=== PATIENT | female | born 1945 | race Caucasian/White ===

== ENCOUNTER → 2017-09-17 15:57 | Outpatient (CLI) | payer MEDICARE, SELFPAY | PROVIDERS: Family Provider Internal Medicine; PCP Internal Medicine; Visit Provider Otolaryngology Otolaryngology/Facial Plastic Surgery | DX: J32.9 Chronic sinusitis, unspecified (principal) | CPT/HCPCS: 87070; 87077; 87186; 87205 ==

== ENCOUNTER → 2018-04-17 15:53 | Outpatient (CLI) | payer MEDICARE, OTHER, SELFPAY | PROVIDERS: Family Provider Internal Medicine; PCP Internal Medicine; Visit Provider Otolaryngology Otolaryngology/Facial Plastic Surgery | DX: J32.9 Chronic sinusitis, unspecified (principal) | CPT/HCPCS: 87070; 87077; 87186; 87205 ==

== ENCOUNTER → 2018-04-26 16:50 | Outpatient (CLI) | payer MEDICARE, OTHER, SELFPAY | PROVIDERS: Family Provider Internal Medicine; PCP Internal Medicine; Visit Provider Otolaryngology Otolaryngology/Facial Plastic Surgery | DX: J32.9 Chronic sinusitis, unspecified (principal) | CPT/HCPCS: 87070; 87205 ==

== ENCOUNTER → 2018-06-19 16:06 | Outpatient (CLI) | payer MEDICARE, OTHER, SELFPAY | PROVIDERS: Family Provider Internal Medicine; PCP Internal Medicine; Referring Provider Otolaryngology Otolaryngology/Facial Plastic Surgery; Visit Provider Otolaryngology Otolaryngology/Facial Plastic Surgery | DX: J32.9 Chronic sinusitis, unspecified (principal) | CPT/HCPCS: 87070; 87077; 87186; 87205 ==

== ENCOUNTER → 2018-07-23 14:11 | Outpatient (CLI) | payer MEDICARE, OTHER, SELFPAY ==
--- NOTE | 2018-07-23 14:17 | CT_ITS ---
STUDY: CT MAXILLOFACIAL SINUSES REASON FOR EXAM: Female, 72 years old. Sinus surgery x2. Sinus drainage bilaterally. RADIATION DOSAGE (If Supplied By Facility): CTDIvol = ( 33.45 ) mGy, DLP = ( 780.55 ) mGycm TECHNIQUE: The patient was scanned in a multi detector CT scanner. High resolution axial imaging was performed without the administration of intravenous contrast material. Sagittal and coronal images were reconstructed. Individualized dose optimization techniques were used for this CT. COMPARISON: None. FINDINGS: FRONTAL SINUSES: Mild mucosal thickening in the frontal sinuses. ETHMOIDAL SINUSES: Bilateral ethmoidectomy defects. Minimal mucosal thickening in the remaining right anterior ethmoid sinus. MAXILLARY SINUSES: Mild mucosal thickening with air-fluid levels in the maxillary sinuses. SPHENOIDAL SINUSES: Mild mucosal thickening with sclerotic wall thickening of the sphenoid sinuses from chronic sinusitis. Widely patent bilateral ethmoidectomy sites and uncinectomy sites. Postsurgical absence of the middle turbinates. Normal bilateral inferior turbinates. Normal midline nasal septum. There is patency of the bilateral nasal airways. The visualized osseous structures are normal. The visualized bilateral orbital contents are normal. CT/Sinus/Facial Bone IMPRESSION: 1. Mild mucosal thickening with air-fluid levels in the maxillary sinuses due to acute sinusitis superimposed on chronic sinusitis. 2. Mild mucosal thickening in the residual right anterior ethmoid sinus. 3. Mild mucosal thickening in the frontal sinuses and sphenoid sinuses with sclerotic wall thickening due to chronic sinusitis. 4. Widely patent bilateral ethmoidectomy sites and bilateral uncinectomy sites. 5. Midline nasal septum. 6. Postsurgical absence of the middle turbinates. Electronically Signed: Maurice Greco MD at 13:23 EST , Service support ,
== END ==
PROVIDERS: Family Provider Internal Medicine; PCP Internal Medicine; Referring Provider Otolaryngology; Visit Provider Otolaryngology
DX: J32.9 Chronic sinusitis, unspecified (principal)
CPT/HCPCS: 70486

== ENCOUNTER 2019-01-23 14:23 | Inpatient (IN) | payer MEDICARE, OTHER, SELFPAY ==
[2019-01-23] VITALS (9 sets, daily range): BP systolic 102–133; BP diastolic 57–78; PULSE 94–114; RESP 17–20; TEMP 37.2–38.2; O2SAT 89–98; BMI 21.7; BMI 21.4
--- NOTE | 2019-01-23 15:00 | RAD_ITS ---
STUDY: X-RAY CHEST REASON FOR EXAM: Female, 73 years old. Cough and wheezing TECHNIQUE: PA and lateral COMPARISON: None. FINDINGS: Lungs are mildly hyperinflated and there is multifocal linear calcifications seen bilaterally. There are poorly defined nodular opacity seen within the lower lobes bilaterally. There appears to be subsegmental atelectasis or infiltrate at the left lung base. There is blunting of the costophrenic sulci likely representing pleural thickening although tiny effusions are not excluded. Normal size heart. Normal mediastinum and kelly. Normal visualized pulmonary arteries. Normal visualized aortic arch and descending thoracic aorta. Dorsal spine demonstrates spondylosis. There are compression fractures status post kyphoplasty. Normal visualized ribs, clavicles, and shoulders. There is no demonstrated abnormality of the visualized soft tissue structures of the upper abdomen. RAD/Chest PA and Lateral IMPRESSION: COPD. Mild left lower lobe atelectasis or infiltrate. Bilateral poorly defined nodular opacities in the lower lobes. Would recommend CT for further evaluation Electronically Signed: Len Quiroz MD at 16:53 EDT , Service support ,
--- NOTE | 2019-01-23 15:00 | EKG12_ITS ---
Test Reason : Blood Pressure : / mmHG Vent. Rate : 105 BPM Atrial Rate : 105 BPM P-R Int : 134 ms QRS Dur : 098 ms QT Int : 320 ms P-R-T Axes : 066 -19 046 degrees QTc Int : 422 ms Sinus tachycardia Low voltage QRS Borderline ECG Confirmed by FLACO OCONNELL MD ([id number]), newspaper managing editor ELFEGO MAS ([id number]) on 01/28/2019 8:22:27 AM Referred By: [facility] Confirmed By:FLACO OCONNELL MD
--- NOTE | 2019-01-23 15:26 | ED.VISSUMM ---
- ER Visit Summary Date of Service: 01/23/19 Chief Complaint: Cough and fever History of Present Illness: The patient is a 73 F who presents with cough and fever that has been getting worse over the past 5 days. Patient states she has having some generalized weakness. Patient states she is coughing up some brown sputum. Patient states she has a fever of 101 at home. Patient states she is allergic to aspirin, ibuprofen, and and acetaminophen so she cannot take any antipyretics. Patient admits to some shortness of breath. Patient also admits to sore throat and rhinorrhea. Patient also admits to some mild dysuria. Patient also admits to a headache. States she has some sharp pain in the left temporal area. Physical Examination: Vital signs are stable. Patient is afebrile here. Patient is in no acute distress. Oral mucosa is pink and moist. Neck is supple. Trachea is midline. There is no JVD noted. Heart was regular and tachycardic. Lungs showed diffuse rhonchi. There is good respiratory effort noted. Abdomen is soft. Bowel sounds are normal. There is no tenderness. There is no rebound or guarding noted. Cranial nerves II to XII are intact. There are no focal motor or sensory deficits noted. Test Results: EKG shows a sinus tachycardia with a rate of 105. There are no acute ST or T wave changes. CBC shows a leukocytosis of 18.8. Basic metabolic profile was essentially within normal limits. Troponin was normal. PA and lateral chest x-ray shows mild left lower lobe atelectasis or infiltrate. Given her symptoms, this is more likely an infiltrate. Blood cultures were obtained. Emergency Department Course and Treatment: Patient has a history of multiple allergies to multiple antibiotics. Patient thinks she is allergic to Levaquin. Patient knows that she can take Augmentin and amoxicillin. Patient also thinks she is able to tolerate Zithromax. Patient was started on Unasyn and Zithromax here in the emergency department. Patient's pulse oximeter dropped to 88% on room air. Patient was started on oxygen. Case was discussed with the hospitalist, Dr. Frederick. He will admit the patient to his service. Disposition: Admit to hospital Impression: Community-acquired pneumonia This note was generated with [employer] dictation software. It may contain incorrect words, spelling, and punctuation that were not noted in review of the chart prior to signing , ED Disposition - Plan for ED Patient: Disposition: Acute Care Hospital [facility] Diagnosis: Community acquired pneumonia Referrals: Evelyne Pascal MD [Primary Care Provider] -
--- NOTE | 2019-01-23 15:30 | ED.DCSUM_ITS ---
- ER Visit Summary Date of Service: 01/23/19 Chief Complaint: Cough and fever History of Present Illness: The patient is a 73 F who presents with cough and fever that has been getting worse over the past 5 days. Patient states she has having some generalized weakness. Patient states she is coughing up some brown sputum. Patient states she has a fever of 101 at home. Patient states she is allergic to aspirin, ibuprofen, and and acetaminophen so she cannot take any antipyretics. Patient admits to some shortness of breath. Patient also admits to sore throat and rhinorrhea. Patient also admits to some mild dysuria. Patient also admits to a headache. States she has some sharp pain in the left temporal area. Physical Examination: Vital signs are stable. Patient is afebrile here. Patient is in no acute distress. Oral mucosa is pink and moist. Neck is supple. Trachea is midline. There is no JVD noted. Heart was regular and tachycardic. Lungs showed diffuse rhonchi. There is good respiratory effort noted. Abdomen is soft. Bowel sounds are normal. There is no tenderness. There is no rebound or guarding noted. Cranial nerves II to XII are intact. There are no focal motor or sensory deficits noted. Test Results: EKG shows a sinus tachycardia with a rate of 105. There are no acute ST or T wave changes. CBC shows a leukocytosis of 18.8. Basic metabolic profile was essentially within normal limits. Troponin was normal. PA and lateral chest x-ray shows mild left lower lobe atelectasis or infiltrate. Given her symptoms, this is more likely an infiltrate. Blood cultures were obtained. Emergency Department Course and Treatment: Patient has a history of multiple allergies to multiple antibiotics. Patient thinks she is allergic to Levaquin. Patient knows that she can take Augmentin and amoxicillin. Patient also thinks she is able to tolerate Zithromax. Patient was started on Unasyn and Zithromax here in the emergency department. Patient's pulse oximeter dropped to 88% on room air. Patient was started on oxygen. Case was discussed with the hospitalist, Dr. Frederick. He will admit the patient to his service. Disposition: Admit to hospital Impression: Community-acquired pneumonia This note was generated with [employer] dictation software. It may contain incorrect words, spelling, and punctuation that were not noted in review of the chart prior to signing , ED Disposition - Plan for ED Patient: Disposition: Acute Care Hospital [facility] Diagnosis: Community acquired pneumonia Referrals: Evelyne Pascal MD [Primary Care Provider] -
[2019-01-23 15:36] LABS: Absolute Lymphocyte Count 1.75 X10^3/ul (0.83-4.51); Absolute Neutrophil Count 15.8 X10^3/uL (2.0-7.7); Basophil# 0.01 X10^3/uL; Basophil% 0.1 % (0-1); Hematocrit 37.8 % (37-47); Hemoglobin 13.2 g/dl (12.0-15.0); Lymphocyte # 1.75 X10^3/ul (4.0); Lymphocyte % 9.3 % (19-41); Mean Corp Hgb Conc 34.9 g/gl (32-36); Mean Corpuscular Hgb 30.3 pg (27.0-32.0); Mean Corpuscular Volume 86.9 fL (81-99); Mean Platelet Vol. 9.5 fl (6.2-12.0); Monocyte# 1.03 X10^3/uL; Monocyte% 5.5 % (0-10); Neutrophil # 15.84 X10^3/uL (2.7-7.7); Neutrophil % 84.5 % (47-70); Platelet Count 186 K/mm3 (150-450); RBC Distribution Width CV 12.8 % (11.6-14.6); RBC Distribution Width SD 41.2 fl (35.1-43.9); Red Blood Count 4.35 M/mm3 (4.2-5.4); White Blood Count 18.8 K/mm3 (4.4-11.0)
[2019-01-23 15:37] LABS: Differential Indicated SCAN CRITERIA MET; POSITIVE COUNT NO; POSITIVE DIFFERENTIAL NO; POSITIVE MORPHOLOGY YES
[2019-01-23 16:03] LABS: Anion Gap 10 (5-15); BUN 10 mg/dL (7-18); BUN/Creat Ratio 11.8 RATIO (10-20); Calcium,Total 8.3 mg/dL (8.5-10.1); Chloride 97 mmol/L (98-107); Creatinine, Serum 0.85 mg/dL (0.55-1.02); EST Glomerular Filtration Rate 70 mL/min (>60); Est Glom Filt Rate - Afr Amer 85 mL/min (>60); Estimated Creatinine Clearance 48.01 ml/min; Glucose 138 mg/dL (74-106); Potassium 3.6 mmol/L (3.5-5.1); Sodium Level 134 mmol/L (136-145)
[2019-01-23 16:04] LABS: Platelet Estimate ADEQUATE (ADEQ); Red Cell Morphology NORM C+C NORMAL (NORM C&C)
--- NOTE | 2019-01-23 17:24 | PCM.HP.STD ---
Problem List (1) Sepsis Status: Acute (2) Community acquired pneumonia Status: Acute (3) COPD (chronic obstructive pulmonary disease) Status: Chronic (4) GERD (gastroesophageal reflux disease) Status: Acute (5) Chronic sinusitis Status: Chronic History of Present Illness Date of Admission: 01/23/19 Chief Complaint: Shortness of breath and fatigue The patient is a 73 year old F with PMH as below who presents with 5 days of not feeling well. She says initially she had upper respiratory infection-like symptoms and a sore throat and she went to an urgent care and was given steroid and symptomatic treatment. She has since progressed to having fevers at home as well as a productive cough and she presented to the ER with a left lower lobe consolidation on chest x-ray as well as a leukocytosis to 18. She has not been able to eat or drink anything over the last several days because she said that everything tasted like medicine so she is afraid she might be dehydrated. She was maintaining her saturations in the ER okay on room air though she did drop to 89% and was placed on 2 L nasal cannula. Past Medical History Past Medical History (Chronic Problems): Chronic Problems COPD (chronic obstructive pulmonary disease) (Chronic) Chronic sinusitis (Chronic) Allergies acetaminophen Allergy (Verified 01/23/19 14:29) Shortness of breath aspirin Allergy (Verified 01/23/19 14:29) Shortness of breath cefuroxime [From Ceftin] Allergy (Verified 01/23/19 14:29) Shortness of breath citric acid [From [place]] Allergy (Verified 01/23/19 14:29) Shortness of breath ibuprofen Allergy (Verified 01/23/19 14:29) Shortness of breath sodium bicarbonate [From [place]] Allergy (Verified 01/23/19 14:29) Shortness of breath diclofenac Adverse Reaction (Verified 01/23/19 14:29) Upset Stomach MANY OTHERS Allergy (Uncoded 01/23/19 14:29) Other Surgical History: hysterectomy, - - Foot, sinus, wrist surgeries Smoking Status: Never smoker Alcohol: None Drugs: None - *Family History Maternal History Items: Cancer, Heart Disease Paternal History Items: Cancer, Heart Disease Review of Systems Constitutional: Reports: Chills, Fever, Fatigue. Denies: Weight Change HEENT: Denies: Head Aches, Sinus Congestion, Sinus Drainage Cardiovascular: Denies: Chest Pain, Palpitations Respiratory: Reports: Cough, Shortness of Breath, Sputum production. Denies: Shortness of breath at rest Gastrointestinal: Denies: Abdominal Pain, Nausea, Vomiting Genitourinary: Denies: Dysuria Musculoskeletal: Denies: Joint Pain, Joint Tenderness Skin: Denies: Rash, Wounds Neurological: Denies: Numbness, Tingling, Focal weakness Psychiatric: Denies: Anxiety, Depression, Suicidal Ideations Hematologic/ Lymphatic: Denies: Easy Bruising, Easy Bleeding VTE Information - Inpt Only VTE Present on Admission: No Patient Problems: Active and Suspected Problems Community acquired pneumonia (Acute) Sepsis (Acute) GERD (gastroesophageal reflux disease) (Acute) - Physical Exam General: Alert, Oriented x3, Cooperative, No apparent distress HEENT: Atraumatic, PERRLA, EOMI, Normocephalic Oral: Dry Mucosa Neck: Supple, No JVD Lungs: Clear to auscultation, No rhonchi, No wheeze, No rales, Diminished, - - Poor air movement Cardiovascular: Regular rate, Regular Rhythm, Normal S1, Normal S2, No murmurs Abdomen: Soft, Non Tender, Non-Distended, No Hepato-splenomegaly Extremities: No edema, Capillary Refill Less than 3 Seconds Skin: No rashes, No breakdown Neurological: Neuro grossly intact, Sensory exam intact to light touch and pain Psych/Mental Status: Normal Affect, Appropriate Vital Signs Temp Pulse Resp BP Pulse Ox 99.0 F 101 H 19 H 105/61 96 01/23/19 17:10 01/23/19 17:10 01/23/19 17:10 01/23/19 17:10 01/23/19 17:10 Oxygen Flow Rate (L/min) 3 Oxygen Delivery Method Room Air Weight: 119 lb Body Mass Index (BMI) 21.7 Laboratory Tests Past 24 Hrs 01/23/19 01/23/19 15:23 15:23 WBC 18.8 H RBC 4.35 Hgb 13.2 Hct 37.8 MCV 86.9 MCH 30.3 MCHC 34.9 RDW 12.8 RDW Differential 41.2 Plt Count 186 MPV 9.5 Immature Gran % (Auto) 0.600 Neut % (Auto) 84.5 H Lymph % (Auto) 9.3 L [place] % (Auto) 5.5 Eos % (Auto) 0.0 Baso % (Auto) 0.1 Absolute Neuts (auto) 15.8 H Absolute Lymphs (auto) 1.75 Total Counted Not Reportable Platelet Estimate ADEQUATE RBC Morphology NORM C+C Sodium 134 L Potassium 3.6 Chloride 97 L Carbon Dioxide 27.0 Anion Gap 10 BUN 10 Creatinine 0.85 Estim Creat Clear Calc 48.01 Est GFR (MDRD) Af Amer 85 Est GFR (MDRD) Non-Af 70 BUN/Creatinine Ratio 11.8 Glucose 138 H Calcium 8.3 L Troponin I < 0.015 Assessment/Plan All Active Problems Community acquired pneumonia (Acute) Sepsis (Acute) GERD (gastroesophageal reflux disease) (Acute) 1. 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 Asthma versus COPD -In a possible exacerbation -Continue with DuoNeb and Solu-Medrol 40 IV 3 times daily -She is on Brio Ellipta and Symbicort as an outpatient -She is also on albuterol as needed 3. Depression/anxiety -Stable -Continue with Cymbalta 4. GERD -Stable -Continue with PPI 5. Chronic sinusitis -She has had multiple sinus surgeries and revisions. -Continue with her beclomethasone dipropionate and Astelin nasal sprays DVT: Lovenox
--- NOTE | 2019-01-23 17:36 | NURSING ---
114 MED SURG KOTSONIS PNEUMONIA
--- NOTE | 2019-01-23 17:45 | CASEMGMT ---
RN CM Assessment Introduced role of RN CM to patient.? Patient is alert, oriented and able?to participate in RN CM Assessment. ?Care providers, pharmacy, and demographics verified. Presentation: Fever, Cough, SOB, Generalized Weakness-worse over the past 5days. Admit Dx: PNA Re-Admit: No Barriers/Issues: Patient tearful/scared as she was told that she has nodules in her lungs, states all she can do is have ppl pray for her. CM offered Hospital Sample Taker Operator to visit her tomorrow if available and agrees. Denies ever being a smoker. States that her family did though, states strong family h/o cancer. PCP: Evelyne Pascal Specialists: ENT- Dr Rice, Neuro in [place] for Essential Tremors- Dr Alma Courtney, Pulm- Dr Ortiz Patel Pref[facility]acy: [facility] Insurance: [employer], [employer] [facility] Rx Benefit:?Yes LNOK: Stanley Elizabeth LW/HPOA: Yes both on file at [facility], HPOA- Stanley Elizabeth Living Arrangements:? Lives with her in a Ranch home, 3 steps to enter ADL?s: Independent with ambulation and ADL's Transportation: Patient drives, upon DC DME: Nebulizer, Preference of whomever took over for [facility] if DME needed or Company in network with [facility] secondary. HHC: None SNF: None Goal: Home, does not think will need anything. Denies questions or concerns at this time, aware CM remains available for an emerging needs. DC PLAN: Home with possible Home O2. RADHA Orantes
[2019-01-23] MEDS: 0.9% Normal Saline 1,000 ML 100 ML IV (18:47)
[2019-01-23] MEDS: Ipratropium/Albuterol Sulfate 3 ML AMPUL.NEB INHALATION ×2 (19:03→22:52)
--- NOTE | 2019-01-23 20:20 | NURSING ---
Patient called out d/t burning up L arm after started IV zithromax. Redness/warm noted to L arm, face, and back. Vitals unchanged. Denies feelings of swelling/itching anywhere else. Will contact doctor.
[2019-01-23] MEDS: LORazepam 0.5 MG Tablet 1 MG PO (21:34)
[2019-01-23] MEDS: levoFLOXacin IV 750 MG/150 ML BAG 100 MG IV (22:08)
[2019-01-24] VITALS (11 sets, daily range): BP systolic 117–133; BP diastolic 53–66; PULSE 89–120; RESP 15–18; TEMP 36.7–37.1; O2SAT 92–98
[2019-01-24 06:16] LABS: Absolute Lymphocyte Count 1.33 X10^3/ul (0.83-4.51); Basophil# 0.02 X10^3/uL; Basophil% 0.1 % (0-1); Hematocrit 35.5 % (37-47); Hemoglobin 12.1 g/dl (12.0-15.0); Lymphocyte # 1.33 X10^3/ul (4.0); Lymphocyte % 8.8 % (19-41); Mean Corp Hgb Conc 34.1 g/gl (32-36); Mean Corpuscular Volume 87.9 fL (81-99); Mean Platelet Vol. 9.7 fl (6.2-12.0); Monocyte# 1.71 X10^3/uL; Monocyte% 11.3 % (0-10); Neutrophil # 11.97 X10^3/uL (2.7-7.7); Neutrophil % 78.9 % (47-70); Platelet Count 203 K/mm3 (150-450); RBC Distribution Width CV 12.7 % (11.6-14.6); RBC Distribution Width SD 39.8 fl (35.1-43.9); Red Blood Count 4.04 M/mm3 (4.2-5.4); White Blood Count 15.2 K/mm3 (4.4-11.0)
[2019-01-24 06:19] LABS: Differential Indicated SCAN CRITERIA MET; POSITIVE COUNT NO; POSITIVE DIFFERENTIAL YES; POSITIVE MORPHOLOGY NO
[2019-01-24 06:33] LABS: Anion Gap 8 (5-15); BUN 7 mg/dL (7-18); BUN/Creat Ratio 9.8 RATIO (10-20); Calcium,Total 7.7 mg/dL (8.5-10.1); Chloride 104 mmol/L (98-107); Creatinine, Serum 0.71 mg/dL (0.55-1.02); EST Glomerular Filtration Rate 86 mL/min (>60); Est Glom Filt Rate - Afr Amer 104 mL/min (>60); Estimated Creatinine Clearance 40.81 ml/min; Glucose 132 mg/dL (74-106); Potassium 3.8 mmol/L (3.5-5.1); Sodium Level 137 mmol/L (136-145)
[2019-01-24] MEDS: Ipratropium/Albuterol Sulfate 3 ML AMPUL.NEB INHALATION ×4 (07:05→19:40)
[2019-01-24] MEDS: 0.9% Normal Saline 1,000 ML 100 ML IV ×2 (08:15→18:50)
[2019-01-24] MEDS: Estrogens,Conj. 0.625 MG Tablet PO (08:15)
--- NOTE | 2019-01-24 08:56 | CASEMGMT ---
LW/POAdriana in echart, SW printed and placed in chart. MORRIS Calderon
--- NOTE | 2019-01-24 09:19 | CASEMGMT ---
SW met w/pt in room, pt tearful. Pt was told has nodules on her lungs, is concerned about it. Pt explains has not been feeling well for a week, has been in bed. She is not used to being a patient in the hospital, and it is difficult. Pt is used to being very independent. Pt also has a history of depression. Pt explains that she did not used to be depressed, lost a son nine years ago and has been depressed since. Pt does see Dr. Leavitt at [facility] for counseling and states that this is helpful. Pt reports her family to be supportive, is , has another son and step son. She states her is very busy however, and told her step son to not come see her as he could get sick. Her son is in [place]. Pt has been texting w/her family. Pt is one of 12 children, lost a brother last year--which brought back a lot from when she lost her son. Pt does deny being suicidal at this time. SW offered support to pt in regard to her loss and her current health issues. SW let pt know that SW remains available for support should she want to see SW again. She also confirms would like to speak w/the technical sme, SW explained will call. SW called Pizza Delivery Driver and left a message to see pt. SW remains available otherwise no further needs are anticipated. MORRIS Calderon
[2019-01-24] MEDS: Montelukast 10 MG Tablet PO (10:56)
[2019-01-24] MEDS: DULoxetine Hcl 30 MG Capsule PO (10:56)
[2019-01-24] MEDS: Pantoprazole Sodium 40 MG Tablet PO (10:56)
[2019-01-24] MEDS: Enoxaparin 40 MG/0.4 ML Syringe SC (10:56)
[2019-01-24] MEDS: Azelastine HCl NASAL.SRY 2 SPRAY NASAL (10:56)
--- NOTE | 2019-01-24 12:25 | PCM.PROGNOTE ---
<Macarena Gong - Last Filed: 01/24/19 12:46> Patient Problems: Active and Suspected Problems Community acquired pneumonia (Acute) Sepsis (Acute) GERD (gastroesophageal reflux disease) (Acute) Subjective: Patient seen and examined. Reports she still feels generally unwell however breathing slightly improved. Fever improved. - Physical Exam General: Alert, Oriented x3, Cooperative HEENT: Atraumatic, PERRLA, EOMI, Normocephalic Oral: Dry Mucosa Neck: Supple, No JVD, Negative Carotid Bruits Lungs: Clear to auscultation, Diminished Cardiovascular: Regular rate, Regular Rhythm, Normal S1, Normal S2, No murmurs Abdomen: Bowel Sounds Present, Soft, Non Tender, Non-Distended Extremities: No clubbing, No cyanosis, No edema, Capillary Refill Less than 3 Seconds Skin: No rashes, No breakdown Musculoskeletal: No Tenderness to Palpation of Joints or Extremities Neurological: Cranial nerves II-XII grossly intact, Neuro grossly intact Psych/Mental Status: Normal Affect, Appropriate Vital Signs Temp Pulse Resp BP Pulse Ox 98.2 F 116 H 15 118/57 L 92 01/24/19 10:49 01/24/19 10:49 01/24/19 10:49 01/24/19 10:49 01/24/19 11:07 Oxygen Flow Rate (L/min) 1 Oxygen Delivery Method Room Air Weight: 119 lb 0.794 oz Body Mass Index (BMI) 21.4 Intake and Output for Last 24 Hours 01/22/19 01/23/19 01/24/19 23:59 23:59 23:59 Intake Total 994 / 994 1695 / 1695 Balance 994 / 994 1695 / 1695 Laboratory Tests Past 24 Hrs 01/23/19 01/23/19 01/24/19 15:23 15:23 05:40 WBC 18.8 H RBC 4.35 Hgb 13.2 Hct 37.8 MCV 86.9 MCH 30.3 MCHC 34.9 RDW 12.8 RDW Differential 41.2 Plt Count 186 MPV 9.5 Immature Gran % (Auto) 0.600 Neut % (Auto) 84.5 H Lymph % (Auto) 9.3 L [place] % (Auto) 5.5 Eos % (Auto) 0.0 Baso % (Auto) 0.1 Absolute Neuts (auto) 15.8 H Absolute Lymphs (auto) 1.75 Total Counted Not Reportable Diff Path Review Platelet Estimate ADEQUATE RBC Morphology NORM C+C Sodium 134 L 137 Potassium 3.6 3.8 Chloride 97 L 104 Carbon Dioxide 27.0 25.0 Anion Gap 10 8 BUN 10 7 Creatinine 0.85 0.71 Estim Creat Clear Calc 48.01 40.81 Est GFR (MDRD) Af Amer 85 104 Est GFR (MDRD) Non-Af 70 86 BUN/Creatinine Ratio 11.8 9.8 L Glucose 138 H 132 H Calcium 8.3 L 7.7 L Troponin I < 0.015 01/24/19 05:40 WBC 15.2 H RBC 4.04 L Hgb 12.1 Hct 35.5 L MCV 87.9 MCH 30.0 MCHC 34.1 RDW 12.7 RDW Differential 39.8 Plt Count 203 MPV 9.7 Immature Gran % (Auto) 0.900 Neut % (Auto) 78.9 H Lymph % (Auto) 8.8 L [place] % (Auto) 11.3 H Eos % (Auto) 0.0 Baso % (Auto) 0.1 Absolute Neuts (auto) 12.0 H Absolute Lymphs (auto) 1.33 Total Counted Not Reportable Diff Path Review May foll Platelet Estimate RBC Morphology Sodium Potassium Chloride Carbon Dioxide Anion Gap BUN Creatinine Estim Creat Clear Calc Est GFR (MDRD) Af Amer Est GFR (MDRD) Non-Af BUN/Creatinine Ratio Glucose Calcium Troponin I Medical Necessity - Tobacco Use Smoking Status: Never smoker Assessment/Plan All Active Problems Community acquired pneumonia (Acute) Sepsis (Acute) GERD (gastroesophageal reflux disease) (Acute) 1. Acute hypoxic respiratory insufficiency secondary to sepsis secondary to community acquired pneumonia presumed secondary to gram-positive organism-chest x-ray admission with COPD, left lower lobe atelectasis or infiltrate. Leukocytosis improving. Blood culture pending. Sputum culture ordered. Continue IV Levaquin. DuoNeb aerosol. Continue supplement oxygen to maintain O2 at or above 90%. Wean as tolerated. 2. Asthma versus COPD with possible exacerbation-patient on Brio Ellipta and Symbicort at baseline. Albuterol and DuoNeb aerosols. IV Solu-Medrol. Recommend outpatient follow-up for pulmonary function testing and CT of chest following discharge. 3. GERD-continue PPI. 4. Chronic sinusitis-history of multiple sinus surgeries. Continue home beclomethasone and Astelin regimen. 5. Depression/anxiety-continue home duloxetine, Ativan, trazodone regimen. DVT prophylaxis-Lovenox subcu This patient was seen by MARTY Ruano under the supervision of Dr. Smith. <SarahNoni - Last Filed: 01/24/19 14:21> - Physical Exam Vital Signs Temp Pulse Resp BP Pulse Ox 98.2 F 116 H 15 118/57 L 92 01/24/19 10:49 01/24/19 10:49 01/24/19 10:49 01/24/19 10:49 01/24/19 11:07 Oxygen Flow Rate (L/min) 1 Oxygen Delivery Method Room Air Weight: 119 lb 0.794 oz Body Mass Index (BMI) 21.4 Intake and Output for Last 24 Hours 01/22/19 01/23/19 01/24/19 23:59 23:59 23:59 Intake Total 994 / 994 1695 / 1695 Balance 994 / 994 1695 / 1695 Laboratory Tests Past 24 Hrs 01/23/19 01/23/19 01/24/19 15:23 15:23 05:40 WBC 18.8 H RBC 4.35 Hgb 13.2 Hct 37.8 MCV 86.9 MCH 30.3 MCHC 34.9 RDW 12.8 RDW Differential 41.2 Plt Count 186 MPV 9.5 Immature Gran % (Auto) 0.600 Neut % (Auto) 84.5 H Lymph % (Auto) 9.3 L [place] % (Auto) 5.5 Eos % (Auto) 0.0 Baso % (Auto) 0.1 Absolute Neuts (auto) 15.8 H Absolute Lymphs (auto) 1.75 Total Counted Not Reportable Diff Path Review Platelet Estimate ADEQUATE RBC Morphology NORM C+C Sodium 134 L 137 Potassium 3.6 3.8 Chloride 97 L 104 Carbon Dioxide 27.0 25.0 Anion Gap 10 8 BUN 10 7 Creatinine 0.85 0.71 Estim Creat Clear Calc 48.01 40.81 Est GFR (MDRD) Af Amer 85 104 Est GFR (MDRD) Non-Af 70 86 BUN/Creatinine Ratio 11.8 9.8 L Glucose 138 H 132 H Calcium 8.3 L 7.7 L Troponin I < 0.015 01/24/19 05:40 WBC 15.2 H RBC 4.04 L Hgb 12.1 Hct 35.5 L MCV 87.9 MCH 30.0 MCHC 34.1 RDW 12.7 RDW Differential 39.8 Plt Count 203 MPV 9.7 Immature Gran % (Auto) 0.900 Neut % (Auto) 78.9 H Lymph % (Auto) 8.8 L [place] % (Auto) 11.3 H Eos % (Auto) 0.0 Baso % (Auto) 0.1 Absolute Neuts (auto) 12.0 H Absolute Lymphs (auto) 1.33 Total Counted Not Reportable Diff Path Review May foll Platelet Estimate RBC Morphology Sodium Potassium Chloride Carbon Dioxide Anion Gap BUN Creatinine Estim Creat Clear Calc Est GFR (MDRD) Af Amer Est GFR (MDRD) Non-Af BUN/Creatinine Ratio Glucose Calcium Troponin I Assessment/Plan Patient seen by MARTY Ruano under my supervision Patient was admitted with complaint of general feeling of unwellness, shortness of breath and fatigue for 5 days. She had previously been seen at an urgent care center for upper respiratory tract infection and a sore throat and was told she had a viral respiratory infection was given steroids and breathing treatments. However subsequently did not feel better and continued to have fevers and chills as well as a productive cough and persistent anorexia. She therefore came into the ED where she was found to have a left lower lobe consolidation and leukocytosis of 18. She is being managed for acute hypoxic respiratory insufficiency due to community-acquired pneumonia. Of note, she was saturating at 89% on room air in the ED and required 2 L of oxygen. Patient seen and examined this morning. She was quite tearful because she said her son about 9 years ago when she was told morning him. Additionally she also missed her granddaughters graduation constitution party due to her not being well. She has been battling depression and is currently seeing a psychologist. States her breathing is a bit better and she still coughing productive of brownish sputum. She denies any chest pain or palpitations, dizziness, diarrhea vomiting. Review of systems otherwise negative. Labs and vitals reviewed. o/e: Vital Signs Height 5 ft 2.5 in Weight: 119 lb 0.794 oz Weight in Pounds 119.0 lbs Pulse Ox 92 Temperature 98.2 F Pulse Rate 116 Respiratory Rate 15 Blood Pressure 118/57 Blood Pressure Position Semi-Fowlers General: Alert, Oriented x3, Cooperative HEENT: Atraumatic, PERRLA, EOMI, Normocephalic Oral: Dry Mucosa Neck: Supple, No JVD, Negative Carotid Bruits Lungs: decreased breath sounds bibasally, no wheezes or crackles. on 1L of oxygen. Cardiovascular: Regular rate, Regular Rhythm, Normal S1, Normal S2, No murmurs Abdomen: Bowel Sounds Present, Soft, Non Tender, Non-Distended Extremities: No clubbing, No cyanosis, No edema, Capillary Refill Less than 3 Seconds Skin: No rashes, No breakdown Musculoskeletal: No Tenderness to Palpation of Joints or Extremities Neurological: Cranial nerves II-XII grossly intact, Neuro grossly intact Psych/Mental Status: Normal Affect, Appropriate Plan is continue IV Levaquin. Continue with breathing treatments. Leukocytosis is down from 18.8-15.2, though the steroids she was on is likely affecting this as well. Titrate oxygen to maintain saturation above 90%. Rest of management as per MARTY Ruano's notes which I have reviewed and endorsed. Code Visit Inpatient E&M: 83799 Subs Hosp L3
[2019-01-24 14:25] LABS: Pathologist Review Reviewed
[2019-01-24] MEDS: LORazepam 0.5 MG Tablet 1 MG PO (22:10)
[2019-01-24] MEDS: levoFLOXacin IV 750 MG/150 ML BAG 100 MG IV (22:11)
[2019-01-24] MEDS: Primidone 250 MG Tablet PO (22:11)
[2019-01-24] MEDS: Fluticasone 0.05% 1 SPRAY NASAL.SRY 2 SPRAY NASAL (22:26)
[2019-01-24] MEDS: traZODone 50 MG Tablet PO (23:14)
[2019-01-25] VITALS (12 sets, daily range): BP systolic 110–134; BP diastolic 58–80; PULSE 68–107; RESP 14–20; TEMP 36.5–36.9; O2SAT 95–98
[2019-01-25] MEDS: 0.9% Normal Saline 1,000 ML 100 ML IV (06:36)
[2019-01-25] MEDS: Ipratropium/Albuterol Sulfate 3 ML AMPUL.NEB INHALATION ×4 (06:45→19:18)
[2019-01-25 07:32] LABS: Hematocrit 34.9 % (37-47); Hemoglobin 11.7 g/dl (12.0-15.0); Mean Corp Hgb Conc 33.5 g/gl (32-36); Mean Corpuscular Hgb 29.7 pg (27.0-32.0); Mean Corpuscular Volume 88.6 fL (81-99); Mean Platelet Vol. 9.8 fl (6.2-12.0); Platelet Count 220 K/mm3 (150-450); RBC Distribution Width CV 13.2 % (11.6-14.6); RBC Distribution Width SD 42.8 fl (35.1-43.9); Red Blood Count 3.94 M/mm3 (4.2-5.4); White Blood Count 12.7 K/mm3 (4.4-11.0)
[2019-01-25 07:41] LABS: Scan Indicated on CBC? Y/N NO
[2019-01-25 07:54] LABS: Anion Gap 9 (5-15); BUN 6 mg/dL (7-18); BUN/Creat Ratio 8.4 RATIO (10-20); Calcium,Total 8.2 mg/dL (8.5-10.1); Chloride 112 mmol/L (98-107); Creatinine, Serum 0.71 mg/dL (0.55-1.02); EST Glomerular Filtration Rate 86 mL/min (>60); Est Glom Filt Rate - Afr Amer 104 mL/min (>60); Estimated Creatinine Clearance 40.81 ml/min; Glucose 141 mg/dL (74-106); Potassium 3.7 mmol/L (3.5-5.1); Sodium Level 144 mmol/L (136-145)
[2019-01-25] MEDS: Pantoprazole Sodium 40 MG Tablet PO (08:16)
[2019-01-25] MEDS: Montelukast 10 MG Tablet PO (08:16)
[2019-01-25] MEDS: Azelastine HCl NASAL.SRY 2 SPRAY NASAL (08:17)
[2019-01-25] MEDS: Enoxaparin 40 MG/0.4 ML Syringe SC (08:17)
[2019-01-25] MEDS: Estrogens,Conj. 0.625 MG Tablet PO (08:18)
[2019-01-25] MEDS: NYSTATIN 500,000 UNIT/5 ML UDC 500000 UNIT PO ×4 (10:21→22:10)
--- NOTE | 2019-01-25 11:37 | PCM.PROGNOTE ---
<Macarena Gong - Last Filed: 01/25/19 11:45> Patient Problems: Active and Suspected Problems Community acquired pneumonia (Acute) Sepsis (Acute) GERD (gastroesophageal reflux disease) (Acute) Subjective: Patient seen and examined. Complains of generalized weakness and malaise. Breathing improved. Flat affect, depressed. - Physical Exam General: Alert, Oriented x3, Cooperative HEENT: Atraumatic, PERRLA, EOMI, Normocephalic Neck: Supple, No JVD, Negative Carotid Bruits Lungs: Clear to auscultation, Diminished Cardiovascular: Regular rate, Regular Rhythm, Normal S1, Normal S2, No murmurs Abdomen: Bowel Sounds Present, Soft, Non Tender, Non-Distended Extremities: No clubbing, No cyanosis, No edema, Capillary Refill Less than 3 Seconds Skin: No rashes, No breakdown Musculoskeletal: No Tenderness to Palpation of Joints or Extremities Neurological: Cranial nerves II-XII grossly intact, Neuro grossly intact Psych/Mental Status: Flat Affect, Depressed Vital Signs Temp Pulse Resp BP Pulse Ox 98.0 F 99 17 115/58 L 97 01/25/19 08:22 01/25/19 08:22 01/25/19 10:00 01/25/19 08:22 01/25/19 10:00 Oxygen Flow Rate (L/min) 1 Oxygen Delivery Method Room Air Weight: 119 lb 0.794 oz Body Mass Index (BMI) 21.4 Intake and Output for Last 24 Hours 01/23/19 01/24/19 01/25/19 23:59 23:59 23:59 Intake Total 994 / 994 3477 / 3477 795 / 795 Output Total 800 / 800 Balance 994 / 994 2677 / 2677 795 / 795 Microbiology Past 72 Hours 01/24/19 16:44 Gram Stain - Preliminary Sputum, Expectorated/Coughed 01/24/19 16:40 Legionella Antigen - Final Urine, Clean Catch 01/24/19 16:40 Streptococcus pneumoniae Antigen (M - Final Urine, Clean Catch Laboratory Tests Past 24 Hrs 01/24/19 01/25/19 01/25/19 05:40 06:34 06:34 WBC 12.7 H RBC 3.94 L Hgb 11.7 L Hct 34.9 L MCV 88.6 MCH 29.7 MCHC 33.5 RDW 13.2 RDW Differential 42.8 Plt Count 220 MPV 9.8 Diff Path Review Reviewed Sodium 144 Potassium 3.7 Chloride 112 H Carbon Dioxide 23.0 Anion Gap 9 BUN 6 L Creatinine 0.71 Estim Creat Clear Calc 40.81 Est GFR (MDRD) Af Amer 104 Est GFR (MDRD) Non-Af 86 BUN/Creatinine Ratio 8.4 L Glucose 141 H Calcium 8.2 L Medical Necessity - Tobacco Use Smoking Status: Never smoker Assessment/Plan All Active Problems Community acquired pneumonia (Acute) Sepsis (Acute) GERD (gastroesophageal reflux disease) (Acute) 1. Acute hypoxic respiratory insufficiency secondary to sepsis secondary to community acquired pneumonia presumed secondary to gram-positive organism-chest x-ray admission with COPD, left lower lobe atelectasis or infiltrate. Leukocytosis improving. Blood culture pending. Sputum culture shows normal respiratory frankie. Continue IV Levaquin. Albuterol/DuoNeb aerosol. Oxygen now stable on room air. Walking pulse ox prior to discharge. 2. Asthma versus COPD with possible exacerbation-patient on Brio Ellipta and Symbicort at baseline. Albuterol and DuoNeb aerosols. DC IV Solu-Medrol, transition to prednisone taper. Recommend outpatient follow-up for pulmonary function testing and CT of chest following discharge. 3. GERD-continue PPI. 4. Chronic sinusitis-history of multiple sinus surgeries. Continue home beclomethasone and Astelin regimen. 5. Depression/anxiety-continue home duloxetine, Ativan, trazodone regimen. DVT prophylaxis-Lovenox subcu Discharge planning: Anticipate discharge home tomorrow if continued improvement. This patient was seen by MARTY Ruano under the supervision of Dr. Smith. <Noni Smith - Last Filed: 01/25/19 12:43> - Physical Exam Vital Signs Temp Pulse Resp BP Pulse Ox 98.0 F 105 H 18 115/58 L 97 01/25/19 08:22 01/25/19 11:02 01/25/19 11:02 01/25/19 08:22 01/25/19 10:00 Oxygen Flow Rate (L/min) 1 Oxygen Delivery Method Room Air Weight: 119 lb 0.794 oz Body Mass Index (BMI) 21.4 Intake and Output for Last 24 Hours 01/23/19 01/24/19 01/25/19 23:59 23:59 23:59 Intake Total 994 / 994 3477 / 3477 795 / 795 Output Total 800 / 800 Balance 994 / 994 2677 / 2677 795 / 795 Microbiology Past 72 Hours 01/24/19 16:44 Gram Stain - Preliminary Sputum, Expectorated/Coughed Respiratory Culture - Preliminary Appears to be normal respiratory frankie. Further studies to follow. 01/24/19 16:40 Legionella Antigen - Final Urine, Clean Catch 01/24/19 16:40 Streptococcus pneumoniae Antigen (M - Final Urine, Clean Catch Laboratory Tests Past 24 Hrs 01/24/19 01/25/19 01/25/19 05:40 06:34 06:34 WBC 12.7 H RBC 3.94 L Hgb 11.7 L Hct 34.9 L MCV 88.6 MCH 29.7 MCHC 33.5 RDW 13.2 RDW Differential 42.8 Plt Count 220 MPV 9.8 Diff Path Review Reviewed Sodium 144 Potassium 3.7 Chloride 112 H Carbon Dioxide 23.0 Anion Gap 9 BUN 6 L Creatinine 0.71 Estim Creat Clear Calc 40.81 Est GFR (MDRD) Af Amer 104 Est GFR (MDRD) Non-Af 86 BUN/Creatinine Ratio 8.4 L Glucose 141 H Calcium 8.2 L Assessment/Plan Patient seen by MARTY Ruano under my supervision Patient seen and examined this morning. Shortness of breath has improved and she does feel better today. Patient however still looks quite depressed but this is chronic. Review of systems otherwise negative. Labs and vitals reviewed. Vital Signs Height 5 ft 2.5 in Weight: 119 lb 0.794 oz Weight in Pounds 119.0 lbs Pulse Ox 97 Temperature 98.0 F Pulse Rate 105 Respiratory Rate 18 Blood Pressure 115/58 Blood Pressure Position Semi-Fowlers General: Alert, Oriented x3, Cooperative HEENT: Atraumatic, PERRLA, EOMI, Normocephalic Oral: Dry Mucosa Neck: Supple, No JVD, Negative Carotid Bruits Lungs: decreased breath sounds bibasally, no wheezes or crackles. on room air. Cardiovascular: Regular rate, Regular Rhythm, Normal S1, Normal S2, No murmurs Abdomen: Bowel Sounds Present, Soft, Non Tender, Non-Distended Extremities: No clubbing, No cyanosis, No edema, Capillary Refill Less than 3 Seconds Skin: No rashes, No breakdown Musculoskeletal: No Tenderness to Palpation of Joints or Extremities Neurological: Cranial nerves II-XII grossly intact, Neuro grossly intact Psych/Mental Status: Normal Affect, Appropriate Plan is continue IV Levaquin. Continue with breathing treatments. White cell count is down to 12 point today. Titrate oxygen to maintain saturation above 90%. For likely discharge tomorrow Rest of management as per MARTY Ruano's notes which I have reviewed and endorsed. Code Visit Inpatient E&M: 46747 Subs Hosp L2
[2019-01-25] MEDS: traZODone 50 MG Tablet PO (22:09)
[2019-01-25] MEDS: Primidone 250 MG Tablet PO (22:09)
[2019-01-25] MEDS: DULoxetine Hcl 30 MG Capsule PO (22:09)
[2019-01-25] MEDS: LORazepam 0.5 MG Tablet 1 MG PO (22:09)
[2019-01-25] MEDS: Fluticasone 0.05% 1 SPRAY NASAL.SRY 2 SPRAY NASAL (22:10)
[2019-01-25] MEDS: levoFLOXacin IV 750 MG/150 ML BAG 100 MG IV (22:10)
[2019-01-26 03:30] VITALS: BP 135/75; PULSE 101; RESP 16; TEMP 37.1; O2SAT 94
[2019-01-26 03:34] VITALS: O2SAT 94
[2019-01-26 06:46] VITALS: PULSE 113; RESP 20; O2SAT 96
[2019-01-26] MEDS: Ipratropium/Albuterol Sulfate 3 ML AMPUL.NEB INHALATION (06:46)
[2019-01-26 07:04] LABS: Hematocrit 34.3 % (37-47); Hemoglobin 11.6 g/dl (12.0-15.0); Mean Corp Hgb Conc 33.8 g/gl (32-36); Mean Corpuscular Hgb 29.9 pg (27.0-32.0); Mean Corpuscular Volume 88.4 fL (81-99); Mean Platelet Vol. 9.9 fl (6.2-12.0); Platelet Count 242 K/mm3 (150-450); RBC Distribution Width CV 13.5 % (11.6-14.6); RBC Distribution Width SD 43.7 fl (35.1-43.9); Red Blood Count 3.88 M/mm3 (4.2-5.4); White Blood Count 10.2 K/mm3 (4.4-11.0)
[2019-01-26 07:14] LABS: Scan Indicated on CBC? Y/N NO
[2019-01-26 07:25] LABS: Anion Gap 9 (5-15); BUN 7 mg/dL (7-18); BUN/Creat Ratio 9.7 RATIO (10-20); Calcium,Total 7.9 mg/dL (8.5-10.1); Chloride 106 mmol/L (98-107); Creatinine, Serum 0.72 mg/dL (0.55-1.02); EST Glomerular Filtration Rate 85 mL/min (>60); Est Glom Filt Rate - Afr Amer 103 mL/min (>60); Estimated Creatinine Clearance 40.81 ml/min; Glucose 93 mg/dL (74-106); Potassium 3.4 mmol/L (3.5-5.1); Sodium Level 142 mmol/L (136-145)
[2019-01-26 09:51] VITALS: O2SAT 96
--- NOTE | 2019-01-26 09:57 | PCM.DC ---
- Discharge Diagnoses Current Active Problems: Current Active and Chronic Problems Community acquired pneumonia (Acute) Sepsis (Acute) COPD (chronic obstructive pulmonary disease) (Chronic) GERD (gastroesophageal reflux disease) (Acute) Chronic sinusitis (Chronic) You will use the following diet at home:: No restrictions Discharge Activity: Return to Normal Activity Call your doctor if you observe: Shortness of breath, Dizziness, Fainting spells, Chest pain Allergies/Adverse Reactions: Allergies aspirin Allergy (Severe, Verified 01/23/19 18:09) throat swelling acetaminophen Allergy (Verified 01/23/19 18:09) throat swells cefuroxime [From Ceftin] Allergy (Verified 01/23/19 14:29) Shortness of breath citric acid [From [place]] Allergy (Verified 01/23/19 18:09) throat swells ibuprofen Allergy (Verified 01/23/19 18:09) throat swells sodium bicarbonate [From [place]] Allergy (Verified 01/23/19 18:09) throat swells diclofenac Adverse Reaction (Verified 01/23/19 14:29) Upset Stomach MANY OTHERS Allergy (Uncoded 01/23/19 14:29) Other Medications to take at Discharge Albuterol IH (ProAir) [Proair Hfa] 1 puff INHALATION TID PRN PRN 01/23/19 Azelastine HCl [Astelin] 2 sprays NASAL DAILY 01/23/19 Beclomethasone Dipropionate [Qnasl] 2 puff NASAL QHS 01/23/19 Benzonatate 100 mg PO Q4H PRN PRN 01/23/19 Budesonide/Formoterol 160/4.5 [Symbicort 160/4.5 Mcg Inhaler (SP)] 1 puff PO BID 01/23/19 Duloxetine HCl 30 mg PO DAILY 01/23/19 Estrogens, Conjugated [Premarin] 0.625 mg PO DAILY 01/23/19 Lansoprazole 30 mg PO DAILY 01/23/19 Lorazepam [Ativan] 1 mg PO QHS 01/23/19 Montelukast Sodium 10 mg PO DAILY 01/23/19 Primidone 250 mg PO DAILY 01/23/19 Trazodone HCl 50 mg PO DAILY 01/23/19 Levofloxacin [Levaquin] 750 mg PO DAILY #4 tablet 01/26/19 Nystatin 500,000 unit PO 4X/DAY #28 udc 01/26/19 Prednisone See Taper PO DAILY #30 tablet 01/26/19 The following prescriptions were given: Levofloxacin [Levaquin] 750 mg PO DAILY #4 tablet Prednisone See Taper PO DAILY #30 tablet Nystatin 500,000 unit PO 4X/DAY #28 udc Primary Care Physician: Evelyne Pascal MD [Primary Care Provider] - Please follow up with your Primary Care Physician in: 1 Week Test Results: Test results from this visit will be discussed in further detail at your follow-up appointment, if applicable. Please Follow Up With: Ortiz Patel MD When: 1-2 Weeks Proposed Discharge Date: 01/26/19
[2019-01-26 09:58] VITALS: BP 123/66; PULSE 104; RESP 20; TEMP 37; O2SAT 96
--- NOTE | 2019-01-26 10:00 | DCINST_ITS ---
- Discharge Diagnoses Current Active Problems: Current Active and Chronic Problems Community acquired pneumonia (Acute) Sepsis (Acute) COPD (chronic obstructive pulmonary disease) (Chronic) GERD (gastroesophageal reflux disease) (Acute) Chronic sinusitis (Chronic) You will use the following diet at home:: No restrictions Discharge Activity: Return to Normal Activity Call your doctor if you observe: Shortness of breath, Dizziness, Fainting spells, Chest pain Allergies/Adverse Reactions: Allergies aspirin Allergy (Severe, Verified 01/23/19 18:09) throat swelling acetaminophen Allergy (Verified 01/23/19 18:09) throat swells cefuroxime [From Ceftin] Allergy (Verified 01/23/19 14:29) Shortness of breath citric acid [From [place]] Allergy (Verified 01/23/19 18:09) throat swells ibuprofen Allergy (Verified 01/23/19 18:09) throat swells sodium bicarbonate [From [place]] Allergy (Verified 01/23/19 18:09) throat swells diclofenac Adverse Reaction (Verified 01/23/19 14:29) Upset Stomach MANY OTHERS Allergy (Uncoded 01/23/19 14:29) Other Medications to take at Discharge Albuterol IH (ProAir) [Proair Hfa] 1 puff INHALATION TID PRN PRN 01/23/19 Azelastine HCl [Astelin] 2 sprays NASAL DAILY 01/23/19 Beclomethasone Dipropionate [Qnasl] 2 puff NASAL QHS 01/23/19 Benzonatate 100 mg PO Q4H PRN PRN 01/23/19 Budesonide/Formoterol 160/4.5 [Symbicort 160/4.5 Mcg Inhaler (SP)] 1 puff PO BID 01/23/19 Duloxetine HCl 30 mg PO DAILY 01/23/19 Estrogens, Conjugated [Premarin] 0.625 mg PO DAILY 01/23/19 Lansoprazole 30 mg PO DAILY 01/23/19 Lorazepam [Ativan] 1 mg PO QHS 01/23/19 Montelukast Sodium 10 mg PO DAILY 01/23/19 Primidone 250 mg PO DAILY 01/23/19 Trazodone HCl 50 mg PO DAILY 01/23/19 Levofloxacin [Levaquin] 750 mg PO DAILY #4 tablet 01/26/19 Nystatin 500,000 unit PO 4X/DAY #28 udc 01/26/19 Prednisone See Taper PO DAILY #30 tablet 01/26/19 The following prescriptions were given: Levofloxacin [Levaquin] 750 mg PO DAILY #4 tablet Prednisone See Taper PO DAILY #30 tablet Nystatin 500,000 unit PO 4X/DAY #28 udc Primary Care Physician: Evelyne Pascal MD [Primary Care Provider] - Please follow up with your Primary Care Physician in: 1 Week Test Results: Test results from this visit will be discussed in further detail at your follow- up appointment, if applicable. Please Follow Up With: Ortiz Patel MD When: 1-2 Weeks Proposed Discharge Date: 01/26/19
--- NOTE | 2019-01-26 10:01 | PCM.DC.SUM ---
<Macarena Gong - Last Filed: 01/26/19 10:12> Discharge Date and Diagnosis Date of Admission: 01/23/19 Date of Discharge: 01/26/19 - Primary Discharge Diagnosis Active and Suspected Problems 1. Sepsis secondary to community acquired pneumonia secondary to gram-positive organism 2. Asthma/COPD with exacerbation 3. Acute hypoxic respiratory insufficiency secondary to #1/#2 4. GERD 5. Chronic sinusitis 6. Depression/anxiety - Secondary Discharge Diagnosis Chronic Problems COPD (chronic obstructive pulmonary disease) (Chronic) Chronic sinusitis (Chronic) Hospital Course and Treatment Imaging Results: Diagnostic Data Chest X-Ray 01/23/19 15:00 IMPRESSION: COPD. Mild left lower lobe atelectasis or infiltrate. Bilateral poorly defined nodular opacities in the lower lobes. Would recommend CT for further evaluation Electronically Signed: Len Quiroz MD at 16:53 EDT , Service support , Operations: None Procedures: None Summary of Care Provided: The patient is a 73 year old F admitted 01/23/2019 due to shortness of breath and fatigue. 1. Sepsis secondary to community acquired pneumonia secondary to gram-positive organism, staph aureus-chest x-ray admission with COPD, left lower lobe atelectasis or infiltrate. Leukocytosis resolved. Blood culture shows no growth. Sputum culture shows staph aureus. IV Levaquin during admission, discharged on oral Levaquin 750 mg daily to complete 7-day course. Follow-up with primary care provider in 1 week. 2. Asthma/COPD with exacerbation- follows with Dr. Patel, [facility] pulmonary medicine. Reports she was diagnosed with asthma as a child and later diagnosed with COPD. She has upcoming pulmonary function testing scheduled. IV Solu-Medrol during admission. Discharged on prednisone taper. Continue home inhaler regimen. Follow-up with pulmonary medicine in 1 to 2 weeks. Chest x-ray on admission showed poorly defined nodular opacities in lower lobes. Recommend CT evaluation by pulmonary medicine when pneumonia has resolved. 3. Acute hypoxic respiratory insufficiency secondary to #1/#2-weaned off of supplemental oxygen. Oxygen now stable on room air. Walking pulse ox completed prior to discharge and oxygen remained 96% with ambulation. 4. GERD-continue PPI. 5. Chronic sinusitis-history of multiple sinus surgeries. Continue home beclomethasone and Astelin regimen. 6. Depression/anxiety- continue home duloxetine, Ativan, trazodone regimen. General: Alert, Oriented x3, Cooperative HEENT: Atraumatic, PERRLA, EOMI, Normocephalic Neck: Supple, No JVD, Negative Carotid Bruits Lungs: Clear to auscultation, Diminished Cardiovascular: Regular rate, Regular Rhythm, Normal S1, Normal S2, No murmurs Abdomen: Bowel Sounds Present, Soft, Non Tender, Non-Distended Extremities: No clubbing, No cyanosis, No edema, Capillary Refill Less than 3 Seconds Skin: No rashes, No breakdown Musculoskeletal: No Tenderness to Palpation of Joints or Extremities Neurological: Cranial nerves II-XII grossly intact, Neuro grossly intact Psych/Mental Status: Flat Affect, Depressed Patient seen and examined prior to discharge. Physical assessment as noted above. Patient is stable for discharge with follow up recommendations as noted above. This patient was seen by MARTY Ruaon under the supervision of Dr. Smith. - Physical Exam Vital Signs Temp Pulse Resp BP Pulse Ox 98.6 F 104 H 20 H 123/66 H 96 01/26/19 09:58 01/26/19 09:58 01/26/19 09:58 01/26/19 09:58 01/26/19 09:58 Oxygen Flow Rate (L/min) 1 Oxygen Delivery Method Room Air Weight: 119 lb 0.794 oz Body Mass Index (BMI) 21.4 Intake and Output for Last 24 Hours 01/24/19 01/25/19 01/26/19 23:59 23:59 23:59 Intake Total 3477 / 3477 2885 / 2885 450 / 450 Output Total 800 / 800 900 / 900 Balance 2677 / 2677 2885 / 2885 -450 / -450 Microbiology Past 72 Hours 01/24/19 16:44 Gram Stain - Final Sputum, Expectorated/Coughed Respiratory Culture - Preliminary Staphylococcus aureus 01/23/19 15:23 Blood Culture - Preliminary Blood Culture (Wb) - Left Forearm No growth in 48 hours. 01/24/19 16:40 Legionella Antigen - Final Urine, Clean Catch 01/24/19 16:40 Streptococcus pneumoniae Antigen (M - Final Urine, Clean Catch Laboratory Tests Past 24 Hrs 01/26/19 01/26/19 05:54 05:54 WBC 10.2 RBC 3.88 L Hgb 11.6 L Hct 34.3 L MCV 88.4 MCH 29.9 MCHC 33.8 RDW 13.5 RDW Differential 43.7 Plt Count 242 MPV 9.9 Sodium 142 Potassium 3.4 L Chloride 106 Carbon Dioxide 27.0 Anion Gap 9 BUN 7 Creatinine 0.72 Estim Creat Clear Calc 40.81 Est GFR (MDRD) Af Amer 103 Est GFR (MDRD) Non-Af 85 BUN/Creatinine Ratio 9.7 L Glucose 93 Calcium 7.9 L Discharge Diet: No Restrictions Discharge Activity: Return to Normal Activity Call your doctor if you observe: Shortness of breath, Dizziness, Fainting spells, Chest pain Home Medications: Medications to take at Discharge Albuterol IH (ProAir) [Proair Hfa] 1 puff INHALATION TID PRN PRN 01/23/19 Azelastine HCl [Astelin] 2 sprays NASAL DAILY 01/23/19 Beclomethasone Dipropionate [Qnasl] 2 puff NASAL QHS 01/23/19 Benzonatate 100 mg PO Q4H PRN PRN 01/23/19 Budesonide/Formoterol 160/4.5 [Symbicort 160/4.5 Mcg Inhaler (SP)] 1 puff PO BID 01/23/19 Duloxetine HCl 30 mg PO DAILY 01/23/19 Estrogens, Conjugated [Premarin] 0.625 mg PO DAILY 01/23/19 Lansoprazole 30 mg PO DAILY 01/23/19 Lorazepam [Ativan] 1 mg PO QHS 01/23/19 Montelukast Sodium 10 mg PO DAILY 01/23/19 Primidone 250 mg PO DAILY 01/23/19 Trazodone HCl 50 mg PO DAILY 01/23/19 Levofloxacin [Levaquin] 750 mg PO DAILY #4 tablet 01/26/19 Nystatin 500,000 unit PO 4X/DAY [place]28 [facility] [place] Prednisone See Taper PO DAILY #30 tablet 01/26/19 Following Prescrptions Were Given to Patient: Levofloxacin [Levaquin] 750 mg PO DAILY #4 tablet Prednisone See Taper PO DAILY #30 tablet Nystatin 500,000 unit PO 4X/DAY #28 [facility] [place] Care Physician: Evelyne Pascal MD [Primary Care Provider] - Please follow up with your Primary Care Physician in: 1 Week Please Follow Up With: Ortiz Patel MD When: 1-2 Weeks Disposition: Home Minutes spent on discharge:: 35 Patient Condition:: Stable Medical Necessity - Tobacco Use Smoking Status: Never smoker Meaningful Use Info Meaningful Use Diagnoses (Choose all that apply): None applicable <Noni Smith - Last Filed: 01/26/19 12:18> Discharge Date and Diagnosis - Secondary Discharge Diagnosis Chronic Problems COPD (chronic obstructive pulmonary disease) (Chronic) Chronic sinusitis (Chronic) Hospital Course and Treatment Summary of Care Provided: Patient seen by MARTY Ruano under my supervision Patient was admitted with complaint of general feeling of unwellness, shortness of breath and fatigue for 5 days. She had previously been seen at an urgent care center for upper respiratory tract infection and a sore throat and was told she had a viral respiratory infection was given steroids and breathing treatments. However subsequently did not feel better and continued to have fevers and chills as well as a productive cough and persistent anorexia. She therefore came into the ED where she was found to have a left lower lobe consolidation and leukocytosis of 18. She was managed for acute hypoxic respiratory insufficiency and sepsis due to community-acquired pneumonia. Of note, she was saturating at 89% on room air in the ED and required 2 L of oxygen. Patient was started on IV Levaquin for pneumonia. Blood culture showed no growth and sputum cultures staph aureus. Oxygen was titrated until she was on room air. Patient gradually improved and stabilized. She was discharged home on 01/26/2019 with a prescription for p.o. Levaquin to complete a 7-day course. She is to follow-up with her primary care doctor within 1 week. Patient seen and examined prior to discharge. She felt much better shortness of breath and cough had improved significantly. She was on room air. Review of systems otherwise negative. Labs and vitals reviewed. Home medications reviewed and reconciled. o/e: Vital Signs Height 5 ft 2.5 in Weight: 119 lb 0.794 oz Weight in Pounds 119.0 lbs Pulse Ox 96 Temperature 98.6 F Pulse Rate 104 Respiratory Rate 20 Blood Pressure 123/66 Blood Pressure Position Sitting General: Alert, Oriented x3, Cooperative HEENT: Atraumatic, PERRLA, EOMI, Normocephalic Oral: Dry Mucosa Neck: Supple, No JVD, Negative Carotid Bruits Lungs: decreased breath sounds bibasally, no wheezes or crackles.on room air. Cardiovascular: Regular rate, Regular Rhythm, Normal S1, Normal S2, No murmurs Abdomen: Bowel Sounds Present, Soft, Non Tender, Non-Distended Extremities: No clubbing, No cyanosis, No edema, Capillary Refill Less than 3 Seconds Skin: No rashes, No breakdown Musculoskeletal: No Tenderness to Palpation of Joints or Extremities Neurological: Cranial nerves II-XII grossly intact, Neuro grossly intact Psych/Mental Status: Normal Affect, Appropriate Plan as above. Of note, patient chest x-ray showed some poorly defined nodular opacities in the lower lobes. Patient states she had a follow-up with her mortgage servicing specialist soon. She is to follow-up with him and her primary care doctor to have CT chest on outpatient basis to evaluate these nodular opacities. Rest of management as per MARTY Ruano's note which I reviewed and endorsed. \ - Physical Exam Vital Signs Temp Pulse Resp BP Pulse Ox 98.6 F 104 H 20 H 123/66 H 96 01/26/19 09:58 01/26/19 09:58 01/26/19 09:58 01/26/19 09:58 01/26/19 09:58 Oxygen Flow Rate (L/min) 1 Oxygen Delivery Method Room Air Weight: 119 lb 0.794 oz Body Mass Index (BMI) 21.4 Intake and Output for Last 24 Hours 01/24/19 01/25/19 01/26/19 23:59 23:59 23:59 Intake Total 3477 / 3477 2885 / 2885 450 / 450 Output Total 800 / 800 900 / 900 Balance 2677 / 2677 2885 / 2885 -450 / -450 Microbiology Past 72 Hours 01/23/19 16:18 Blood Culture - Preliminary Blood Culture (Wb) #2 - Anticubital Right No growth in 48 hours. 01/24/19 16:44 Gram Stain - Final Sputum, Expectorated/Coughed Respiratory Culture - Preliminary Staphylococcus aureus 01/23/19 15:23 Blood Culture - Preliminary Blood Culture (Wb) - Left Forearm No growth in 48 hours. 01/24/19 16:40 Legionella Antigen - Final Urine, Clean Catch 01/24/19 16:40 Streptococcus pneumoniae Antigen (M - Final Urine, Clean Catch Laboratory Tests Past 24 Hrs 01/26/19 01/26/19 05:54 05:54 WBC 10.2 RBC 3.88 L Hgb 11.6 L Hct 34.3 L MCV 88.4 MCH 29.9 MCHC 33.8 RDW 13.5 RDW Differential 43.7 Plt Count 242 MPV 9.9 Sodium 142 Potassium 3.4 L Chloride 106 Carbon Dioxide 27.0 Anion Gap 9 BUN 7 Creatinine 0.72 Estim Creat Clear Calc 40.81 Est GFR (MDRD) Af Amer 103 Est GFR (MDRD) Non-Af 85 BUN/Creatinine Ratio 9.7 L Glucose 93 Calcium 7.9 L Code Visit Inpatient E&M: 23721 Disch Hosp
[2019-01-26] MEDS: Pantoprazole Sodium 40 MG Tablet PO (10:03)
[2019-01-26] MEDS: Estrogens,Conj. 0.625 MG Tablet PO (10:03)
[2019-01-26] MEDS: predniSONE 20 MG Tablet 40 MG PO (10:03)
[2019-01-26] MEDS: Enoxaparin 40 MG/0.4 ML Syringe SC (10:04)
[2019-01-26] MEDS: Azelastine HCl NASAL.SRY 2 SPRAY NASAL (10:04)
[2019-01-26] MEDS: NYSTATIN 500,000 UNIT/5 ML UDC 500000 UNIT PO (10:05)
--- NOTE | 2019-01-26 10:11 | DS.PCM_ITS ---
<Macarena Gong - Last Filed: 01/26/19 10:12> Discharge Date and Diagnosis Date of Admission: 01/23/19 Date of Discharge: 01/26/19 - Primary Discharge Diagnosis Active and Suspected Problems 1. Sepsis secondary to community acquired pneumonia secondary to gram-positive organism 2. Asthma/COPD with exacerbation 3. Acute hypoxic respiratory insufficiency secondary to #1/#2 4. GERD 5. Chronic sinusitis 6. Depression/anxiety - Secondary Discharge Diagnosis Chronic Problems COPD (chronic obstructive pulmonary disease) (Chronic) Chronic sinusitis (Chronic) Hospital Course and Treatment Imaging Results: Diagnostic Data Chest X-Ray 01/23/19 15:00 IMPRESSION: COPD. Mild left lower lobe atelectasis or infiltrate. Bilateral poorly defined nodular opacities in the lower lobes. Would recommend CT for further evaluation Electronically Signed: Len Quiroz MD at 16:53 EDT , Service support , Operations: None Procedures: None Summary of Care Provided: The patient is a 73 year old F admitted 01/23/2019 due to shortness of breath and fatigue. 1. Sepsis secondary to community acquired pneumonia secondary to gram-positive organism, staph aureus-chest x-ray admission with COPD, left lower lobe atelectasis or infiltrate. Leukocytosis resolved. Blood culture shows no growth. Sputum culture shows staph aureus. IV Levaquin during admission, discharged on oral Levaquin 750 mg daily to complete 7-day course. Follow-up with primary care provider in 1 week. 2. Asthma/COPD with exacerbation- follows with Dr. Patel, [facility] pulmonary medicine. Reports she was diagnosed with asthma as a child and later diagnosed with COPD. She has upcoming pulmonary function testing scheduled. IV Solu- Medrol during admission. Discharged on prednisone taper. Continue home inhaler regimen. Follow-up with pulmonary medicine in 1 to 2 weeks. Chest x-ray on admission showed poorly defined nodular opacities in lower lobes. Recommend CT evaluation by pulmonary medicine when pneumonia has resolved. 3. Acute hypoxic respiratory insufficiency secondary to #1/#2-weaned off of supplemental oxygen. Oxygen now stable on room air. Walking pulse ox completed prior to discharge and oxygen remained 96% with ambulation. 4. GERD-continue PPI. 5. Chronic sinusitis-history of multiple sinus surgeries. Continue home beclomethasone and Astelin regimen. 6. Depression/anxiety- continue home duloxetine, Ativan, trazodone regimen. General: Alert, Oriented x3, Cooperative HEENT: Atraumatic, PERRLA, EOMI, Normocephalic Neck: Supple, No JVD, Negative Carotid Bruits Lungs: Clear to auscultation, Diminished Cardiovascular: Regular rate, Regular Rhythm, Normal S1, Normal S2, No murmurs Abdomen: Bowel Sounds Present, Soft, Non Tender, Non-Distended Extremities: No clubbing, No cyanosis, No edema, Capillary Refill Less than 3 Seconds Skin: No rashes, No breakdown Musculoskeletal: No Tenderness to Palpation of Joints or Extremities Neurological: Cranial nerves II-XII grossly intact, Neuro grossly intact Psych/Mental Status: Flat Affect, Depressed Patient seen and examined prior to discharge. Physical assessment as noted above. Patient is stable for discharge with follow up recommendations as noted above. This patient was seen by MARTY Ruano under the supervision of Dr. Smith. - Physical Exam Vital Signs Temp Pulse Resp BP Pulse Ox 98.6 F 104 H 20 H 123/66 H 96 01/26/19 09:58 01/26/19 09:58 01/26/19 09:58 01/26/19 09:58 01/26/19 09:58 Oxygen Flow Rate (L/min) 1 Oxygen Delivery Method Room Air Weight: 119 lb 0.794 oz Body Mass Index (BMI) 21.4 Intake and Output for Last 24 Hours 01/24/19 01/25/19 01/26/19 23:59 23:59 23:59 Intake Total 3477 / 3477 2885 / 2885 450 / 450 Output Total 800 / 800 900 / 900 Balance 2677 / 2677 2885 / 2885 -450 / -450 Microbiology Past 72 Hours 01/24/19 16:44 Gram Stain - Final Sputum, Expectorated/Coughed Respiratory Culture - Preliminary Staphylococcus aureus 01/23/19 15:23 Blood Culture - Preliminary Blood Culture (Wb) - Left Forearm No growth in 48 hours. 01/24/19 16:40 Legionella Antigen - Final Urine, Clean Catch 01/24/19 16:40 Streptococcus pneumoniae Antigen (M - Final Urine, Clean Catch Laboratory Tests Past 24 Hrs 01/26/19 01/26/19 05:54 05:54 WBC 10.2 RBC 3.88 L Hgb 11.6 L Hct 34.3 L MCV 88.4 MCH 29.9 MCHC 33.8 RDW 13.5 RDW Differential 43.7 Plt Count 242 MPV 9.9 Sodium 142 Potassium 3.4 L Chloride 106 Carbon Dioxide 27.0 Anion Gap 9 BUN 7 Creatinine 0.72 Estim Creat Clear Calc 40.81 Est GFR (MDRD) Af Amer 103 Est GFR (MDRD) Non-Af 85 BUN/Creatinine Ratio 9.7 L Glucose 93 Calcium 7.9 L Discharge Diet: No Restrictions Discharge Activity: Return to Normal Activity Call your doctor if you observe: Shortness of breath, Dizziness, Fainting spells, Chest pain Home Medications: Medications to take at Discharge Albuterol IH (ProAir) [Proair Hfa] 1 puff INHALATION TID PRN PRN 01/23/19 Azelastine HCl [Astelin] 2 sprays NASAL DAILY 01/23/19 Beclomethasone Dipropionate [Qnasl] 2 puff NASAL QHS 01/23/19 Benzonatate 100 mg PO Q4H PRN PRN 01/23/19 Budesonide/Formoterol 160/4.5 [Symbicort 160/4.5 Mcg Inhaler (SP)] 1 puff PO BID 01/23/19 Duloxetine HCl 30 mg PO DAILY 01/23/19 Estrogens, Conjugated [Premarin] 0.625 mg PO DAILY 01/23/19 Lansoprazole 30 mg PO DAILY 01/23/19 Lorazepam [Ativan] 1 mg PO QHS 01/23/19 Montelukast Sodium 10 mg PO DAILY 01/23/19 Primidone 250 mg PO DAILY 01/23/19 Trazodone HCl 50 mg PO DAILY 01/23/19 Levofloxacin [Levaquin] 750 mg PO DAILY #4 tablet 01/26/19 Nystatin 500,000 unit PO 4X/DAY #28 [facility] [place]19 Prednisone See Taper PO DAILY #30 tablet 01/26/19 Following Prescrptions Were Given to Patient: Levofloxacin [Levaquin] 750 mg PO DAILY #4 tablet Prednisone See Taper PO DAILY #30 tablet Nystatin 500,000 unit PO 4X/DAY #28 [facility] [place] Primary Care Physician: Evelyne Pascal MD [Primary Care Provider] - Please follow up with your Primary Care Physician in: 1 Week Please Follow Up With: Ortiz Patel MD When: 1-2 Weeks Disposition: Home Minutes spent on discharge:: 35 Patient Condition:: Stable Medical Necessity - Tobacco Use Smoking Status: Never smoker Meaningful Use Info Meaningful Use Diagnoses (Choose all that apply): None applicable <Noni Smith - Last Filed: 01/26/19 12:18> Discharge Date and Diagnosis - Secondary Discharge Diagnosis Chronic Problems COPD (chronic obstructive pulmonary disease) (Chronic) Chronic sinusitis (Chronic) Hospital Course and Treatment Summary of Care Provided: Patient seen by MARTY Ruano under my supervision Patient was admitted with complaint of general feeling of unwellness, shortness of breath and fatigue for 5 days. She had previously been seen at an urgent care center for upper respiratory tract infection and a sore throat and was told she had a viral respiratory infection was given steroids and breathing treatments. However subsequently did not feel better and continued to have fevers and chills as well as a productive cough and persistent anorexia. She therefore came into the ED where she was found to have a left lower lobe consolidation and leukocytosis of 18. She was managed for acute hypoxic respiratory insufficiency and sepsis due to community-acquired pneumonia. Of note, she was saturating at 89% on room air in the ED and required 2 L of oxygen. Patient was started on IV Levaquin for pneumonia. Blood culture showed no growth and sputum cultures staph aureus. Oxygen was titrated until she was on room air. Patient gradually improved and stabilized. She was discharged home on 01/26/2019 with a prescription for p.o. Levaquin to complete a 7-day course. She is to follow-up with her primary care doctor within 1 week. Patient seen and examined prior to discharge. She felt much better shortness of breath and cough had improved significantly. She was on room air. Review of systems otherwise negative. Labs and vitals reviewed. Home medications reviewed and reconciled. o/e: Vital Signs Height 5 ft 2.5 in Weight: 119 lb 0.794 oz Weight in Pounds 119.0 lbs Pulse Ox 96 Temperature 98.6 F Pulse Rate 104 Respiratory Rate 20 Blood Pressure 123/66 Blood Pressure Position Sitting General: Alert, Oriented x3, Cooperative HEENT: Atraumatic, PERRLA, EOMI, Normocephalic Oral: Dry Mucosa Neck: Supple, No JVD, Negative Carotid Bruits Lungs: decreased breath sounds bibasally, no wheezes or crackles.on room air. Cardiovascular: Regular rate, Regular Rhythm, Normal S1, Normal S2, No murmurs Abdomen: Bowel Sounds Present, Soft, Non Tender, Non-Distended Extremities: No clubbing, No cyanosis, No edema, Capillary Refill Less than 3 Seconds Skin: No rashes, No breakdown Musculoskeletal: No Tenderness to Palpation of Joints or Extremities Neurological: Cranial nerves II-XII grossly intact, Neuro grossly intact Psych/Mental Status: Normal Affect, Appropriate Plan as above. Of note, patient chest x-ray showed some poorly defined nodular opacities in the lower lobes. Patient states she had a follow-up with her gynaecological oncologist soon. She is to follow-up with him and her primary care doctor to have CT chest on outpatient basis to evaluate these nodular opacities. Rest of management as per MARTY Ruano's note which I reviewed and endorsed. \ - Physical Exam Vital Signs Temp Pulse Resp BP Pulse Ox 98.6 F 104 H 20 H 123/66 H 96 01/26/19 09:58 01/26/19 09:58 01/26/19 09:58 01/26/19 09:58 01/26/19 09:58 Oxygen Flow Rate (L/min) 1 Oxygen Delivery Method Room Air Weight: 119 lb 0.794 oz Body Mass Index (BMI) 21.4 Intake and Output for Last 24 Hours 01/24/19 01/25/19 01/26/19 23:59 23:59 23:59 Intake Total 3477 / 3477 2885 / 2885 450 / 450 Output Total 800 / 800 900 / 900 Balance 2677 / 2677 2885 / 2885 -450 / -450 Microbiology Past 72 Hours 01/23/19 16:18 Blood Culture - Preliminary Blood Culture (Wb) #2 - Anticubital Right No growth in 48 hours. 01/24/19 16:44 Gram Stain - Final Sputum, Expectorated/Coughed Respiratory Culture - Preliminary Staphylococcus aureus 01/23/19 15:23 Blood Culture - Preliminary Blood Culture (Wb) - Left Forearm No growth in 48 hours. 01/24/19 16:40 Legionella Antigen - Final Urine, Clean Catch 01/24/19 16:40 Streptococcus pneumoniae Antigen (M - Final Urine, Clean Catch Laboratory Tests Past 24 Hrs 01/26/19 01/26/19 05:54 05:54 WBC 10.2 RBC 3.88 L Hgb 11.6 L Hct 34.3 L MCV 88.4 MCH 29.9 MCHC 33.8 RDW 13.5 RDW Differential 43.7 Plt Count 242 MPV 9.9 Sodium 142 Potassium 3.4 L Chloride 106 Carbon Dioxide 27.0 Anion Gap 9 BUN 7 Creatinine 0.72 Estim Creat Clear Calc 40.81 Est GFR (MDRD) Af Amer 103 Est GFR (MDRD) Non-Af 85 BUN/Creatinine Ratio 9.7 L Glucose 93 Calcium 7.9 L Code Visit Inpatient E&M: 59892 Disch Hosp
[2019-01-26] MEDS: Montelukast 10 MG Tablet PO (10:15)
== END 2019-01-26 11:40 | disposition home or self-care (01) | DRG 871 ==
LOC: ED 16:55 → PCU 17:28
PROVIDERS: Nurse Practitioner Family; Admitting Provider Family Medicine; Emergency Provider Emergency Medicine; Family Provider Internal Medicine; PCP Internal Medicine; Visit Provider Student in an Organized Health Care Education/Training Program
DX: A41.9 Sepsis, unspecified organism (principal); J15.9 Unspecified bacterial pneumonia; J44.1 Chronic obstructive pulmonary disease with (acute) exacerbation; J44.0 Chronic obstructive pulmonary disease with (acute) lower respiratory infection; J32.9 Chronic sinusitis, unspecified; R06.89 Other abnormalities of breathing; R09.02 Hypoxemia; K21.9 Gastro-esophageal reflux disease without esophagitis; F32.9 Major depressive disorder, single episode, unspecified; F41.9 Anxiety disorder, unspecified
CPT/HCPCS: 36415; 71046; 80048; 84484; 85025; 85027; 87040; 87070; 87077; 87186; 87205; 87449; 93005; 94640; 99283; J7030; A4216; J0295

== ENCOUNTER 2020-02-16 13:00 | Outpatient (RCR) | payer MEDICARE, OTHER, SELFPAY ==
[2019-10-22 11:45] VITALS: BMI 21.7
--- NOTE | 2020-01-23 12:53 | HP.PTEVAL ---
Patient's Visit Information ELLIOTT ANGELES is a 74 year old F referred to Physical Therapy by Dr. Amauri Burleson MD with a diagnosis of Chronic pain. Date of Evaluation: 01/23/20 Physical Therapist: Rashawn Sharma, DPT, OCS, CSCS - Visit Plan Frequency: 3x /Week Duration: 4-6 Weeks Plan: 3x/week for 3-6 weeks for. thoracc ROM, core strength, general strength and movement adn posture correction in pool. - Subjective Dr. Pascal sent to Dr. burleson for pain. 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 Waiting to get 60 day stimulator in back but denied. Pain doesn't keep her from living but needs to take break from dishes adn cooking to sit on with heating pad. Had that for 28 years but worsening. More intense lately, not sure why. Dr. burleson could not help her as she has to live with it. Then gave her aquatic therapy script. In the past has had injections in back, dry needling, acupunture, PT land, and cannot take pain meds as she is allergic to everything. Has home TENS unit which does not help. Has had massage and chiropractic without results. Does some walking and little dumbbell exercises but they don't help or hurt. 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 Lidocaine has not helped. Sleeps pretty good with lorazepam and trazadone. Retired [employer] . Worked at [employer] also. Stays busy cleaning adn walkign during day but has to limit activity to 15-20 minutes. Walks a mile and half for about 30 minutes but worse. Basic ADLs are I. no numbness tingling or weakness in UE or LE. Seeing pain management in [place] now. - Pain thoracic pain Pain Intensity (Out of 10): 5 Pain Intensity Range: 5, 10 - Objective Waks normal with excellent balance. Trasnfer easily adn painfree. C/S AROM WNL and no increased pain from 3/10 baseline. Thoracic spine is stuck in some flexion structurally and posturally and hurts to L rotate to end range. scapular mobility is good. LB AROM WFL and without increased pain. Tender to palpation L of center at distal scap on L. oderately in soft tissue and tight. Holds scap elevated and protracted. reflexes bi and tri and patella and achilles 2/3. Sensation UE and LE WNL to gross light touch. Strength 4-/5 LE adn UE without myotoaml problems. Core strength 3+. - Goals Goal 1:: Thoracic ROM without pain. 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 Rehabilitation Potential: Questionable - Anticipated Interventions Patient/Client Instruction: Educate patient on: Condition, Plan of Care For the Purpose of:: To decrease pain, To increase tolerance to activity/condition/position Therapeutic Exercise to Include: Strength training, Flexibilty training, Neuromotor development, In an aquatic setting, Passive ROM, Active ROM For the Purpose of:: To decrease pain, To improve muscle performance and motor function, To increase tolerance to activity/condition/position, To improve ability of physical actions for home/community/work/leisure Thank you for the opportunity to evaluate your patient. For Medicare and Medicare HMO plans, please review the plan of care and approve it. It will need to be FAXED BACK to us at [phone] for Medicare purposes. For Medicare only, by signing this I certify the plan of care. Please let me know if there are questions or concerns regarding this plan of care. Physician Signature: Date:
--- NOTE | 2020-02-16 13:17 | HP.PTDCSUM_ITS ---
It has been my pleasure to treat ELLIOTT ANGELES referred by Dr. Amauri Burleson MD, with the diagnosis of Chronic pain for a total of 11 visit(s). Discharge Date: 02/16/20 Please see the following information for a summary of their discharge status. Subjective: 6/10 L scapular pain regularly. No different than when starting therapy. To doctor when sprint ES unit approved for impoant in LB. Overall posture and [id number] better but no help to pain. Pt ready to be done with PT as it is not helping. No further PT desired by patient. Has had other land t herapy without it helping. thoracic pain Pain Intensity (Out of 10): 6 % Improvement: 25 Objective/Function: Posture is fien without excessive kyphosis today. Strength UE 4/5 withotu increased pain. Tenderness L rhomboids apparent with slight knots palpable. AROM scap and c/s WFL adn without increasing wany pain today. Pain seems stagnant and not acute, no movements make her wince. No verbal improvement today from patient Goal 1:: Thoracic ROM without pain. 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 Water therapy has not helped. Wishes to await next treatment from doctor. If there are questions or concerns regarding this patient's physical therapy, please feel free to call me at [phone]. Thank you for the referral of this patient. Sincerely, Rashawn Sharma, DPT, OCS, CSCS
== END 2020-02-16 19:00 | disposition home or self-care (01) ==
LOC: PT 13:00
PROVIDERS: PCP Internal Medicine; Referring Provider Anesthesiology Pain Medicine; Visit Provider Anesthesiology Pain Medicine
DX: M54.9 Dorsalgia, unspecified (principal); G89.4 Chronic pain syndrome; M79.18 Myalgia, other site
CPT/HCPCS: 97113; 97162; 97164

== ENCOUNTER → 2020-11-05 | Outpatient (CLI) | payer MEDICARE, OTHER, SELFPAY ==
[2019-10-22 11:45] VITALS: BMI 21.7
== END | disposition home or self-care (01) ==
LOC: LABSPEC 15:20
PROVIDERS: PCP Internal Medicine; Referring Provider Otolaryngology; Visit Provider Otolaryngology
DX: J32.9 Chronic sinusitis, unspecified (principal)
CPT/HCPCS: 87070; 87077; 87186; 87205

== ENCOUNTER → 2020-12-13 | Outpatient (CLI) | payer MEDICARE, OTHER, SELFPAY ==
[2019-10-22 11:45] VITALS: BMI 21.7
== END | disposition home or self-care (01) ==
LOC: LABSPEC 15:21
PROVIDERS: PCP Internal Medicine; Referring Provider Otolaryngology; Visit Provider Otolaryngology
DX: J32.9 Chronic sinusitis, unspecified (principal)
CPT/HCPCS: 87070; 87077; 87186; 87205

== ENCOUNTER 2021-06-06 11:04 | Emergency (ER) | payer MEDICARE, OTHER, SELFPAY ==
[2021-06-06 11:05] VITALS: BP 128/68; PULSE 88; RESP 16; TEMP 36.9; O2SAT 97; BMI 20.1
--- NOTE | 2021-06-06 11:34 | EX.ED.UPPERE ---
HPI History of Present Illness Chief Complaint: Upper Extremity Injury Detail of Chief Complaint: Pain and vein swelling post IV Informant: patient Occured/Mechanism Mechanism/Context: No injury Onset/Context/Timing Onset: Weeks Context: Gradual Onset Timing: Continuous Current Severity: Mild Maximum Severity: Mild Associated Symptoms Associated Symptoms: Negative for Parasthesia, Weakness and Loss of Funtion Narrative Narrative: Very healthy 75-year-old female with a past medical history of asthma. States she had dental procedure done in April 20 they placed an IV in her left hand since that time she had mild swelling in the veins of her left hand and forearm. No prior history of DVT or PE. No significant swelling. No other complaints. Prior similar symptoms: No Recent Illness/Hospitalization: No PFSH PFSH Home Medications Premarin 0.625 mg PO DAILY 01/23/19 [History Last Taken 01/22/19] QNASL 2 puff NASAL QHS 01/23/19 [History Last Taken 01/22/19] albuterol sulfate [ProAir HFA] 1 puff INHALATION TID PRN PRN 01/23/19 [History Last Taken 01/22/19] azelastine 2 sprays NASAL DAILY 01/23/19 [History Last Taken 01/23/19] benzonatate 100 mg PO Q4H PRN PRN 01/23/19 [History Last Taken 01/22/19] budesonide-formoterol [Symbicort] 1 puff PO BID 01/23/19 [History Last Taken Unknown] duloxetine 30 mg PO DAILY 01/23/19 [History Last Taken 01/22/19] lansoprazole 30 mg PO DAILY 01/23/19 [History Last Taken 01/22/19] lorazepam 1 mg PO QHS 01/23/19 [History Last Taken 01/22/19] montelukast 10 mg PO DAILY 01/23/19 [History Last Taken 01/22/19] primidone 250 mg PO DAILY 01/23/19 [History Last Taken 01/22/19] trazodone 50 mg PO DAILY 01/23/19 [History Last Taken 01/22/19] levofloxacin [Levaquin] 750 mg PO DAILY #4 tab 01/26/19 [Rx Last Taken Unknown] nystatin 500,000 unit PO 4X/DAY #28 udc 06/09/19 [Rx Last Taken Unknown] prednisone See Taper PO DAILY #30 tab 01/26/19 [Rx Last Taken Unknown] Allergy/AdvReac Type Severity Reaction Status Date / Time aspirin Allergy Severe throat Verified 06/06/21 11:05 swelling acetaminophen Allergy throat Verified 06/06/21 11:05 swells cefuroxime [From [facility]] Allergy Shortness Verified 06/06/21 11:05 of breath citric acid Allergy throat Verified 06/06/21 11:05 [From [facility]] swells ibuprofen Allergy throat Verified 06/06/21 11:05 swells sodium bicarbonate Allergy throat Verified 06/06/21 11:05 [From [facility]] swells diclofenac AdvReac Upset Verified 06/06/21 11:05 Stomach MANY OTHERS Allergy Other Uncoded 06/06/21 11:05 Social History Smoking Status: Never smoker ROS ROS ED ROS Narrative Denies. Review of Systems ROS Unobtainable: Denies due to encephalopathy Constitutional Constitutional ED: Denies chills or fever(s) Eyes Eyes: Denies change in vision ENT ENT ED: Denies ear pain or sore throat Cardiovascular Cardiovascular: Denies chest pain Respiratory/Chest Respiratory/Chest: Denies cough or dyspnea Gastrointestinal Gastrointestinal: Denies abdominal pain Genitourinary Genitourinary ED: Denies dysuria Musculoskeletal Musculoskeletal: Denies myalgias Integumentary Denies rash Neurologic Neurologic: Denies headache(s) Psychiatric Psychiatric: Denies depression Endocrine Endocrinology: Denies polyuria Hematologic/Lymphatic Hematologic/Lymphatic: Denies easy bruising Allergic/Immunologic Allergic/Immunologic ED: Denies urticaria EXAM Physical Exam Narrative Exam Narrative: Healthy-appearing 75-year-old female. Exam benign except the veins on her left hand the dorsum are prominent. Same thing on her forearm. This could be secondary to superficial thrombophlebitis. There is no edema. There is no axillary lymphadenopathy. Otherwise she has full use of the left arm is neurovascular intact. Heart lung abdominal exam are benign. Const Vital Signs: 06/06/21 11:05 Temperature 98.5 F Temperature Source Temporal Pulse Rate 88 Respiratory Rate 16 Blood Pressure 128/68 H Blood Pressure Mean 88 Pulse Ox 97 Oxygen Delivery Method Room Air Positive well nourished and well developed; Negative for obese, cachectic, contractures or unkempt General Appearance ED: well developed and NAD; Negative for unkempt, cachectic, contractures, cyanotic or diaphoretic Nutritional Appearance: Negative for cachectic or obese HEENT Reports moist mucous membranes normocephalic and atraumatic Eyes PERRL and EOMs intact bilaterally Neck full ROM and supple Chest Wall inspection of chest normal and palpation of chest normal Resp normal respiratory effort and clear to auscultation bilaterally Auscultation: Negative for rales or rhonchi Cardio regular rate, regular rhythm, S1 normal heart sound, S2 normal heart sound and no murmurs GI non-tender, non-distended and no masses Auscultation: normoactive bowel sounds Palpation: soft; Negative for tender or guarding Back/Spine no CVA tenderness Extremity normal to inspection and full ROM Neuro oriented x3 and moves all extremities Sensorium / Orientation: alert, oriented to person, oriented to place and oriented to time; Negative for orientation impaired, lethargic or stuporous Motor Exam: strength 5/5 throughout Psych mental status grossly normal Appearance: Negative for unkempt Skin Lesions: no lesions Rashes: no rashes MDM MDM MDM Narrative Medical decision making narrative: 75-year-old with swollen veins in the dorsum of her left hand and forearm after an IV. Consider superficial thrombophlebitis rule out DVT. Venous ultrasound of the left upper extremity was been ordered. Repeat exam at 1:07 PM unchanged. Discussed test results with patient. Should be discharged home. Lab Data Lab results narrative: Noninvasive study of the left upper extremity extremity was read as negative. No DVT. No superficial thrombophlebitis. Discharge Plan Triage Chief Complaint: Upper Extremity Injury ED Provider: Dave Vilchis Dx/Rx/DC Orders Clinical Impression: Phlebitis Prescriptions: No Action trazodone 50 MG tablet 50 mg PO DAILY RF: 0 primidone 250 MG tablet 250 mg PO DAILY RF: 0 lorazepam 0.5 MG tablet 1 mg PO QHS RF: 0 benzonatate 100 MG capsule 100 mg PO Q4H PRN PRN (Reason: Cough) RF: 0 lansoprazole 30 MG capsule,delayed release(DR/EC) 30 mg PO DAILY RF: 0 Premarin 0.625 MG tablet 0.625 mg PO DAILY RF: 0 montelukast 10 MG tablet 10 mg PO DAILY RF: 0 azelastine 1 SPRAY aerosol,spray 2 sprays NASAL DAILY RF: 0 albuterol sulfate [ProAir HFA] 1 PUFF inhaler 1 puff inhalation TID PRN PRN (Reason: Sob &/Or Wheezing) RF: 0 duloxetine 30 MG capsule,delayed release(DR/EC) 30 mg PO DAILY RF: 0 budesonide-formoterol [Symbicort] 1 INHALER inhaler 1 puff PO BID RF: 0 QNASL 80 mcg/actuation HFA aerosol inhaler 2 puff NASAL QHS RF: 0 nystatin 500,000 UNIT/5 ML suspension 500,000 unit PO 4X/DAY Qty: 28 RF: 0 prednisone 10 MG tablet See Taper mg PO DAILY Qty: 30 RF: 0 levofloxacin [Levaquin] 750 MG tablet 750 mg PO DAILY Qty: 4 RF: 0 Primary Care Provider: Evelyne Pascal Referrals: Evelyne Pascal MD [Primary Care Provider] - 1 Week if not improving Activity Restrictions/Additional Instructions: Elevate your left upper extremity. Ice to decrease inflammation. Warm compresses help with discomfort. No signs of any blood clots today or superficial thrombophlebitis. Disposition Disposition: Home, Self Care
--- NOTE | 2021-06-06 11:38 | VDUE_ITS ---
Reason For Study: LUE SWELLING/PAIN Left Proximal Left jugular vein is spontaneous, widely patent, phasic, with no intraluminal echogenicity noted. Left subclavian vein is spontaneous, widely patent, phasic, with no intraluminal echogenicity noted. Left Arm Left axillary vein is spontaneous, patent, phasic, competent, compressible and demonstrates augmentation. Left brachial vein is compressible. Left cephalic vein is compressible. Left basilic vein is compressible. Left Lower Arm Left radial vein is compressible. Left ulnar vein is compressible. Patient Safety Prelim sent to ED @ 12:15 pm. VL/Venous Duplex US, Unilateral Interpretation Summary No evidence for acute deep venous thrombosis[left] upper extremity with patent and compressible cephalic and basilic veins. Ordering Physician: Dave Vilchis Referring Physician: Evelyne Pascal Performed By: Beverley Mahajan, MEERA, RVT ?
== END 2021-06-06 13:16 | disposition home or self-care (01) ==
PROVIDERS: Emergency Provider Emergency Medicine; PCP Internal Medicine
DX: T80.1XXA Vascular complications following infusion, transfusion and therapeutic injection, initial encounter (principal); I80.8 Phlebitis and thrombophlebitis of other sites; J45.909 Unspecified asthma, uncomplicated; Z79.52 Long term (current) use of systemic steroids; Z79.51 Long term (current) use of inhaled steroids; Z79.899 Other long term (current) drug therapy
CPT/HCPCS: 93971; 99282

== ENCOUNTER → 2021-07-28 | Outpatient (CLI) | payer MEDICARE, OTHER, SELFPAY | END | disposition home or self-care (01) | LOC: LABSPEC 15:34 | PROVIDERS: PCP Internal Medicine; Visit Provider Otolaryngology | DX: J32.9 Chronic sinusitis, unspecified (principal) | CPT/HCPCS: 87070; 87205 ==

== ENCOUNTER → 2022-12-14 | Outpatient (CLI) | payer MEDICARE, OTHER, SELFPAY | END | disposition home or self-care (01) | PROVIDERS: PCP Internal Medicine; Visit Provider Otolaryngology | DX: J32.9 Chronic sinusitis, unspecified (principal) | CPT/HCPCS: 87070; 87077; 87186; 87205 ==

== ENCOUNTER → 2023-04-27 | Outpatient (CLI) | payer MEDICARE, OTHER, SELFPAY | END | disposition home or self-care (01) | PROVIDERS: PCP Internal Medicine; Referring Provider Otolaryngology; Visit Provider Otolaryngology | DX: J32.9 Chronic sinusitis, unspecified (principal) | CPT/HCPCS: 87070; 87205 ==

== ENCOUNTER 2023-09-13 15:23 | Emergency (ER) | payer MEDICARE, OTHER, SELFPAY ==
[2023-09-13] VITALS (8 sets, daily range): BP systolic 133–162; BP diastolic 61–66; PULSE 74–101; RESP 16–22; TEMP 36.4–37.2; O2SAT 99–100; BMI 22.0
--- NOTE | 2023-09-13 15:53 | EX.ED.DYSGE1 ---
HPI History of Present Illness Chief Complaint: Shortness of Breath Informant: patient Onset/Context/Timing Onset: Days (11 days) Narrative Narrative: Patient presents with shortness of breath for the past 11 days. She states she feels like she cannot get a deep breath. She has a history of asthma and states this feels similar. She does not feel she is wheezing. She is using her inhalers at home without improvement. She is currently on prednisone. She told triage nurse that it hurts to breathe but denies chest pain to me. She has not had fever. [facility] Medical History (Updated 09/13/23 @ 17:[address] Jennifer Valdez MD) Abnormal mammogram of left breast Asthma Back pain Chronic sinusitis Community acquired pneumonia COPD (chronic obstructive pulmonary disease) Depression GERD (gastroesophageal reflux disease) Hiatal hernia Incompetence of rectovaginal tissue Sepsis Home Medications albuterol sulfate 90 mcg/actuation aerosol inhaler (ProAir HFA) 1 puff inhalation TID PRN PRN Sob &/Or Wheezing 01/23/19 [History Last Taken 01/22/19] azelastine 137 mcg (0.1 %) nasal spray aerosol 2 sprays DAILY allergies 01/23/19 [History Last Taken 01/23/19] beclomethasone dipropionate 80 mcg/actuation nasal HFA inhaler (QNASL) 2 puff QHS ALLERGIES 01/23/19 [History Last Taken 01/22/19] benzonatate 100 mg capsule 100 mg PO Q4H PRN PRN Cough 01/23/19 [History Last Taken 01/22/19] budesonide-formoterol HFA 160 mcg-4.5 mcg/actuation aerosol inhaler (Symbicort) 1 puff PO BID SOB 01/23/19 [History Last Taken Unknown] conjugated estrogens 0.625 mg tablet (Premarin) 0.625 mg PO DAILY HORMONE 01/23/19 [History Last Taken 01/22/19] duloxetine 30 mg capsule,delayed release 30 mg PO DAILY DEPRESSION 01/23/19 [History Last Taken 01/22/19] lansoprazole 30 mg capsule,delayed release 30 mg PO DAILY HERNIA 01/23/19 [History Last Taken 01/22/19] lorazepam 0.5 mg tablet 1 mg PO QHS ANXIETY 01/23/19 [History Last Taken 01/22/19] montelukast 10 mg tablet 10 mg PO DAILY ALLERGIES 01/23/19 [History Last Taken 01/22/19] primidone 250 mg tablet 250 mg PO DAILY TREMORS 01/23/19 [History Last Taken 01/22/19] trazodone 50 mg tablet 50 mg PO DAILY SLEEP 01/23/19 [History Last Taken 01/22/19] calcium carbonate 500 mg-vitamin D3 3.125 mcg (125 unit) tablet 1 tab PO DAILY 09/12/23 [History Last Taken Unknown] cholecalciferol (vitamin D3) 25 mcg (1,000 unit) capsule 25 mcg PO DAILY 09/12/23 [History Last Taken Unknown] omega 3-dha 250 mg-epa 350 mg-fish oil 1,000 mg capsule cap PO 09/12/23 [History Last Taken Unknown] pyridoxine (vitamin B6) 100 mg tablet 100 mg PO DAILY 09/12/23 [History Last Taken Unknown] vitamin E (dl, acetate) 180 mg (400 unit) capsule 180 mg PO DAILY 09/12/23 [History Last Taken Unknown] Allergy/AdvReac Type Severity Reaction Status Date / Time aspirin Allergy Severe throat Verified 09/13/23 15:24 swelling acetaminophen Allergy throat Verified 09/13/23 15:24 swells cefuroxime [From [place]] Allergy Shortness Verified 09/13/23 15:24 of breath citric acid Allergy throat Verified 09/13/23 15:24 [From [place]] swells ibuprofen Allergy throat Verified 09/13/23 15:24 swells sodium bicarbonate Allergy throat Verified 09/13/23 15:24 [From [place]] swells diclofenac AdvReac Upset Verified 09/13/23 15:24 Stomach Family History Mother Breast cancer Asthma Sister Cancer uterine Thyroid disorder cancer Asthma Brother CAD (coronary artery disease) Father Asthma Surgical History H/O oral surgery S/P bunionectomy S/P excision of ganglion cyst S/P hysterectomy S/P left breast biopsy Social History Smoking Status: Never smoker alcohol intake: never ROS ROS ED Constitutional Constitutional ED: Denies chills or fever(s) Eyes Eyes: Denies discharge from eye(s) ENT ENT ED: Denies discharge from eye(s), rhinorrhea or sore throat Cardiovascular Cardiovascular: Denies chest pain Respiratory/Chest Respiratory/Chest: Reports dyspnea; Denies cough Gastrointestinal Gastrointestinal: Denies abdominal pain, nausea or vomiting Genitourinary Genitourinary ED: Denies dysuria Musculoskeletal Musculoskeletal: Denies back pain or extremity pain Integumentary Denies Abrasions or rash Neurologic Neurologic: Denies headache(s) or weakness Psychiatric Psychiatric: Reports anxiety; Denies depression Allergic/Immunologic Allergic/Immunologic ED: Denies lip swelling or urticaria EXAM Physical Exam Const Vital Signs: 09/13/23 15:25 09/13/23 16:07 09/13/23 16:15 Temperature 99 F Temperature Source Temporal Pulse Rate 101 H 80 74 Respiratory Rate 22 H 22 H 22 H Respiratory Effort Respiratory Depth Respiratory Pattern Tachypnea Blood Pressure 162/66 H 133/61 H Blood Pressure Mean 98 85 Pulse Ox 99 100 Oxygen Delivery Method Room Air Room Air 09/13/23 16:49 09/13/23 16:50 09/13/23 17:00 Temperature 97.8 F 97.6 F L Temperature Source Oral Oral Pulse Rate 78 Respiratory Rate 18 Respiratory Effort Short of Breath Respiratory Depth Normal Respiratory Pattern Tachypnea Blood Pressure 138/64 H Blood Pressure Mean 88 Pulse Ox 100 Oxygen Delivery Method Room Air Room Air 09/13/23 17:00 Temperature Temperature Source Pulse Rate 78 Respiratory Rate 18 Respiratory Effort Respiratory Depth Respiratory Pattern Blood Pressure 138/64 H Blood Pressure Mean 88 Pulse Ox 100 Oxygen Delivery Method Room Air Positive well nourished and well developed General Appearance ED: well developed HEENT Reports moist mucous membranes Eyes EOMs intact bilaterally Chest Wall inspection of chest normal and palpation of chest normal Resp Resp Narrative: Patient tachypneic. Lung sounds grossly clear with slight end expiratory wheeze at the right base. Good air movement bilaterally. Cardio regular rate and regular rhythm GI non-tender Palpation: soft Extremity normal to inspection Extremity Narrative: No significant peripheral edema. Neuro oriented x3 and no sensory deficits noted Psych Mood & Affect: anxious and tearful Skin no rashes or lesions noted MDM MDM MDM Narrative Medical decision making narrative: Patient placed on senior adults director. EKG obtained to evaluate for cardiac arrhythmia/ischemia. DuoNeb ordered. Swab for COVID, influenza, and RSV. IV line established. Labwork obtained to evaluate for leukocytosis, anemia, and electrolyte derangement. Chest x-ray obtained to evaluate for acute lung pathology, cardiac size, or mediastinal abnormality. History & Record Review Discussion w/independent historian: Patient and Family Lab Data Attestation: I reviewed the patient's lab results. Labs: Laboratory Results - last 24 hr 09/13/23 16:05 WBC 9.5 RBC 4.71 Hgb 14.2 Hct 40.9 MCV 86.8 MCH 30.1 MCHC 34.7 RDW Std Deviation 39.8 RDW Coeff of Gregoria 12.6 Plt Count 238 MPV 8.7 Immature Gran % (Auto) 0.400 Neut % (Auto) 43.0 L Lymph % (Auto) 44.7 H [place] % (Auto) 10.2 H Eos % (Auto) 0.9 Baso % (Auto) 0.8 Absolute Neuts (auto) 4.1 Absolute Lymphs (auto) 4.24 Nucleated RBC % 0 D-Dimer Quant (PE/DVT) 0.31 Sodium 132 L Potassium 3.4 L Chloride 101 Carbon Dioxide 24.0 Anion Gap 7 BUN 7 Creatinine 0.89 Estim Creat Clear Calc 43.20 Est GFR (MDRD) Af Amer 80 Est GFR (MDRD) Non-Af 66 BUN/Creatinine Ratio 7.9 L Glucose 95 Calcium 9.0 Troponin I High Sens 5 Radiography Chest X-Ray - ED: 1 View, Read by ED Physician, Chronic Changes and No Infiltrates Diagnostic Testing: Clinical Impression(s) from Imaging Studies Chest X-Ray 09/13/23 15:54 IMPRESSION: There are findings consistent with COPD. There is no evidence of acute chest disease. Electronically Signed: Karlo Espinoza MD at 16:29 EST , EKG Initial EKG: Attestation: I personally reviewed and interpreted this EKG as follows: Interpretation: Sinus Rhythm (Sinus at 75 with no acute ischemia.) Treatment and Re-Evaluation :: CBC was normal white count 9.5 with a hemoglobin of 14.2. 44% lymphocytes noted and 43% neutrophils. Chemistry studies significant for a sodium of 132 and a potassium of 3.4. Renal function is normal. Glucose is 95. Troponin is normal at 5 and D-dimer is normal at 0.31. Portable chest x-ray per my interpretation was chronic changes with hyperinflation. No evidence of infiltrate. Radiology interpretation reviewed and agrees. On repeat evaluation patient reports some improvement. I did ask her about anxiety as she was quite tachypneic on arrival and did tell me that she has some upcoming medical testing coming up. She states she does not feel like she is anxious and has had this testing done previously and it did not bother her. Her oxygen saturations remain 100% on room air. We will try 1 more DuoNeb treatment and then patient wishes to be discharged home. She tells me she does not have COPD but has asthma. She does not have fever or infiltrate. I do not think she needs an antibiotic at this time. Discharge Plan Triage Chief Complaint: Shortness of Breath ED Provider: Jennifer Valdez Dx/Rx/DC Orders Clinical Impression: Asthma exacerbation, Dyspnea Instructions: ED Asthma, Acute (Adult), ED Dyspnea Prescriptions: No Action calcium carbonate-vitamin D3 500 mg-3.125 mcg (125 unit) tablet 1 tab PO DAILY cholecalciferol (vitamin D3) 25 mcg (1,000 unit) capsule 25 mcg PO DAILY omega [id number]-fish oil 250-350-1,000 mg capsule PO pyridoxine (vitamin B6) 100 mg tablet 100 mg PO DAILY vitamin E (dl, acetate) 180 mg (400 unit) capsule 180 mg PO DAILY trazodone 50 MG tablet 50 mg PO DAILY primidone 250 MG tablet 250 mg PO DAILY lorazepam 0.5 MG tablet 1 mg PO QHS Patient Comments: TAKE 1 TABLET BY MOUTH AT BEDTIME NEEDED FOR ANXIETY benzonatate 100 MG capsule 100 mg PO Q4H PRN PRN (Reason: Cough) Patient Comments: take 2 capsules by mouth three times a day if needed lansoprazole 30 MG capsule,delayed release(DR/EC) 30 mg PO DAILY Premarin 0.625 MG tablet 0.625 mg PO DAILY montelukast 10 MG tablet 10 mg PO DAILY azelastine 1 SPRAY aerosol,spray 2 sprays NASAL DAILY albuterol sulfate [ProAir HFA] 1 PUFF inhaler 1 puff inhalation TID PRN PRN (Reason: Sob &/Or Wheezing) Patient Comments: Inhale 2 Puffs as instructed every 4 hours as needed for Wheezing/Shortness of Breath. duloxetine 30 MG capsule,delayed release(DR/EC) 30 mg PO DAILY budesonide-formoterol [Symbicort] 1 INHALER inhaler 1 puff PO BID QNASL 80 mcg/actuation HFA aerosol inhaler 2 puff NASAL QHS Patient Comments: Inhale 2 puff into both nostrils once a day Primary Care Provider: Evelyne Pascal Referrals: Evelyne Pascal MD [Primary Care Provider] - 3-5 Days if not improving Disposition Disposition: Home, Self Care
--- NOTE | 2023-09-13 15:54 | RAD_ITS ---
STUDY: X-RAY CHEST REASON FOR EXAM: Female, 77 years old. sob TECHNIQUE: Single AP portable view of the chest. COMPARISON: 01/23/2019. FINDINGS: There is hyperinflation of the lungs consistent with chronic obstructive lung disease (COPD). No infiltrates. No effusions. There is no demonstrated pleural abnormality. Normal size heart. Normal mediastinum and kelly. Normal visualized pulmonary arteries. Normal visualized aortic arch and descending thoracic aorta. There are diffuse degenerative changes of the visualized thoracic spine. Previous kyphoplasties of thoracic spine vertebrae noted. Normal visualized ribs, clavicles, and shoulders. There is no demonstrated abnormality of the visualized soft tissue structures of the upper abdomen. RAD/Chest 1 View (Portable) IMPRESSION: There are findings consistent with COPD. There is no evidence of acute chest disease. Electronically Signed: Karlo Espinoza MD at 16:29 EST ,
[2023-09-13] MEDS: Ipratropium/Albuterol Sulfate 3 ML AMPUL.NEB INHALATION ×2 (16:06→18:04)
[2023-09-13] MEDS: MethylPREDNISolone 125 MG/2 ML Vial 80 MG IV (16:12)
[2023-09-13 16:17] LABS: Absolute Lymphocyte Count 4.24 X10^3/uL (0.83-4.51); Absolute Neutrophil Count 4.1 X10^3/uL (2.0-7.7); Basophil# 0.08 X10^3/uL; Basophil% 0.8 % (0-1); Eosinophil# 0.09 X10^3/uL; Eosinophils% 0.9 % (0-5); Hematocrit 40.9 % (37-47); Hemoglobin 14.2 g/dL (12.0-15.0); Lymphocyte # 4.24 X10^3/ul (0.83-4.51); Lymphocyte % 44.7 % (19-41); Mean Corp Hgb Conc 34.7 g/dL (32-36); Mean Corpuscular Hgb 30.1 pg (27.0-32.0); Mean Corpuscular Volume 86.8 fL (81-99); Mean Platelet Vol. 8.7 fl (6.2-12.0); Monocyte# 0.97 X10^3/uL; Monocyte% 10.2 % (0-10); NRBC Flagged by Analyzer 0 % (0-5); Neutrophil # 4.07 X10^3/uL (2.7-7.7); Platelet Count 238 K/mm3 (150-450); RBC Distribution Width CV 12.6 % (11.6-14.6); RBC Distribution Width SD 39.8 fl (35.1-43.9); Red Blood Count 4.71 M/mm3 (4.2-5.4); White Blood Count 9.5 K/mm3 (4.4-11.0)
--- OUTSIDE RECORDS SUMMARY | 2023-09-13 16:26 | XMS RPT_ITS | CCD ---
Author Name Unknown Address [address] [place] [address] Organization [facility] Care Team Providers Care Intermediate Manager Name Role Phone Nelly Bee MD Primary Care Provider TALAMPKOREY, NELLY D Primary Care Unavailable TIARRA SINGH Referring Unavailable GILLIAN ZHONG Attending Nelly Samuel MD Primary Care Provider INES RUIZ Referring Unavail able TALAMPAS, NELLY D Primary Care Unavailable ENDY ARIZA Referring Unavailable TALAMPAS, NELLY D Primary Care Unavailable ENDY ARIZA Attending Unavailable TALAMPAS, NELLY D Primary Care Unavailable TALAMPAS, NELLY D Primary Care Unavailable JENNIFER LEAL Referring Unavailable TALAMPAS, NELLY D Primary Care Unavailable TOENDY Referring Unavailable TALAMPAS, NELLY D Primary Care Unavailable TO ENDY Referring Unavailable SAMANTHA, TIARRA Attending Unavailable TALAMPAS, NELLY D Primary Care Unavailable TALAMPAS, NELLY D Primary Care Unavailable TALAMPAS, NELLY D Referring Unavailable TALAMPAS, NELLY D Attending Unavailable SAMANTHA, TIARRA Attending Unavailable TALAMPAS, NELLY D Primary Care Unavailable TO ENDY Referring Unavailable TALAMPAS, NELLY D Primary Care Unavailable CARMITA BOX Attending Unavailable TALAMPAS, NELLY D Primary Care Unavailable SHANTANU MCPHERSON Referring Unavailable SHANTANU MCPHERSON Attending Unavailable TALAMPAS, NELLY D Primary Care Unavailable TO ENDY Attending Unavailable TALAMPAS, NELLY D Primary Care Unavailable TO ENDY Referring Unavailable TALAMPAS, NELLY D Primary Care Unavailable REBECCA GONZALEZ Attending Unavailable TALAMPAS, NELLY D Primary Care Unavailable TALAMPAS, NELLY D Primary Care Unavailable TALAMPAS, NELLY D Referring Unavailable TALAMPAS, NELLY D Attending Unavailable SHANTANU MCPHERSON Referring Unavailable VIDASHANTANU Attending Unavailable TALAMPAS, NELLY D Primary Care Unavailable ENDY ARIZA Referring Unavailable TALAMPAS, NELLY D Primary Care Unavailable TALAMPAS, NELLY D Primary Care Unavailable TALAMPAS, NELLY D Attending Unavailable ENDY ARIZA Attending Unavailable TALAMPAS, NELLY D Primary Care Unavailable REBECCA GONZALEZ Attending Unavailable TALAMPAS, NELLY D Primary Care Unavailable JENNIFER LEAL Referring Unavailable TALAMPAS, NELLY D Primary Care Unavailable INES RUIZ Attending Unavail able TALAMPAS, NELLY D Primary Care Unavailable Allergies Allergy Classification Reported Allergen(s) Allergy Type Date of Onset Reaction(s) Facility (20 sources) Acetaminophen; Translations: [ACETAMINOPHEN] Drug Allergy 01-19-20 06 Swelling [facility] (20 sources) Cefuroxime; Translations: [CEFUROXIME] Drug Allergy 05-01-20 08 [facility] Work Phone: (20 sources) Doxycycline; Translations: [DOXYCYCLINE] Drug Allergy 05-16-20 18 GI Upset, Other: See Comments [facility] Work Phone: (20 sources) Ibuprofen; Translations: [IBUPROFEN] Drug Allergy 02-02-20 07 Swelling [facility] Work Phone: (20 sources) Lanolin; Translations: [LANOLIN] Drug Allergy 04-14-20 13 Other: See Comments [facility] (20 sources) linaclotide; Translations: [LINACLOTIDE] Drug Allergy 09-06-19 17 [facility] Work Phone: (20 sources) moxifloxacin; Translations: [MOXIFLOXACIN HCL] Drug Allergy 06-24-20 08 Intolerance [facility] (20 sources) Nitrofurantoin; Translations: [NITROFURANTOIN] Drug Allergy 03-02-20 12 Rash [facility] Work Phone: (20 sources) NITROFURANTOIN, MACROCRYSTALS / Nitrofurantoin, Monohydrate; Translations: [NITROFURANTOIN MONOHYD/M-CRYST] Drug Allergy 01-29-20 14 GI Upset [facility] (20 sources) Colombian balsam; Translations: [BALSAM JENNIFER] Drug Allergy 04-14-20 13 Hives [facility] (20 sources) raNITIdine; Translations: [RANITIDINE HCL] Drug Allergy 05-07-20 13 Itching [facility] Work Phone: (6 sources) Salicylic Acid; Translations: [SALICYLATES] Drug Allergy 07-17-20 05 Anaphylaxis [facility] Work Phone: (20 sources) Sulfamethoxazole / Trimethoprim; Translations: [SULFAMETHOXAZOLE-TR IMETHOPRIM] Drug Allergy 09-26-19 06 Hives [facility] Work Phone: (20 sources) Salicylate product Propensity to adverse reactions 07-17-20 05 Anaphylaxis [facility] Work Phone: (10 sources) Codeine; Translations: [CODEINE] Drug Allergy 03-01-20 23 Vomiting [facility] Medications Current Medications Medication Drug Class(es) Dates Sig (Normalized) Sig (Original) DULoxetine 30 mg delayed release oral capsule (20 sources) Serotonin and Norepinephrine Reuptake Inhibitor Start: 05-15-2022 End: 07-08-2024 take 1 capsule by mouth once daily DULoxetine (CYMBALTA) 30 mg capsule Take 1 capsule by mouth once daily. 90 capsule 3 07/09/2023 07/08/2024 Active Completed/Discontinued Medications Medication Drug Class(es) Dates Sig (Normalized) Sig (Original) [id number] 200 actuat albuterol 0.09 mg/actuat metered dose inhaler (20 sources) beta2-Adrenergic Agonist Start: 07-04-2021 End: 08-15-2022 albuterol HFA (PROVENTIL HFA, VENTOLIN HFA) 90 mcg/actuation inhaler INHALE 2 INHALATIONS BY MOUTH INSTRUCTED EVERY 4 HOURS NEEDED FOR WHEEZING / SHORTNESS OF BREATH 51 g 3 08/15/2022 Active Problems Active Problems Problem Classification Problem Date Documented Da te Episodic/Chronic Adjustment disorders (20 sources) Complicated grieving; 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] Onset: 5 08-21-2014 Chronic Anxiety disorders (20 sources) Anxiety neurosis ; Translations: [Generalized anxiety disorder] Onset: 6 04-11-2016 Chronic Asthma (20 sources) Uncomplicated moderate persistent asthma; Translations: [Moderate persistent asthma, uncomplicated] Onset: 6 Chronic Cardiac dysrhythmias (20 sources) Supraventricular tachycardia; Translations: [Supraventricular tachycardia] Onset: 1 11-22-2020 Chronic Chronic obstructive pulmonary disease and bronchiectasis (19 sources) Chronic obstructive lung disease; Translations: [Chronic obstructive pulmonary disease, unspecified] Onset: 3 Chronic Conditions associated with dizziness or vertigo (1 source) Lightheadedness; Translations: [Dizziness and giddiness] Episodic Disorders usually diagnosed in infancy, childhood, or adolescence (20 sources) Attention deficit hyperactivity disorder, predominantly inattentive type; Translations: [Other specified behavioral and emotional disorders with onset usually occurring in childhood and adolescence] Onset: 5 08-21-2014 Chronic Esophageal disorders (20 sources) Gastroesophageal reflux disease; Translations: [Gastro-esophageal reflux disease without esophagitis] Onset: 6 12-07-2005 Chronic Heart valve disorders (2 sources) Mitral valve regurgitation; Translations: [Nonrheumatic mitral (valve) insufficiency] Chronic Hemorrhoids (20 sources) Internal hemorrhoids; Translations: [Other hemorrhoids] 06-30-2006 Episodic Immunizations and screening for infectious disease (5 sources) Patient encounter status; Translations: [Encounter for immunization] Episodic Miscellaneous mental health disorders (11 sources) Primary insomnia; Translations: [Primary insomnia] Chronic Mood disorders (20 sources) Major depression in full remission; Translations: [Major depressive disorder, single episode, in full remission] Onset: 6 06-25-2017 Chronic Nutritional deficiencies (3 sources) Vitamin D deficiency; Translations: [Vitamin D deficiency, unspecified] Onset: 3 04-27-2023 Chronic Osteoarthritis (20 sources) Degenerative joint disease involving multiple joints; Translations: [Polyosteoarthritis, unspecified] Onset: 9 03-10-2009 Chronic Osteoporosis (20 sources) Osteoporosis; Translations: [Age-related osteoporosis without current pathological fracture] Onset: 3 09-28-2010 Chronic Other aftercare (1 source) Encounter for therapeutic drug level monitoring; Translations: [Encounter for therapeutic drug monitoring] Onset: 3 Episodic Other and ill-defined heart disease (1 source) Diastolic dysfunction; Translations: [Other ill-defined heart diseases] Chronic Other disorders of stomach and duodenum (2 sources) Upset stomach; Translations: [Functional dyspepsia] Episodic Other eye disorders (1 source) Esotropia; Translations: [Unspecified esotropia] Episodic Other gastrointestinal disorders (20 sources) Constipation; Translations: [Constipation, unspecified] Onset: 7 06-30-2006 Episodic Other gastrointestinal disorders (1 source) Heartburn; Translations: [Heartburn] Onset: 3 Episodic Other gastrointestinal disorders (1 source) Personal history of other diseases of the digestive system; Translations: [History of gastritis] Onset: 3 Episodic Other hereditary and degenerative nervous system conditions (20 sources) Essential tremor; Translations: [Essential tremor] Onset: 3 12-13-2012 Chronic Other hereditary and degenerative nervous system conditions (1 source) Essential tremor; Translations: [Essential tremor] Onset: 3 Chronic Other inflammatory condition of skin (1 source) Psoriasis; Translations: [Psoriasis, unspecified] Chronic Other screening for suspected conditions (not mental disorders or infectious disease) (20 sources) Mammography abnormal; Translations: [Other abnormal and inconclusive findings on diagnostic imaging of breast] Onset: 8 08-31-2008 Episodic Other upper respiratory disease (20 sources) Allergic rhinitis; Translations: [Allergic rhinitis, unspecified] 06-25-2017 Chronic Other upper respiratory disease (1 source) Hoarse; Translations: [Dysphonia] 05-21-2023 Episodic Other upper respiratory infections (20 sources) Chronic sinusitis; Translations: [Chronic sinusitis, unspecified] Onset: 9 08-31-2008 Chronic Other upper respiratory infections (2 sources) Acute pansinusitis; Translations: [Acute pansinusitis, unspecified] Episodic Residual codes; unclassified (1 source) Postmenopausal state; Translations: [Asymptomatic menopausal state] 04-27-2023 Episodic Residual codes; unclassified (1 source) Asymptomatic menopausal state; Translations: [Asymptomatic postmenopausal status] Onset: 3 Episodic Spondylosis; intervertebral disc disorders; other back problems (20 sources) Degeneration of lumbar intervertebral disc; Translations: [Other intervertebral disc degeneration, lumbar region] Onset: 5 11-23-2014 Chronic Past or Other Problems Problem Classification Problem Date Documented Da te Episodic/Chronic Abdominal hernia (18 sources) Gastroesophageal reflux disease with hiatal hernia; Translations: [Diaphragmatic hernia without obstruction or gangrene] Onset: 3 Episodic Abdominal pain (10 sources) Epigastric pain; Translations: [Epigastric pain] Onset: 3 03-01-2023 Episodic Allergic reactions (20 sources) Urticaria; Translations: [Other urticaria] Onset: 9 08-31-2008 Episodic Cardiac dysrhythmias (20 sources) Palpitations; Translations: [Palpitations] Onset: 1 10-25-2020 Episodic Fluid and electrolyte disorders (2 sources) Hyponatremia; Translations: [Hypo-osmolality and hyponatremia] Onset: 3 Episodic Gastritis and duodenitis (20 sources) Gastritis; Translations: [Unspecified gastritis and gastroduodenitis] Onset: 6 12-07-2005 Episodic Other connective tissue disease (20 sources) Spasm; Translations: [Other muscle spasm] Onset: 8 08-31-2008 Episodic Other connective tissue disease (20 sources) Myofascial pain; Translations: [Myalgia, other site] Onset: 5 11-23-2014 Episodic Other connective tissue disease (20 sources) Myofascial pain syndrome; Translations: [Myalgia, other site] Onset: 8 09-21-2017 Episodic Other eye disorders (1 source) Unspecified esotropia; Translations: [Esotropia] Onset: 3 Episodic Other gastrointestinal disorders (9 sources) Heartburn; Translations: [Heartburn] Onset: 3 03-01-2023 Episodic Other gastrointestinal disorders (9 sources) History of gastritis; Translations: [Personal history of other diseases of the digestive system] Onset: 3 03-01-2023 Episodic Other lower respiratory disease (20 sources) Multiple nodules of lung; Translations: [Other nonspecific abnormal finding of lung field] Onset: 9 02-03-2019 Episodic Other lower respiratory disease (20 sources) Dyspnea; Translations: [Shortness of breath] Onset: 1 10-25-2020 Episodic Other nutritional; endocrine; and metabolic disorders (20 sources) Unexplained weight loss ; Translations: [Abnormal weight loss] Onset: 0 07-26-2020 Episodic Other skin disorders (20 sources) Primary focal hyperhidrosis; Translations: [Primary focal hyperhidrosis, unspecified] Onset: 2 02-13-2012 Episodic Other upper respiratory disease (20 sources) Voice tremor; Translations: [Other voice and resonance disorders] Onset: 2 03-13-2012 Episodic Pneumonia (except that caused by tuberculosis or sexually transmitted disease) (20 sources) Infective pneumonia; Translations: [Pneumonia, unspecified organism] Onset: 9 02-03-2019 Episodic Spondylosis; intervertebral disc disorders; other back problems (20 sources) Neck pain; Translations: [Cervicalgia] Onset: 0 08-08-2010 Episodic Sprains and strains (20 sources) Strain of muscle at thorax level; Translations: [Strain of muscle and tendon of unspecified wall of thorax, initial encounter] Onset: 5 01-04-2015 Episodic Results Test Name Value Interpretation Reference Range Facil ity Vital Signs Date Time Vital Sign Value Performing Clinician Nan chapman 07-27-2023 10:56-0500 Body temperature 98.29 [degF] Nelly Bee MD Work Phone: [facility] 07-27-2023 10:56-0500 Body weight 53.07 kg Nelly Bee MD Work Phone: [facility] 07-27-2023 10:56-0500 Diastolic blood pressure 64 mm[Hg] Nelly Bee MD Work Phone: [facility] 07-27-2023 10:56-0500 Heart rate 79 /min Nelly Bee MD Work Phone: [facility] 07-27-2023 10:56-0500 Respiratory rate 18 /min Nelly Bee MD Work Phone: [facility] 07-27-2023 10:56-0500 SaO2% (BldA) [Mass fraction] 100 % Nelly Bee MD Work Phone: [facility] 07-27-2023 10:56-0500 Systolic blood pressure 102 mm[Hg] Nelly Bee MD Work Phone: [facility] 05-21-2023 10:24-0400 Body weight 52.62 kg Rebecca Gonzalez MD Work Phone: [facility] 05-21-2023 10:24-0400 Diastolic blood pressure 72 mm[Hg] Rebecca Gonzalez MD Work Phone: [facility] 05-21-2023 10:24-0400 Heart rate 81 /min Rebecca Gonzalez MD Work Phone: [facility] 05-21-2023 10:24-0400 Respiratory rate 15 /min Rebecca Gonzalez MD Work Phone: [facility] 05-21-2023 10:24-0400 SaO2% (BldA) [Mass fraction] 97 % Rebecca Gonzalez MD Work Phone: [facility] 05-21-2023 10:24-0400 Systolic blood pressure 124 mm[Hg] Rebecca Gonzalez MD Work Phone: [facility] 04-27-2023 09:34-0400 Body weight 52.16 kg Endy To GENERAL INSPECTOR.CROS[employer]AR SWITCH ADJUSTER Work Phone: [facility] 04-27-2023 09:34-0400 Diastolic blood pressure 60 mm[Hg] Endy To GENERAL INSPECTOR.CROSSBAR SWITCH ADJUSTER Work Phone: [facility] 04-27-2023 09:34-0400 Heart rate 86 /min Endy To GENERAL INSPECTOR.CROSSBAR SWITCH ADJUSTER Work Phone: [facility] 04-27-2023 09:34-0400 SaO2% (BldA) [Mass fraction] 97 % Endy To GENERAL INSPECTOR.CROSSBAR SWITCH ADJUSTER Work Phone: [facility] 04-27-2023 09:34-0400 Systolic blood pressure 100 mm[Hg] Endy To GENERAL INSPECTOR.CROSSBAR SWITCH ADJUSTER Work Phone: [facility] 03-01-2023 13:00-0400 Heart rate 81 /min Cristina Barone MD Work Phone: [facility] 03-01-2023 13:00-0400 Respiratory rate 14 /min Cristina Barone MD Work Phone: [facility] 03-01-2023 13:00-0400 SaO2% (BldA) [Mass fraction] 100 % Cristina Barone MD Work Phone: [facility] 03-01-2023 12:55-0400 Diastolic blood pressure 69 mm[Hg] Cristina Barone MD Work Phone: [facility] 03-01-2023 12:55-0400 Systolic blood pressure 131 mm[Hg] Cristina Barone MD Work Phone: [facility] 03-01-2023 11:24-0400 Body temperature 97.3 [degF] Cristina Barone MD Work Phone: [facility] 03-01-2023 10:28-0400 Body height 157.5 cm Cristina Barone MD Work Phone: [facility] 03-01-2023 10:28-0400 Body weight 52.16 kg Cristina Barone MD Work Phone: [facility] 02-05-2023 11:18-0400 Body weight 52.16 kg Nelly Bee MD Work Phone: [facility] 02-05-2023 11:18-0400 Diastolic blood pressure 58 mm[Hg] Nelly Bee MD Work Phone: [facility] 02-05-2023 11:18-0400 Heart rate 75 /min Nelly Bee MD Work Phone: [facility] 02-05-2023 11:18-0400 Respiratory rate 18 /min Nelly Bee MD Work Phone: [facility] 02-05-2023 11:18-0400 SaO2% (BldA) [Mass fraction] 99 % Nelly Bee MD Work Phone: [facility] 02-05-2023 11:18-0400 Systolic blood pressure 122 mm[Hg] Nelly Bee MD Work Phone: [facility] 01-17-2023 10:48-0400 Body weight 52.62 kg Endy To GENERAL INSPECTOR.CROSSBAR SWITCH ADJUSTER Work Phone: [facility] 01-17-2023 10:48-0400 Diastolic blood pressure 58 mm[Hg] Endy To GENERAL INSPECTOR.CROSSBAR SWITCH ADJUSTER Work Phone: [facility] 01-17-2023 10:48-0400 Heart rate 79 /min Endy To GENERAL INSPECTOR.CROSSBAR SWITCH ADJUSTER Work Phone: [facility] 01-17-2023 10:48-0400 SaO2% (BldA) [Mass fraction] 97 % Endy To GENERAL INSPECTOR.CROSSBAR SWITCH ADJUSTER Work Phone: [facility] 01-17-2023 10:48-0400 Systolic blood pressure 110 mm[Hg] Endy To GENERAL INSPECTOR.CROSSBAR SWITCH ADJUSTER Work Phone: [facility] 12-21-2022 16:40-0400 Body temperature 97.5 [degF] Chandan Chapo GENERAL INSPECTOR.CROSSBAR SWITCH ADJUSTER Work Phone: [facility] 12-21-2022 16:40-0400 Diastolic blood pressure 62 mm[Hg] Chandan Chapo GENERAL INSPECTOR.CROSSBAR SWITCH ADJUSTER Work Phone: [facility] 12-21-2022 16:40-0400 Heart rate 87 /min Chandan Chapo GENERAL INSPECTOR.CROSSBAR SWITCH ADJUSTER Work Phone: [facility] 12-21-2022 16:40-0400 Respiratory rate 16 /min Chandan Chapo GENERAL INSPECTOR.CROSSBAR SWITCH ADJUSTER Work Phone: [facility] 12-21-2022 16:40-0400 SaO2% (BldA) [Mass fraction] 99 % Chandan Chapo GENERAL INSPECTOR.CROSSBAR SWITCH ADJUSTER Work Phone: [facility] 12-21-2022 16:40-0400 Systolic blood pressure 138 mm[Hg] Chandan Chapo GENERAL INSPECTOR.CROSSBAR SWITCH ADJUSTER Work Phone: [facility] 12-19-2022 10:26-0400 Body height 156.8 cm Endy To GENERAL INSPECTOR.CROSSBAR SWITCH ADJUSTER Work Phone: [facility] 12-19-2022 10:26-0400 Body weight 52.16 kg Endy To GENERAL INSPECTOR.CROSSBAR SWITCH ADJUSTER Work Phone: [facility] 12-19-2022 10:26-0400 Diastolic blood pressure 60 mm[Hg] Endy To GENERAL INSPECTOR.CROSSBAR SWITCH ADJUSTER Work Phone: [facility] 12-19-2022 10:26-0400 Heart rate 84 /min Endy To GENERAL INSPECTOR.CROSSBAR SWITCH ADJUSTER Work Phone: [facility] 12-19-2022 10:26-0400 SaO2% (BldA) [Mass fraction] 96 % Endy To GENERAL INSPECTOR.CROSSBAR SWITCH ADJUSTER Work Phone: [facility] 12-19-2022 10:26-0400 Systolic blood pressure 106 mm[Hg] Endy To GENERAL INSPECTOR.CROSSBAR SWITCH ADJUSTER Work Phone: [facility] 11-16-2022 11:28-0400 Body weight 51.71 kg Rebecca Gonzalez MD Work Phone: [facility] 11-16-2022 11:28-0400 Diastolic blood pressure 63 mm[Hg] Rebecca Gonzalez MD Work Phone: [facility] 11-16-2022 11:28-0400 Heart rate 89 /min Rebecca Gonzalez MD Work Phone: [facility] 11-16-2022 11:28-0400 Respiratory rate 12 /min Rebecca Gonzalez MD Work Phone: [facility] 11-16-2022 11:28-0400 SaO2% (BldA) [Mass fraction] 99 % Rebecca Gonzalez MD Work Phone: [facility] 11-16-2022 11:28-0400 Systolic blood pressure 131 mm[Hg] Rebecca Gonzalez MD Work Phone: [facility] 11-16-2022 11:13-0400 Body height 157.5 cm Pulm Wstr Work Phone: [facility] 11-16-2022 11:130400 Body weight 51.71 kg Pulm Wstr Work Phone: [facility] 11-16-2022 11:13-0400 Heart rate 89 /min Pulm Wstr Work Phone: [facility] 11-16-2022 11:13-0400 Respiratory rate 12 /min Pulm Wstr Work Phone: [facility] 11-16-2022 11:13-0400 SaO2% (BldA) [Mass fraction] 99 % Pulm Wstr Work Phone: [facility] 11-07-2022 08:12-0400 Body height 158.8 cm Nelly Bee MD Work Phone: [facility] 11-07-2022 08:12-0400 Body weight 52.3 kg Nelly Bee MD Work Phone: [facility] 11-07-2022 08:12-0400 Diastolic blood pressure 62 mm[Hg] Nelly Bee MD Work Phone: [facility] 11-07-2022 08:12-0400 Heart rate 98 /min Nelly Bee MD Work Phone: [facility] 11-07-2022 08:12-0400 Respiratory rate 16 /min Nelly Bee MD Work Phone: [facility] 11-07-2022 08:12-0400 Systolic blood pressure 100 mm[Hg] Nelly Bee MD Work Phone: [facility] 08-29-2022 11:16-0500 Body temperature 99.5 [degF] Nelly Bee MD Work Phone: [facility] 08-29-2022 11:16-0500 Body weight 51.8 kg Nelly Bee MD Work Phone: [facility] 08-29-2022 11:16-0500 Diastolic blood pressure 64 mm[Hg] Nelly Bee MD Work Phone: [facility] 08-29-2022 11:16-0500 Heart rate 89 /min Nelly Bee MD Work Phone: [facility] 08-29-2022 11:16-0500 Respiratory rate 18 /min Nelly Bee MD Work Phone: [facility] 08-29-2022 11:16-0500 SaO2% (BldA) [Mass fraction] 98 % Nelly Bee MD Work Phone: [facility] 08-29-2022 11:16-0500 Systolic blood pressure 122 mm[Hg] Nelly Bee MD Work Phone: [facility] 07-25-2022 11:26-0500 Body weight 51.26 kg Nlely Bee MD Work Phone: [facility] 07-25-2022 11:26-0500 Diastolic blood pressure 64 mm[Hg] Nelly Bee MD Work Phone: [facility] 07-25-2022 11:26-0500 Heart rate 82 /min Nelly Bee MD Work Phone: [facility] 07-25-2022 11:26-0500 SaO2% (BldA) [Mass fraction] 98 % Nelly Bee MD Work Phone: [facility] 07-25-2022 11:26-0500 Systolic blood pressure 114 mm[Hg] Nelly Bee MD Work Phone: [facility] 07-03-2022 09:46-0500 Body weight 51.44 kg Macarena Randle GENERAL INSPECTOR.CROSSBAR SWITCH ADJUSTER Work Phone: [facility] 07-03-2022 09:46-0500 Diastolic blood pressure 60 mm[Hg] Macarena Randle GENERAL INSPECTOR.CROSSBAR SWITCH ADJUSTER Work Phone: [facility] 07-03-2022 09:46-0500 Heart rate 90 /min Macarena Randle GENERAL INSPECTOR.CROSSBAR SWITCH ADJUSTER Work Phone: [facility] 07-03-2022 09:46-0500 Systolic blood pressure 118 mm[Hg] Macarena Randle IRINEO.CROSSBAR SWITCH ADJUSTER Work Phone: [facility] 05-15-2022 08:58-0400 Body height 157.5 cm Shantanu Mcpherson MD Work Phone: [facility] 05-15-2022 08:58-0400 Body weight 52.53 kg Shantanu Mcpherson MD Work Phone: [facility] 05-15-2022 08:58-0400 Diastolic blood pressure 67 mm[Hg] Shantanu Mcpherson MD Work Phone: [facility] 05-15-2022 08:58-0400 Heart rate 82 /min Shantanu Mcpherson MD Work Phone: [facility] 05-15-2022 08:58-0400 SaO2% (BldA) [Mass fraction] 97 % Shantanu Mcpherson MD Work Phone: [facility] 05-15-2022 08:58-0400 Systolic blood pressure 107 mm[Hg] Shantanu Mcpherson MD Work Phone: [facility] 05-02-2022 09:54-0400 Body weight 51.26 kg Nelly Bee MD Work Phone: [facility] 05-02-2022 09:54-0400 Diastolic blood pressure 62 mm[Hg] Nelly Bee MD Work Phone: [facility] 05-02-2022 09:54-0400 Heart rate 78 /min Nelly Bee MD Work Phone: [facility] 05-02-2022 09:54-0400 SaO2% (BldA) [Mass fraction] 98 % Nelly Bee MD Work Phone: [facility] 05-02-2022 09:54-0400 Systolic blood pressure 122 mm[Hg] Nelly Bee MD Work Phone: [facility] 01-18-2022 10:12-0400 Body weight 50.8 kg Nelly Bee MD Work Phone: [facility] 01-18-2022 10:12-0400 Diastolic blood pressure 62 mm[Hg] Nelly Bee MD Work Phone: [facility] 01-18-2022 10:12-0400 Heart rate 80 /min Nelly Bee MD Work Phone: [facility] 01-18-2022 10:12-0400 SaO2% (BldA) [Mass fraction] 100 % Nelly Bee MD Work Phone: [facility] 01-18-2022 10:120400 Systolic blood pressure 122 mm[Hg] Nelly Bee MD Work Phone: [facility] 11-14-2021 13:08-0400 Body height 157.5 cm Respiratory Wstr Work Phone: [facility] 11-14-2021 13:08-0400 Body weight 52.62 kg Respiratory Wstr Work Phone: [facility] 11-14-2021 13:08-0400 Heart rate 84 /min Respiratory Wstr Work Phone: [facility] 11-14-2021 13:08-0400 Respiratory rate 14 /min Respiratory Wstr Work Phone: [facility] 11-14-2021 13:08-0400 SaO2% (BldA) [Mass fraction] 98 % Respiratory Wstr Work Phone: [facility] Encounters Encounter Date Encounter Type Care Provider Facility Start: 08-31-2023 End: 09-01-2023 ambulatory CARMITA BOX Facility:[facility] Start: 08-29-2023 End: 08-29-2023 ambulatory INES REILLY Facility:[facility] Start: 08-15-2023 End: 08-15-2023 ambulatory INES REILLY Facility:[facility] Start: 08-14-2023 End: 08-14-2023 ambulatory ENDY ARIZA Facility:[facility] Start: 07-27-2023 End: 07-27-2023 ambulatory NELLY BEE Facility:[facility] Start: 07-27-2023 End: 07-27-2023 Office outpatient visit 25 minutes Nelly Bee MD Work Phone: [facility] Procedures Date Procedure Procedure Detail Performing Clinician Start: 07-24-2023 Lipid 1995 panel - S jennifer or Plasma Nelly Bee MD Work Phone: Start: 05-21-2023 INFLUENZA VACCINE, P RSV FREE, AGE 65+ YR, HIGH DOSE, QUADRIVALENT (FLUZONE HIGH-DOSE) Rebecca Gonzalez MD Work Phone: Start: 11-16-2022 Nitric oxide gas determination Jennifer Leal PA-C Work Phone: Start: 11-16-2022 Spmtry w/vc expirato ry quynh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 Elliott Elizabeth 77 year old female non-smoker with PMH significant for allergies, asthma, nasal polyposis, ASA sensitivity, esophagitis/GERD/hiatal hernia, psoriasis presenting for routine follow-up. Current therapy with Symbicort 80/4.5 with as needed albuterol and immunotherapy for cats as she has a cat at home. She has had persistent problems with hoarseness and cough. No thrush and she uses a spacer. Recent sinus surgery not helpful and EGD without significant esophagitis. She has felt more SOB, like she cannot take a deep breath. No wheezing, chest tightness and no sputum production. ENT gave her a Medrol dose pack which initially helped her SOB but as the dose tapered off, her SOB returned. No nocturnal symptoms. ASTHMA CONTROL TEST Date: 05/21/2023 In the last 4 weeks, how much of the time did your asthma keep you from getting as much done at work or home that you wanted to do? Some of the time (3) In the last 4 weeks, how often have you had shortness of breath? Once a day (2) In the last 4 weeks, how often did your asthma symptoms (wheezing, coughing, shortness of breath, chest tightness or pain) wake you up at night or earlier than usual? Not at all (5) In the last 4 weeks, how often have you used your rescue inhaler or nebulizer medication (such as Albuterol, Proventil, Ventolin, Maxair, Xoponex, or Primatene Mist)? A few times per week (3) In the last 4 weeks, how would you rate your asthma control? Somewhat controlled (3) Total: 16-19 DATA: SERVICE DATE: 11/16/2022 SERVICE TIME: 11:24 AM Oral Exhaled Nitric Oxide measurement: 29.0 (ppb) PAST MEDICAL HISTORY Diagnosis Date Allergic rhinitis Anxiety Aspirin-sensitive asthma with nasal polyps Asthma Back pain Depression Esophagitis, unspecified Heart valve disorder Osteopenia Unspecified constipation ALLERGIES Allergen Reactions Tylenol [Acetaminop* Swelling throat swelled shut Bactrim [Sulfametho* Hives Ceftin [Cefuroxime] Hives Does well with augmentin Doxycycline GI Upset, Other: See Comments Nauseam dizzy, I was sick and tired. Advil [Ibuprofen] Swelling Asa [Salicylates] Anaphylaxis Avelox [Moxifloxaci* Intolerance joint pain Balsum Of [place] [Bal* Hives Lanolin Other: See Comments congestion Linzess [Linaclotid* Hives Hives developed after a few doses Macrobid [Nitrofura* GI Upset Chills, headache, vomiting, diarrhea Nitrofurantoin Rash Severe GI upset and rash. Zantac [Ranitidine * Itching Itching and rash Codeine Vomiting budesonide-formoterol (SYMBICORT) 80-4.5 mcg/actuation inhaler^Inhale 2 Puffs as instructed twice daily.^Disp: 3 Each^Rfl: 3 budesonide-formoterol (SYMBICORT) 160-4.5 mcg/actuation inhaler^Inhale 2 Puffs as instructed two times a day.^Disp: 3 Each^Rfl: 3 predniSONE (DELTASONE) 20 mg tablet^Take two daily for 5 days.^Disp: 10 tablet^Rfl: 0 traZODone (DESYREL) 50 mg tablet^Take 1 tablet by mouth daily at bedtime. Give Namebrand^Disp: 90 tablet^Rfl: 3 LORazepam (ATIVAN) 1 mg tablet^Take 1 tablet by mouth at bedtime as needed (for anxiety and insomnia) for up to 90 days.^Disp: 30 tablet^Rfl: 2 aluminum-magnesium hydroxide-simethicone 200-200-20 mg/5 mL suspension^Take 10 mL by mouth every 6 hours as needed.^Disp: 769 mL^Rfl: 1 aluminum-magnesium glcmlvbhv-cidzkbevvbb-wuiqbxtao viscous^Take 5 mL by mouth every 4 hours as needed.^Disp: 240 mL^Rfl: 0 lansoprazole (PREVACID) 30 mg capsule^Take 1 capsule by mouth twice daily.^Disp: 180 capsule^Rfl: 1 sucralfate (CARAFATE) 1 gram tablet^Take 1 tablet by mouth four times daily.^Disp: 120 tablet^Rfl: 3 aluminum chloride (DRYSOL) 20 % external solution^Apply to affected area daily at bedtime. Uses in the summer^Disp: 60 mL^Rfl: 1 primidone (MYSOLINE) 250 mg tablet^Take 1 tablet by mouth daily at bedtime.^Disp: 90 tablet^Rfl: 3 Clobetasol Propionate (TEMOVATE) 0.05 % external solution^Apply 1 application to affected area. On scalp once daily as needed^Disp: 150 mL^Rfl: 3 albuterol HFA (PROVENTIL HFA, VENTOLIN HFA) 90 mcg/actuation inhaler^INHALE 2 INHALATIONS BY MOUTH INSTRUCTED EVERY 4 HOURS NEEDED FOR WHEEZING / SHORTNESS OF BREATH^Disp: 51 g^Rfl: 3 montelukast (SINGULAIR) 10 mg tablet^Take 1 tablet by mouth daily at bedtime.^Disp: 90 tablet^Rfl: 3 diclofenac (VOLTAREN) 1 % topical gel^Apply to affected upper extremity joint up to 2 grams 4 times daily prn as directed. Max 32 grams per day if treating more than one joint.^Disp: 100 g^Rfl: 3 DULoxetine (CYMBALTA) 30 mg capsule^Take 1 capsule by mouth once daily.^Disp: 90 capsule^Rfl: 3 estrogens conjugated (PREMARIN) 0.625 mg tablet^Take 1 tablet by mouth once daily.^Disp: 90 tablet^Rfl: 3 beclomethasone dipropionate 80 mcg/actuation^Use 2 Puffs in each nostril once daily.^Disp: 3 Each^Rfl: 3 (Patient not taking: Reported on 05/21/2023) ipratropium-albuterol (DUONEB) 0.5 mg-3 mg(2.5 mg base)/3 mL nebu^Inhale 3 mL as instructed every 6 hours as needed for wheezing/shortness of breath.^Disp: 120 mL^Rfl: 5 COMPOUNDED PRESCRIPTION^Nebulizer for home use. Diagnosis: Asthma exacerbation^Disp: 1 Each^Rfl: 0 (Patient taking differently: Nebulizer for home use. Diagnosis: Asthma exacerbation/ as needed) Cholecalciferol, Vitamin D3, 2,000 unit ORAL Cap^Take 0.5 tablets by mouth once daily.^Disp: ^Rfl: 0 magnesium 100 mg ORAL Cap^Take one(1) tablet daily.^Disp: ^Rfl: 0 calcium carbonate/vitamin d3(CALCIUM 600 + D(3) 600 MG-125 UNIT TAB)^Take one(1) tablet two(2) times daily.^Disp: ^Rfl: 0 omega-3 fatty acids(FISH OIL 500 MG CAP)^Take one(1) capsule daily.^Disp: ^Rfl: 0 VITAMIN B-6 100 MG TAB^Take one(1) tablet daily.^Disp: ^Rfl: 0 VITAMIN E 400 UNIT TAB^Take one(1) tablet daily.^Disp: ^Rfl: 0 Social History Tobacco Use Smoking status: Never Smokeless tobacco: Never Tobacco comments: Parents smoked in childhood home. Spouse non-smoker. Vaping Use Vaping Use: Never used Substance Use Topics Alcohol use: No Drug use: No PMH, Social history, family history and surgical history reviewed and updated in EMR REVIEW OF SYSTEMS: CONSTITUTIONAL: No fevers, chills, nightsweats, unintended weight loss HEENT: Denies nasal congestion/sinus symptoms, problematic problems. Throat clearing and irritation. No thrush CARDIOVASCULAR: No chest pain, palpitations, orthopnea, PND, edema. PULM: See HPI GI: No dysphagia/odynophagia. Positive GERD PSY: Depressed and intermittently tearful INTEGUMENTARY: No new skin changes or rashes PHYSICAL EXAMINATION: BP 124/72 Pulse 81 Resp 15 Wt 116 lb (52.6kg) SpO2 97% General Appearance: Thin female, NAD. Skin: Skin color, texture, turgor normal, no suspicious rashes or lesions. Head: Normocephalic, no masses, lesions, tenderness or abnormalities. Eyes: Sclera, conjunctiva normal. Oropharynx: no oral lesions, thrush or posterior pharyngeal drainage. Neck: No JVD, no masses, no adenopathy. Chest Wall: Mild kyphosis and mild increased AP diameter Lungs: Not labored, normal to percussion, no wheezes. Heart: RRR, no murmur. Extremities: No edema, no clubbing. Assessment/Plan: Mild persistent asthma, uncomplicated -Asthma is not controlled -Increased Symbicort to 160/4.5 -Exhaled nitric oxide and spirometry at next visit PND -Continue nasal lavage and nasal steroid Hoarseness -Multifactorial: GERD, UACS and inhaler use -Continue spacer and good oral hygiene GERD -Continue sucralfate and anitreflux measures Rebecca Gonzalez MD Respiratory Ong documented in this encounter [facility] 04-27-2023 Note HNO ID: [id number] Author: Endy Ariza APRN.[facility] Service: ? Author Type: Nurse Practitioner Type: Progress Notes Filed: 04/27/2023 4:42 PM Note Text: SUBJECTIVE Elliott Elizabeth is a 77 year old female here today for a check up on her medical problems. Chief Complaint Patient presents with: F/U 3 Month HPI Elliott Elizabeth is a 77 year old female. Here today for follow up. Since last visit she had her eye surgery. Saw Dr. Barone, had EGD done. Continue PPI and Carafate. No trouble with heartburn currently. Getting balloon sinoplasty. Nees to go back to dermatology. Mood doing okay, sleep is okay. Off and on issues. Last bone density was 07/2021. Providers are: Dr. Reilly human factors specialist, Dr. Gonzalez for pulmonology, Cardiology Dr. Galvez, neurology, general surgery Her medications were reviewed today and her list is now up to date. Medications Current Outpatient Medications Medication Sig aluminum-magnesium hydroxide-simethicone 200-200-20 mg/5 mL suspension Take 10 mL by mouth every 6 hours as needed. aluminum-magnesium vaimsjkvi-bnfrddltvof-lxcotdusk viscous Take 5 mL by mouth every 4 hours as needed. lansoprazole (PREVACID) 30 mg capsule Take 1 capsule by mouth twice daily. sucralfate (CARAFATE) 1 gram tablet Take 1 tablet by mouth four times daily. aluminum chloride (DRYSOL) 20 % external solution Apply to affected area daily at bedtime. Uses in the summer primidone (MYSOLINE) 250 mg tablet Take 1 tablet by mouth daily at bedtime. Clobetasol Propionate (TEMOVATE) 0.05 % external solution Apply 1 application to affected area. On scalp once daily as needed albuterol HFA (PROVENTIL HFA, VENTOLIN HFA) 90 mcg/actuation inhaler INHALE 2 INHALATIONS BY MOUTH INSTRUCTED EVERY 4 HOURS NEEDED FOR WHEEZING / SHORTNESS OF BREATH montelukast (SINGULAIR) 10 mg tablet Take 1 tablet by mouth daily at bedtime. diclofenac (VOLTAREN) 1 % topical gel Apply to affected upper extremity joint up to 2 grams 4 times daily prn as directed. Max 32 grams per day if treating more than one joint. budesonide-formoterol (SYMBICORT) 80-4.5 mcg/actuation inhaler Inhale 2 Puffs as instructed twice daily. DULoxetine (CYMBALTA) 30 mg capsule Take 1 capsule by mouth once daily. estrogens conjugated (PREMARIN) 0.625 mg tablet Take 1 tablet by mouth once daily. beclomethasone dipropionate 80 mcg/actuation Use 2 Puffs in each nostril once daily. traZODone (DESYREL) 50 mg tablet Take 1 tablet by mouth daily at bedtime. ipratropium-albuterol (DUONEB) 0.5 mg-3 mg(2.5 mg base)/3 mL nebu Inhale 3 mL as instructed every 6 hours as needed for wheezing/shortness of breath. Cholecalciferol, Vitamin D3, 2,000 unit ORAL Cap Take 0.5 tablets by mouth once daily. magnesium 100 mg ORAL Cap Take one(1) tablet daily. calcium carbonate/vitamin d3(CALCIUM 600 + D(3) 600 MG-125 UNIT TAB) Take one(1) tablet two(2) times daily. omega-3 fatty acids(FISH OIL 500 MG CAP) Take one(1) capsule daily. VITAMIN B-6 100 MG TAB Take one(1) tablet daily. VITAMIN E 400 UNIT TAB Take one(1) tablet daily. LORazepam (ATIVAN) 1 mg tablet Take 1 tablet by mouth at bedtime as needed (for anxiety and insomnia) for up to 90 days. COMPOUNDED PRESCRIPTION Nebulizer for home use. Diagnosis: Asthma exacerbation (Patient taking differently: Nebulizer for home use. Diagnosis: Asthma exacerbation/ as needed) Current Facility-Administered Medications Medication Dose Route Frequency perflutren lipid microspheres 1.3 mL in NaCl (PF) 0.9% 10 mL injection (DEFINITY) INTRAVENOUS DIRECTED PRN sodium chloride 0.9 % (flush) 10 mL (BD POSIFLUSH) 10 mL INTRAVENOUS DIRECTED PRN ALLERGIES Allergen Reactions Tylenol [Acetaminop* Swelling throat swelled shut Bactrim [Sulfametho* Hives Ceftin [Cefuroxime] Hives Does well with augmentin Doxycycline GI Upset, Other: See Comments Nauseam dizzy, I was sick and tired. Advil [Ibuprofen] Swelling Asa [Salicylates] Anaphylaxis Avelox [Moxifloxaci* Intolerance joint pain Balsum Of [place] [Bal* Hives Lanolin Other: See Comments congestion Linzess [Linaclotid* Hives Hives developed after a few doses Macrobid [Nitrofura* GI Upset Chills, headache, vomiting, diarrhea Nitrofurantoin Rash Severe GI upset and rash. Zantac [Ranitidine * Itching Itching and rash Codeine Vomiting ACTIVE PROBLEM LIST Epigastric Pain - 03/01/2023 Heartburn - 03/01/2023 History of Gastritis - 03/01/2023 Hiatal Hernia With Gerd - 01/17/2023 Chronic Obstructive Pulmonary Disease (Hcc) - 12/19/2022 Svt (Supraventricular Tachycardia) ([facility]) - 11/22/2020 Palpitations - 10/25/2020 Screening for Cardiovascular Condition - 10/25/2020 Unexplained Weight Loss - 07/26/2020 Lung Nodules - 02/03/2019 Myofascial Pain Syndrome - 09/21/2017 Comment: noted pain in areas that saw on computer Constipation - 09/21/2016 Thoracic Myofascial Strain - 01/04/2015 Chronic Back Pain - (more content not included)... [facility] 04-27-2023 Instructions Endy Ariza APRN.[facility] - 04/27/2023 9:56 AM EDT BONE MINERAL DENSITY PATIENT INSTRUCTIONS ====== Bone mineral density testing measures the amount of calcium in certain parts of your bones. This information determines how strong your bones are. The test is used to detect osteoporosis, a disease in which the bone's mineral content and density are low, increasing a person's risk of fractures. The lumbar spine (lower back) and the hip are the skeletal sites usually examined. For the test, remember that: 1. You cannot take this test if you are . 2. Eat a normal diet on the day of the test. 3. Take your medications as you normally would. 4. DO NOT take calcium supplements (such as Tums) for 24 hours before the test. 5. On the day of the test, leave valuables (jewelry or credit cards) at home. 6. The test should be performed prior to oral, rectal or IV contrast studies, or at least 7 days after any of these studies. For the test, you may be asked to wear a hospital gown. You will lie on your back, on a padded table, in a comfortable position. Generally, you can resume your usual activities immediately. documented in this encounter [facility] 04-27-2023 History of Present illness Narrative SUBJECTIVE Elliott Elizabeth is a 77 year old female here today for a check up on her medical problems. Chief Complaint Patient presents with: F/U 3 Month HPI Elliott Elizabeth is a 77 year old female. Here today for follow up. Since last visit she had her eye surgery. Saw Dr. Barone, had EGD done. Continue PPI and Carafate. No trouble with heartburn currently. Getting balloon sinoplasty. Nees to go back to dermatology. Mood doing okay, sleep is okay. Off and on issues. Last bone density was 07/2021. Providers are: Dr. Reilly human factors specialist, Dr. Gonzalez for pulmonology, Cardiology Dr. Galvez, neurology, general surgery Her medications were reviewed today and her list is now up to date. Medications Current Outpatient Medications Medication Sig aluminum-magnesium hydroxide-simethicone 200-200-20 mg/5 mL suspension Take 10 mL by mouth every 6 hours as needed. aluminum-magnesium bvqigbuqm-ospyhndwnph-ebpbilrfl viscous Take 5 mL by mouth every 4 hours as needed. lansoprazole (PREVACID) 30 mg capsule Take 1 capsule by mouth twice daily. sucralfate (CARAFATE) 1 gram tablet Take 1 tablet by mouth four times daily. aluminum chloride (DRYSOL) 20 % external solution Apply to affected area daily at bedtime. Uses in the summer primidone (MYSOLINE) 250 mg tablet Take 1 tablet by mouth daily at bedtime. Clobetasol Propionate (TEMOVATE) 0.05 % external solution Apply 1 application to affected area. On scalp once daily as needed albuterol HFA (PROVENTIL HFA, VENTOLIN HFA) 90 mcg/actuation inhaler INHALE 2 INHALATIONS BY MOUTH INSTRUCTED EVERY 4 HOURS NEEDED FOR WHEEZING / SHORTNESS OF BREATH montelukast (SINGULAIR) 10 mg tablet Take 1 tablet by mouth daily at bedtime. diclofenac (VOLTAREN) 1 % topical gel Apply to affected upper extremity joint up to 2 grams 4 times daily prn as directed. Max 32 grams per day if treating more than one joint. budesonide-formoterol (SYMBICORT) 80-4.5 mcg/actuation inhaler Inhale 2 Puffs as instructed twice daily. DULoxetine (CYMBALTA) 30 mg capsule Take 1 capsule by mouth once daily. estrogens conjugated (PREMARIN) 0.625 mg tablet Take 1 tablet by mouth once daily. beclomethasone dipropionate 80 mcg/actuation Use 2 Puffs in each nostril once daily. traZODone (DESYREL) 50 mg tablet Take 1 tablet by mouth daily at bedtime. ipratropium-albuterol (DUONEB) 0.5 mg-3 mg(2.5 mg base)/3 mL nebu Inhale 3 mL as instructed every 6 hours as needed for wheezing/shortness of breath. Cholecalciferol, Vitamin D3, 2,000 unit ORAL Cap Take 0.5 tablets by mouth once daily. magnesium 100 mg ORAL Cap Take one(1) tablet daily. calcium carbonate/vitamin d3(CALCIUM 600 + D(3) 600 MG-125 UNIT TAB) Take one(1) tablet two(2) times daily. omega-3 fatty acids(FISH OIL 500 MG CAP) Take one(1) capsule daily. VITAMIN B-6 100 MG TAB Take one(1) tablet daily. VITAMIN E 400 UNIT TAB Take one(1) tablet daily. LORazepam (ATIVAN) 1 mg tablet Take 1 tablet by mouth at bedtime as needed (for anxiety and insomnia) for up to 90 days. COMPOUNDED PRESCRIPTION Nebulizer for home use. Diagnosis: Asthma exacerbation (Patient taking differently: Nebulizer for home use. Diagnosis: Asthma exacerbation/ as needed) Current Facility-Administered Medications Medication Dose Route Frequency perflutren lipid microspheres 1.3 mL in NaCl (PF) 0.9% 10 mL injection (DEFINITY) INTRAVENOUS DIRECTED PRN sodium chloride 0.9 % (flush) 10 mL (BD POSIFLUSH) 10 mL INTRAVENOUS DIRECTED PRN ALLERGIES Allergen Reactions Tylenol [Acetaminop* Swelling throat swelled shut Bactrim [Sulfametho* Hives Ceftin [Cefuroxime] Hives Does well with augmentin Doxycycline GI Upset, Other: See Comments Nauseam dizzy, I was sick and tired. Advil [Ibuprofen] Swelling Asa [Salicylates] Anaphylaxis Avelox [Moxifloxaci* Intolerance joint pain Balsum Of [place] [Bal* Hives Lanolin Other: See Comments congestion Linzess [Linaclotid* Hives Hives developed after a few doses Macrobid [Nitrofura* GI Upset Chills, headache, vomiting, diarrhea Nitrofurantoin Rash Severe GI upset and rash. Zantac [Ranitidine * Itching Itching and rash Codeine Vomiting ACTIVE PROBLEM LIST Epigastric Pain - 03/01/2023 Heartburn - 03/01/2023 History of Gastritis - 03/01/2023 Hiatal Hernia With Gerd - 01/17/2023 Chronic Obstructive Pulmonary Disease (Hcc) - 12/19/2022 Svt (Supraventricular Tachycardia) ([facility]) - 11/22/2020 Palpitations - 10/25/2020 Screening for Cardiovascular Condition - 10/25/2020 Unexplained Weight Loss - 07/26/2020 Lung Nodules - 02/03/2019 Myofascial Pain Syndrome - 09/21/2017 Comment: noted pain in areas that saw on computer Constipation - 09/21/2016 Thoracic Myofascial Strain - 01/04/2015 Chronic Back Pain - 11/23/2014 Ddd (Degenerative Disc Disease), Lumbar - 11/23/2014 Ddd (Degenerative Disc Disease), Thoracic - 11/23/2014 Myofascial Pain - 11/23/2014 Cervical Spondylosis - 11/23/2014 Complicated Bereavement - 08/21/2014 Add (Attention Deficit Disorder) Without Hyperactivity - 08/21/2014 Essential Tremor - 12/13/2012 Vocal Tremor - 03/13/2012 Primary Focal Hyperhidrosis - 02/13/2012 Osteopenia Cervicalgia - 08/08/2010 Generalized Osteoarthrosis, Unspecified Site - 03/10/2009 Other Specified Urticaria - 08/31/2008 Unspecified Sinusitis (Chronic) - 08/31/2008 Abnormal Mammogram, Unspecified - 07/07/2008 Spasm of Muscle - 01/08/2008 Major Depressive Disorder in Full Remission (Hcc) - 06/30/2006 Anxiety 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 Spouse non-smoker. Vaping Use Vaping Use: Never used Substance Use Topics Alcohol use: No Drug use: No Review of Systems Respiratory: Negative. Cardiovascular: Negative. OBJECTIVE BP 100/60 Pulse 86 Wt 115 lb (52.2kg) SpO2 97% Physical Exam Vitals and nursing note reviewed. Constitutional: General: She is awake. She is not in acute distress. Appearance: Normal appearance. She is well-developed and well-groomed. She is not ill-appearing, toxic-appearing or diaphoretic. HENT: Head: Normocephalic. Right Ear: External ear normal. Left Ear: External ear normal. Nose: Nose normal. Eyes: General: Vision grossly intact. Conjunctiva/sclera: Conjunctivae normal. Pupils: Pupils are equal, round, and reactive to light. Neck: Vascular: No JVD. Trachea: Trachea normal. Cardiovascular: Rate and Rhythm: Normal rate and regular rhythm. Pulses: Normal pulses. Heart sounds: Normal heart sounds. No murmur heard. Pulmonary: Effort: Pulmonary effort is normal. No accessory muscle usage, prolonged expiration or respiratory distress. Breath sounds: Normal breath sounds. Musculoskeletal: Cervical back: Neck supple. Skin: General: Skin is warm and dry. Capillary Refill: Capillary refill takes less than 2 seconds. Neurological: General: No focal deficit present. Mental Status: She is alert and oriented to person, place, and time. Mental status is at baseline. Psychiatric: Attention and Perception: Attention and perception normal. Mood and Affect: Mood and affect normal. Speech: Speech normal. Behavior: Behavior normal. Behavior is cooperative. Thought Content: Thought content normal. Cognition and Memory: Cognition and memory normal. Judgment: Judgment normal. ASSESSMENT/PLAN: 1. Hiatal hernia with GERD - ICD9: 553.3, 530.81, ICD10: K44.9, K21.9 (primary diagnosis) Doing well, no GERD currently, follow up with GI if issues. 2. Anxiety state - ICD9: 300.00, ICD10: F41.1 - LORAZEPAM 1 MG TABLET 3. Primary insomnia - ICD9: 307.42, ICD10: F51.01 - LORAZEPAM 1 MG TABLET 4. Chronic obstructive pulmonary disease, unspecified COPD type (HCC) - ICD9: 496, ICD10: J44.9 Stable, follows with pulmonary. 5. Unspecified sinusitis (chronic) - ICD9: 473.9, ICD10: J32.9 Sinoplasty with ENT today. 6. Asymptomatic postmenopausal status - ICD9: V49.81, ICD10: Z78.0 - DXA-AXIAL SKELETON 7. Osteoporosis without current pathological fracture, unspecified osteoporosis type - ICD9: 733.00, ICD10: M81.0 - VITAMIN D 25 HYDROXY - DXA-AXIAL SKELETON 8. Encounter for screening mammogram for malignant neoplasm of breast - ICD9: V76.12, ICD10: Z12.31 - NICKIE SCREENING W MATT 9. Encounter for therapeutic drug monitoring - ICD9: V58.83, ICD10: Z51.81 - CBC + DIFF - COMP METABOLIC PANEL - MAGNESIUM BLD 10. Lipid screening - ICD9: V77.91, ICD10: Z13.220 - LIPID PANEL BASIC 11. Vitamin D deficiency - ICD9: 268.9, ICD10: E55.9 - VITAMIN D 25 HYDROXY Portions of this note have been entered by ancillary staff. I have reviewed and when necessary edited, so that they are an adequate record of my encounter with this patient Please note that parts of this document were created using voice recognition software and therefore may contain grammatical errors. Patient verbalizes understanding of instructions from today's visit and in agreement with treatment plan. Questions answered. Agrees to call the office if questions, concerns of issues with acute symptoms not improving or if they worsen. See diagnoses and orders for additional plan(s). Allergies and medications were reviewed, list was updated, and refills given if needed. Past medical, surgical, social, and family history reviewed and updated as appropriate. Encouraged proper diet & exercise as well as compliance with taking medications. Age-appropriate health preventative measures were discussed. Return if symptoms worsen or fail to improve, for Keep next scheduled appointment.. Endy Ariza APRN-JAYLENE documented in this encounter [facility] 04-05-2023 Miscellaneous Notes ok Medication was not prescribed by me. Please forward to prescribing provider, thank you Physician: Tiarra Singh Call from patient requesting refill. Please E-Scribe Last OV: 03/14/23 Future OV: not scheduled Requested Prescriptions Pending Prescriptions Disp Refills aluminum-magnesium hydroxide-simethicone 200-200-20 mg/5 mL suspension 769 mL 1 Sig: Take 10 mL by mouth every 6 hours as needed. [facility] Name: [facility] documented in this encounter [facility] 03-14-2023 Note HNO ID: [id number] Author: Tiarra Singh PA-C Service: ? Author Type: Physician [employer] Type: Progress Notes Filed: 03/26/2023 11:11 PM Note Text: FOLLOW UP VISIT - ENDOSCOPY NAME: Elliott Yeboah [facility] NO.: [id number] DATE OF SERVICE: 03/14/2023 : 1945 REFERRING PHYSICIAN: Nelly Bee MD Elliott is a patient I am following for epigastric pain and heartburn. Per my note from 01/30/23: The patient is a 77 year old female referred for endoscopy. Elliott notes progressive epigastric pain and heartburn. Aggravating factors include eating-regardless of food type. States occasionally will also get hives when abdominal symptoms occur. Onset of symptoms typically within 1 hour of eating. Points to mid-upper abdomen as primary pain location without radiation of pain. Denies nausea or vomiting. Some improvement with maalox. Notes previously being diagnosed with hiatal hernia. Patient denies any change in bowel habits, weight changes, blood in stools, black tarry stools or abdominal pain. She is up to date on screening colonoscopy-due 04/2024. Patient denies chest pain, shortness of breath or recent hospitalizations. Denies problems with sedation in the past. Dr. Barone performed upper endoscopy on 03/01/23 at [facility]. The patient was found to have a small to medium sized hiatal hernia, and erythematous streaking in the antrum of stomach. Mildly irregular GE junction. Pathology demonstrated: FINAL DIAGNOSIS A. Gastric antrum, biopsy: - Mild chronic and active gastritis. An H. pylori immunostain is negative. B. Esophagogastric junction, biopsies: - Mild acute and chronic esophagitis. Gastric-type glandular mucosa with mild chronic and active inflammation. Negative for intestinal metaplasia. The patient notes no new complaints since the procedure, but continues to note same symptoms without change since last visit. VITALS: Blood pressure 118/60, pulse 90, temperature 36.6 ?C (97.9 ?F), weight 51.6 kg (113 lb 12.8 oz), SpO2 97 %. General: patient is alert, cooperative, pleasant and in no acute distress On examination, the abdomen is benign. Assessment IMPRESSION: GERD, esophagitis, gastritis, hiatal hernia PLAN: The operative findings and pathology report were reviewed with the patient, and the patient has had the opportunity to ask questions and have questions answered. -Continue PPI and carafate, in addition to dietary and lifestyle modifications as discussed -Food diary -Recommend referral to Gastro/heartburn specialty clinic for further workup if symptoms persist despite these measures Patient verbalized understanding of all above and agreed with the plan Diagnoses: (K21.00) Gastroesophageal reflux disease with esophagitis without hemorrhage (primary encounter diagnosis) (K29.30) Chronic superficial gastritis without bleeding (K44.9) Hiatal hernia I spent a total of 24 minutes on the date of the service which included preparing to see the patient, [id number] patient care, completing clinical documentation, obtaining and/or reviewing separately obtained history, counseling and educating the patient/family/caregiver, independently interpreting results (not separately reported), and communicating results to the patient/family/caregiver. Tiarra Singh PA-C [facility] 03-01-2023 History and physical note UPDATED HISTORY AND PHYSICAL EXAMINATION SERVICE DATE: 03/01/2023 SERVICE TIME: 11:41 PHYSICAL EXAM MUST BE COMPLETED ON ADMISSION The History and Physical (completed in the past 30 days) has been reviewed and the patient has been examined. The contents accurately reflect the patient's condition with the following additions or revisions since the H&P was completed. Examination indicates no changes. This H&P can be found in the Electronic Medical Record. SIGNATURE: Cristina Barone MD PATIENT NAME: Elliott Elizabeth DATE: March 01, 2023 TIME: 11:41 AM Source Note - Cristina Barone MD - 03/01/2023 11:30 AM EDT Images from the original note were not included. HISTORY AND PHYSICAL Elliott Elizabeth 1945 REFERRING PHYSICIAN: Endy Ariza APRN.CROS[employer]AR SWITCH ADJUSTER CHIEF COMPLAINT: Consult (GERD, EGD) HPI: The patient is a 77 year old female referred for endoscopy. Elliott notes progressive epigastric pain and heartburn. Aggravating factors include eating-regardless of food type. States occasionally will also get hives when abdominal symptoms occur. Onset of symptoms typically within 1 hour of eating. Points to mid-upper abdomen as primary pain location without radiation of pain. Denies nausea or vomiting. Some improvement with maalox. Notes previously being diagnosed with hiatal hernia. Patient denies any change in bowel habits, weight changes, blood in stools, black tarry stools or abdominal pain. She is up to date on screening colonoscopy-due 04/2024. Patient denies chest pain, shortness of breath or recent hospitalizations. Denies problems with sedation in the past. PAST MEDICAL HISTORY PAST MEDICAL HISTORY Diagnosis Date Allergic rhinitis Anxiety Aspirin-sensitive asthma with nasal polyps Asthma Back pain Depression Esophagitis, unspecified Heart valve disorder Osteopenia Unspecified constipation PAST SURGICAL HISTORY PAST SURGICAL HISTORY Procedure Laterality Date ANTER COLPORRHAPHY,BLAD/VAGINA rectocele repair /vaginal prolapse. BIOPSY BREAST OPEN INCISIONAL Bx of breast, incisional, left BX BREAST PERC VACUUM/ROTN 07/23/08 LEFT COLONOSCOPY FLX DX W/COLLJ SPEC WHEN PFRMD 02/08/06 COLONOSCOPY FLX DX W/COLLJ SPEC WHEN PFRMD 04/26/16 Colonoscopy (MAC) COLONOSCOPY FLX DX W/COLLJ SPEC WHEN PFRMD 05/19/2019 Colonoscopy EGD TRANSORAL BIOPSY SINGLE/MULTIPLE 02/08/06 EGD TRANSORAL BIOPSY SINGLE/MULTIPLE 11/30/11 ESOPHAGOGASTRODUODENOSCOPY TRANSORAL DIAGNOSTIC 04/26/16 EGD (MAC) ESOPHAGOGASTRODUODENOSCOPY TRANSORAL DIAGNOSTIC 10/14/2018 EGD PAST SURGICAL HISTORY OF Bunions removed from both feet PAST SURGICAL HISTORY OF Two sinus surgery (ployps) PERINEOPLASTY REP PERIN NON OB 03/19/2007 [facility] LOCALZ[facility] CLIP,PERC,DURING BREAST BX 07/23/08 LEFT SALPINGO-OOPHORECTOMY COMPL/PRTL UNI/BI SPX 07/24/2002 Salpingo-oophorectomy b/L TOTAL ABDOMINAL HYSTERECT W/WO RMVL TUBE OVARY 07/24/2002 Hysterectomy, AMAIRANI CURRENT MEDICATIONS Current Outpatient Medications Medication Sig LORazepam (ATIVAN) 1 mg tablet Take 1 tablet by mouth at bedtime as needed (for anxiety and insomnia) for up to 90 days. lansoprazole (PREVACID) 30 mg capsule Take 1 capsule by mouth twice daily. sucralfate (CARAFATE) 1 gram tablet Take 1 tablet by mouth four times daily. aluminum chloride (DRYSOL) 20 % external solution Apply to affected area daily at bedtime. Uses in the summer aluminum-magnesium hydroxide-simethicone 200-200-20 mg/5 mL suspension Take 10 mL by mouth every 6 hours as needed. primidone (MYSOLINE) 250 mg tablet Take 1 tablet by mouth daily at bedtime. Clobetasol Propionate (TEMOVATE) 0.05 % external solution Apply 1 application to affected area. On scalp once daily as needed albuterol HFA (PROVENTIL HFA, VENTOLIN HFA) 90 mcg/actuation inhaler INHALE 2 INHALATIONS BY MOUTH INSTRUCTED EVERY 4 HOURS NEEDED FOR WHEEZING / SHORTNESS OF BREATH montelukast (SINGULAIR) 10 mg tablet Take 1 tablet by mouth daily at bedtime. diclofenac (VOLTAREN) 1 % topical gel Apply to affected upper extremity joint up to 2 grams 4 times daily prn as directed. Max 32 grams per day if treating more than one joint. budesonide-formoterol (SYMBICORT) 80-4.5 mcg/actuation inhaler Inhale 2 Puffs as instructed twice daily. DULoxetine (CYMBALTA) 30 mg capsule Take 1 capsule by mouth once daily. estrogens conjugated (PREMARIN) 0.625 mg tablet Take 1 tablet by mouth once daily. beclomethasone dipropionate 80 mcg/actuation Use 2 Puffs in each nostril once daily. traZODone (DESYREL) 50 mg tablet Take 1 tablet by mouth daily at bedtime. Ibandronate 150 mg tablet Take 1 tablet by mouth once every month. In AM with cup of water on empty stomach. Nothing else by mouth and stay upright for 60 min. ipratropium-albuterol (DUONEB) 0.5 mg-3 mg(2.5 mg base)/3 mL nebu Inhale 3 mL as instructed every 6 hours as needed for wheezing/shortness of breath. COMPOUNDED PRESCRIPTION Nebulizer for home use. Diagnosis: Asthma exacerbation (Patient taking differently: Nebulizer for home use. Diagnosis: Asthma exacerbation/ as needed) Cholecalciferol, Vitamin D3, 2,000 unit ORAL Cap Take 0.5 tablets by mouth once daily. magnesium 100 mg ORAL Cap Take one(1) tablet daily. calcium carbonate/vitamin d3(CALCIUM 600 + D(3) 600 MG-125 UNIT TAB) Take one(1) tablet two(2) times daily. omega-3 fatty acids(FISH OIL 500 MG CAP) Take one(1) capsule daily. VITAMIN B-6 100 MG TAB Take one(1) tablet daily. VITAMIN E 400 UNIT TAB Take one(1) tablet daily. Current Facility-Administered Medications Medication Dose Route Frequency perflutren lipid microspheres 1.3 mL in NaCl (PF) 0.9% 10 mL injection (DEFINITY) INTRAVENOUS DIRECTED PRN sodium chloride 0.9 % (flush) 10 mL (BD POSIFLUSH) 10 mL INTRAVENOUS DIRECTED PRN ALLERGIES: Tylenol [Acetaminophen], Bactrim [Sulfamethoxazole-Trimethoprim], Ceftin [Cefuroxime], Doxycycline, Advil [Ibuprofen], Asa [Salicylates], Avelox [Moxifloxacin Hcl], Balsum [place] [Balsam [place]], Lanolin, Linzess [Linaclotide], Macrobid [Nitrofurantoin Monohyd/M-Cryst], Nitrofurantoin, and Zantac [Ranitidine Hcl] PERSONAL HISTORY: SOCIAL HISTORY Social History Tobacco Use Smoking status: Never Smokeless tobacco: Never Tobacco comments: Parents smoked in childhood home. Spouse non-smoker. Vaping Use Vaping Use: Never used Substance Use Topics Alcohol use: No Drug use: No FAMILY HISTORY: FAMILY HISTORY FAMILY HISTORY Problem Relation Age of Onset Breast Cancer Mother breast Asthma Mother Cancer Father mouth Alcohol/Drug Father Asthma Father Arthritis Sister Psoriatic Cancer Sister uterine Thyroid Sister Cancer Arthritis Sister Psoriatic other (Vocal Cord Disfunction) Sister Asthma Sister Tremor Sister Alcohol abuse Sister dementia Coronary Artery Disease Brother Had [place] Cancer Brother stomach; also colon cancer (2017)--at 41, at age 47 Cancer Brother mouth and throat (smoker; etoh) Cancer Maternal Grandmother Cancer Maternal Grandfather Cancer Paternal Grandmother Cancer Paternal Grandfather Tremor Maternal Uncle Asthma Other Brothers and sisters. other (MVA) Grandson REVIEW OF SYMPTOMS: The review of systems data was entered by the nurse and reviewed by me Nursing Notes: Essie VillaMANUEL basilio 01/30/2023 1:08 PM Signed REVIEW OF SYSTEMS: General: The patient notes fatigue, denies weight loss, denies weight gain, denies feeling hot, and notes feelings of cold. Eyes: The patient denies glaucoma, notes eye injury/surgery, does not wear glasses or contacts. Ear/Nose/Throat: The patient notes allergies, denies hayfever, denies ear infections, and denies bloody noses. Cardiovascular: The patient denies chest pain, denies heart disease, denies high blood pressure,denies cardiac stent, denies prior heart attack, denies irregular heart beat, denies high cholesterol, denies poor circulation, notes heart failure, other cardiac issues, denies claudication, denies cold feet, denies peripheral arterial stent. Respiratory: The patient denies tuberculosis, notes pneumonia, denies frequent cough, denies pulmonary embolism, denies shortness of breath, and denies coughing up blood, notes asthma. Gastrointestinal: The patient denies difficulty swallowing, notes acid reflux, denies ulcers, denies vomiting, denies jaundice/hepatitis, denies gallbladder problems, denies black or tarry stools, notes hemorrhoids, denies bleeding from rectum, denies diverticulitis, notes constipation, denies diarrhea, denies loss of stool control, and denies hernias. Kidney/Bladder: The patient denies kidney stones, denies urine infections, and denies bloody urine. Skin: The patient denies a history of skin cancer, denies bleeding/changing moles, and denies a history of skin rash. Neurologic: The patient denies a history of epilepsy/convulsions, denies headaches, denies head/spinal injuries, and denies stroke/TIA. Psychiatric: The patient denies psychiatric medications, notes depression, and denies voices, denies substance abuse. Endocrine: The patient denies thyroid disorders, denies diabetes, and denies hormonal problems. Hematologic: The patient denies a history of bruising, denies bleeding, and denies anemia, denies blood clots. Infections: The patient notes a history of measles and mumps, denies rheumatic fever, and denies sexually transmitted diseases. Musculoskeletal: The patient notes back pain/injury, notes back problems, notes sciatica, notes knee/foot trouble, notes arthritis, or denies gout. When was patient's last Mammogram screening? 2021 Last Colonoscopy: 2018 Essie Driver LPN I have confirmed and edited as necessary, the PFSH and ROS obtained by others. Tiarra Singh PA-C PHYSICAL EXAMINATION: General: The patient is 77 year old female, well nourished, well hydrated in no acute distress. The patient is oriented to time, place, and person. VITALS: Blood pressure 132/70, pulse 101, temperature 36.7 C (98.1 F), height 157.5 cm (5' 2 ), weight 53.1 kg (117 lb), SpO2 98 %. Body mass index is 21.4 kg/m . HEENT: Normal cephalic, ataumatic, pupils are equally round, sclera are anicteric, mucous membranes are moist, oropharynx is clear. Neck has no masses, asymmetry or lymphadenopathy. Respiratory: Clear to auscultation and percussion. Normal respiratory excursion and pattern. Cardiac: Examination is regular rate and rhythm. Normal S1/S2 Abdominal exam: Soft, nontender, with no palpable masses. No hepatosplenomegaly. No palpable hernias. Extremities: no clubbing, cyanosis or edema. No adenopathy. LABORATORY VALUES: As Noted RADIOLOGIC STUDIES: As Noted Assessment IMPRESSION: epigastric pain, GERD, hiatal hernia PLAN: I have reviewed my findings with the surgeon. Will plan for upper endoscopy. We discussed the risks and benefits of the planned endoscopy. I have informed the patient that complications can occur including failure to complete the endoscopy and perforation. The patient had the opportunity to ask questions concerning the planned endoscopy. My staff has also explained the procedure to the patient in understandable terms and has given the patient printed material concerning the procedure. The patient freely consents to surgery. If endoscopy negative, consider RUQ ultrasound Diagnoses: (K21.9) Gastroesophageal reflux disease, unspecified whether esophagitis present (K44.9, K21.9) Hiatal hernia with GERD Consultation requested by Endy Ariza CNP for an opinion regarding epigastric pain and heartburn. My final recommendations will be communicated back to the requesting physician by way of shared Medical record or letter to requesting physician via US mail. Tiarra Singh PA-C Images from the original note were not included. HISTORY AND PHYSICAL Elliott Elizabeth 1945 REFERRING PHYSICIAN: Endy Ariza APRN.CNP CHIEF COMPLAINT: Consult (GERD, EGD) HPI: The patient is a 77 year old female referred for endoscopy. Elliott notes progressive epigastric pain and heartburn. Aggravating factors include eating-regardless of food type. States occasionally will also get hives when abdominal symptoms occur. Onset of symptoms typically within 1 hour of eating. Points to mid-upper abdomen as primary pain location without radiation of pain. Denies nausea or vomiting. Some improvement with maalox. Notes previously being diagnosed with hiatal hernia. Patient denies any change in bowel habits, weight changes, blood in stools, black tarry stools or abdominal pain. She is up to date on screening colonoscopy-due 04/2024. Patient denies chest pain, shortness of breath or recent hospitalizations. Denies problems with sedation in the past. PAST MEDICAL HISTORY PAST MEDICAL HISTORY Diagnosis Date Allergic rhinitis Anxiety Aspirin-sensitive asthma with nasal polyps Asthma Back pain Depression Esophagitis, unspecified Heart valve disorder Osteopenia Unspecified constipation PAST SURGICAL HISTORY PAST SURGICAL HISTORY Procedure Laterality Date ANTER COLPORRHAPHY,BLAD/VAGINA rectocele repair /vaginal prolapse. BIOPSY BREAST OPEN INCISIONAL Bx of breast, incisional, left BX BREAST PERC VACUUM/ROTN 07/23/08 LEFT COLONOSCOPY FLX DX W/COLLJ SPEC WHEN PFRMD 02/08/06 COLONOSCOPY FLX DX W/COLLJ SPEC WHEN PFRMD 04/26/16 Colonoscopy (MAC) COLONOSCOPY FLX DX W/COLLJ SPEC WHEN PFRMD 05/19/2019 Colonoscopy EGD TRANSORAL BIOPSY SINGLE/MULTIPLE 02/08/06 EGD TRANSORAL BIOPSY SINGLE/MULTIPLE 11/30/11 ESOPHAGOGASTRODUODENOSCOPY TRANSORAL DIAGNOSTIC 04/26/16 EGD (MAC) ESOPHAGOGASTRODUODENOSCOPY TRANSORAL DIAGNOSTIC 10/14/2018 EGD PAST SURGICAL HISTORY OF Bunions removed from both feet PAST SURGICAL HISTORY OF Two sinus surgery (ployps) PERINEOPLASTY REP PERIN NON OB 03/19/2007 [facility] LOCALZTN CLIP,PERC,DURING BREAST BX 07/23/08 LEFT SALPINGO-OOPHORECTOMY COMPL/PRTL UNI/BI SPX 07/24/2002 Salpingo-oophorectomy b/L TOTAL ABDOMINAL HYSTERECT W/WO RMVL TUBE OVARY 07/24/2002 Hysterectomy, AMAIRANI CURRENT MEDICATIONS Current Outpatient Medications Medication Sig LORazepam (ATIVAN) 1 mg tablet Take 1 tablet by mouth at bedtime as needed (for anxiety and insomnia) for up to 90 days. lansoprazole (PREVACID) 30 mg capsule Take 1 capsule by mouth twice daily. sucralfate (CARAFATE) 1 gram tablet Take 1 tablet by mouth four times daily. aluminum chloride (DRYSOL) 20 % external solution Apply to affected area daily at bedtime. Uses in the summer aluminum-magnesium hydroxide-simethicone 200-200-20 mg/5 mL suspension Take 10 mL by mouth every 6 hours as needed. primidone (MYSOLINE) 250 mg tablet Take 1 tablet by mouth daily at bedtime. Clobetasol Propionate (TEMOVATE) 0.05 % external solution Apply 1 application to affected area. On scalp once daily as needed albuterol HFA (PROVENTIL HFA, VENTOLIN HFA) 90 mcg/actuation inhaler INHALE 2 INHALATIONS BY MOUTH INSTRUCTED EVERY 4 HOURS NEEDED FOR WHEEZING / SHORTNESS OF BREATH montelukast (SINGULAIR) 10 mg tablet Take 1 tablet by mouth daily at bedtime. diclofenac (VOLTAREN) 1 % topical gel Apply to affected upper extremity joint up to 2 grams 4 times daily prn as directed. Max 32 grams per day if treating more than one joint. budesonide-formoterol (SYMBICORT) 80-4.5 mcg/actuation inhaler Inhale 2 Puffs as instructed twice daily. DULoxetine (CYMBALTA) 30 mg capsule Take 1 capsule by mouth once daily. estrogens conjugated (PREMARIN) 0.625 mg tablet Take 1 tablet by mouth once daily. beclomethasone dipropionate 80 mcg/actuation Use 2 Puffs in each nostril once daily. traZODone (DESYREL) 50 mg tablet Take 1 tablet by mouth daily at bedtime. Ibandronate 150 mg tablet Take 1 tablet by mouth once every month. In AM with cup of water on empty stomach. Nothing else by mouth and stay upright for 60 min. ipratropium-albuterol (DUONEB) 0.5 mg-3 mg(2.5 mg base)/3 mL nebu Inhale 3 mL as instructed every 6 hours as needed for wheezing/shortness of breath. COMPOUNDED PRESCRIPTION Nebulizer for home use. Diagnosis: Asthma exacerbation (Patient taking differently: Nebulizer for home use. Diagnosis: Asthma exacerbation/ as needed) Cholecalciferol, Vitamin D3, 2,000 unit ORAL Cap Take 0.5 tablets by mouth once daily. magnesium 100 mg ORAL Cap Take one(1) tablet daily. calcium carbonate/vitamin d3(CALCIUM 600 + D(3) 600 MG-125 UNIT TAB) Take one(1) tablet two(2) times daily. omega-3 fatty acids(FISH OIL 500 MG CAP) Take one(1) capsule daily. VITAMIN B-6 100 MG TAB Take one(1) tablet daily. VITAMIN E 400 UNIT TAB Take one(1) tablet daily. Current Facility-Administered Medications Medication Dose Route Frequency perflutren lipid microspheres 1.3 mL in NaCl (PF) 0.9% 10 mL injection (DEFINITY) INTRAVENOUS DIRECTED PRN sodium chloride 0.9 % (flush) 10 mL (BD POSIFLUSH) 10 mL INTRAVENOUS DIRECTED PRN ALLERGIES: Tylenol [Acetaminophen], Bactrim [Sulfamethoxazole-Trimethoprim], Ceftin [Cefuroxime], Doxycycline, Advil [Ibuprofen], Asa [Salicylates], Avelox [Moxifloxacin Hcl], Balsum Of [place] [Balsam [place]], Lanolin, Linzess [Linaclotide], Macrobid [Nitrofurantoin Monohyd/M-Cryst], Nitrofurantoin, and Zantac [Ranitidine Hcl] PERSONAL HISTORY: SOCIAL HISTORY Social History Tobacco Use Smoking status: Never Smokeless tobacco: Never Tobacco comments: Parents smoked in childhood home. Spouse non-smoker. Vaping Use Vaping Use: Never used Substance Use Topics Alcohol use: No Drug use: No FAMILY HISTORY: FAMILY HISTORY FAMILY HISTORY Problem Relation Age of Onset Breast Cancer Mother breast Asthma Mother Cancer Father mouth Alcohol/Drug Father Asthma Father Arthritis Sister Psoriatic Cancer Sister uterine Thyroid Sister Cancer Arthritis Sister Psoriatic other (Vocal Cord Disfunction) Sister Asthma Sister Tremor Sister Alcohol abuse Sister dementia Coronary Artery Disease Brother Had [place] Cancer Brother stomach; also colon cancer (2017)--at 41, at age 47 Cancer Brother mouth and throat (smoker; etoh) Cancer Maternal Grandmother Cancer Maternal Grandfather Cancer Paternal Grandmother Cancer Paternal Grandfather Tremor Maternal Uncle Asthma Other Brothers and sisters. other (MVA) Grandson REVIEW OF SYMPTOMS: The review of systems data was entered by the nurse and reviewed by dc Nursing Notes: Essie VillaMANUEL basilio 01/30/2023 1:08 PM Signed REVIEW OF SYSTEMS: General: The patient notes fatigue, denies weight loss, denies weight gain, denies feeling hot, and notes feelings of cold. Eyes: The patient denies glaucoma, notes eye injury/surgery, does not wear glasses or contacts. Ear/Nose/Throat: The patient notes allergies, denies hayfever, denies ear infections, and denies bloody noses. Cardiovascular: The patient denies chest pain, denies heart disease, denies high blood pressure,denies cardiac stent, denies prior heart attack, denies irregular heart beat, denies high cholesterol, denies poor circulation, notes heart failure, other cardiac issues, denies claudication, denies cold feet, denies peripheral arterial stent. Respiratory: The patient denies tuberculosis, notes pneumonia, denies frequent cough, denies pulmonary embolism, denies shortness of breath, and denies coughing up blood, notes asthma. Gastrointestinal: The patient denies difficulty swallowing, notes acid reflux, denies ulcers, denies vomiting, denies jaundice/hepatitis, denies gallbladder problems, denies black or tarry stools, notes hemorrhoids, denies bleeding from rectum, denies diverticulitis, notes constipation, denies diarrhea, denies loss of stool control, and denies hernias. Kidney/Bladder: The patient denies kidney stones, denies urine infections, and denies bloody urine. Skin: The patient denies a history of skin cancer, denies bleeding/changing moles, and denies a history of skin rash. Neurologic: The patient denies a history of epilepsy/convulsions, denies headaches, denies head/spinal injuries, and denies stroke/TIA. Psychiatric: The patient denies psychiatric medications, notes depression, and denies voices, denies substance abuse. Endocrine: The patient denies thyroid disorders, denies diabetes, and denies hormonal problems. Hematologic: The patient denies a history of bruising, denies bleeding, and denies anemia, denies blood clots. Infections: The patient notes a history of measles and mumps, denies rheumatic fever, and denies sexually transmitted diseases. Musculoskeletal: The patient notes back pain/injury, notes back problems, notes sciatica, notes knee/foot trouble, notes arthritis, or denies gout. When was patient's last Mammogram screening? 2021 Last Colonoscopy: 2018 Essie Driver LPN I have confirmed and edited as necessary, the PFSH and ROS obtained by others. Tiarra Singh PA-C PHYSICAL EXAMINATION: General: The patient is 77 year old female, well nourished, well hydrated in no acute distress. The patient is oriented to time, place, and person. VITALS: Blood pressure 132/70, pulse 101, temperature 36.7 C (98.1 F), height 157.5 cm (5' 2 ), weight 53.1 kg (117 lb), SpO2 98 %. Body mass index is 21.4 kg/m . HEENT: Normal cephalic, ataumatic, pupils are equally round, sclera are anicteric, mucous membranes are moist, oropharynx is clear. Neck has no masses, asymmetry or lymphadenopathy. Respiratory: Clear to auscultation and percussion. Normal respiratory excursion and pattern. Cardiac: Examination is regular rate and rhythm. Normal S1/S2 Abdominal exam: Soft, nontender, with no palpable masses. No hepatosplenomegaly. No palpable hernias. Extremities: no clubbing, cyanosis or edema. No adenopathy. LABORATORY VALUES: As Noted RADIOLOGIC STUDIES: As Noted Assessment IMPRESSION: epigastric pain, GERD, hiatal hernia PLAN: I have reviewed my findings with the surgeon. Will plan for upper endoscopy. We discussed the risks and benefits of the planned endoscopy. I have informed the patient that complications can occur including failure to complete the endoscopy and perforation. The patient had the opportunity to ask questions concerning the planned endoscopy. My staff has also explained the procedure to the patient in understandable terms and has given the patient printed material concerning the procedure. The patient freely consents to surgery. If endoscopy negative, consider RUQ ultrasound Diagnoses: (K21.9) Gastroesophageal reflux disease, unspecified whether esophagitis present (K44.9, K21.9) Hiatal hernia with GERD Consultation requested by Endy Ariza CNP for an opinion regarding epigastric pain and heartburn. My final recommendations will be communicated back to the requesting physician by way of shared Medical record or letter to requesting physician via US mail. Tiarra Singh PA-C documented in this encounter [facility] 03-01-2023 Surgical operation note BRIEF OPERATIVE NOTE SURGERY DATE: 03/01/2023 Incision/Procedure Start Time: 12:06 Incision Close/Procedure End Time: 12:15 Surgeon(s)/Proceduralist(s) and [employer](s): [place] Procedures: Esophagogastroduodenoscopy with biopsies Anesthesia: MAC Findings: small to medium sized hiatal hernia, mildly irregular GE junction, minimal erythema of antrum of stomach Estimated Blood Loss: minimal Specimens: mucosal biopsies of antrum of stomach and GE junction Complications: None Closure Technique: Non-primary Preop Diagnosis: GERD Postop Diagnosis: small hiatal hernia SIGNATURE: Cristina Barone MD PATIENT NAME: Elliott Elizabeth DATE: March 01, 2023 TIME: 12:17 PM Acct: [id number] documented in this encounter [facility] 02-19-2023 Nurse Note Images from the original note were not included. Pre-Procedure Checklist Elliott Elizabeth [phone] (home) 1945 77 year old BMI 21.03 Allergies: Tylenol [Acetaminop* Swelling Comment:throat swelled shut Bactrim [Sulfametho* Hives Ceftin [Cefuroxime] Hives Comment:Does well with augmentin Doxycycline GI Upset, Other: See Comments Comment:Nauseam dizzy, I was sick and tired. Advil [Ibuprofen] Swelling Asa [Salicylates] Anaphylaxis Avelox [Moxifloxaci* Intolerance Comment:joint pain Balsum Of [place] [Bal* Hives Lanolin Other: See Comments Comment:congestion Linzess [Linaclotid* Hives Comment:Hives developed after a few doses Macrobid [Nitrofura* GI Upset Comment:Chills, headache, vomiting, diarrhea Nitrofurantoin Rash Comment:Severe GI upset and rash. Zantac [Ranitidine * Itching Comment:Itching and rash Procedure: EGD Date of Procedure: 03/01/23 Smoke: No Alcohol: No Street Drugs: No Diabetic: No Insulin: No Problems with Anesthesia (Self or Family?) No Director Dental Services: Dr. 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 No Recent EKG/Cardiac Testing: No Chest pain in the last 6 months (<6 months cardiac clearance needed): No History of: Heart Attack/Stroke/Blood Clot?: No Shortness of Breath: No Asthma: Yes Inhalers: Yes Any Outstanding Consults?: No If yes, list: Additional Notes: Will use inhalers day of procedure. documented in this encounter [facility] 02-08-2023 Miscellaneous Notes Pt called and is notified of providers instructions. Pt voices understanding. Tiarra Chin RN Recommend try dissolving the carafate before taking if she can. I know sometimes patient s do not like drinking the suspension, but it might help. Patient notified of provider's message and questions below. Pt's response is as follows: -Patient is not noting any benefit from using carafate. -She does not dissolve it in water before taking it. -She is taking it 4 times a day as ordered Pt states she will be having her endoscopy on 02/22. Please advise. Tarah Cadet RN Noted Patient was aware of same issue last month. Will have to see if lidocaine becomes available sometime soon. Is patient noting any benefit from using carafate? Does she dissolve it in water before taking it? How many times a day does she take it? Zayra with [facility] calls to report they do not have tqjtshlm-fuewciltj-jossabwj-simethi cone- lidocaine 5 ml q 4 hrs at [facility]. Zayra reports lidocaine has been recalled. Zayra is not sure if any other pharmacies have it or not. Luciana Dye LPN documented in this encounter [facility] 02-05-2023 Note HNO ID: [id number] Author: Nelly Bee MD Service: ? Author Type: Physician Type: Progress Notes Filed: 03/11/2023 2:07 AM Note Text: This note was created using SageCloudriter. Subjective Elliott Elizabeth is a 77 year old female. Patient presents with: Follow up oV SUBJECTIVE: Elliott Elizabeth is a 77 year old year old lady here today for follow up appointment for review of medical conditions. Wondering about EGD if can do in [place] instead of [place]. Having BM in middle of the night then today before appointment. Usually just constipation Noted issues with lidocaine shortage in december when tried to get refill for GI Cocktail. Helps with GI issues. Note sister has frontal lobe dementia; in [place] now ([place]) Stopped taking ibandronate a while ago. Will consider Reclast. PAST MEDICAL HISTORY Diagnosis Date Allergic rhinitis Anxiety Aspirin-sensitive asthma with nasal polyps Asthma Back pain Depression Esophagitis, unspecified Heart valve disorder Osteopenia Unspecified constipation Current Outpatient Medications Medication Sig LORazepam (ATIVAN) 1 mg tablet Take 1 tablet by mouth at bedtime as needed (for anxiety and insomnia) for up to 90 days. lansoprazole (PREVACID) 30 mg capsule Take 1 capsule by mouth twice daily. sucralfate (CARAFATE) 1 gram tablet Take 1 tablet by mouth four times daily. aluminum chloride (DRYSOL) 20 % external solution Apply to affected area daily at bedtime. Uses in the summer aluminum-magnesium hydroxide-simethicone 200-200-20 mg/5 mL suspension Take 10 mL by mouth every 6 hours as needed. primidone (MYSOLINE) 250 mg tablet Take 1 tablet by mouth daily at bedtime. Clobetasol Propionate (TEMOVATE) 0.05 % external solution Apply 1 application to affected area. On scalp once daily as needed albuterol HFA (PROVENTIL HFA, VENTOLIN HFA) 90 mcg/actuation inhaler INHALE 2 INHALATIONS BY MOUTH INSTRUCTED EVERY 4 HOURS NEEDED FOR WHEEZING / SHORTNESS OF BREATH montelukast (SINGULAIR) 10 mg tablet Take 1 tablet by mouth daily at bedtime. diclofenac (VOLTAREN) 1 % topical gel Apply to affected upper extremity joint up to 2 grams 4 times daily prn as directed. Max 32 grams per day if treating more than one joint. budesonide-formoterol (SYMBICORT) 80-4.5 mcg/actuation inhaler Inhale 2 Puffs as instructed twice daily. DULoxetine (CYMBALTA) 30 mg capsule Take 1 capsule by mouth once daily. estrogens conjugated (PREMARIN) 0.625 mg tablet Take 1 tablet by mouth once daily. beclomethasone dipropionate 80 mcg/actuation Use 2 Puffs in each nostril once daily. traZODone (DESYREL) 50 mg tablet Take 1 tablet by mouth daily at bedtime. Ibandronate 150 mg tablet Take 1 tablet by mouth once every month. In AM with cup of water on empty stomach. Nothing else by mouth and stay upright for 60 min. ipratropium-albuterol (DUONEB) 0.5 mg-3 mg(2.5 mg base)/3 mL nebu Inhale 3 mL as instructed every 6 hours as needed for wheezing/shortness of breath. COMPOUNDED PRESCRIPTION Nebulizer for home use. Diagnosis: Asthma exacerbation (Patient taking differently: Nebulizer for home use. Diagnosis: Asthma exacerbation/ as needed) Cholecalciferol, Vitamin D3, 2,000 unit ORAL Cap Take 0.5 tablets by mouth once daily. magnesium 100 mg ORAL Cap Take one(1) tablet daily. calcium carbonate/vitamin d3(CALCIUM 600 + D(3) 600 MG-125 UNIT TAB) Take one(1) tablet two(2) times daily. omega-3 fatty acids(FISH OIL 500 MG CAP) Take one(1) capsule daily. VITAMIN B-6 100 MG TAB Take one(1) tablet daily. VITAMIN E 400 UNIT TAB Take one(1) tablet daily. Current Facility-Administered Medications Medication Dose Route Frequency perflutren lipid microspheres 1.3 mL in NaCl (PF) 0.9% 10 mL injection (DEFINITY) INTRAVENOUS DIRECTED PRN sodium chloride 0.9 % (flush) 10 mL (BD POSIFLUSH) 10 mL INTRAVENOUS DIRECTED PRN Review of Systems Objective BP 122/58 Pulse 75 Resp 18 Wt 52.2 kg (115 lb) SpO2 99% BMI 21.03 kg/m? Physical Exam Constitutional: Appearance: Normal appearance. HENT: Head: Normocephalic. Eyes: Conjunctiva/sclera: Conjunctivae normal. Cardiovascular: Rate and Rhythm: Normal rate and regular rhythm. Heart sounds: Normal heart sounds. Pulmonary: Effort: Pulmonary effort is normal. Breath sounds: Normal breath sounds. Skin: General: Skin is warm and dry. Neurological: General: No focal deficit present. Mental Status: She is alert and oriented to person, place, and time. Psychiatric: Mood and Affect: Mood normal. Behavior: Behavior normal. Thought Content: Thought content normal. Judgment: Judgment normal. Assessment and Plan Encounter Diagnosis ICD-10-CM 1. Hiatal hernia with GERD K44.9 K21.9 2. Age-related osteoporosis without current pathological fracture M81.0 3. Upset stomach K30 aluminum-magnesium eodsfrixr-ueglkprovfa-ycwpnsqbe viscous 4. Recurrent major depressive (more content not included)... [facility] 02-05-2023 History of Present illness Narrative This note was created using SageCloudriter. Subjective Elliott Elizabeth is a 77 year old female. Patient presents with: Follow up oV SUBJECTIVE: Elliott Elizabeth is a 77 year old year old lady here today for follow up appointment for review of medical conditions. Wondering about EGD if can do in [place] instead of [place]. Having BM in middle of the night then today before appointment. Usually just constipation Noted issues with lidocaine shortage in december when tried to get refill for GI Cocktail. Helps with GI issues. Note sister has frontal lobe dementia; in [place] now ([place]) Stopped taking ibandronate a while ago. Will consider Reclast. PAST MEDICAL HISTORY Diagnosis Date Allergic rhinitis Anxiety Aspirin-sensitive asthma with nasal polyps Asthma Back pain Depression Esophagitis, unspecified Heart valve disorder Osteopenia Unspecified constipation Current Outpatient Medications Medication Sig LORazepam (ATIVAN) 1 mg tablet Take 1 tablet by mouth at bedtime as needed (for anxiety and insomnia) for up to 90 days. lansoprazole (PREVACID) 30 mg capsule Take 1 capsule by mouth twice daily. sucralfate (CARAFATE) 1 gram tablet Take 1 tablet by mouth four times daily. aluminum chloride (DRYSOL) 20 % external solution Apply to affected area daily at bedtime. Uses in the summer aluminum-magnesium hydroxide-simethicone 200-200-20 mg/5 mL suspension Take 10 mL by mouth every 6 hours as needed. primidone (MYSOLINE) 250 mg tablet Take 1 tablet by mouth daily at bedtime. Clobetasol Propionate (TEMOVATE) 0.05 % external solution Apply 1 application to affected area. On scalp once daily as needed albuterol HFA (PROVENTIL HFA, VENTOLIN HFA) 90 mcg/actuation inhaler INHALE 2 INHALATIONS BY MOUTH INSTRUCTED EVERY 4 HOURS NEEDED FOR WHEEZING / SHORTNESS OF BREATH montelukast (SINGULAIR) 10 mg tablet Take 1 tablet by mouth daily at bedtime. diclofenac (VOLTAREN) 1 % topical gel Apply to affected upper extremity joint up to 2 grams 4 times daily prn as directed. Max 32 grams per day if treating more than one joint. budesonide-formoterol (SYMBICORT) 80-4.5 mcg/actuation inhaler Inhale 2 Puffs as instructed twice daily. DULoxetine (CYMBALTA) 30 mg capsule Take 1 capsule by mouth once daily. estrogens conjugated (PREMARIN) 0.625 mg tablet Take 1 tablet by mouth once daily. beclomethasone dipropionate 80 mcg/actuation Use 2 Puffs in each nostril once daily. traZODone (DESYREL) 50 mg tablet Take 1 tablet by mouth daily at bedtime. Ibandronate 150 mg tablet Take 1 tablet by mouth once every month. In AM with cup of water on empty stomach. Nothing else by mouth and stay upright for 60 min. ipratropium-albuterol (DUONEB) 0.5 mg-3 mg(2.5 mg base)/3 mL nebu Inhale 3 mL as instructed every 6 hours as needed for wheezing/shortness of breath. COMPOUNDED PRESCRIPTION Nebulizer for home use. Diagnosis: Asthma exacerbation (Patient taking differently: Nebulizer for home use. Diagnosis: Asthma exacerbation/ as needed) Cholecalciferol, Vitamin D3, 2,000 unit ORAL Cap Take 0.5 tablets by mouth once daily. magnesium 100 mg ORAL Cap Take one(1) tablet daily. calcium carbonate/vitamin d3(CALCIUM 600 + D(3) 600 MG-125 UNIT TAB) Take one(1) tablet two(2) times daily. omega-3 fatty acids(FISH OIL 500 MG CAP) Take one(1) capsule daily. VITAMIN B-6 100 MG TAB Take one(1) tablet daily. VITAMIN E 400 UNIT TAB Take one(1) tablet daily. Current Facility-Administered Medications Medication Dose Route Frequency perflutren lipid microspheres 1.3 mL in NaCl (PF) 0.9% 10 mL injection (DEFINITY) INTRAVENOUS DIRECTED PRN sodium chloride 0.9 % (flush) 10 mL (BD POSIFLUSH) 10 mL INTRAVENOUS DIRECTED PRN Review of Systems Objective BP 122/58 Pulse 75 Resp 18 Wt 52.2 kg (115 lb) SpO2 99% BMI 21.03 kg/m Physical Exam Constitutional: Appearance: Normal appearance. HENT: Head: Normocephalic. Eyes: Conjunctiva/sclera: Conjunctivae normal. Cardiovascular: Rate and Rhythm: Normal rate and regular rhythm. Heart sounds: Normal heart sounds. Pulmonary: Effort: Pulmonary effort is normal. Breath sounds: Normal breath sounds. Skin: General: Skin is warm and dry. Neurological: General: No focal deficit present. Mental Status: She is alert and oriented to person, place, and time. Psychiatric: Mood and Affect: Mood normal. Behavior: Behavior normal. Thought Content: Thought content normal. Judgment: Judgment normal. Assessment and Plan Encounter Diagnosis ICD-10-CM 1. Hiatal hernia with GERD K44.9 K21.9 2. Age-related osteoporosis without current pathological fracture M81.0 3. Upset stomach K30 aluminum-magnesium wqpfunkrz-ewrxwtzlklp-iyyzjgvjj viscous 4. Recurrent major depressive disorder, in full remission (HCC) F33.42 Stable on current meds though noted stresors with sister who has dementia. Continue prsent management Above issues addressed with patient. Patient involved in shared decision making for management of medical issues. History and medications reviewed. Epic updated as needed Refills and/or prescriptions taken care of and meds adjusted as indicated after reviewed history, exam and labs. Health Maintenance reviewed. Updated record and/or ordered tests as recorded. Encouraged on efforts at healthy diet and regular exercise and adequate sleep. Emotional support given. Noted questions about EGD scheduling. Also issues with lidocaine shortage. Further evaluation and treatment as indicated. Nelly Bee MD documented in this encounter [facility] 01-30-2023 Note HNO ID: [id number] Author: Tiarra Singh PA-C Service: ? Author Type: Physician [employer] Type: Progress Notes Filed: 02/05/2023 1:44 PM Note Text: HISTORY AND PHYSICAL Elliott Elizabeth 1945 REFERRING PHYSICIAN: Endy Ariza APRN.CNP CHIEF COMPLAINT: Consult (GERD, EGD) HPI: The patient is a 77 year old female referred for endoscopy. Elliott notes progressive epigastric pain and heartburn. Aggravating factors include eating-regardless of food type. States occasionally will also get hives when abdominal symptoms occur. Onset of symptoms typically within 1 hour of eating. Points to mid-upper abdomen as primary pain location without radiation of pain. Denies nausea or vomiting. Some improvement with maalox. Notes previously being diagnosed with hiatal hernia. Patient denies any change in bowel habits, weight changes, blood in stools, black tarry stools or abdominal pain. She is up to date on screening colonoscopy-due 04/2024. Patient denies chest pain, shortness of breath or recent hospitalizations. Denies problems with sedation in the past. PAST MEDICAL HISTORY Diagnosis Date Allergic rhinitis Anxiety Aspirin-sensitive asthma with nasal polyps Asthma Back pain Depression Esophagitis, unspecified Heart valve disorder Osteopenia Unspecified constipation PAST SURGICAL HISTORY Procedure Laterality Date ANTER COLPORRHAPHY,BLAD/VAGINA rectocele repair /vaginal prolapse. BIOPSY BREAST OPEN INCISIONAL Bx of breast, incisional, left BX BREAST PERC VACUUM/ROTN 07/23/08 LEFT COLONOSCOPY FLX DX W/COLLJ SPEC WHEN PFRMD 02/08/06 COLONOSCOPY FLX DX W/COLLJ SPEC WHEN PFRMD 04/26/16 Colonoscopy (MAC) COLONOSCOPY FLX DX W/COLLJ SPEC WHEN PFRMD 05/19/2019 Colonoscopy EGD TRANSORAL BIOPSY SINGLE/MULTIPLE 02/08/06 EGD TRANSORAL BIOPSY SINGLE/MULTIPLE 11/30/11 ESOPHAGOGASTRODUODENOSCOPY TRANSORAL DIAGNOSTIC 04/26/16 EGD (MAC) ESOPHAGOGASTRODUODENOSCOPY TRANSORAL DIAGNOSTIC 10/14/2018 EGD PAST SURGICAL HISTORY OF Bunions removed from both feet PAST SURGICAL HISTORY OF Two sinus surgery (ployps) PERINEOPLASTY REP PERIN NON OB 03/19/2007 [facility] LOC[facility] CLIP,PERC,DURING BREAST BX 07/23/08 LEFT SALPINGO-OOPHORECTOMY COMPL/PRTL UNI/BI SPX 07/24/2002 Salpingo-oophorectomy b/L TOTAL ABDOMINAL HYSTERECT W/WO RMVL TUBE OVARY 07/24/2002 Hysterectomy, AMAIRANI Current Outpatient Medications Medication Sig LORazepam (ATIVAN) 1 mg tablet Take 1 tablet by mouth at bedtime as needed (for anxiety and insomnia) for up to 90 days. lansoprazole (PREVACID) 30 mg capsule Take 1 capsule by mouth twice daily. sucralfate (CARAFATE) 1 gram tablet Take 1 tablet by mouth four times daily. aluminum chloride (DRYSOL) 20 % external solution Apply to affected area daily at bedtime. Uses in the summer aluminum-magnesium hydroxide-simethicone 200-200-20 mg/5 mL suspension Take 10 mL by mouth every 6 hours as needed. primidone (MYSOLINE) 250 mg tablet Take 1 tablet by mouth daily at bedtime. Clobetasol Propionate (TEMOVATE) 0.05 % external solution Apply 1 application to affected area. On scalp once daily as needed albuterol HFA (PROVENTIL HFA, VENTOLIN HFA) 90 mcg/actuation inhaler INHALE 2 INHALATIONS BY MOUTH INSTRUCTED EVERY 4 HOURS NEEDED FOR WHEEZING / SHORTNESS OF BREATH montelukast (SINGULAIR) 10 mg tablet Take 1 tablet by mouth daily at bedtime. diclofenac (VOLTAREN) 1 % topical gel Apply to affected upper extremity joint up to 2 grams 4 times daily prn as directed. Max 32 grams per day if treating more than one joint. budesonide-formoterol (SYMBICORT) 80-4.5 mcg/actuation inhaler Inhale 2 Puffs as instructed twice daily. DULoxetine (CYMBALTA) 30 mg capsule Take 1 capsule by mouth once daily. estrogens conjugated (PREMARIN) 0.625 mg tablet Take 1 tablet by mouth once daily. beclomethasone dipropionate 80 mcg/actuation Use 2 Puffs in each nostril once daily. traZODone (DESYREL) 50 mg tablet Take 1 tablet by mouth daily at bedtime. Ibandronate 150 mg tablet Take 1 tablet by mouth once every month. In AM with cup of water on empty stomach. Nothing else by mouth and stay upright for 60 min. ipratropium-albuterol (DUONEB) 0.5 mg-3 mg(2.5 mg base)/3 mL nebu Inhale 3 mL as instructed every 6 hours as needed for wheezing/shortness of breath. COMPOUNDED PRESCRIPTION Nebulizer for home use. Diagnosis: Asthma exacerbation (Patient taking differently: Nebulizer for home use. Diagnosis: Asthma exacerbation/ as needed) Cholecalciferol, Vitamin D3, 2,000 unit ORAL Cap Take 0.5 tablets by mouth once daily. magnesium 100 mg ORAL Cap Take one(1) tablet daily. calcium carbonate/vitamin d3(CALCIUM 600 + D(3) 600 MG-125 UNIT TAB) Take one(1) tablet two(2) times daily. omega-3 fatty acids(FISH OIL 500 MG CAP) Take one(1) capsule daily. VITAMIN B-6 100 MG TAB Take one(1) tablet daily. VITAMIN E 400 UNIT TAB Take one(1) tablet daily. Current Facility-Adminis (more content not included)... [facility] 01-17-2023 Note HNO ID: [id number] Author: Endy Ariza APRN.[employer]ER Service: ? Author Type: Nurse Practitioner Type: Progress Notes Filed: 01/17/2023 12:22 PM Note Text: SUBJECTIVE Elliott Elizabeth is a 77 year old female here today for a check up on her medical problems. Chief Complaint Patient presents with: Abdominal Pain: mid upper that's worse when eats and has no appetite but states gaining weight and feels not eating more than normal. Denies any vomiting having to diarrhea or constipation. Feels like sour stomach Has only been taking Prevacid 1 daily at bedtime. Did encourage her to take second dose in am on empty stomach. Refill Request: would like ativan increased to 1 mg at bedtime HPI Elliott Elizabeth is a 77 year old female who presents today for [facility] follow up. Seen 12/21 for upset stomach. Onset about a month and a half ago. Not really an upset stomach but hurts in the middle of her stomach. No weight loss. No changes in stools, some constipation at times, no blood in stool. Maalox with lidocaine helped. Does have intermittent nausea, no vomiting. Prior issues with gastritis and gastroduodenitis. Previously told she had a small hiatal hernia. Leaning forward causes burping and increased pain. She feels full really fast for her with foods. On lansoprazole once a day. Issues with allergies to Pepcid and zantac. Family history significant for stomach cancer and colon cancer. Dr. Liu did last colonoscopy in 04/2019 and advised repeat in 5 years. Had an EGD in 09/2018 noted the small hiatal hernia. Also needs her ativan refilled, always taking a total of 1 mg. Her medications were reviewed today and her list is now up to date. Medications Current Outpatient Medications Medication Sig primidone (MYSOLINE) 250 mg tablet Take 1 tablet by mouth daily at bedtime. Clobetasol Propionate (TEMOVATE) 0.05 % external solution Apply 1 application to affected area. On scalp once daily as needed albuterol HFA (PROVENTIL HFA, VENTOLIN HFA) 90 mcg/actuation inhaler INHALE 2 INHALATIONS BY MOUTH INSTRUCTED EVERY 4 HOURS NEEDED FOR WHEEZING / SHORTNESS OF BREATH montelukast (SINGULAIR) 10 mg tablet Take 1 tablet by mouth daily at bedtime. diclofenac (VOLTAREN) 1 % topical gel Apply to affected upper extremity joint up to 2 grams 4 times daily prn as directed. Max 32 grams per day if treating more than one joint. budesonide-formoterol (SYMBICORT) 80-4.5 mcg/actuation inhaler Inhale 2 Puffs as instructed twice daily. DULoxetine (CYMBALTA) 30 mg capsule Take 1 capsule by mouth once daily. estrogens conjugated (PREMARIN) 0.625 mg tablet Take 1 tablet by mouth once daily. beclomethasone dipropionate 80 mcg/actuation Use 2 Puffs in each nostril once daily. traZODone (DESYREL) 50 mg tablet Take 1 tablet by mouth daily at bedtime. Ibandronate 150 mg tablet Take 1 tablet by mouth once every month. In AM with cup of water on empty stomach. Nothing else by mouth and stay upright for 60 min. ipratropium-albuterol (DUONEB) 0.5 mg-3 mg(2.5 mg base)/3 mL nebu Inhale 3 mL as instructed every 6 hours as needed for wheezing/shortness of breath. Cholecalciferol, Vitamin D3, 2,000 unit ORAL Cap Take 0.5 tablets by mouth once daily. magnesium 100 mg ORAL Cap Take one(1) tablet daily. calcium carbonate/vitamin d3(CALCIUM 600 + D(3) 600 MG-125 UNIT TAB) Take one(1) tablet two(2) times daily. omega-3 fatty acids(FISH OIL 500 MG CAP) Take one(1) capsule daily. VITAMIN B-6 100 MG TAB Take one(1) tablet daily. VITAMIN E 400 UNIT TAB Take one(1) tablet daily. LORazepam (ATIVAN) 1 mg tablet Take 1 tablet by mouth at bedtime as needed (for anxiety and insomnia) for up to 90 days. lansoprazole (PREVACID) 30 mg capsule Take 1 capsule by mouth twice daily. sucralfate (CARAFATE) 1 gram tablet Take 1 tablet by mouth four times daily. aluminum chloride (DRYSOL) 20 % external solution Apply to affected area daily at bedtime. Uses in the summer aluminum-magnesium hydroxide-simethicone 200-200-20 mg/5 mL suspension Take 10 mL by mouth every 6 hours as needed. COMPOUNDED PRESCRIPTION Nebulizer for home use. Diagnosis: Asthma exacerbation (Patient taking differently: Nebulizer for home use. Diagnosis: Asthma exacerbation/ as needed) Current Facility-Administered Medications Medication Dose Route Frequency perflutren lipid microspheres 1.3 mL in NaCl (PF) 0.9% 10 mL injection (DEFINITY) INTRAVENOUS DIRECTED PRN sodium chloride 0.9 % (flush) 10 mL (BD POSIFLUSH) 10 mL INTRAVENOUS DIRECTED PRN ALLERGIES Allergen Reactions Tylenol [Acetaminop* Swelling throat swelled shut Bactrim [Sulfametho* Hives Ceftin [Cefuroxime] Hives Does well with augmentin Doxycycline GI Upset, Other: See Comments Nauseam dizzy, I was sick and tired. Advil [Ibuprofen] Swelling Asa [Salicylates] Anaphylaxis Avelox [Moxifloxaci* Intolerance joint pain Balsum Of [place] [Bal* Hiv (more content not included)... [facility] 01-17-2023 History of Present illness Narrative SUBJECTIVE Elliott Elizabeth is a 77 year old female here today for a check up on her medical problems. Chief Complaint Patient presents with: Abdominal Pain: mid upper that's worse when eats and has no appetite but states gaining weight and feels not eating more than normal. Denies any vomiting having to diarrhea or constipation. Feels like sour stomach Has only been taking Prevacid 1 daily at bedtime. Did encourage her to take second dose in am on empty stomach. Refill Request: would like ativan increased to 1 mg at bedtime HPI Elliott Elizabeth is a 77 year old female who presents today for [facility] follow up. Seen 12/21 for upset stomach. Onset about a month and a half ago. Not really an upset stomach but hurts in the middle of her stomach. No weight loss. No changes in stools, some constipation at times, no blood in stool. Maalox with lidocaine helped. Does have intermittent nausea, no vomiting. Prior issues with gastritis and gastroduodenitis. Previously told she had a small hiatal hernia. Leaning forward causes burping and increased pain. She feels full really fast for her with foods. On lansoprazole once a day. Issues with allergies to Pepcid and zantac. Family history significant for stomach cancer and colon cancer. Dr. Liu did last colonoscopy in 04/2019 and advised repeat in 5 years. Had an EGD in 09/2018 noted the small hiatal hernia. Also needs her ativan refilled, always taking a total of 1 mg. Her medications were reviewed today and her list is now up to date. Medications Current Outpatient Medications Medication Sig primidone (MYSOLINE) 250 mg tablet Take 1 tablet by mouth daily at bedtime. Clobetasol Propionate (TEMOVATE) 0.05 % external solution Apply 1 application to affected area. On scalp once daily as needed albuterol HFA (PROVENTIL HFA, VENTOLIN HFA) 90 mcg/actuation inhaler INHALE 2 INHALATIONS BY MOUTH INSTRUCTED EVERY 4 HOURS NEEDED FOR WHEEZING / SHORTNESS OF BREATH montelukast (SINGULAIR) 10 mg tablet Take 1 tablet by mouth daily at bedtime. diclofenac (VOLTAREN) 1 % topical gel Apply to affected upper extremity joint up to 2 grams 4 times daily prn as directed. Max 32 grams per day if treating more than one joint. budesonide-formoterol (SYMBICORT) 80-4.5 mcg/actuation inhaler Inhale 2 Puffs as instructed twice daily. DULoxetine (CYMBALTA) 30 mg capsule Take 1 capsule by mouth once daily. estrogens conjugated (PREMARIN) 0.625 mg tablet Take 1 tablet by mouth once daily. beclomethasone dipropionate 80 mcg/actuation Use 2 Puffs in each nostril once daily. traZODone (DESYREL) 50 mg tablet Take 1 tablet by mouth daily at bedtime. Ibandronate 150 mg tablet Take 1 tablet by mouth once every month. In AM with cup of water on empty stomach. Nothing else by mouth and stay upright for 60 min. ipratropium-albuterol (DUONEB) 0.5 mg-3 mg(2.5 mg base)/3 mL nebu Inhale 3 mL as instructed every 6 hours as needed for wheezing/shortness of breath. Cholecalciferol, Vitamin D3, 2,000 unit ORAL Cap Take 0.5 tablets by mouth once daily. magnesium 100 mg ORAL Cap Take one(1) tablet daily. calcium carbonate/vitamin d3(CALCIUM 600 + D(3) 600 MG-125 UNIT TAB) Take one(1) tablet two(2) times daily. omega-3 fatty acids(FISH OIL 500 MG CAP) Take one(1) capsule daily. VITAMIN B-6 100 MG TAB Take one(1) tablet daily. VITAMIN E 400 UNIT TAB Take one(1) tablet daily. LORazepam (ATIVAN) 1 mg tablet Take 1 tablet by mouth at bedtime as needed (for anxiety and insomnia) for up to 90 days. lansoprazole (PREVACID) 30 mg capsule Take 1 capsule by mouth twice daily. sucralfate (CARAFATE) 1 gram tablet Take 1 tablet by mouth four times daily. aluminum chloride (DRYSOL) 20 % external solution Apply to affected area daily at bedtime. Uses in the summer aluminum-magnesium hydroxide-simethicone 200-200-20 mg/5 mL suspension Take 10 mL by mouth every 6 hours as needed. COMPOUNDED PRESCRIPTION Nebulizer for home use. Diagnosis: Asthma exacerbation (Patient taking differently: Nebulizer for home use. Diagnosis: Asthma exacerbation/ as needed) Current Facility-Administered Medications Medication Dose Route Frequency perflutren lipid microspheres 1.3 mL in NaCl (PF) 0.9% 10 mL injection (DEFINITY) INTRAVENOUS DIRECTED PRN sodium chloride 0.9 % (flush) 10 mL (BD POSIFLUSH) 10 mL INTRAVENOUS DIRECTED PRN ALLERGIES Allergen Reactions Tylenol [Acetaminop* Swelling throat swelled shut Bactrim [Sulfametho* Hives Ceftin [Cefuroxime] Hives Does well with augmentin Doxycycline GI Upset, Other: See Comments Nauseam dizzy, I was sick and tired. Advil [Ibuprofen] Swelling Asa [Salicylates] Anaphylaxis Avelox [Moxifloxaci* Intolerance joint pain Balsum [place] [Bal* Hives Lanolin Other: See Comments congestion Linzess [Linaclotid* Hives Hives developed after a few doses Macrobid [Nitrofura* GI Upset Chills, headache, vomiting, diarrhea Nitrofurantoin Rash Severe GI upset and rash. Zantac [Ranitidine * Itching Itching and rash ACTIVE PROBLEM LIST Hiatal Hernia With Gerd - 01/17/2023 Chronic Obstructive Pulmonary Disease (Hcc) - 12/19/2022 Svt (Supraventricular Tachycardia) ([facility]) - 11/22/2020 Palpitations - 10/25/2020 Screening for Cardiovascular Condition - 10/25/2020 Unexplained Weight Loss - 07/26/2020 Lung Nodules - 02/03/2019 Myofascial Pain Syndrome - 09/21/2017 Comment: noted pain in areas that saw on computer Constipation - 09/21/2016 Thoracic Myofascial Strain - 01/04/2015 Chronic Back Pain - 11/23/2014 Ddd (Degenerative Disc Disease), Lumbar - 11/23/2014 Ddd (Degenerative Disc Disease), Thoracic - 11/23/2014 Myofascial Pain - 11/23/2014 Cervical Spondylosis - 11/23/2014 Complicated Bereavement - 08/21/2014 Add (Attention Deficit Disorder) Without Hyperactivity - 08/21/2014 Essential Tremor - 12/13/2012 Vocal Tremor - 03/13/2012 Primary Focal Hyperhidrosis - 02/13/2012 Osteopenia Cervicalgia - 08/08/2010 Generalized Osteoarthrosis, Unspecified Site - 03/10/2009 Other Specified Urticaria - 08/31/2008 Unspecified Sinusitis (Chronic) - 08/31/2008 Abnormal Mammogram, Unspecified - 07/07/2008 Spasm of Muscle - 01/08/2008 Major Depressive Disorder in Full Remission ([facility]) - 06/30/2006 Anxiety 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 Spouse non-smoker. Vaping Use Vaping Use: Never used Substance Use Topics Alcohol use: No Drug use: No Review of Systems Respiratory: Negative. Cardiovascular: Negative. Gastrointestinal: Positive for abdominal pain and nausea. Negative for abdominal distention, blood in stool, diarrhea and vomiting. OBJECTIVE BP 110/58 Pulse 79 Wt 116 lb (52.6kg) SpO2 97% Physical Exam Vitals and nursing note reviewed. Constitutional: General: She is awake. She is not in acute distress. Appearance: Normal appearance. She is well-developed and well-groomed. She is not ill-appearing, toxic-appearing or diaphoretic. HENT: Head: Normocephalic. Right Ear: External ear normal. Left Ear: External ear normal. Nose: Nose normal. Eyes: General: Vision grossly intact. Conjunctiva/sclera: Conjunctivae normal. Pupils: Pupils are equal, round, and reactive to light. Neck: Vascular: No JVD. Trachea: Trachea normal. Cardiovascular: Rate and Rhythm: Normal rate and regular rhythm. Pulses: Normal pulses. Heart sounds: Normal heart sounds. No murmur heard. Pulmonary: Effort: Pulmonary effort is normal. No accessory muscle usage, prolonged expiration or respiratory distress. Breath sounds: Normal breath sounds. Abdominal: General: Bowel sounds are normal. There is no distension. Palpations: Abdomen is soft. There is no mass. Tenderness: There is no abdominal tenderness. There is no guarding or rebound. Musculoskeletal: Cervical back: Neck supple. Skin: General: Skin is warm and dry. Capillary Refill: Capillary refill takes less than 2 seconds. Neurological: General: No focal deficit present. Mental Status: She is alert and oriented to person, place, and time. Mental status is at baseline. Psychiatric: Attention and Perception: Attention and perception normal. Mood and Affect: Mood and affect normal. Speech: Speech normal. Behavior: Behavior normal. Behavior is cooperative. Thought Content: Thought content normal. Cognition and Memory: Cognition and memory normal. Judgment: Judgment normal. ASSESSMENT/PLAN: 1. Gastroesophageal reflux disease, unspecified whether esophagitis present - ICD9: 530.81, ICD10: K21.9 (primary diagnosis) Symptoms seem to be a worsening GERD and/or gastritis and/or worsening hiatal hernia. Increase PPI to twice daily, start sucralfate. Needs to follow up with general surgery to discuss getting EGD. - Discussed lifestyle modifications including losing weight, limiting caffeine, no meals three hours before sleep, and head of bed elevation - LANSOPRAZOLE 30 MG CAPSULE,DELAYED RELEASE - SUCRALFATE 1 GRAM TABLET - CONSULT TO GENERAL SURGERY 2. Hiatal hernia with GERD - ICD9: 553.3, 530.81, ICD10: K44.9, K21.9 See above. - CONSULT TO GENERAL SURGERY 3. Anxiety state - ICD9: 300.00, ICD10: F41.1 Refill on ativan for 1 mg PRN at bedtime. - LORAZEPAM 1 MG TABLET 4. Primary insomnia - ICD9: 307.42, ICD10: F51.01 - LORAZEPAM 1 MG TABLET Portions of this note have been entered by ancillary staff. I have reviewed and when necessary edited, so that they are an adequate record of my encounter with this patient Please note that parts of this document were created using voice recognition software and therefore may contain grammatical errors. Patient verbalizes understanding of instructions from today's visit and in agreement with treatment plan. Questions answered. Agrees to call the office if questions, concerns of issues with acute symptoms not improving or if they worsen. Medical Decision Making: Problems: Moderate: 1+ chronic illnesses with change Data: Unique test result(s) reviewed: 2 Risk: Moderate: Drug management Medical Decision Making Level: 4 - Moderate Return if symptoms worsen or fail to improve, for Keep next scheduled appointment.. Endy Ariza APRN-JAYLENE documented in this encounter [facility] 01-05-2023 Note HNO ID: [id number] Author: Shantanu Mcpherson MD Service: ? Author Type: Physician Type: Progress Notes Filed: 01/05/2023 12:23 PM Note Text: [facility] - FOLLOW UP EVALUATION - VIRTUAL VISIT Nelly Bee MD [id number] [facility] [id number] Dear Nelly Bee MD: I had the pleasure of seeing Ms. Elizabeth for follow-up today. 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 She is seen alone. We had a visit using: [employer] I have communicated my name and active licensure. The patient's identity and physical location were verified at the time of this visit. Either the patient or their legal call center support representative has been informed of the risks and benefits of -- and alternatives to -- treatment through a remote evaluation and consents to proceed with the evaluation remotely. Subjective During her previous visit the following plan was made: Previous plan-08/25/2022 Visit: Continue primidone 250 mg at bedtime. Add 1/2 tab of primidone 50 mg at bedtime for at least 1 week. Can then increase to full tab of 50 mg if needed at bedtime Interval History S/p strabismus surgery Sunday. Successful. Prisms weren't working anymore. No more diplopia. Tremors are better. Taking Cymbalta 30 mg. Went to grief counseling. Didn't increase primidone. Movement Disorders Medications Schedule - as of the start of the visit: Medications Bed primidone 250 mg 1 Other Movement Disorder Prior Therapies Primidone, Gabapentin ALLERGIES Allergen Reactions Tylenol [Acetaminop* Swelling throat swelled shut Bactrim [Sulfametho* Hives Ceftin [Cefuroxime] Hives Does well with augmentin Doxycycline GI Upset, Other: See Comments Nauseam dizzy, I was sick and tired. Advil [Ibuprofen] Swelling Asa [Salicylates] Anaphylaxis Avelox [Moxifloxaci* Intolerance joint pain Balsum Of [place] [Bal* Hives Lanolin Other: See Comments congestion Linzess [Linaclotid* Hives Hives developed after a few doses Macrobid [Nitrofura* GI Upset Chills, headache, vomiting, diarrhea Nitrofurantoin Rash Severe GI upset and rash. Zantac [Ranitidine * Itching Itching and rash Current Outpatient Medications Medication Sig LORazepam (ATIVAN) 0.5 mg Take 2 tablets by mouth at bedtime as needed (for anxiety and insomnia) for up to 90 days. aluminum chloride (DRYSOL) 20 % external solution Apply to affected area daily at bedtime. (Patient taking differently: Apply to affected area daily at bedtime. Uses in the summer) Clobetasol Propionate (TEMOVATE) 0.05 % external solution Apply 1 application to affected area. On scalp once daily as needed albuterol HFA (PROVENTIL HFA, VENTOLIN HFA) 90 mcg/actuation inhaler INHALE 2 INHALATIONS BY MOUTH INSTRUCTED EVERY 4 HOURS NEEDED FOR WHEEZING / SHORTNESS OF BREATH montelukast (SINGULAIR) 10 mg tablet Take 1 tablet by mouth daily at bedtime. diclofenac (VOLTAREN) 1 % topical gel Apply to affected upper extremity joint up to 2 grams 4 times daily prn as directed. Max 32 grams per day if treating more than one joint. budesonide-formoterol (SYMBICORT) 80-4.5 mcg/actuation inhaler Inhale 2 Puffs as instructed twice daily. DULoxetine (CYMBALTA) 30 mg capsule Take 1 capsule by mouth once daily. estrogens conjugated (PREMARIN) 0.625 mg tablet Take 1 tablet by mouth once daily. lansoprazole (PREVACID) 30 mg capsule Take 1 capsule by mouth twice daily. beclomethasone dipropionate 80 mcg/actuation Use 2 Puffs in each nostril once daily. traZODone (DESYREL) 50 mg tablet Take 1 tablet by mouth daily at bedtime. Ibandronate 150 mg tablet Take 1 tablet by mouth once every month. In AM with cup of water on empty stomach. Nothing else by mouth and stay upright for 60 min. ipratropium-albuterol (DUONEB) 0.5 mg-3 mg(2.5 mg base)/3 mL nebu Inhale 3 mL as instructed every 6 hours as needed for wheezing/shortness of breath. COMPOUNDED PRESCRIPTION Nebulizer for home use. Diagnosis: Asthma exacerbation (Patient taking differently: Nebulizer for home use. Diagnosis: Asthma exacerbation/ as needed) Cholecalciferol, Vitamin D3, 2,000 unit ORAL Cap Take 0.5 tablets by mouth once daily. magnesium 100 mg ORAL Cap Take one(1) tablet daily. calcium carbonate/vitamin d3(CALCIUM 600 + D(3) 600 MG-125 UNIT TAB) Take one(1) tablet two(2) times daily. omega-3 fatty acids(FISH OIL 500 MG CAP) Take one(1) capsule daily. VITAMIN B-6 100 MG TAB Take one(1) tablet daily. VITAMIN E 400 UNIT TAB Take one(1) tablet daily. primidone (MYSOLINE) 250 mg tablet Take 1 tablet by mouth daily at bedtime. Current Facility-Administered Medications Medication Dose Route Frequency perflutren lipid microspheres 1.3 mL in NaCl (PF) 0.9% 10 mL injection (DEFINITY) INTRAVENOUS DIRECTED PRN sodium chloride 0.9 % (flush) 10 mL (BD POSIFLUSH) 10 mL INTRAVENOUS DIRECTED PRN Questionnaires: In addition, the foll (more content not included)... [facility] 12-27-2022 Miscellaneous Notes PATIENT NOTIFIED OF SAME. Pre-op clearance has been faxed. Please let her know repeat sodium much better at 137, this is with in normal limits. She is cleared for up coming procedure, we will send her paper work in to the preforming provider. documented in this encounter [facility] 12-25-2022 Miscellaneous Notes Addended by: ENDY ARIZA on: 12/25/2022 11:31 AM Modules accepted: Orders PATIENT NOTIFIED OF SAME. Will repeat lab this week. Please place order. Both cardiology and pulmonology are ok with the procedure. Would she be able to come in sometime this week for a repeat sodium level to ensure with being back on her regular fluid intake this is more within range? PATIENT NOTIFIED OF SAME. Patient states that she normally drinks about 4-5 glasses of water a day but for 3 days prior to labs she was drinking much more about double more than usually. Pulmonology and cardiology she is asking if you heard back from them. Overall labs are stable so ok for surgery. One thing to note is that her sodium is low. Can we see how much fluid she is drinking in a day? Pt is calling for lab results and to see if she is cleared for eye surgery. Component Latest Ref Rng & Units 12/22/2022 WBC 3.70 - 11.00 k/uL 9.49 RBC 3.90 - 5.20 m/uL 4.23 Hemoglobin 11.5 - 15.5 g/dL 12.9 Hematocrit 36.0 - 46.0 % 38.3 MCV 80.0 - 100.0 fL 90.5 MCH 26.0 - 34.0 pg 30.5 MCHC 30.5 - 36.0 g/dL 33.7 RDW-CV 11.5 - 15.0 % 12.7 Platelet Count 150 - 400 k/uL 254 MPV 9.0 - 12.7 fL 8.7 (L) Absolute nRBC <0.01 k/uL <0.01 Glucose 74 - 99 mg/dL 60 (L) BUN 7 - 21 mg/dL 8 Creatinine 0.58 - 0.96 mg/dL 0.82 Sodium 136 - 144 mmol/L 127 (L) Potassium 3.7 - 5.1 mmol/L 4.3 Chloride 97 - 105 mmol/L 93 (L) CO2 22 - 30 mmol/L 25 Anion Gap 9 - 18 mmol/L 9 Calcium 8.5 - 10.2 mg/dL 8.4 (L) eGFR >=60 mL/min/1.73m 75 Please review and advise. Luciana Dye LPN documented in this encounter [facility] 12-21-2022 Note HNO ID: [id number] Author: Chandan Cowan APRN.[employer]ER Service: ? Author Type: Nurse Practitioner Type: Progress Notes Filed: 12/21/2022 5:07 PM Note Text: Subjective HPI HPI Elliott Elizabeth is a 77 year old female who presents today for CC of upset stomach/reflux, hives. This started 2 weeks ago. Has tried otc medication without relief. Risk factors hx of this in past, asking for lidocaine liquid that has been rx in past. Denies cp/sob, n/v/d, trouble swallowing. .Patient presents with: Rash: Pt reported rash bilateral legs, x2 wks. PAST MEDICAL HISTORY Diagnosis Date Allergic rhinitis Anxiety Aspirin-sensitive asthma with nasal polyps Asthma Back pain Depression Esophagitis, unspecified Osteopenia Unspecified constipation PAST SURGICAL HISTORY Procedure Laterality Date ANTER COLPORRHAPHY,BLAD/VAGINA rectocele repair /vaginal prolapse. BIOPSY BREAST OPEN INCISIONAL Bx of breast, incisional, left BX BREAST PERC VACUUM/ROTN 07/23/08 LEFT COLONOSCOPY FLX DX W/COLLJ SPEC WHEN PFRMD 02/08/06 COLONOSCOPY FLX DX W/COLLJ SPEC WHEN PFRMD 04/26/16 Colonoscopy (MAC) COLONOSCOPY FLX DX W/COLLJ SPEC WHEN PFRMD 05/19/2019 Colonoscopy EGD TRANSORAL BIOPSY SINGLE/MULTIPLE 02/08/06 EGD TRANSORAL BIOPSY SINGLE/MULTIPLE 11/30/11 ESOPHAGOGASTRODUODENOSCOPY TRANSORAL DIAGNOSTIC 04/26/16 EGD (MAC) ESOPHAGOGASTRODUODENOSCOPY TRANSORAL DIAGNOSTIC 10/14/2018 EGD PAST SURGICAL HISTORY OF Bunions removed from both feet PAST SURGICAL HISTORY OF Two sinus surgery (ployps) PERINEOPLASTY REP PERIN NON OB 03/19/2007 PLCMT LOCALZTN CLIP,PERC,DURING BREAST BX 07/23/08 LEFT SALPINGO-OOPHORECTOMY COMPL/PRTL UNI/BI SPX 07/24/2002 Salpingo-oophorectomy b/L TOTAL ABDOMINAL HYSTERECT W/WO RMVL TUBE OVARY 07/24/2002 Hysterectomy, AMAIRANI ALLERGIES Tylenol [Acetaminophen], Bactrim [Sulfamethoxazole-Trimethoprim], Ceftin [Cefuroxime], Doxycycline, Advil [Ibuprofen], Asa [Salicylates], Avelox [Moxifloxacin Hcl], Balsum [place] [Balsam Jennifer], Lanolin, Linzess [Linaclotide], Macrobid [Nitrofurantoin Monohyd/M-Cryst], Nitrofurantoin, and Zantac [Ranitidine Hcl] MEDICATIONS LORazepam (ATIVAN) 0.5 mgTake 2 tablets by mouth at bedtime as needed (for anxiety and insomnia) for up to 90 days.Disp: 60 tabletRfl: 2 primidone (MYSOLINE) 50 mg tabletTake 1 tablet by mouth daily at bedtime. In addition to 250 mg pillDisp: 90 tabletRfl: 3 aluminum chloride (DRYSOL) 20 % external solutionApply to affected area daily at bedtime.Disp: 35 mLRfl: 1 (Patient taking differently: Apply to affected area daily at bedtime. Uses in the summer) Clobetasol Propionate (TEMOVATE) 0.05 % external solutionApply 1 application to affected area. On scalp once daily as neededDisp: 150 mLRfl: 3 albuterol HFA (PROVENTIL HFA, VENTOLIN HFA) 90 mcg/actuation inhalerINHALE 2 INHALATIONS BY MOUTH INSTRUCTED EVERY 4 HOURS NEEDED FOR WHEEZING / SHORTNESS OF BREATHDisp: 51 gRfl: 3 montelukast (SINGULAIR) 10 mg tabletTake 1 tablet by mouth daily at bedtime.Disp: 90 tabletRfl: 3 diclofenac (VOLTAREN) 1 % topical gelApply to affected upper extremity joint up to 2 grams 4 times daily prn as directed. Max 32 grams per day if treating more than one joint.Disp: 100 gRfl: 3 budesonide-formoterol (SYMBICORT) 80-4.5 mcg/actuation inhalerInhale 2 Puffs as instructed twice daily.Disp: 3 EachRfl: 3 DULoxetine (CYMBALTA) 30 mg capsuleTake 1 capsule by mouth once daily.Disp: 90 capsuleRfl: 3 estrogens conjugated (PREMARIN) 0.625 mg tabletTake 1 tablet by mouth once daily.Disp: 90 tabletRfl: 3 lansoprazole (PREVACID) 30 mg capsuleTake 1 capsule by mouth twice daily.Disp: 180 capsuleRfl: 1 beclomethasone dipropionate 80 mcg/actuationUse 2 Puffs in each nostril once daily.Disp: 3 EachRfl: 3 traZODone (DESYREL) 50 mg tabletTake 1 tablet by mouth daily at bedtime.Disp: 90 tabletRfl: 3 primidone (MYSOLINE) 250 mg tabletTake 1 tablet by mouth daily at bedtime.Disp: 90 tabletRfl: 3 Ibandronate 150 mg tabletTake 1 tablet by mouth once every month. In AM with cup of water on empty stomach. Nothing else by mouth and stay upright for 60 min.Disp: 3 tabletRfl: 3 ipratropium-albuterol (DUONEB) 0.5 mg-3 mg(2.5 mg base)/3 mL nebuInhale 3 mL as instructed every 6 hours as needed for wheezing/shortness of breath.Disp: 120 mLRfl: 5 COMPOUNDED PRESCRIPTIONNebulizer for home use. Diagnosis: Asthma exacerbationDisp: 1 EachRfl: 0 (Patient taking differently: Nebulizer for home use. Diagnosis: Asthma exacerbation/ as needed) Cholecalciferol, Vitamin D3, 2,000 unit ORAL CapTake 0.5 tablets by mouth once daily.Disp: Rfl: 0 magnesium 100 mg ORAL CapTake one(1) tablet daily.Disp: Rfl: 0 calcium carbonate/vitamin d3(CALCIUM 600 + D(3) 600 MG-125 UNIT TAB)Take one(1) tablet two(2) times daily.Disp: Rfl: 0 omega-3 fatty acids(FISH OIL 500 MG CAP)Take one(1) capsule daily.Disp: Rfl: 0 VITAMIN B-6 100 MG TABTake one(1) tablet daily.Disp (more content not included)... [facility] 12-21-2022 History of Present illness Narrative Subjective HPI HPI Elliott Elizabeth is a 77 year old female who presents today for CC of upset stomach/reflux, hives. This started 2 weeks ago. Has tried otc medication without relief. Risk factors hx of this in past, asking for lidocaine liquid that has been rx in past. Denies cp/sob, n/v/d, trouble swallowing. .Patient presents with: Rash: Pt reported rash bilateral legs, x2 wks. PAST MEDICAL HISTORY Diagnosis Date Allergic rhinitis Anxiety Aspirin-sensitive asthma with nasal polyps Asthma Back pain Depression Esophagitis, unspecified Osteopenia Unspecified constipation PAST SURGICAL HISTORY Procedure Laterality Date ANTER COLPORRHAPHY,BLAD/VAGINA rectocele repair /vaginal prolapse. BIOPSY BREAST OPEN INCISIONAL Bx of breast, incisional, left BX BREAST PERC VACUUM/ROTN 07/23/08 LEFT COLONOSCOPY FLX DX W/COLLJ SPEC WHEN PFRMD 02/08/06 COLONOSCOPY FLX DX W/COLLJ SPEC WHEN PFRMD 04/26/16 Colonoscopy (MAC) COLONOSCOPY FLX DX W/COLLJ SPEC WHEN PFRMD 05/19/2019 Colonoscopy EGD TRANSORAL BIOPSY SINGLE/MULTIPLE 02/08/06 EGD TRANSORAL BIOPSY SINGLE/MULTIPLE 11/30/11 ESOPHAGOGASTRODUODENOSCOPY TRANSORAL DIAGNOSTIC 04/26/16 EGD (MAC) ESOPHAGOGASTRODUODENOSCOPY TRANSORAL DIAGNOSTIC 10/14/2018 EGD PAST SURGICAL HISTORY OF Bunions removed from both feet PAST SURGICAL HISTORY OF Two sinus surgery (ployps) PERINEOPLASTY REP PERIN NON OB 03/19/2007 PLCMT LOCALZTN CLIP,PERC,DURING BREAST BX 07/23/08 LEFT SALPINGO-OOPHORECTOMY COMPL/PRTL UNI/BI SPX 07/24/2002 Salpingo-oophorectomy b/L TOTAL ABDOMINAL HYSTERECT W/WO RMVL TUBE OVARY 07/24/2002 Hysterectomy, AMAIRANI ALLERGIES Tylenol [Acetaminophen], Bactrim [Sulfamethoxazole-Trimethoprim], Ceftin [Cefuroxime], Doxycycline, Advil [Ibuprofen], Asa [Salicylates], Avelox [Moxifloxacin Hcl], Balsum [place] [Balsam Jennifer], Lanolin, Linzess [Linaclotide], Macrobid [Nitrofurantoin Monohyd/M-Cryst], Nitrofurantoin, and Zantac [Ranitidine Hcl] MEDICATIONS LORazepam (ATIVAN) 0.5 mg^Take 2 tablets by mouth at bedtime as needed (for anxiety and insomnia) for up to 90 days.^Disp: 60 tablet^Rfl: 2 primidone (MYSOLINE) 50 mg tablet^Take 1 tablet by mouth daily at bedtime. In addition to 250 mg pill^Disp: 90 tablet^Rfl: 3 aluminum chloride (DRYSOL) 20 % external solution^Apply to affected area daily at bedtime.^Disp: 35 mL^Rfl: 1 (Patient taking differently: Apply to affected area daily at bedtime. Uses in the summer) Clobetasol Propionate (TEMOVATE) 0.05 % external solution^Apply 1 application to affected area. On scalp once daily as needed^Disp: 150 mL^Rfl: 3 albuterol HFA (PROVENTIL HFA, VENTOLIN HFA) 90 mcg/actuation inhaler^INHALE 2 INHALATIONS BY MOUTH INSTRUCTED EVERY 4 HOURS NEEDED FOR WHEEZING / SHORTNESS OF BREATH^Disp: 51 g^Rfl: 3 montelukast (SINGULAIR) 10 mg tablet^Take 1 tablet by mouth daily at bedtime.^Disp: 90 tablet^Rfl: 3 diclofenac (VOLTAREN) 1 % topical gel^Apply to affected upper extremity joint up to 2 grams 4 times daily prn as directed. Max 32 grams per day if treating more than one joint.^Disp: 100 g^Rfl: 3 budesonide-formoterol (SYMBICORT) 80-4.5 mcg/actuation inhaler^Inhale 2 Puffs as instructed twice daily.^Disp: 3 Each^Rfl: 3 DULoxetine (CYMBALTA) 30 mg capsule^Take 1 capsule by mouth once daily.^Disp: 90 capsule^Rfl: 3 estrogens conjugated (PREMARIN) 0.625 mg tablet^Take 1 tablet by mouth once daily.^Disp: 90 tablet^Rfl: 3 lansoprazole (PREVACID) 30 mg capsule^Take 1 capsule by mouth twice daily.^Disp: 180 capsule^Rfl: 1 beclomethasone dipropionate 80 mcg/actuation^Use 2 Puffs in each nostril once daily.^Disp: 3 Each^Rfl: 3 traZODone (DESYREL) 50 mg tablet^Take 1 tablet by mouth daily at bedtime.^Disp: 90 tablet^Rfl: 3 primidone (MYSOLINE) 250 mg tablet^Take 1 tablet by mouth daily at bedtime.^Disp: 90 tablet^Rfl: 3 Ibandronate 150 mg tablet^Take 1 tablet by mouth once every month. In AM with cup of water on empty stomach. Nothing else by mouth and stay upright for 60 min.^Disp: 3 tablet^Rfl: 3 ipratropium-albuterol (DUONEB) 0.5 mg-3 mg(2.5 mg base)/3 mL nebu^Inhale 3 mL as instructed every 6 hours as needed for wheezing/shortness of breath.^Disp: 120 mL^Rfl: 5 COMPOUNDED PRESCRIPTION^Nebulizer for home use. Diagnosis: Asthma exacerbation^Disp: 1 Each^Rfl: 0 (Patient taking differently: Nebulizer for home use. Diagnosis: Asthma exacerbation/ as needed) Cholecalciferol, Vitamin D3, 2,000 unit ORAL Cap^Take 0.5 tablets by mouth once daily.^Disp: ^Rfl: 0 magnesium 100 mg ORAL Cap^Take one(1) tablet daily.^Disp: ^Rfl: 0 calcium carbonate/vitamin d3(CALCIUM 600 + D(3) 600 MG-125 UNIT TAB)^Take one(1) tablet two(2) times daily.^Disp: ^Rfl: 0 omega-3 fatty acids(FISH OIL 500 MG CAP)^Take one(1) capsule daily.^Disp: ^Rfl: 0 VITAMIN B-6 100 MG TAB^Take one(1) tablet daily.^Disp: ^Rfl: 0 VITAMIN E 400 UNIT TAB^Take one(1) tablet daily.^Disp: ^Rfl: 0 aluminum-magnesium drncuzbqz-ndufdfqorqv-ayhijubuf viscous^Take 5 mL by mouth one time only for 1 dose.^Disp: 120 mL^Rfl: 0 Amoxicillin 500 mg tablet^take 1 tablet by mouth every 8 hours until finished^Disp: ^Rfl: (Patient not taking: Reported on 12/21/2022) FAMILY HISTORY Problem Relation Age of Onset Breast Cancer Mother breast Asthma Mother Cancer Father mouth Alcohol/Drug Father Asthma Father Arthritis Sister Psoriatic Cancer Sister uterine Thyroid Sister Cancer Arthritis Sister Psoriatic other (Vocal Cord Disfunction) Sister Asthma Sister Tremor Sister Alcohol abuse Sister dementia Coronary Artery Disease Brother Had [place] Cancer Brother stomach; also colon cancer (2017)--at 41, at age 47 Cancer Brother mouth and throat (smoker; etoh) Cancer Maternal Grandmother Cancer Maternal Grandfather Cancer Paternal Grandmother Cancer Paternal Grandfather Tremor Maternal Uncle Asthma Other Brothers and sisters. other (MVA) Grandson Social History Tobacco Use Smoking status: Never Smokeless tobacco: Never Tobacco comments: Parents smoked in childhood home. Spouse non-smoker. Vaping Use Vaping Use: Never used Substance Use Topics Alcohol use: No Drug use: No ROS Objective Blood pressure 138/62, pulse 87, temperature 36.4 C (97.5 F), temperature source Tympanic, resp. rate 16, SpO2 99 %. Physical Exam Constitutional: General: She is not in acute distress. Appearance: She is not toxic-appearing or diaphoretic. HENT: Head: Normocephalic and atraumatic. Cardiovascular: Rate and Rhythm: Normal rate and regular rhythm. Heart sounds: Normal heart sounds, S1 normal and S2 normal. Pulmonary: Effort: Pulmonary effort is normal. Breath sounds: Normal breath sounds. Abdominal: General: Bowel sounds are normal. Tenderness: There is no abdominal tenderness. Skin: Neurological: Mental Status: She is alert and oriented to person, place, and time. Gait: Gait is intact. ASSESSMENT/PLAN: 1. Upset stomach - ICD9: 536.8, ICD10: K30 -use medication as prescribed -follow up if symptoms persist, worsen, change - GI COCKTAIL-MAALOX+LIDOCAINE 2% (PYX-COMBO CONCHITA) Chandan Cowan APRN.CROSSBAR SWITCH ADJUSTER documented in this encounter [facility] 12-19-2022 Miscellaneous Notes Okay from pulmonary standpoint [place] patient seen in the internal med office this am for pre-op clearance for eye procedure up coming on 01/03/2023. Negative ROS, given her cardiac history and pulmonary history I just wanted to verify with both specialities that they are okay with her having the procedure before signing off on her clearance and returning it to the preforming provider. documented in this encounter [facility] 12-19-2022 Note HNO ID: [id number] Author: Endy Ariza APRN.JAYLENE Service: ? Author Type: Nurse Practitioner Type: Progress Notes Filed: 12/27/2022 7:16 AM Note Text: SUBJECTIVE Elliott Elizabeth is a 77 year old female here today for a pre-op clearance visit. Chief Complaint Patient presents with: Pre-Op Exam: is have strabismus surgery HPI Elliott Elizabeth is an 77 year old female presents to the office for pre-op examination. Is scheduled to have strabismus surgery for esotropia done on 01/03/[address] Nix with [facility]. History of having anesthesia: Yes. Any reaction from anesthesia in the past: No. Planning for general anesthesia. Personal or family history of heart disease: No. Plans for care after surgery: same day out patient procedure. Chronic diseases controlled: Yes. Currently taking a blood thinner: No. Patient denies chest pain, SOB, dizziness, palpitations, one sided weakness, dropping of face or mouth, fever, or recent sickness. No history of CVA or [place]. Labs will be obtained. Follows with cardiology, sees Macarena Randle APRN. History of palpitations, mitral valve insufficiency, SVT. Recent EKG stable, also had an ECHO that was stable and stress test in 2020 that was normal. Sees pulmonary, Dr. Gonzalez. History of COPD and asthma. Both are stable and well controlled. Reviewed chest xray in chart from 2019, stable. Her medications were reviewed today and her list is now up to date. Medications Current Outpatient Medications Medication Sig LORazepam (ATIVAN) 0.5 mg Take 2 tablets by mouth at bedtime as needed (for anxiety and insomnia) for up to 90 days. primidone (MYSOLINE) 50 mg tablet Take 1 tablet by mouth daily at bedtime. In addition to 250 mg pill aluminum chloride (DRYSOL) 20 % external solution Apply to affected area daily at bedtime. (Patient taking differently: Apply to affected area daily at bedtime. Uses in the summer) Clobetasol Propionate (TEMOVATE) 0.05 % external solution Apply 1 application to affected area. On scalp once daily as needed albuterol HFA (PROVENTIL HFA, VENTOLIN HFA) 90 mcg/actuation inhaler INHALE 2 INHALATIONS BY MOUTH INSTRUCTED EVERY 4 HOURS NEEDED FOR WHEEZING / SHORTNESS OF BREATH montelukast (SINGULAIR) 10 mg tablet Take 1 tablet by mouth daily at bedtime. diclofenac (VOLTAREN) 1 % topical gel Apply to affected upper extremity joint up to 2 grams 4 times daily prn as directed. Max 32 grams per day if treating more than one joint. budesonide-formoterol (SYMBICORT) 80-4.5 mcg/actuation inhaler Inhale 2 Puffs as instructed twice daily. DULoxetine (CYMBALTA) 30 mg capsule Take 1 capsule by mouth once daily. estrogens conjugated (PREMARIN) 0.625 mg tablet Take 1 tablet by mouth once daily. lansoprazole (PREVACID) 30 mg capsule Take 1 capsule by mouth twice daily. beclomethasone dipropionate 80 mcg/actuation Use 2 Puffs in each nostril once daily. traZODone (DESYREL) 50 mg tablet Take 1 tablet by mouth daily at bedtime. primidone (MYSOLINE) 250 mg tablet Take 1 tablet by mouth daily at bedtime. Ibandronate 150 mg tablet Take 1 tablet by mouth once every month. In AM with cup of water on empty stomach. Nothing else by mouth and stay upright for 60 min. ipratropium-albuterol (DUONEB) 0.5 mg-3 mg(2.5 mg base)/3 mL nebu Inhale 3 mL as instructed every 6 hours as needed for wheezing/shortness of breath. Cholecalciferol, Vitamin D3, 2,000 unit ORAL Cap Take 0.5 tablets by mouth once daily. magnesium 100 mg ORAL Cap Take one(1) tablet daily. calcium carbonate/vitamin d3(CALCIUM 600 + D(3) 600 MG-125 UNIT TAB) Take one(1) tablet two(2) times daily. omega-3 fatty acids(FISH OIL 500 MG CAP) Take one(1) capsule daily. VITAMIN B-6 100 MG TAB Take one(1) tablet daily. VITAMIN E 400 UNIT TAB Take one(1) tablet daily. Amoxicillin 500 mg tablet take 1 tablet by mouth every 8 hours until finished (Patient not taking: Reported on 12/19/2022) COMPOUNDED PRESCRIPTION Nebulizer for home use. Diagnosis: Asthma exacerbation (Patient taking differently: Nebulizer for home use. Diagnosis: Asthma exacerbation/ as needed) Current Facility-Administered Medications Medication Dose Route Frequency perflutren lipid microspheres 1.3 mL in NaCl (PF) 0.9% 10 mL injection (DEFINITY) INTRAVENOUS DIRECTED PRN sodium chloride 0.9 % (flush) 10 mL (BD POSIFLUSH) 10 mL INTRAVENOUS DIRECTED PRN ALLERGIES Allergen Reactions Tylenol [Acetaminop* Swelling throat swelled shut Bactrim [Sulfametho* Hives Ceftin [Cefuroxime] Hives Does well with augmentin Doxycycline GI Upset, Other: See Comments Nauseam dizzy, I was sick and tired. Advil [Ibuprofen] Swelling Asa [Salicylates] Anaphylaxis Avelox [Moxifloxaci* Intolerance joint pain Balsum Of [place] [Bal* Hives Lanolin Other: See Comments congestion Linzess [Linaclotid* Hives Hives developed after a few doses Macr (more content not included)... [facility] 12-19-2022 History of Present illness Narrative SUBJECTIVE Elliott Elizabeth is a 77 year old female here today for a pre-op clearance visit. Chief Complaint Patient presents with: Pre-Op Exam: is have strabismus surgery HPI Elliott Elizabeth is an 77 year old female presents to the office for pre-op examination. Is scheduled to have strabismus surgery for esotropia done on 01/03/[address] Nix with [facility]. History of having anesthesia: Yes. Any reaction from anesthesia in the past: No. Planning for general anesthesia. Personal or family history of heart disease: No. Plans for care after surgery: same day out patient procedure. Chronic diseases controlled: Yes. Currently taking a blood thinner: No. Patient denies chest pain, SOB, dizziness, palpitations, one sided weakness, dropping of face or mouth, fever, or recent sickness. No history of CVA or [place]. Labs will be obtained. Follows with cardiology, sees Macarena Randle APRN. History of palpitations, mitral valve insufficiency, SVT. Recent EKG stable, also had an ECHO that was stable and stress test in 2020 that was normal. Sees pulmonary, Dr. Gonzalez. History of COPD and asthma. Both are stable and well controlled. Reviewed chest xray in chart from 2019, stable. Her medications were reviewed today and her list is now up to date. Medications Current Outpatient Medications Medication Sig LORazepam (ATIVAN) 0.5 mg Take 2 tablets by mouth at bedtime as needed (for anxiety and insomnia) for up to 90 days. primidone (MYSOLINE) 50 mg tablet Take 1 tablet by mouth daily at bedtime. In addition to 250 mg pill aluminum chloride (DRYSOL) 20 % external solution Apply to affected area daily at bedtime. (Patient taking differently: Apply to affected area daily at bedtime. Uses in the summer) Clobetasol Propionate (TEMOVATE) 0.05 % external solution Apply 1 application to affected area. On scalp once daily as needed albuterol HFA (PROVENTIL HFA, VENTOLIN HFA) 90 mcg/actuation inhaler INHALE 2 INHALATIONS BY MOUTH INSTRUCTED EVERY 4 HOURS NEEDED FOR WHEEZING / SHORTNESS OF BREATH montelukast (SINGULAIR) 10 mg tablet Take 1 tablet by mouth daily at bedtime. diclofenac (VOLTAREN) 1 % topical gel Apply to affected upper extremity joint up to 2 grams 4 times daily prn as directed. Max 32 grams per day if treating more than one joint. budesonide-formoterol (SYMBICORT) 80-4.5 mcg/actuation inhaler Inhale 2 Puffs as instructed twice daily. DULoxetine (CYMBALTA) 30 mg capsule Take 1 capsule by mouth once daily. estrogens conjugated (PREMARIN) 0.625 mg tablet Take 1 tablet by mouth once daily. lansoprazole (PREVACID) 30 mg capsule Take 1 capsule by mouth twice daily. beclomethasone dipropionate 80 mcg/actuation Use 2 Puffs in each nostril once daily. traZODone (DESYREL) 50 mg tablet Take 1 tablet by mouth daily at bedtime. primidone (MYSOLINE) 250 mg tablet Take 1 tablet by mouth daily at bedtime. Ibandronate 150 mg tablet Take 1 tablet by mouth once every month. In AM with cup of water on empty stomach. Nothing else by mouth and stay upright for 60 min. ipratropium-albuterol (DUONEB) 0.5 mg-3 mg(2.5 mg base)/3 mL nebu Inhale 3 mL as instructed every 6 hours as needed for wheezing/shortness of breath. Cholecalciferol, Vitamin D3, 2,000 unit ORAL Cap Take 0.5 tablets by mouth once daily. magnesium 100 mg ORAL Cap Take one(1) tablet daily. calcium carbonate/vitamin d3(CALCIUM 600 + D(3) 600 MG-125 UNIT TAB) Take one(1) tablet two(2) times daily. omega-3 fatty acids(FISH OIL 500 MG CAP) Take one(1) capsule daily. VITAMIN B-6 100 MG TAB Take one(1) tablet daily. VITAMIN E 400 UNIT TAB Take one(1) tablet daily. Amoxicillin 500 mg tablet take 1 tablet by mouth every 8 hours until finished (Patient not taking: Reported on 12/19/2022) COMPOUNDED PRESCRIPTION Nebulizer for home use. Diagnosis: Asthma exacerbation (Patient taking differently: Nebulizer for home use. Diagnosis: Asthma exacerbation/ as needed) Current Facility-Administered Medications Medication Dose Route Frequency perflutren lipid microspheres 1.3 mL in NaCl (PF) 0.9% 10 mL injection (DEFINITY) INTRAVENOUS DIRECTED PRN sodium chloride 0.9 % (flush) 10 mL (BD POSIFLUSH) 10 mL INTRAVENOUS DIRECTED PRN ALLERGIES Allergen Reactions Tylenol [Acetaminop* Swelling throat swelled shut Bactrim [Sulfametho* Hives Ceftin [Cefuroxime] Hives Does well with augmentin Doxycycline GI Upset, Other: See Comments Nauseam dizzy, I was sick and tired. Advil [Ibuprofen] Swelling Asa [Salicylates] Anaphylaxis Avelox [Moxifloxaci* Intolerance joint pain Balsum Of [place] [Bal* Hives Lanolin Other: See Comments congestion Linzess [Linaclotid* Hives Hives developed after a few doses Macrobid [Nitrofura* GI Upset Chills, headache, vomiting, diarrhea Nitrofurantoin Rash Severe GI upset and rash. Zantac [Ranitidine * Itching Itching and rash ACTIVE PROBLEM LIST Svt (Supraventricular Tachycardia) ([facility]) - 11/22/2020 Palpitations - 10/25/2020 Screening for Cardiovascular Condition - 10/25/2020 Unexplained Weight Loss - 07/26/2020 Lung Nodules - 02/03/2019 Myofascial Pain Syndrome - 09/21/2017 Comment: noted pain in areas that saw on computer Constipation - 09/21/2016 Thoracic Myofascial Strain - 01/04/2015 Chronic Back Pain - 11/23/2014 Ddd (Degenerative Disc Disease), Lumbar - 11/23/2014 Ddd (Degenerative Disc Disease), Thoracic - 11/23/2014 Myofascial Pain - 11/23/2014 Cervical Spondylosis - 11/23/2014 Complicated Bereavement - 08/21/2014 Add (Attention Deficit Disorder) Without Hyperactivity - 08/21/2014 Essential Tremor - 12/13/2012 Vocal Tremor - 03/13/2012 Primary Focal Hyperhidrosis - 02/13/2012 Osteopenia Cervicalgia - 08/08/2010 Generalized Osteoarthrosis, Unspecified Site - 03/10/2009 Other Specified Urticaria - 08/31/2008 Unspecified Sinusitis (Chronic) - 08/31/2008 Abnormal Mammogram, Unspecified - 07/07/2008 Spasm of Muscle - 01/08/2008 Major Depressive Disorder in Full Remission ([facility]) - 06/30/2006 Anxiety 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 Spouse non-smoker. Vaping Use Vaping Use: Never used Substance Use Topics Alcohol use: No Drug use: No Review of Systems Constitutional: Negative. Respiratory: Negative for chest tightness and shortness of breath. Cardiovascular: Negative for chest pain, palpitations and leg swelling. Neurological: Negative for seizures, syncope, facial asymmetry and speech difficulty. OBJECTIVE BP 106/60 Pulse 84 Ht 5' 1.75 (1.57m) Wt 115 lb (52.2kg) SpO2 96% BMI 21.22 kg/(m^2). Physical Exam Vitals and nursing note reviewed. Constitutional: General: She is awake. She is not in acute distress. Appearance: She is well-developed and well-groomed. She is not ill-appearing, toxic-appearing or diaphoretic. HENT: Head: Normocephalic. Eyes: General: Vision grossly intact. Conjunctiva/sclera: Conjunctivae normal. Pupils: Pupils are equal, round, and reactive to light. Neck: Vascular: No carotid bruit or JVD. Cardiovascular: Rate and Rhythm: Normal rate and regular rhythm. Heart sounds: Normal heart sounds. No murmur heard. Pulmonary: Effort: Pulmonary effort is normal. No accessory muscle usage, prolonged expiration or respiratory distress. Breath sounds: Normal breath sounds. Musculoskeletal: Cervical back: Normal range of motion and neck supple. Skin: General: Skin is warm and dry. Capillary Refill: Capillary refill takes less than 2 seconds. Neurological: General: No focal deficit present. Mental Status: She is alert and oriented to person, place, and time. Mental status is at baseline. Cranial Nerves: No cranial nerve deficit. Sensory: No sensory deficit. Psychiatric: Attention and Perception: Attention and perception normal. Mood and Affect: Mood normal. Speech: Speech normal. Behavior: Behavior normal. Behavior is cooperative. Thought Content: Thought content normal. Judgment: Judgment normal. ASSESSMENT/PLAN: 1. Esotropia - ICD9: 378.00, ICD10: H50.00 (primary diagnosis) Scheduled to have strabismus surgery for esotropia done on 01/03/[address] Nix with [facility]. - CBC - BASIC METABOLIC PNL 2. Pre-op evaluation - ICD9: V72.84, ICD10: Z01.818 Based on physical exam done at today's visit, negative review of systems, stable prior chest xray, EKG, ECHO and Stress patient is cleared for surgery from a primary care standpoint if pending labs are stable and as long as ok with speciality providers for cardiology and pulmonology then can proceed with planned procedure at the discretion of the performing provider. Our office will reach out to those providers to ensure they have no objection to up coming procedure. - CBC - BASIC METABOLIC PNL 3. Chronic obstructive pulmonary disease, unspecified COPD type (HCC) - ICD9: 496, ICD10: J44.9 Per patient stable. 4. Moderate asthma without complication, unspecified whether persistent - ICD9: 493.90, ICD10: J45.909 Moderate persistent Asthma stable - Avoidance of triggers recommended 5. SVT (supraventricular tachycardia) (HCC) - ICD9: 427.89, ICD10: I47.1 Per patient stable. 6. Palpitations - ICD9: 785.1, ICD10: R00.2 Per patient stable. Portions of this note have been entered by ancillary staff. I have reviewed and when necessary edited, so that they are an adequate record of my encounter with this patient Please note that parts of this document were created using voice recognition software and therefore may contain grammatical errors. Patient verbalizes understanding of instructions from today's visit and in agreement with treatment plan. Questions answered. Agrees to call the office if questions, concerns of issues with acute symptoms not improving or if they worsen. See diagnoses and orders for additional plan(s). Allergies and medications were reviewed, list was updated, and refills given if needed. Past medical, surgical, social, and family history reviewed and updated as appropriate. Encouraged proper diet & exercise as well as compliance with taking medications. Age-appropriate health preventative measures were discussed. Medical Decision Making: Problems: Moderate: 2+ stable chronic illnesses Data: Unique test result(s) reviewed: 3+ Unique test(s) ordered: 2 Medical Decision Making Level: 4 - Moderate Return if symptoms worsen or fail to improve, for Keep next scheduled appointment.. Endy Ariza APRN-JAYLENE documented in this encounter [facility] 12-12-2022 Miscellaneous Notes Patient scheduled for Pre-Op 12/19/22. Patient has been identified by name and date of : YesType of form: H&P needed for procedure on 01/03/2023 from [facility] Form received via: Fax When form is completed, fax form to fax number provided. Form has been forwarded to: Nurse Guille Acuna Ma documented in this encounter [facility] 11-16-2022 Note HNO ID: [id number] Author: Rebecca Gonzalez MD Service: ? Author Type: Physician Type: Progress Notes Filed: 11/16/2022 2:14 PM Note Text: . Respiratory Ong Note Patient name: Elliott Elizabeth PCP: Nelly Bee MD CC: follow-up asthma HPI: Elliott Elizabeth 76 year old female never smoker with PMH significant for asthma, allergic rhinitis, nasal polyposis, aspirin allergy, psoriasis, esophagitis, former patient of Dr. Patel, new to me. Current therapy consists of Symbicort and as needed albuterol. Allergy to cats, receiving immunotherapy. At [facility] with [place], Symbicort decreased to 80/4.5. She states she was doing well until 3 to 4 weeks ago when she first started having issues with her sinuses. She had had 2-week history of sinus congestion with drainage, headaches, cough and throat clearing, wheezing. No significant shortness of breath or chest pain. No fevers or chills. Recently saw her ENT physician who started antibiotics and steroids. Feeling better from a respiratory standpoint. At the peak of her illness that she was using her albuterol 1-2 times a day. No nocturnal awakenings. Does not like the higher dose Symbicort as it tends to worsen her tremors and makes her feel more anxious. DATA: ASTHMA CONTROL TEST Date: 11/16/2022 In the last 4 weeks, how much of the time did your asthma keep you from getting as much done at work or home that you wanted to do? None of the time (5) In the last 4 weeks, how often have you had shortness of breath? Once or twice per week (4) In the last 4 weeks, how often did your asthma symptoms (wheezing, coughing, shortness of breath, chest tightness or pain) wake you up at night or earlier than usual? Not at all (5) In the last 4 weeks, how often have you used your rescue inhaler or nebulizer medication (such as Albuterol, Proventil, Ventolin, Maxair, Xoponex, or Primatene Mist)? Once a week or less (4) In the last 4 weeks, how would you rate your asthma control? Well controlled (4) Total: more than 20 SERVICE DATE: 11/14/2021 SERVICE TIME: 1:11 PM Oral Exhaled Nitric Oxide measurement: 16.0 (ppb) SERVICE DATE: 11/16/2022 SERVICE TIME: 11:24 AM Oral Exhaled Nitric Oxide measurement: 29.0 (ppb) PFT: Spirometry shows mild obstruction not significantly changed from her previous PFT PFT 10/2021: Labs: Last CBC in July negative for eosinophilia PAST MEDICAL HISTORY Diagnosis Date Allergic rhinitis Anxiety Aspirin-sensitive asthma with nasal polyps Asthma Back pain Depression Esophagitis, unspecified Osteopenia Unspecified constipation ALLERGIES Allergen Reactions Tylenol [Acetaminop* Swelling throat swelled shut Bactrim [Sulfametho* Hives Ceftin [Cefuroxime] Hives Does well with augmentin Doxycycline GI Upset, Other: See Comments Nauseam dizzy, I was sick and tired. Advil [Ibuprofen] Swelling Asa [Salicylates] Anaphylaxis Avelox [Moxifloxaci* Intolerance joint pain Balsum Of [place] [Bal* Hives Lanolin Other: See Comments congestion Linzess [Linaclotid* Hives Hives developed after a few doses Macrobid [Nitrofura* GI Upset Chills, headache, vomiting, diarrhea Nitrofurantoin Rash Severe GI upset and rash. Zantac [Ranitidine * Itching Itching and rash azithromycin (ZITHROMAX) 500 mg tabletTake 500 mg by mouth once daily.Disp: Rfl: Amoxicillin 500 mg tablettake 1 tablet by mouth every 8 hours until finishedDisp: Rfl: methylPREDNISolone (MEDROL DOSE-PACK) 4 mg Dose-Packuse as directed FOLLOW DIRECTIONS ON BACK OF FOIL PACKDisp: Rfl: LORazepam (ATIVAN) 0.5 mgTake 2 tablets by mouth at bedtime as needed (for anxiety and insomnia) for up to 90 days.Disp: 60 tabletRfl: 2 predniSONE (DELTASONE) 10 mg tablet4 tablets daily for 3 days, 3 tablets daily for 3 days, 2 tablets daily for 3 days, 1 tablet daily for 3 days.Disp: 30 tabletRfl: 0 primidone (MYSOLINE) 50 mg tabletTake 1 tablet by mouth daily at bedtime. In addition to 250 mg pillDisp: 90 tabletRfl: 3 aluminum chloride (DRYSOL) 20 % external solutionApply to affected area daily at bedtime.Disp: 35 mLRfl: 1 (Patient taking differently: Apply to affected area daily at bedtime. Uses in the summer) Clobetasol Propionate (TEMOVATE) 0.05 % external solutionApply 1 application to affected area. On scalp once daily as neededDisp: 150 mLRfl: 3 albuterol HFA (PROVENTIL HFA, VENTOLIN HFA) 90 mcg/actuation inhalerINHALE 2 INHALATIONS BY MOUTH INSTRUCTED EVERY 4 HOURS NEEDED FOR WHEEZING / SHORTNESS OF BREATHDisp: 51 gRfl: 3 montelukast (SINGULAIR) 10 mg tabletTake 1 tablet by mouth daily at bedtime.Disp: 90 tabletRfl: 3 diclofenac (VOLTAREN) 1 % topical gelApply to affected upper extremity joint up to 2 grams 4 times daily prn as directed. Max 32 grams per day if treating more than one joint.Disp: 100 gRfl: 3 budesonide-formoterol (SYMBICORT) 80-4.5 mcg/actuation inhalerInhale (more content not included)... [facility] 11-16-2022 Note HNO ID: [id number] Author: REBECA Herrera Service: ? Author Type: Respiratory Therapist Type: Procedures Filed: 11/16/2022 11:24 AM Note Text: RESPIRATORY THERAPY ORAL EXHALED NITRIC OXIDE SERVICE DATE: 11/16/2022 SERVICE TIME: 11:24 AM Oral Exhaled Nitric Oxide measurement: 29.0 (ppb) Normal: Adult 5-20 ppb, pediatric (<12 years) 5-15 ppb High Normal / Increased: Adult 20-35 ppb, pediatric (<12 years) 15-25 ppb Moderately raised exhaled Nitric Oxide may indicate underlying inflammation, but note that: Cold and influenza can raise exhaled Nitric Oxide and some patients have higher baseline exhaled Nitric Oxide levels than others. High: Adult >35 ppb, pediatric (<12 years) >25 ppb Indicative of ongoing eosinophilic inflammation. Symptomatic patient likely to respond to steroids. Possible causes (if already on steroids): Poor compliance, recent allergen exposure, steroid dose inadequate, and steroid resistance. Note that not all patients with high exhaled nitric oxide levels display symptoms. Oral Exhaled Nitric Oxide measurement (Previous Encounters) Test Date Oral Exhaled Nitric Oxide (ppb) 11/16/2022 29.0 11/14/2021 16.0 04/22/2020 14.0 NAME: REBECA Herrera PATIENT NAME: Elliott Elizabeth DATE: November 16, 2022 TIME: 11:24 AM [facility] 11-16-2022 Note HNO ID: [id number] Author: REBECA Herrera Service: ? Author Type: Respiratory Therapist Type: Progress Notes Filed: 11/16/2022 11:24 AM Note Text: PULM FUNCTION SMARTBLOCK: Provider: Jennifer Leal PA-C Assisting Tech: REBECA Herrera Spirometry: 1 Exhaled Nitric Oxide: 1 [facility] 11-16-2022 Instructions Rebecca Gonzalez MD - 11/16/2022 12:03 PM EDT Notify office if you have persistent wheezing after completing course of antibiotics and steroids. documented in this encounter [facility] 11-16-2022 History of Present illness Narrative Images from the original note were not included. . Respiratory Ong Note Patient name: Elliott Elizabeth PCP: Nelly Bee MD CC: follow-up asthma HPI: Elliott Elizabeth 76 year old female never smoker with PMH significant for asthma, allergic rhinitis, nasal polyposis, aspirin allergy, psoriasis, esophagitis, former patient of Dr. Patel, new to me. Current therapy consists of Symbicort and as needed albuterol. Allergy to cats, receiving immunotherapy. At [facility] with [place], Symbicort decreased to 80/4.5. She states she was doing well until 3 to 4 weeks ago when she first started having issues with her sinuses. She had had 2-week history of sinus congestion with drainage, headaches, cough and throat clearing, wheezing. No significant shortness of breath or chest pain. No fevers or chills. Recently saw her ENT physician who started antibiotics and steroids. Feeling better from a respiratory standpoint. At the peak of her illness that she was using her albuterol 1-2 times a day. No nocturnal awakenings. Does not like the higher dose Symbicort as it tends to worsen her tremors and makes her feel more anxious. DATA: ASTHMA CONTROL TEST Date: 11/16/2022 In the last 4 weeks, how much of the time did your asthma keep you from getting as much done at work or home that you wanted to do? None of the time (5) In the last 4 weeks, how often have you had shortness of breath? Once or twice per week (4) In the last 4 weeks, how often did your asthma symptoms (wheezing, coughing, shortness of breath, chest tightness or pain) wake you up at night or earlier than usual? Not at all (5) In the last 4 weeks, how often have you used your rescue inhaler or nebulizer medication (such as Albuterol, Proventil, Ventolin, Maxair, Xoponex, or Primatene Mist)? Once a week or less (4) In the last 4 weeks, how would you rate your asthma control? Well controlled (4) Total: more than 20 SERVICE DATE: 11/14/2021 SERVICE TIME: 1:11 PM Oral Exhaled Nitric Oxide measurement: 16.0 (ppb) SERVICE DATE: 11/16/2022 SERVICE TIME: 11:24 AM Oral Exhaled Nitric Oxide measurement: 29.0 (ppb) PFT: Spirometry shows mild obstruction not significantly changed from her previous PFT PFT 10/2021: Labs: Last CBC in July negative for eosinophilia PAST MEDICAL HISTORY Diagnosis Date Allergic rhinitis Anxiety Aspirin-sensitive asthma with nasal polyps Asthma Back pain Depression Esophagitis, unspecified Osteopenia Unspecified constipation ALLERGIES Allergen Reactions Tylenol [Acetaminop* Swelling throat swelled shut Bactrim [Sulfametho* Hives Ceftin [Cefuroxime] Hives Does well with augmentin Doxycycline GI Upset, Other: See Comments Nauseam dizzy, I was sick and tired. Advil [Ibuprofen] Swelling Asa [Salicylates] Anaphylaxis Avelox [Moxifloxaci* Intolerance joint pain Balsum Of [place] [Bal* Hives Lanolin Other: See Comments congestion Linzess [Linaclotid* Hives Hives developed after a few doses Macrobid [Nitrofura* GI Upset Chills, headache, vomiting, diarrhea Nitrofurantoin Rash Severe GI upset and rash. Zantac [Ranitidine * Itching Itching and rash azithromycin (ZITHROMAX) 500 mg tablet^Take 500 mg by mouth once daily.^Disp: ^Rfl: Amoxicillin 500 mg tablet^take 1 tablet by mouth every 8 hours until finished^Disp: ^Rfl: methylPREDNISolone (MEDROL DOSE-PACK) 4 mg Dose-Pack^use as directed FOLLOW DIRECTIONS ON BACK OF FOIL PACK^Disp: ^Rfl: LORazepam (ATIVAN) 0.5 mg^Take 2 tablets by mouth at bedtime as needed (for anxiety and insomnia) for up to 90 days.^Disp: 60 tablet^Rfl: 2 predniSONE (DELTASONE) 10 mg tablet^4 tablets daily for 3 days, 3 tablets daily for 3 days, 2 tablets daily for 3 days, 1 tablet daily for 3 days.^Disp: 30 tablet^Rfl: 0 primidone (MYSOLINE) 50 mg tablet^Take 1 tablet by mouth daily at bedtime. In addition to 250 mg pill^Disp: 90 tablet^Rfl: 3 aluminum chloride (DRYSOL) 20 % external solution^Apply to affected area daily at bedtime.^Disp: 35 mL^Rfl: 1 (Patient taking differently: Apply to affected area daily at bedtime. Uses in the summer) Clobetasol Propionate (TEMOVATE) 0.05 % external solution^Apply 1 application to affected area. On scalp once daily as needed^Disp: 150 mL^Rfl: 3 albuterol HFA (PROVENTIL HFA, VENTOLIN HFA) 90 mcg/actuation inhaler^INHALE 2 INHALATIONS BY MOUTH INSTRUCTED EVERY 4 HOURS NEEDED FOR WHEEZING / SHORTNESS OF BREATH^Disp: 51 g^Rfl: 3 montelukast (SINGULAIR) 10 mg tablet^Take 1 tablet by mouth daily at bedtime.^Disp: 90 tablet^Rfl: 3 diclofenac (VOLTAREN) 1 % topical gel^Apply to affected upper extremity joint up to 2 grams 4 times daily prn as directed. Max 32 grams per day if treating more than one joint.^Disp: 100 g^Rfl: 3 budesonide-formoterol (SYMBICORT) 80-4.5 mcg/actuation inhaler^Inhale 2 Puffs as instructed twice daily.^Disp: 3 Each^Rfl: 3 DULoxetine (CYMBALTA) 30 mg capsule^Take 1 capsule by mouth once daily.^Disp: 90 capsule^Rfl: 3 estrogens conjugated (PREMARIN) 0.625 mg tablet^Take 1 tablet by mouth once daily.^Disp: 90 tablet^Rfl: 3 lansoprazole (PREVACID) 30 mg capsule^Take 1 capsule by mouth twice daily.^Disp: 180 capsule^Rfl: 1 beclomethasone dipropionate 80 mcg/actuation^Use 2 Puffs in each nostril once daily.^Disp: 3 Each^Rfl: 3 traZODone (DESYREL) 50 mg tablet^Take 1 tablet by mouth daily at bedtime.^Disp: 90 tablet^Rfl: 3 primidone (MYSOLINE) 250 mg tablet^Take 1 tablet by mouth daily at bedtime.^Disp: 90 tablet^Rfl: 3 Ibandronate 150 mg tablet^Take 1 tablet by mouth once every month. In AM with cup of water on empty stomach. Nothing else by mouth and stay upright for 60 min.^Disp: 3 tablet^Rfl: 3 ipratropium-albuterol (DUONEB) 0.5 mg-3 mg(2.5 mg base)/3 mL nebu^Inhale 3 mL as instructed every 6 hours as needed for wheezing/shortness of breath.^Disp: 120 mL^Rfl: 5 COMPOUNDED PRESCRIPTION^Nebulizer for home use. Diagnosis: Asthma exacerbation^Disp: 1 Each^Rfl: 0 (Patient taking differently: Nebulizer for home use. Diagnosis: Asthma exacerbation/ as needed) Cholecalciferol, Vitamin D3, 2,000 unit ORAL Cap^Take 0.5 tablets by mouth once daily.^Disp: ^Rfl: 0 magnesium 100 mg ORAL Cap^Take one(1) tablet daily.^Disp: ^Rfl: 0 calcium carbonate/vitamin d3(CALCIUM 600 + D(3) 600 MG-125 UNIT TAB)^Take one(1) tablet two(2) times daily.^Disp: ^Rfl: 0 omega-3 fatty acids(FISH OIL 500 MG CAP)^Take one(1) capsule daily.^Disp: ^Rfl: 0 VITAMIN B-6 100 MG TAB^Take one(1) tablet daily.^Disp: ^Rfl: 0 VITAMIN E 400 UNIT TAB^Take one(1) tablet daily.^Disp: ^Rfl: 0 Social History Tobacco Use Smoking status: Never Smokeless tobacco: Never Tobacco comments: Parents smoked in childhood home. Spouse non-smoker. Vaping Use Vaping Use: Never used Substance Use Topics Alcohol use: No Drug use: No FAMILY HISTORY Problem Relation Age of Onset Breast Cancer Mother breast Asthma Mother Cancer Father mouth Alcohol/Drug Father Asthma Father Arthritis Sister Psoriatic Cancer Sister uterine Thyroid Sister Cancer Arthritis Sister Psoriatic other (Vocal Cord Disfunction) Sister Asthma Sister Tremor Sister Alcohol abuse Sister dementia Coronary Artery Disease Brother Had [place] Cancer Brother stomach; also colon cancer (2017)--at 41, at age 47 Cancer Brother mouth and throat (smoker; etoh) Cancer Maternal Grandmother Cancer Maternal Grandfather Cancer Paternal Grandmother Cancer Paternal Grandfather Tremor Maternal Uncle Asthma Other Brothers and sisters. other (MVA) Grandson PAST SURGICAL HISTORY Procedure Laterality Date ANTER COLPORRHAPHY,BLAD/VAGINA rectocele repair /vaginal prolapse. BIOPSY BREAST OPEN INCISIONAL Bx of breast, incisional, left BX BREAST PERC VACUUM/ROTN 07/23/08 LEFT COLONOSCOPY FLX DX W/COLLJ SPEC WHEN PFRMD 02/08/06 COLONOSCOPY FLX DX W/COLLJ SPEC WHEN PFRMD 04/26/16 Colonoscopy (MAC) COLONOSCOPY FLX DX W/COLLJ SPEC WHEN PFRMD 05/19/2019 Colonoscopy EGD TRANSORAL BIOPSY SINGLE/MULTIPLE 02/08/06 EGD TRANSORAL BIOPSY SINGLE/MULTIPLE 11/30/11 ESOPHAGOGASTRODUODENOSCOPY TRANSORAL DIAGNOSTIC 04/26/16 EGD (MAC) ESOPHAGOGASTRODUODENOSCOPY TRANSORAL DIAGNOSTIC 10/14/2018 EGD PAST SURGICAL HISTORY OF Bunions removed from both feet PAST SURGICAL HISTORY OF Two sinus surgery (ployps) PERINEOPLASTY REP PERIN NON OB 03/19/2007 [facility] CLIP,PERC,DURING BREAST BX 07/23/08 LEFT SALPINGO-OOPHORECTOMY COMPL/PRTL UNI/BI SPX 07/24/2002 Salpingo-oophorectomy b/L TOTAL ABDOMINAL HYSTERECT W/WO RMVL TUBE OVARY 07/24/2002 Hysterectomy, AMAIRANI PMH, Social history, family history and surgical history reviewed and updated in EMR REVIEW OF SYSTEMS: CONSTITUTIONAL: No fevers, chills, nightsweats, unintended weight loss HEENT: No headaches. Persistent nasal congestion/sinus symptoms, problematic allergy problems. EYES: No diplopia or blurry vision, eye pain CARDIOVASCULAR: No chest pain, dyspnea, palpitations,edema. PULM: See HPI GI: No dysphagia/odynophagia, problematic reflux. PSY: Situational depression and anxiety related to recent of her grandson INTEGUMENTARY: No new skin changes. Psoriasis PHYSICAL EXAMINATION: BP 131/63 Pulse 89 Resp 12 Wt 114 lb (51.7kg) SpO2 99% General Appearance: Age-appropriate female, NAD Skin: Skin color, texture, turgor normal, no suspicious rashes or lesions. Head: Normocephalic, no masses, lesions, tenderness or abnormalities. Nasal congestion Eyes: Sclera, conjunctiva normal Oropharynx: Dental implants, no oral lesions or thrush Neck: No JVD, no masses, no adenopathy Lungs: Not labored, normal to percussion, no wheezes or crackles Heart: Regular rate and rhythm, no murmurs gallops Extremities: No edema clubbing Assessment/Plan: 1. Moderate persistent asthma, uncomplicated -Slight elevation of exhaled nitric oxide level consistent with airways inflammation -Will continue low-dose Symbicort for now. Patient instructed to contact me if she had persistent wheezing or respiratory issues following treatment of her sinusitis. If so, would recommend increasing her Symbicort back to 160/4.5 2. Pansinusitis -Current treatment per ENT -Status post multiple surgeries in the past for nasal polyposis Rebecca Gonzalez MD Respiratory Ong documented in this encounter [facility] 11-16-2022 Procedure note Associated Ord er(s): NITRIC OXIDE, EXHALED RESPIRATORY THERAPY ORAL EXHALED NITRIC OXIDE SERVICE DATE: 11/16/2022 SERVICE TIME: 11:24 AM Oral Exhaled Nitric Oxide measurement: 29.0 (ppb) Normal: Adult 5-20 ppb, pediatric (<12 years) 5-15 ppb High Normal / Increased: Adult 20-35 ppb, pediatric (<12 years) 15-25 ppb Moderately raised exhaled Nitric Oxide may indicate underlying inflammation, but note that: Cold and influenza can raise exhaled Nitric Oxide and some patients have higher baseline exhaled Nitric Oxide levels than others. High: Adult >35 ppb, pediatric (<12 years) >25 ppb Indicative of ongoing eosinophilic inflammation. Symptomatic patient likely to respond to steroids. Possible causes (if already on steroids): Poor compliance, recent allergen exposure, steroid dose inadequate, and steroid resistance. Note that not all patients with high exhaled nitric oxide levels display symptoms. Oral Exhaled Nitric Oxide measurement (Previous Encounters) Test Date Oral Exhaled Nitric Oxide (ppb) 11/16/2022 29.0 11/14/2021 16.0 04/22/2020 14.0 NAME: REBECA Herrera PATIENT NAME: Elliott Elizabeth DATE: November 16, 2022 TIME: 11:24 AM documented in this encounter [facility] 11-16-2022 History of Present illness Narrative PULM FUNCTION SMARTBLOCK: Provider: Jennifer Leal PA-C Assisting Tech: REBECA Herrera Spirometry: 1 Exhaled Nitric Oxide: 1 documented in this encounter [facility] 11-07-2022 Note HNO ID: [id number] Author: Nelly Bee MD Service: ? Author Type: Physician Type: Progress Notes Filed: 11/07/2022 1:20 PM Note Text: This note was created using SageCloudriter. Subjective Elliott Elizabeth is a 76 year old female. Patient presents with: Follow Up SUBJECTIVE: Elliott Elizabeth is a 76 year old year old lady here today for follow up appointment for review of medical conditions. The past month has noted low back pain that goes to hips. If sits more than 20 minutes hurts to get up. Saw chiropractor and helps for a while. Goes monthly--all that is covered with insurance. Has not done PT for lower back and hip pain but did for upper back. Pain gets better after gets walking. Grief counseling limited through Hospice. Recommended another counselor for depression. Noted that does better in summer. Will see Dr. Augustine for sinus issues. Getting crusty issues in nasal passages. Getting allergy shots too (today) PAST MEDICAL HISTORY Diagnosis Date Abdominal pain Allergic rhinitis, cause unspecified Dr. Rice managing now Anxiety Back pain Depression Esophagitis, unspecified Osteopenia Unspecified asthma(493.90) Unspecified constipation Current Outpatient Medications Medication Sig LORazepam (ATIVAN) 0.5 mg Take 2 tablets by mouth at bedtime as needed (for anxiety and insomnia) for up to 90 days. predniSONE (DELTASONE) 10 mg tablet 4 tablets daily for 3 days, 3 tablets daily for 3 days, 2 tablets daily for 3 days, 1 tablet daily for 3 days. primidone (MYSOLINE) 50 mg tablet Take 1 tablet by mouth daily at bedtime. In addition to 250 mg pill aluminum chloride (DRYSOL) 20 % external solution Apply to affected area daily at bedtime. (Patient taking differently: Apply to affected area daily at bedtime. Uses in the summer) Clobetasol Propionate (TEMOVATE) 0.05 % external solution Apply 1 application to affected area. On scalp once daily as needed albuterol HFA (PROVENTIL HFA, VENTOLIN HFA) 90 mcg/actuation inhaler INHALE 2 INHALATIONS BY MOUTH INSTRUCTED EVERY 4 HOURS NEEDED FOR WHEEZING / SHORTNESS OF BREATH montelukast (SINGULAIR) 10 mg tablet Take 1 tablet by mouth daily at bedtime. diclofenac (VOLTAREN) 1 % topical gel Apply to affected upper extremity joint up to 2 grams 4 times daily prn as directed. Max 32 grams per day if treating more than one joint. budesonide-formoterol (SYMBICORT) 80-4.5 mcg/actuation inhaler Inhale 2 Puffs as instructed twice daily. DULoxetine (CYMBALTA) 30 mg capsule Take 1 capsule by mouth once daily. estrogens conjugated (PREMARIN) 0.625 mg tablet Take 1 tablet by mouth once daily. lansoprazole (PREVACID) 30 mg capsule Take 1 capsule by mouth twice daily. beclomethasone dipropionate 80 mcg/actuation Use 2 Puffs in each nostril once daily. traZODone (DESYREL) 50 mg tablet Take 1 tablet by mouth daily at bedtime. primidone (MYSOLINE) 250 mg tablet Take 1 tablet by mouth daily at bedtime. Ibandronate 150 mg tablet Take 1 tablet by mouth once every month. In AM with cup of water on empty stomach. Nothing else by mouth and stay upright for 60 min. ipratropium-albuterol (DUONEB) 0.5 mg-3 mg(2.5 mg base)/3 mL nebu Inhale 3 mL as instructed every 6 hours as needed for wheezing/shortness of breath. COMPOUNDED PRESCRIPTION Nebulizer for home use. Diagnosis: Asthma exacerbation (Patient taking differently: Nebulizer for home use. Diagnosis: Asthma exacerbation/ as needed) Cholecalciferol, Vitamin D3, 2,000 unit ORAL Cap Take 0.5 tablets by mouth once daily. magnesium 100 mg ORAL Cap Take one(1) tablet daily. calcium carbonate/vitamin d3(CALCIUM 600 + D(3) 600 MG-125 UNIT TAB) Take one(1) tablet two(2) times daily. omega-3 fatty acids(FISH OIL 500 MG CAP) Take one(1) capsule daily. VITAMIN B-6 100 MG TAB Take one(1) tablet daily. VITAMIN E 400 UNIT TAB Take one(1) tablet daily. Current Facility-Administered Medications Medication Dose Route Frequency perflutren lipid microspheres 1.3 mL in NaCl (PF) 0.9% 10 mL injection (DEFINITY) INTRAVENOUS DIRECTED PRN sodium chloride 0.9 % (flush) 10 mL (BD POSIFLUSH) 10 mL INTRAVENOUS DIRECTED PRN Review of Systems Objective BP 100/62 Pulse 98 Resp 16 Ht 158.8 cm (5' 2.5 ) Wt 52.3 kg (115 lb 4.8 oz) BMI 20.75 kg/m? Physical Exam Constitutional: Appearance: Normal appearance. HENT: Head: Normocephalic. Eyes: Conjunctiva/sclera: Conjunctivae normal. Cardiovascular: Rate and Rhythm: Normal rate and regular rhythm. Heart sounds: Normal heart sounds. Pulmonary: Effort: Pulmonary effort is normal. Breath sounds: Normal breath sounds. Musculoskeletal: Thoracic back: Spasms and tenderness present. Lumbar back: Spasms and tenderness present. Back: Skin: General: Skin is warm and dry. Neurological: General: No focal deficit present. Mental Status: She is alert and oriented to person, place, and time. (more content not included)... [facility] 11-07-2022 Instructions Nelly Bee MD - 11/07/2022 8:37 AM EDT Ward seeds and Turmeric might help with inflammation and pain. Normanna gel--tubes and nasal spray options documented in this encounter [facility] 11-07-2022 History of Present illness Narrative Images from the original note were not included. This note was created using [employer]. Subjective Elliott Elizabeth is a 76 year old female. Patient presents with: Follow Up SUBJECTIVE: Elliott Elizabeth is a 76 year old year old lady here today for follow up appointment for review of medical conditions. The past month has noted low back pain that goes to hips. If sits more than 20 minutes hurts to get up. Saw chiropractor and helps for a while. Goes monthly--all that is covered with insurance. Has not done PT for lower back and hip pain but did for upper back. Pain gets better after gets walking. Grief counseling limited through Hospice. Recommended another counselor for depression. Noted that does better in summer. Will see Dr. Augustine for sinus issues. Getting crusty issues in nasal passages. Getting allergy shots too (today) PAST MEDICAL HISTORY Diagnosis Date Abdominal pain Allergic rhinitis, cause unspecified Dr. Rice managing now Anxiety Back pain Depression Esophagitis, unspecified Osteopenia Unspecified asthma(493.90) Unspecified constipation Current Outpatient Medications Medication Sig LORazepam (ATIVAN) 0.5 mg Take 2 tablets by mouth at bedtime as needed (for anxiety and insomnia) for up to 90 days. predniSONE (DELTASONE) 10 mg tablet 4 tablets daily for 3 days, 3 tablets daily for 3 days, 2 tablets daily for 3 days, 1 tablet daily for 3 days. primidone (MYSOLINE) 50 mg tablet Take 1 tablet by mouth daily at bedtime. In addition to 250 mg pill aluminum chloride (DRYSOL) 20 % external solution Apply to affected area daily at bedtime. (Patient taking differently: Apply to affected area daily at bedtime. Uses in the summer) Clobetasol Propionate (TEMOVATE) 0.05 % external solution Apply 1 application to affected area. On scalp once daily as needed albuterol HFA (PROVENTIL HFA, VENTOLIN HFA) 90 mcg/actuation inhaler INHALE 2 INHALATIONS BY MOUTH INSTRUCTED EVERY 4 HOURS NEEDED FOR WHEEZING / SHORTNESS OF BREATH montelukast (SINGULAIR) 10 mg tablet Take 1 tablet by mouth daily at bedtime. diclofenac (VOLTAREN) 1 % topical gel Apply to affected upper extremity joint up to 2 grams 4 times daily prn as directed. Max 32 grams per day if treating more than one joint. budesonide-formoterol (SYMBICORT) 80-4.5 mcg/actuation inhaler Inhale 2 Puffs as instructed twice daily. DULoxetine (CYMBALTA) 30 mg capsule Take 1 capsule by mouth once daily. estrogens conjugated (PREMARIN) 0.625 mg tablet Take 1 tablet by mouth once daily. lansoprazole (PREVACID) 30 mg capsule Take 1 capsule by mouth twice daily. beclomethasone dipropionate 80 mcg/actuation Use 2 Puffs in each nostril once daily. traZODone (DESYREL) 50 mg tablet Take 1 tablet by mouth daily at bedtime. primidone (MYSOLINE) 250 mg tablet Take 1 tablet by mouth daily at bedtime. Ibandronate 150 mg tablet Take 1 tablet by mouth once every month. In AM with cup of water on empty stomach. Nothing else by mouth and stay upright for 60 min. ipratropium-albuterol (DUONEB) 0.5 mg-3 mg(2.5 mg base)/3 mL nebu Inhale 3 mL as instructed every 6 hours as needed for wheezing/shortness of breath. COMPOUNDED PRESCRIPTION Nebulizer for home use. Diagnosis: Asthma exacerbation (Patient taking differently: Nebulizer for home use. Diagnosis: Asthma exacerbation/ as needed) Cholecalciferol, Vitamin D3, 2,000 unit ORAL Cap Take 0.5 tablets by mouth once daily. magnesium 100 mg ORAL Cap Take one(1) tablet daily. calcium carbonate/vitamin d3(CALCIUM 600 + D(3) 600 MG-125 UNIT TAB) Take one(1) tablet two(2) times daily. omega-3 fatty acids(FISH OIL 500 MG CAP) Take one(1) capsule daily. VITAMIN B-6 100 MG TAB Take one(1) tablet daily. VITAMIN E 400 UNIT TAB Take one(1) tablet daily. Current Facility-Administered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 U/L 76 67 68 AST 13 - 35 U/L 22 24 24 Glucose 74 - 99 mg/dL 57 (L) 99 91 BUN 7 - 21 mg/dL 5 (L) 5 (L) 5 (L) Creatinine 0.58 - 0.96 mg/dL 0.84 0.85 0.91 Sodium 136 - 144 mmol/L 137 135 (L) 136 Potassium 3.7 - 5.1 mmol/L 3.9 4.3 4.4 Chloride 97 - 105 mmol/L 101 98 101 CO2 22 - 30 mmol/L 27 29 25 Anion Gap 9 - 18 mmol/L 9 8 (L) 10 ALT 7 - 38 U/L 14 13 17 eGFR- >60 eGFR-All Other Races . >60 eGFR >=60 mL/min/1.73m 72 66 Cholesterol, Total <200 mg/dL 219 (H) Triglyceride <150 mg/dL 71 HDL Cholesterol >39 mg/dL 72 Non HDL Cholesterol <130 mg/dL 147 (H) Fasting Time hrs 12 VLDL Cholesterol <30 mg/dL 14 TC:HDL Ratio <5.10 3.04 LDL Cholesterol <100 mg/dL 133 (H) LDL:HDL Ratio <2.54 1.85 Vitamin D 25 Hydroxy 31.0 - 80.0 ng/mL 68.6 57.6 TSH 0.270 - 4.200 uU/mL 2.600 Free T4 0.9 - 1.7 ng/dL 1.1 Free T3 2.3 - 4.1 pg/mL 3.3 Magnesium 1.7 - 2.3 mg/dL 2.2 Assessment and Plan Encounter Diagnosis ICD-10-CM 1. Primary insomnia F51.01 LORazepam (ATIVAN) 0.5 mg Sleeping well with current meds 2. Anxiety state F41.1 LORazepam (ATIVAN) 0.5 mg 3. Moderate persistent asthma without complication J45.40 montelukast (SINGULAIR) 10 mg tablet budesonide-formoterol (SYMBICORT) 80-4.5 mcg/actuation inhaler 4. Allergic rhinitis, unspecified seasonality, unspecified trigger J30.9 montelukast (SINGULAIR) 10 mg tablet 5. Chronic back pain, unspecified back location, unspecified back pain laterality M54.9 diclofenac (VOLTAREN) 1 % topical gel G89.29 DISCONTINUED: diclofenac (VOLTAREN) 1 % topical gel Above issues addressed with patient. Patient involved in shared decision making for management of medical issues. History and medications reviewed. Epic updated as needed Refills and/or prescriptions taken care of and meds adjusted as indicated after reviewed history, exam and labs. Health Maintenance reviewed. Updated record and/or ordered tests as recorded. Encouraged on efforts at healthy diet and regular exercise and adequate sleep. Stable with control of anxiety. At this time benefits outweigh risks. Continue to monitor for adverse effects and indications for decreasing dose or tapering off. No signs of diversion or abuse of medication(s); no adverse effects. Continue present management. Nelly Bee MD documented in this encounter [facility] 07-24-2022 Miscellaneous Notes Spoke with pt. Notified of test results. Pt voices understanding. Heidi Sánchez LPN ----- Message from Macarena Randle APRN.[employer] SW[employer] ADJUSTER sent at 07/23/2022 6:22 AM EST ----- Please call patient and notify her of echocardiogram results. Echo is stable. Largely unchanged from prior. Normal chamber sizes, normal EF at 59%, mitral valve remains with some regurgitation. Thank you! documented in this encounter [facility] 07-23-2022 Miscellaneous Notes Please call patient and notify her of echocardiogram results. Echo is stable. Largely unchanged from prior. Normal chamber sizes, normal EF at 59%, mitral valve remains with some regurgitation. Thank you! documented in this encounter [facility] 07-19-2022 Miscellaneous Notes Pt called and is notified of providers message. Pt voices understanding. Tiarra Chin RN Orders signed. Please let patient know orders placed. Thanks! Pt called in and reports she has an appointment with provider on Sunday. She states her MyChart was telling her she was over due on her Lipid lab. Pt is coming in for an Echo on 07/21, and could get them when she is in for that. Please call Pt once labs are placed. documented in this encounter [facility] 07-05-2022 Miscellaneous Notes Patient has been identified by name and date of : Yes Patient phones for refill(s): Requested Prescriptions Pending Prescriptions Disp Refills diclofenac (VOLTAREN) 1 % topical gel 100 g 3 Sig: Apply to affected upper extremity joint up to 2 grams 4 times daily prn as directed. Max 32 grams per day if treating more than one joint. Date of last office visit with pcp: 05-02-22. Next appt: 07-25-22 Last 2 Encounter Wt Readings: Date: Wt: 07/03/2022 51.4 kg (113 lb 6.4 oz) 05/19/2022 52.2 kg (115 lb) Previous labs/tests for medication: Blood Pressure: BUN (mg/dL) Date Value 01/13/2022 5 12/07/2020 5 Sodium (mmol/L) Date Value 01/13/2022 135 12/07/2020 137 Last 1 Encounter BP Readings: Date: BP: 07/03/2022 118/60 Liver Function: ALT (U/L) Date Value 01/13/2022 13 12/07/2020 14 AST (U/L) Date Value 01/13/2022 24 12/07/2020 22 Please advise. Thank you. Erendira Chatterjee RN documented in this encounter [facility] 07-03-2022 Nory Randle APRN.[employer] SWITCH ADJUSTER - 07/03/2022 10:07 AM EST Heart Disease in Women Is heart disease a problem for women? Heart disease is the leading cause of of [place] women. More women from heart disease than from cancer. A heart attack can happen when there are problems with the blood vessels that bring blood to the heart (the coronary arteries). For example, fatty deposits called plaque may build up in the coronary arteries and make them narrower. The narrowing decreases blood flow to the heart. Plaque also increases the chance that blood clots may form and block a blood vessel, which can cause a heart attack or stroke. In the first year after a heart attack, women have an increased risk of . In the first 6 years after a heart attack, they also have a higher risk of a second heart attack. Women are at high risk often because they are older at the time of the heart attack and have other medical problems. Not everyone has the same symptoms. The most common symptoms of a heart attack include: Chest pain or pressure, squeezing, or fullness in the center of your chest that lasts more than a few minutes, or goes away and comes back (may feel like indigestion or heartburn) Pain or discomfort in one or both arms or shoulders, or in your back, neck, jaw, or stomach Trouble breathing Breaking out in a cold sweat for no known reason Along with these symptoms, you may also feel very tired, faint, or be sick to your stomach. Sometimes you can be having a heart attack and not know it. Many women have chest pain or pressure, but sometimes symptoms in women are different from men s symptoms. Or women may have additional symptoms, such as: Unexplained anxiety and nervousness Swelling of the ankles or lower legs Because they may not feel the typical pain in the left side of their chest, many women may ignore the symptoms of a heart attack. Call 911 for emergency help right away if you have these symptoms. Do not drive yourself to the hospital. Immediate emergency care improves your chances of survival and may help avoid damage to your heart. How can women lower their risk for heart disease? If you have high blood pressure, carefully follow your healthcare provider's instructions for keeping it under control. If you are a smoker, stop smoking. Try to keep a healthy weight. If you are overweight, talk to your provider about ways to lose weight. Eat a healthy diet that includes: ?Avoiding salty foods and not adding salt to food ?Increasing fiber, fruits, and vegetables ?Avoiding foods high in fat, cholesterol, and sugar Exercise according to your healthcare provider's instructions. Get enough rest and learn to use relaxation methods to help reduce stress. Treat and control medical conditions such as diabetes and high cholesterol. If you are taking hormone therapy, you and your healthcare provider should discuss the risks and benefits. Hormone therapy may increase the risk for heart disease or stroke. Talk with your provider about taking aspirin. Low-dose aspirin therapy reduces the risk of stroke for women. But it helps to lower a woman s risk of heart attack and other heart problems only if she is 65 or older. Make sure that your provider knows about any other medicines you are taking. If you decide you need to make changes in the way you live, you probably won't be able to turn your life around all at once. Try to develop healthy habits that incorporate your lifestyle goals. If you do, you will greatly decrease your chances for developing heart disease. You can get more information from: [place] [facility] Mvhkmemgaoi9-335-HFY-USA-1 ( )www.heart.org Developed by [employer]. Published by [employer]. Copyright 2014 [employer] and/or one of its subsidiaries. All rights reserved. documented in this encounter [facility] 07-03-2022 History of Present illness Narrative Chief Complaint Patient presents with: Follow Up: Routine yearly History of Present Illness: Elliott Elizabeth is a very pleasant 76 year old female who presents for routine follow up. She has a PMhx of mitral valve insufficiency and palpitations. She has completed stress testing, echocardiogram and a monitor in the past for cardiology evaluation. She is known to Dr. Brown, last seen in office on 06/2021. She states she has been doing well since she was seen last. She has minimal bother some palpitations. She relates palpitations to emotional stress and grief. She has some shortness of breath she relates to asthma, unchanged. She does mention lightheadedness with bending over and position change. She otherwise continues to live independently with her . She did some traveling this summer to visit family in [place] and [place]. She denies other cardiac complaints such as chest pain, orthopnea, LE swelling. We reviewed cardiac risk factors and modifications. PAST MEDICAL HISTORY Diagnosis Date Abdominal pain Allergic rhinitis, cause unspecified Dr. Rice managing now Anxiety Back pain Depression Esophagitis, unspecified Osteopenia Unspecified asthma(493.90) Unspecified constipation PAST SURGICAL HISTORY Procedure Laterality Date ANTER COLPORRHAPHY,BLAD/VAGINA rectocele repair /vaginal prolapse. BIOPSY BREAST OPEN INCISIONAL Bx of breast, incisional, left BX BREAST PERC VACUUM/ROTN 07/23/08 LEFT COLONOSCOPY FLX DX W/COLLJ SPEC WHEN PFRMD 02/08/06 COLONOSCOPY FLX DX W/COLLJ SPEC WHEN PFRMD 04/26/16 Colonoscopy (MAC) COLONOSCOPY FLX DX W/COLLJ SPEC WHEN PFRMD 05/19/2019 Colonoscopy EGD TRANSORAL BIOPSY SINGLE/MULTIPLE 02/08/06 EGD TRANSORAL BIOPSY SINGLE/MULTIPLE 11/30/11 ESOPHAGOGASTRODUODENOSCOPY TRANSORAL DIAGNOSTIC 04/26/16 EGD (MAC) ESOPHAGOGASTRODUODENOSCOPY TRANSORAL DIAGNOSTIC 10/14/2018 EGD PAST SURGICAL HISTORY OF Bunions removed from both feet PAST SURGICAL HISTORY OF Two sinus surgery (ployps) PERINEOPLASTY [facility]P [facility]IN [facility] 07[facility]23/08 LEFT SALPINGO-OOPHORECTOMY COMPL/PRTL UNI/BI SPX 07/24/2002 Salpingo-oophorectomy b/L TOTAL ABDOMINAL HYSTERECT W/WO RMVL TUBE OVARY 07/24/2002 Hysterectomy, [facility] FAMILY HISTORY Problem Relation Age of Onset Cancer Father mouth Alcohol/Drug Father Asthma Father Breast Cancer Mother breast Asthma Mother Coronary Artery Disease Brother Had [place] Cancer Brother stomach; also colon cancer (2017)--at 41, at age 47 Cancer Brother mouth and throat (smoker; etoh) Arthritis Sister Psoriatic Cancer Sister uterine Thyroid Sister Cancer Arthritis Sister Psoriatic other (Vocal Cord Disfunction) Sister Asthma Sister Tremor Sister Alcohol abuse Sister dementia Cancer Maternal Grandfather Cancer Maternal Grandmother Cancer Paternal Grandfather Cancer Paternal Grandmother Asthma Other Brothers and sisters. Tremor Maternal Uncle Social History Tobacco Use Smoking status: Never Smokeless tobacco: Never Tobacco comments: Parents smoked in childhood home. Spouse non-smoker. Vaping Use Vaping Use: Never used Substance Use Topics Alcohol use: No Drug use: No ALLERGIES Allergen Reactions Tylenol [Acetaminop* Swelling throat swelled shut Bactrim [Sulfametho* Hives Ceftin [Cefuroxime] Hives Does well with augmentin Doxycycline GI Upset, Other: See Comments Nauseam dizzy, I was sick and tired. Advil [Ibuprofen] Swelling Asa [Salicylates] Anaphylaxis Avelox [Moxifloxaci* Intolerance joint pain Balsum Of Jennifer [Bal* Hives Lanolin Other: See Comments congestion Linzess [Linaclotid* Hives Hives developed after a few doses Macrobid [Nitrofura* GI Upset Chills, headache, vomiting, diarrhea Nitrofurantoin Rash Severe GI upset and rash. Zantac [Ranitidine * Itching Itching and rash Medications: Current Outpatient Medications Medication Sig Dispense Refill LORazepam (ATIVAN) 0.5 mg Take 2 tablets by mouth at bedtime as needed (for anxiety and insomnia) for up to 30 days. Please fill today 60 tablet 1 budesonide-formoterol (SYMBICORT) 80-4.5 mcg/actuation inhaler Inhale 2 Puffs as instructed twice daily. 1 Each 5 DULoxetine (CYMBALTA) 30 mg capsule Take 1 capsule by mouth once daily. 90 capsule 3 estrogens conjugated (PREMARIN) 0.625 mg tablet Take 1 tablet by mouth once daily. 90 tablet 3 lansoprazole (PREVACID) 30 mg capsule Take 1 capsule by mouth twice daily. 180 capsule 1 beclomethasone dipropionate 80 mcg/actuation Use 2 Puffs in each nostril once daily. 3 Each 3 traZODone (DESYREL) 50 mg tablet Take 1 tablet by mouth daily at bedtime. 90 tablet 3 primidone (MYSOLINE) 250 mg tablet Take 1 tablet by mouth daily at bedtime. 90 tablet 3 aluminum chloride (DRYSOL) 20 % external solution Apply to affected area daily at bedtime. 35 mL 1 Ibandronate 150 mg tablet Take 1 tablet by mouth once every month. In AM with cup of water on empty stomach. Nothing else by mouth and stay upright for 60 min. 3 tablet 3 montelukast (SINGULAIR) 10 mg tablet Take 1 tablet by mouth daily at bedtime. 90 tablet 3 Clobetasol Propionate (TEMOVATE) 0.05 % external solution Apply 1 application to affected area. On scalp once daily as needed 150 mL 3 albuterol HFA (PROVENTIL HFA, VENTOLIN HFA) 90 mcg/actuation inhaler INHALE 2 INHALATIONS BY MOUTH INSTRUCTED EVERY 4 HOURS NEEDED FOR WHEEZING / SHORTNESS OF BREATH 51 g 3 ipratropium-albuterol (DUONEB) 0.5 mg-3 mg(2.5 mg base)/3 mL nebu Inhale 3 mL as instructed every 6 hours as needed for wheezing/shortness of breath. 120 mL 5 diclofenac sodium (VOLTAREN) 1 % topical gel Apply to affected upper extremity joint up to 2 grams 4 times daily prn as directed. Max 32 grams per day if treating more than one joint. 100 g 3 COMPOUNDED PRESCRIPTION Nebulizer for home use. Diagnosis: Asthma exacerbation (Patient taking differently: Nebulizer for home use. Diagnosis: Asthma exacerbation/ as needed) 1 Each 0 Cholecalciferol, Vitamin D3, 2,000 unit ORAL Cap Take 0.5 tablets by mouth once daily. 0 magnesium 100 mg ORAL Cap Take one(1) tablet daily. 0 calcium carbonate/vitamin d3(CALCIUM 600 + D(3) 600 MG-125 UNIT TAB) Take one(1) tablet two(2) times daily. 0 omega-3 fatty acids(FISH OIL 500 MG CAP) Take one(1) capsule daily. 0 VITAMIN B-6 100 MG TAB Take one(1) tablet daily. 0 VITAMIN E 400 UNIT TAB Take one(1) tablet daily. 0 No current facility-administered medications for this visit. Review of Systems Constitutional: Negative for chills, diaphoresis, fever, malaise/fatigue and weight loss. HENT: Negative for congestion, ear pain, nosebleeds, sinus pain and sore throat. Eyes: Negative for pain. Respiratory: Positive for shortness of breath (Asthma). Negative for cough and wheezing. Cardiovascular: Positive for palpitations (Minimal). Negative for chest pain and leg swelling. Gastrointestinal: Negative for abdominal pain, blood in stool and melena. Genitourinary: Negative for hematuria. Musculoskeletal: Negative for falls. Neurological: Positive for dizziness (With position change). Negative for tingling, sensory change, speech change, focal weakness, loss of consciousness, weakness and headaches. Endo/Heme/Allergies: Does not bruise/bleed easily. Psychiatric/Behavioral: Negative for depression, memory loss and suicidal ideas. The patient is not nervous/anxious and does not have insomnia. Physical Examination: Vitals:BP 118/60 Pulse 90 Wt 113 lb 6.4 oz (51.4kg) BP w/Orthostatic Vitals Date and Time Orthostatic BP Orthostatic Pulse BP Pulse BP Position BP Site BP Cuff Size 07/03/22 0946 -- -- 118/60 90 -- -- -- Last 2 Encounter Wt Readings: Date: Wt: 07/03/2022 113 lb 6.4 oz (51.4 kg) 05/19/2022 115 lb (52.2 kg) Physical Exam HENT: Head: Normocephalic. Eyes: Pupils: Pupils are equal, round, and reactive to light. Cardiovascular: Rate and Rhythm: Normal rate and regular rhythm. Pulses: Radial pulses are 2+ on the right side and 2+ on the left side. Dorsalis pedis pulses are 2+ on the right side and 2+ on the left side. Heart sounds: Normal heart sounds, S1 normal and S2 normal. Pulmonary: Effort: Pulmonary effort is normal. No accessory muscle usage or respiratory distress. Breath sounds: Normal breath sounds. Abdominal: General: Bowel sounds are normal. Palpations: Abdomen is soft. Musculoskeletal: General: Normal range of motion. Cervical back: Normal range of motion. Right lower leg: No edema. Left lower leg: No edema. Skin: General: Skin is warm and dry. Neurological: Mental Status: She is alert and oriented to person, place, and time. Gait: Gait is intact. Psychiatric: Mood and Affect: Affect normal. Cognition and Memory: Memory normal. Judgment: Judgment normal. Most Recent Cardiac Testing Stress testing 10/2020 CONCLUSIONS: 1. SPECT Perfusion Study: Normal. 2. There is no scintigraphic evidence for inducible ischemia. 3. No evidence of scarred myocardium. 4. Left ventricle is small. The left ventricle systolic function is normal. 5. This is a low risk scan. Monitor 10/2020 Preliminary Findings Final Interpretation Patient had a min HR of 64 bpm, max HR of 197 bpm, and avg HR of 90 bpm. Predominant underlying rhythm was Sinus Rhythm. 14 Supraventricular Tachycardia runs occurred, the run with the fastest interval lasting 4 beats with a max rate of 197 bpm, the longest lasting 9.5 secs with an avg rate of 134 bpm. Isolated SVEs were rare (<1.0%), SVE Couplets were rare (<1.0%), and SVE Triplets were rare (<1.0%). Isolated VEs were rare (<1.0%), VE Couplets were rare (<1.0%), and no VE Triplets Echo 09/17/20 CONCLUSIONS: - Exam indication: Palpitations - The left ventricle is normal in size. Left ventricular systolic function is normal. EF = 66 5% (2D biplane) Grade I left ventricular diastolic dysfunction. - The right ventricle is normal in size. Right ventricular systolic function is normal. - There is moderate (2+) mitral valve regurgitation. Regurgitant orifice area (PISA) is 0.07 cm . - Exam was compared with the prior echocardiographic exam performed on 08/27/2007 (Stress). Assessment and Plan: Palpitations, SVT -symptoms minimal -echocardiogram stable function -monitor revealed short runs of svt -stress testing without inducible ischemia -not currently on bb or ccb -recommended conservative measures: stay hydrated, limit stimulants/caffeine, limit stress Mild diastolic dysfunction -EF 66%, Grade I left ventricular diastolic dysfunction. -compensated on exam -recommended heart healthy, 2g low sodium diet, daily weights Mitral valve insufficiency -repeat echocardiogram for routine surveillance Lightheadedness -with position change. Change positions slowly. Maintain proper nutrition and hydration. Avoid diuretic type therapies Follow up in 1 year. Patient to call with any issues or concerns prior to then. Electronically signed by Macarena Randle APRN.CNP on July 03, 2022, 9:50 AM documented in this encounter [facility] 05-26-2022 Miscellaneous Notes Patient calls and wanted to let provider know that she found a counselor through hospice, and she really likes him. Lakeshia Hogan RN documented in this encounter [facility] 05-15-2022 History of Present illness Narrative [facility] - FOLLOW UP EVALUATION NO PCP Nelly Bee MD [id number] [facility] [id number] I had the pleasure of seeing Ms. Elizabeth for follow up today. She is a 76 year old right-handed female with a history of ET since 1991. She is seen alone. Subjective Previous Plan-01/10/2021 Visit: Essential tremor - continue primidone at current visit Interval History: Tremors gradually getting worse. Sometimes feels like she is shaking on the inside. Face is shaking a little bit. Someone asked her sister if she had Parkinson's. Stopped Cymbalta and not sure if that is the cause. Has been off and on Cymbalta over the past several years. Working on dental implants for 1 year. Very frustrated since they are still not right. Hand tremors bothersome with typing, can only use 1 finger, present prior to stopping Cymbalta. Putting on necklace can be difficult. Had been doing well. Lost 15 lbs August 2020. Has been stable since then. Labs checked and no cause found. No appetite. Questionnaires: In addition, the following activities of daily living that may be affected by tremors were evaluated: Speaking: Affected (mild constant) Feeding: Affected (mild) Bringing Liquids to Mouth: Affected (mild) Hygiene: Affected (mild) Dressing: Not affected Writing: Affected (moderate) Working: Affected (moderate) Number of falls in the Last Month: 0 Mood/Behavior Depression: PHQ-9 Score: 8 usually representing mild (5-9) depression. Anxiety: MAMADOU-7 Total Score: 6 usually representing mild (5-9) anxiety. Finally, the following table shows the patient's overall global physical and mental health using the PROMIS scale: PROMIS-10 Flowsheet Row Office Visit from 05/15/2022 in Neurology Office Visit from 05/02/2022 in Internal Medicine [facility] Global Physical Health T Score 44.9 44.9 Global Mental Health T Score 45.8 45.8 0-10 Standard Pain Scale 3 2 *PROMIS-10 scoring scale: mean = 50, over 50 is above average, under 50 is below average Physical Score Notes: Mental Score Notes: Pain Score Notes: Movement Disorders Medications Schedule - as of the start of the visit: Medications Bed primidone 250 mg 1 Other Movement Disorder Prior Therapies Primidone, Gabapentin ALLERGIES Allergen Reactions Tylenol [Acetaminop* Swelling throat swelled shut Bactrim [Sulfametho* Hives Ceftin [Cefuroxime] Hives Does well with augmentin Doxycycline GI Upset, Other: See Comments Nauseam dizzy, I was sick and tired. Advil [Ibuprofen] Swelling Asa [Salicylates] Anaphylaxis Avelox [Moxifloxaci* Intolerance joint pain Balsum Of Jennifer [Bal* Hives Lanolin Other: See Comments congestion Linzess [Linaclotid* Hives Hives developed after a few doses Macrobid [Nitrofura* GI Upset Chills, headache, vomiting, diarrhea Nitrofurantoin Rash Severe GI upset and rash. Zantac [Ranitidine * Itching Itching and rash Current Outpatient Medications Medication Sig LORazepam (ATIVAN) 0.5 mg Take 2 tablets by mouth at bedtime as needed (for anxiety and insomnia) for up to 90 days. Please fill today estrogens conjugated (PREMARIN) 0.625 mg tablet Take 1 tablet by mouth once daily. budesonide-formoterol (SYMBICORT) 160-4.5 mcg/actuation inhaler Inhale 2 Puffs as instructed twice daily. lansoprazole (PREVACID) 30 mg capsule Take 1 capsule by mouth twice daily. beclomethasone dipropionate 80 mcg/actuation Use 2 Puffs in each nostril once daily. traZODone (DESYREL) 50 mg tablet Take 1 tablet by mouth daily at bedtime. primidone (MYSOLINE) 250 mg tablet Take 1 tablet by mouth daily at bedtime. aluminum chloride (DRYSOL) 20 % external solution Apply to affected area daily at bedtime. Ibandronate 150 mg tablet Take 1 tablet by mouth once every month. In AM with cup of water on empty stomach. Nothing else by mouth and stay upright for 60 min. montelukast (SINGULAIR) 10 mg tablet Take 1 tablet by mouth daily at bedtime. Clobetasol Propionate (TEMOVATE) 0.05 % external solution Apply 1 application to affected area. On scalp once daily as needed albuterol HFA (PROVENTIL HFA, VENTOLIN HFA) 90 mcg/actuation inhaler INHALE 2 INHALATIONS BY MOUTH INSTRUCTED EVERY 4 HOURS NEEDED FOR WHEEZING / SHORTNESS OF BREATH ipratropium-albuterol (DUONEB) 0.5 mg-3 mg(2.5 mg base)/3 mL nebu Inhale 3 mL as instructed every 6 hours as needed for wheezing/shortness of breath. diclofenac sodium (VOLTAREN) 1 % topical gel Apply to affected upper extremity joint up to 2 grams 4 times daily prn as directed. Max 32 grams per day if treating more than one joint. COMPOUNDED PRESCRIPTION Nebulizer for home use. Diagnosis: Asthma exacerbation (Patient taking differently: Nebulizer for home use. Diagnosis: Asthma exacerbation/ as needed) Cholecalciferol, Vitamin D3, 2,000 unit ORAL Cap Take 0.5 tablets by mouth once daily. magnesium 100 mg ORAL Cap Take one(1) tablet daily. calcium carbonate/vitamin d3(CALCIUM 600 + D(3) 600 MG-125 UNIT TAB) Take one(1) tablet two(2) times daily. omega-3 fatty acids(FISH OIL 500 MG CAP) Take one(1) capsule daily. VITAMIN B-6 100 MG TAB Take one(1) tablet daily. VITAMIN E 400 UNIT TAB Take one(1) tablet daily. DULoxetine (CYMBALTA) 30 mg capsule Take 1 capsule by mouth once daily. No current facility-administered medications for this visit. Objective Vital Signs: BP 107/67 (BP Site: Left Arm, BP Position: Sitting, BP Cuff Size: Regular Adult) Pulse 82 Ht 157.5 cm (5' 2 ) Wt 52.5 kg (115 lb 12.8 oz) SpO2 97% BMI 21.18 kg/m Orthostatic Vitals: None for this encounter Weight: 52.5 kg (115 lb 12.8 oz) Height: 157.5 cm (5' 2 ) No LMP recorded. Patient has had a hysterectomy. Body mass index is 21.18 kg/m . General Physical Examination: General: Awake, alert, interactive, no acute distress, good nutritional status, normal development, well-kept General Neurological Examination: Neurological Exam Mental Status Awake and alert. Speech is normal. Language is fluent with no aphasia. Fund of knowledge is appropriate for level of education. Cranial Nerves CN III, IV, : Extraocular movements intact bilaterally. Motor Normal muscle tone. Mild bilateral action tremors, minimal postural tremors. No resting tremor. No rigidity or bradykinesia . Gait Casual gait is normal including stance, stride, and arm swing. Assessment and Plan: Assessment Ms. Elizabeth is a right-handed 76 year old female with essential tremor. Previous patient of Dr. Courtney. Didn't tolerate AM primidone dose when first started. Concern about weight loss so no Topamax. Asthma so cannot take propranolol. Didn't tolerate gabapentin in the past. Discussed surgical options and not interested. Tremors are worse since last visit. Also with anxiety, frustration. She recently restarted Cymbalta. Discussed exacerbation of tremors by mood symptoms. Tremor medication options are limited. Will try increasing Cymbalta to 30 mg. In the future consider adding morning primidone dose, started 25 mg and increasing very slowly given past side effects with it. Possibly she will tolerate now since she has taken the medication for years. The following are the current problems noted and addressed during this visit: Essential tremor (primary encounter diagnosis) Plan 05/15/2022 Visit: Increase Cymbalta to 30 mg daily. In the future consider adding morning primidone dose - Start seeing therapist as you had already planned - Updated Movement Disorders Medication Schedule: Medications Bed primidone 250 mg 1 Medical Decision Making: Problems: Moderate: 1+ chronic illnesses with change Risk: Moderate: Drug management Medical Decision Making Level: 4 - Moderate Thank you for allowing me to be part of the clinical care of this patient! I look forward to continued participation in the patient s care with you. Please do not hesitate to call with any questions. Sincerely, Shantanu Mcpherson MD documented in this encounter [facility] 05-02-2022 History of Present illness Narrative This note was created using [employer]. Subjective Elliott Elizabeth is a 76 year old female. Patient presents with: Follow Up SUBJECTIVE: Elliott Elizabeth is a 76 year old year old lady here today for follow up appointment for review of medical conditions. Noted that got sick with the Moderna with immune reaction (chills and headache; lasted 2 days). Considering whether to get new booster. Depression worse since stopped med a month ago. Wanted to try to be without meds since had been on a long time. Will resume now. Also needs lorazepam at 1 mg for now since increased anxiety off Cymbalta. Tremors worse since of med as well. Still on primidone. Needs Qnasl for 3 month supply sent--Dr. Augustine gets wrong. Noted that brother with recurrence of colon cancer--stage 1. Asthma--will be seeing Jennifer Leal. Wants to do pulmonary rehab PAST MEDICAL HISTORY Diagnosis Date Abdominal pain Allergic rhinitis, cause unspecified Dr. Rice managing now Anxiety Back pain Depression Esophagitis, unspecified Osteopenia Unspecified asthma(493.90) Unspecified constipation Current Outpatient Medications Medication Sig traZODone (DESYREL) 50 mg tablet Take 1 tablet by mouth daily at bedtime. primidone (MYSOLINE) 250 mg tablet Take 1 tablet by mouth daily at bedtime. aluminum chloride (DRYSOL) 20 % external solution Apply to affected area daily at bedtime. Ibandronate 150 mg tablet Take 1 tablet by mouth once every month. In AM with cup of water on empty stomach. Nothing else by mouth and stay upright for 60 min. LORazepam (ATIVAN) 0.5 mg Take 1 tablet by mouth at bedtime as needed (for anxiety and insomnia) for up to 90 days. DULoxetine (CYMBALTA) 20 mg capsule Take 1 capsule by mouth once daily. (Resumed) montelukast (SINGULAIR) 10 mg tablet Take 1 tablet by mouth daily at bedtime. Clobetasol Propionate (TEMOVATE) 0.05 % external solution Apply 1 application to affected area. On scalp once daily as needed estrogens conjugated (PREMARIN) 0.625 mg tablet Take 1 tablet by mouth once daily. lansoprazole (PREVACID) 30 mg capsule Take 1 capsule by mouth twice daily. albuterol HFA (PROVENTIL HFA, VENTOLIN HFA) 90 mcg/actuation inhaler INHALE 2 INHALATIONS BY MOUTH INSTRUCTED EVERY 4 HOURS NEEDED FOR WHEEZING / SHORTNESS OF BREATH budesonide-formoterol (SYMBICORT) 160-4.5 mcg/actuation inhaler Inhale 2 Puffs as instructed twice daily. ipratropium-albuterol (DUONEB) 0.5 mg-3 mg(2.5 mg base)/3 mL nebu Inhale 3 mL as instructed every 6 hours as needed for wheezing/shortness of breath. diclofenac sodium (VOLTAREN) 1 % topical gel Apply to affected upper extremity joint up to 2 grams 4 times daily prn as directed. Max 32 grams per day if treating more than one joint. COMPOUNDED PRESCRIPTION Nebulizer for home use. Diagnosis: Asthma exacerbation (Patient taking differently: Nebulizer for home use. Diagnosis: Asthma exacerbation/ as needed) Cholecalciferol, Vitamin D3, 2,000 unit ORAL Cap Take 0.5 tablets by mouth once daily. magnesium 100 mg ORAL Cap Take one(1) tablet daily. calcium carbonate/vitamin d3(CALCIUM 600 + D(3) 600 MG-125 UNIT TAB) Take one(1) tablet two(2) times daily. omega-3 fatty acids(FISH OIL 500 MG CAP) Take one(1) capsule daily. VITAMIN B-6 100 MG TAB Take one(1) tablet daily. VITAMIN E 400 UNIT TAB Take one(1) tablet daily. No current facility-administered medications for this visit. Review of Systems Objective BP 122/62 Pulse 78 Wt 51.3 kg (113 lb) SpO2 98% BMI 20.67 kg/m Last 5 Encounter Wt Readings: Date: Wt: 05/02/2022 51.3 kg (113 lb) 03/24/2022 52.2 kg (115 lb) 01/18/2022 50.8 kg (112 lb) 11/14/2021 52.6 kg (116 lb) 11/14/2021 52.6 kg (116 lb) No waist measurement recorded Estimated body mass index is 20.67 kg/m as calculated from the following: Height as of 11/14/21: 157.5 cm (5' 2 ). Weight as of this encounter: 51.3 kg (113 lb). Last 5 Encounter BP Readings: Date: BP: 05/02/2022 122/62 03/24/2022 136/74 01/18/2022 122/62 11/14/2021 130/70 09/19/2021 122/64 Physical Exam Constitutional: Appearance: Normal appearance. HENT: Head: Normocephalic. Eyes: Conjunctiva/sclera: Conjunctivae normal. Cardiovascular: Rate and Rhythm: Normal rate and regular rhythm. Heart sounds: Normal heart sounds. Pulmonary: Effort: Pulmonary effort is normal. Breath sounds: Normal breath sounds. Skin: General: Skin is warm and dry. Neurological: General: No focal deficit present. Mental Status: She is alert and oriented to person, place, and time. Psychiatric: Mood and Affect: Mood normal. Speech: Speech normal. Behavior: Behavior normal. Thought Content: Thought content normal. Judgment: Judgment normal. Assessment and Plan ASSESSMENT/PLAN: 1. Anxiety state - ICD9: 300.00, ICD10: F41.1 (primary diagnosis) Continue present management. - LORAZEPAM 0.5 MG TABLET 2. Recurrent major depressive disorder, in partial remission (HCC) - ICD9: 296.35, ICD10: F33.41 Continue present meds. 3. Primary insomnia - ICD9: 307.42, ICD10: F51.01 Continue present management. - LORAZEPAM 0.5 MG TABLET 4. Uncomplicated asthma, unspecified asthma severity, unspecified whether persistent - ICD9: 493.90, ICD10: J45.909 - BUDESONIDE-FORMOTEROL HFA 160 MCG-4.5 MCG/ACTUATION AEROSOL INHALER 5. Breast cancer screening by mammogram - ICD9: V76.12, ICD10: Z12.31 - Set up for mammogram, yearly mammogram recommended - NICKIE SCREENING W MATT 6. Encounter for immunization - ICD9: V03.89, ICD10: Z23 - INFLUENZA SEASONAL QUADRIVALENT HIGH DOSE AGE 65+ Nelly Bee MD documented in this encounter [facility] 04-07-2022 Miscellaneous Notes Patient has been identified by name and date of : Yes Requested Prescriptions Pending Prescriptions Disp Refills traZODone (DESYREL) 50 mg tablet 90 tablet 3 Sig: Take 1 tablet by mouth daily at bedtime. primidone (MYSOLINE) 250 mg tablet 90 tablet 3 Sig: Take 1 tablet by mouth daily at bedtime. RX INSTRUCTIONS: Patient aware RX will be sent to pharmacy. No need to notify patient. Please call her with issues. Last Rx refused? Patient states that PCP told her she could fill these for her. [facility] 01/18/22 Scheduled follow up 07/25/22. Deisi Tovar LPN documented in this encounter [facility] 04-04-2022 Miscellaneous Notes Patient has been identified by name and date of : Yes Requested Prescriptions Pending Prescriptions Disp Refills primidone (MYSOLINE) 250 mg tablet 90 tablet 3 Sig: Take 1 tablet by mouth daily at bedtime. traZODone (DESYREL) 50 mg tablet 90 tablet 3 Sig: Take 1 tablet by mouth daily at bedtime. RX INSTRUCTIONS: Patient aware RX escripted to mail away pharmacy. No need to notify patient. Gloria Mendez documented in this encounter [facility] 03-27-2022 Miscellaneous Notes The following approved medication requests have been transmitted electronically. Signed Prescriptions Disp Refills predniSONE (DELTASONE) 10 mg tablet 21 tablet 0 Sig: Take 4 tabs daily for 3 days, then 2 tabs daily for 3 days, then 1 tab daily for 3 days with food. TRACY: No Authorizing Provider: YESICA CID APRN.CNP Patient notified, verbalized understanding. Please send to [facility]. Please let the patient know the x-ray showed arthritis but no fractures. Recommend treatment with prednisone as discussed during office visit. Prefers that you call her cell Yesica Cid APRN.CNP documented in this encounter [facility] 03-11-2022 Miscellaneous Notes The following approved medication requests have been transmitted electronically. Signed Prescriptions Disp Refills LORazepam (ATIVAN) 0.5 mg 30 tablet 2 Sig: Take 1 tablet by mouth at bedtime as needed (for anxiety and insomnia) for up to 90 days. NYA Class: C-IV TRACY: No Authorizing Provider: NELLY BEE MD Pt is asking for rx of lorazepam to be 0.5 mg tablets. She notes she only is taking 0.5 mg. Patient has been identified by name and date of : Yes Patient phones for refill(s): Pending Prescriptions Disp Refills LORAZEPAM 1 MG TABLET 30 tablet 2 Sig: Take 0.5-1 tablets by mouth at bedtime as needed (for anxiety and insomnia) for up to 90 days. NYA Class: C-IV TRACY: No Date of last office visit in primary care: 01/18/22 Please advise. Thank you. Tamela Barksdale LPN documented in this encounter [facility] 03-07-2022 Miscellaneous Notes Patient notified of below recommendation, verbalized understanding. Katty Block LPN This is in capsule form. Can take every other day for two weeks then discontinue. (Initial encounter accidentally closed) [facility] 03/06/22 5:01 PM Note Pt calls to report she has been on Cymbalta for years. Pt reports she started at 60 mg then went to 40 mg and now is on 20 mg. Pt reports she would like to stop taking the medication and is asking the best way to wean off of Cymbalta completely. Luciana Dye LPN documented in this encounter [facility] 03-06-2022 Miscellaneous Notes Pt calls to report she has been on Cymbalta for years. Pt reports she started at 60 mg then went to 40 mg and now is on 20 mg. Pt reports she would like to stop taking the medication and is asking the best way to wean off of Cymbalta completely. Luciana Dye LPN documented in this encounter [facility] 01-18-2022 History of Present illness Narrative This note was created using [employer]. Subjective Elliott Elizabeth is a 76 year old female. Patient presents with: Follow Up SUBJECTIVE: Elliott Elizabeth is a 76 year old year old lady here today for 3 month follow up appointment for review of medical conditions. Doing well overall. [id number] a couple weeks ago from dementia. doing okay. Does make her think about her son's but she handles this better now Depression and anxiety stable on current meds. Has not needed to follow up with Dr. Leavitt frequently as before, Psoriasis on legs resolved already--did not get in to see Dr. Portillo beforehand. Scalp psoriasis resolved with her treatment. Clobetasol helped. Noted dropped off up to date ADs for LW and HCDPOA. Not found in [facility]. Mysoline still helps for tremors. PAST MEDICAL HISTORY Diagnosis Date Abdominal pain Allergic rhinitis, cause unspecified Dr. Rice managing now Anxiety Back pain Depression Esophagitis, unspecified Osteopenia Unspecified asthma(493.90) Unspecified constipation Current Outpatient Medications Medication Sig LORazepam (ATIVAN) 1 mg tablet Take 0.5-1 tablets by mouth at bedtime as needed (for anxiety and insomnia) for up to 90 days. DULoxetine (CYMBALTA) 20 mg capsule Take 1 capsule by mouth once daily. (Resumed) alendronate (FOSAMAX) 70 mg tablet Take 1 tablet by mouth one time a week. Take with a full glass of water, on an empty stomach; do NOT lie down for 30minutes. montelukast (SINGULAIR) 10 mg tablet Take 1 tablet by mouth daily at bedtime. Clobetasol Propionate (TEMOVATE) 0.05 % external solution Apply 1 application to affected area. On scalp once daily as needed estrogens conjugated (PREMARIN) 0.625 mg tablet Take 1 tablet by mouth once daily. lansoprazole (PREVACID) 30 mg capsule Take 1 capsule by mouth twice daily. albuterol HFA (PROVENTIL HFA, VENTOLIN HFA) 90 mcg/actuation inhaler INHALE 2 INHALATIONS BY MOUTH INSTRUCTED EVERY 4 HOURS NEEDED FOR WHEEZING / SHORTNESS OF BREATH budesonide-formoterol (SYMBICORT) 160-4.5 mcg/actuation inhaler Inhale 2 Puffs as instructed twice daily. ipratropium-albuterol (DUONEB) 0.5 mg-3 mg(2.5 mg base)/3 mL nebu Inhale 3 mL as instructed every 6 hours as needed for wheezing/shortness of breath. traZODone (DESYREL) 50 mg tablet Take 1 tablet by mouth daily at bedtime. primidone (MYSOLINE) 250 mg tablet Take 1 tablet by mouth daily at bedtime. Cholecalciferol, Vitamin D3, 2,000 unit ORAL Cap Take 0.5 tablets by mouth once daily. magnesium 100 mg ORAL Cap Take one(1) tablet daily. calcium carbonate/vitamin d3(CALCIUM 600 + D(3) 600 MG-125 UNIT TAB) Take one(1) tablet two(2) times daily. omega-3 fatty acids(FISH OIL 500 MG CAP) Take one(1) capsule daily. VITAMIN B-6 100 MG TAB Take one(1) tablet daily. VITAMIN E 400 UNIT TAB Take one(1) tablet daily. diclofenac sodium (VOLTAREN) 1 % topical gel Apply to affected upper extremity joint up to 2 grams 4 times daily prn as directed. Max 32 grams per day if treating more than one joint. (Patient not taking: Reported on 01/18/2022 ) COMPOUNDED PRESCRIPTION Nebulizer for home use. Diagnosis: Asthma exacerbation (Patient taking differently: Nebulizer for home use. Diagnosis: Asthma exacerbation/ as needed) No current facility-administered medications for this visit. Review of Systems Objective BP 122/62 Pulse 80 Wt 50.8 kg (112 lb) SpO2 100% BMI 20.49 kg/m Physical Exam Component Latest Ref Rng & Units 07/26/2020 12/07/2020 01/13/2022 WBC 3.70 - 11.00 k/uL 6.29 9.00 7.95 RBC 3.90 - 5.20 m/uL 4.81 4.54 4.56 Hemoglobin 11.5 - 15.5 g/dL 14.9 14.2 13.8 Hematocrit 36.0 - 46.0 % 44.9 41.5 41.9 MCV 80.0 - 100.0 fL 93.3 91.4 91.9 MCH 26.0 - 34.0 pg 31.0 31.3 30.3 MCHC 30.5 - 36.0 g/dL 33.2 34.2 32.9 RDW-CV 11.5 - 15.0 % 13.1 12.9 12.7 Platelet Count 150 - 400 k/uL 222 201 245 MPV 9.0 - 12.7 fL 10.4 9.5 9.3 Neut% % 36.7 Abs Neut (ANC) 1.45 - 7.50 k/uL 2.30 Lymph% % 46.1 Abs Lymph 1.00 - 4.00 k/uL 2.90 Davidson% % 11.3 Abs Davidson <0.87 k/uL 0.71 Eosin% % 4.0 Abs Eosin <0.46 k/uL 0.25 Baso% % 1.9 Abs Baso <0.11 k/uL 0.12 (H) Nucleated Reds 0 /100 WBC 0.0 Absolute nRBC <0.01 k/uL <0.01 <0.01 <0.01 Diff Type Auto Diff Protein, Total 6.3 - 8.0 g/dL 7.5 6.8 6.7 Albumin 3.9 - 4.9 g/dL 4.5 4.0 3.9 Calcium 8.5 - 10.2 mg/dL 9.4 8.8 9.2 Bilirubin, Total 0.2 - 1.3 mg/dL 0.4 0.4 0.3 Alkaline Phosphatase 34 - 123 U/L 74 76 67 AST 13 - 35 U/L 26 22 24 Glucose 74 - 99 mg/dL 80 57 (L) 99 BUN 7 - 21 mg/dL 11 5 (L) 5 (L) Creatinine 0.58 - 0.96 mg/dL 0.83 0.84 0.85 Sodium 136 - 144 mmol/L 137 137 135 (L) Potassium 3.7 - 5.1 mmol/L 4.4 3.9 4.3 Chloride 97 - 105 mmol/L 101 101 98 CO2 22 - 30 mmol/L 26 27 29 Anion Gap 9 - 18 mmol/L 10 9 8 (L) ALT 7 - 38 U/L 19 14 13 eGFR- >60 >60 eGFR-All Other Races . >60 >60 eGFR >=60 mL/min/1.73m 72 WSR 0 - 20 mm/hr 2 Vitamin D 25 Hydroxy 31.0 - 80.0 ng/mL 55.4 68.6 57.6 Free T4 0.9 - 1.7 ng/dL 1.1 1.1 TSH 0.270 - 4.200 uU/mL 3.430 2.600 Free T3 2.3 - 4.1 pg/mL 3.3 Assessment and Plan ASSESSMENT/PLAN: 1. Essential tremor - ICD9: 333.1, ICD10: G25.0 (primary diagnosis) Doing well on mysoline. Will let me know when needs refill in February. Continue present management. 2. Anxiety state - ICD9: 300.00, ICD10: F41.1 3. Recurrent major depressive disorder, in full remission (HCC) - ICD9: 296.36, ICD10: F33.42 Anxiety and depression well controlled. Continue Cymbalta and as needed lorazepam. Does not need refill yet--will let me know when needs refill. Her cynthia continues to help her get through tough times, like now since her brother in law passed aware recently. Continue present management. Follow up with Dr. Leavitt as needed. 4. Primary insomnia - ICD9: 307.42, ICD10: F51.01 Doing well on current meds. Trazodone still helps. Continue present management. 5. Psoriasis--noted rash on shins resolved already. Follow up with Dr. Portillo as discussed. Nelly Bee MD documented in this encounter [facility] 12-08-2021 Miscellaneous Notes PDMP website checked and validated. All prescriptions have been APPROPRIATELY filled. No suspicious activity was identified. 12/08/2021 by Amanda Hcikman APRN.COMMUNICATIONS ENGINEER Last seen pcp 09/19/21. Next appt with pcp 01/18/22. Patient has been identified by name and date of : Yes Pending Prescriptions Disp Refills LORAZEPAM 1 MG TABLET 30 tablet 2 Sig: Take 0.5-1 tablets by mouth at bedtime as needed (for anxiety and insomnia) for up to 90 days. NYA Class: C-IV TRACY: No DULOXETINE 20 MG CAPSULE,DELAYED RELEASE 90 capsule 3 Sig: Take 1 capsule by mouth once daily. (Resumed) TRACY: No RX INSTRUCTIONS: Patient requested each sent to different Pharmacy. I attached each to the correct Pharmacy she requested. Regarding Duloxetine: she told she only has 24 pills left and [facility] told her she is out of refills. Patient aware RX will be sent to pharmacy. No need to notify patient. Patient aware RX escripted to mail away pharmacy. No need to notify patient. Linda Jacobson Pss documented in this encounter [facility] 11-14-2021 Procedure note Associated Order(s): SPIROMETRY BASELINE ONLY; NITRIC OXIDE, EXHALED RESPIRATORY THERAPY ORAL EXHALED NITRIC OXIDE SERVICE DATE: 11/14/2021 SERVICE TIME: 1:11 PM Oral Exhaled Nitric Oxide measurement: 16.0 (ppb) Normal: Adult 5-20 ppb, pediatric (<12 years) 5-15 ppb High Normal / Increased: Adult 20-35 ppb, pediatric (<12 years) 15-25 ppb Moderately raised exhaled Nitric Oxide may indicate underlying inflammation, but note that: Cold and influenza can raise exhaled Nitric Oxide and some patients have higher baseline exhaled Nitric Oxide levels than others. High: Adult >35 ppb, pediatric (<12 years) >25 ppb Indicative of ongoing eosinophilic inflammation. Symptomatic patient likely to respond to steroids. Possible causes (if already on steroids): Poor compliance, recent allergen exposure, steroid dose inadequate, and steroid resistance. Note that not all patients with high exhaled nitric oxide levels display symptoms. Oral Exhaled Nitric Oxide measurement (Previous Encounters) Test Date Oral Exhaled Nitric Oxide (ppb) 11/14/2021 16.0 04/22/2020 14.0 NAME: Charis Bella RRT PATIENT NAME: Elliott Elizabeth DATE: November 14, 2021 TIME: 1:11 PM documented in this encounter [facility] 11-14-2021 History of Present illness Narrative PULM FUNCTION SMARTBLOCK: Provider: Jennifer Leal PA-C Assisting Tech: Charis Bella RRT Spirometry: 1 Exhaled Nitric Oxide: 1 System: [id number] documented in this encounter [facility] documented as of this encounter (statuses as of 11/16/2022) [facility]03-[facility]21 History of Past illness Narrative* Problem Noted Date Resolved Date Shortness of breath 10/25/2020 11/16/2022 Pneumonia of left lower lobe due to infectious o rganism 02/03/2019 11/16/2022 Other postoperative infection 04/03/2007 documented as of this encounter (statuses as of 11/16/2022) [facility] History of Past illness Narrative* Problem Noted Date Resolved Date Shortness of breath 10/25/2020 11/16/2022 Pneumonia of left lower lobe due to infectious o rganism 02/03/2019 11/16/2022 Other postoperative infection 04/03/2007 documented as of this encounter (statuses as of 12/12/2022) [facility] History of Past illness Narrative* Problem Noted Date Resolved Date Shortness of breath 10/25/2020 11/16/2022 Pneumonia of left lower lobe due to infectious o rganism 02/03/2019 11/16/2022 Other postoperative infection 04/03/2007 documented as of this encounter (statuses as of 12/19/2022) [facility] History of Past illness Narrative* Problem Noted Date Resolved Date Shortness of breath 10/25/2020 11/16/2022 Pneumonia of left lower lobe due to infectious o rganism 02/03/2019 11/16/2022 Other postoperative infection 04/03/2007 documented as of this encounter (statuses as of 12/22/2022) [facility] History of Past illness Narrative* Problem Noted Date Resolved Date Shortness of breath 10/25/2020 11/16/2022 Pneumonia of left lower lobe due to infectious o rganism 02/03/2019 11/16/2022 Other postoperative infection 04/03/2007 documented as of this encounter (statuses as of 12/22/2022) [facility] History of Past illness Narrative* Problem Noted Date Resolved Date Shortness of breath 10/25/2020 11/16/2022 Pneumonia of left lower lobe due to infectious o rganism 02/03/2019 11/16/2022 Other postoperative infection 04/03/2007 documented as of this encounter (statuses as of 12/25/2022) [facility] History of Past illness Narrative* Problem Noted Date Resolved Date Shortness of breath 10/25/2020 11/16/2022 Pneumonia of left lower lobe due to infectious o rganism 02/03/2019 11/16/2022 Other postoperative infection 04/03/2007 documented as of this encounter (statuses as of 12/27/2022) [facility] History of Past illness Narrative* Problem Noted Date Resolved Date Shortness of breath 10/25/2020 11/16/2022 Pneumonia of left lower lobe due to infectious o rganism 02/03/2019 11/16/2022 Other postoperative infection 04/03/2007 documented as of this encounter (statuses as of 01/17/2023) [facility] History of Past illness Narrative* Problem Noted Date Resolved Date Shortness of breath 10/25/2020 11/16/2022 Pneumonia of left lower lobe due to infectious o rganism 02/03/2019 11/16/2022 Other postoperative infection 04/03/2007 documented as of this encounter (statuses as of 02/08/2023) [facility] History of Past illness Narrative* Problem Noted Date Diagnosed Date Resolved Date Shortness of breath 10/25/2020 11/17/19 Pneumonia of left lower lobe due to infectious organism 02/03/2019 11/16/2022 Other postoperative infection 04/03/2007 02/13/2012 documented as of this encounter (statuses as of 02/28/2023) [facility] History of Past illness Narrative* Problem Noted Date Diagnosed Date Resolved Date Shortness of breath 10/25/2020 11/17/19 23 Pneumonia of left lower lobe due to infectious organism 02/03/2019 11/16/2022 Other postoperative infection 04/03/2007 02/13/2012 documented as of this encounter (statuses as of 03/02/2023) [facility] History of Past illness Narrative* Problem Noted Date Diagnosed Date Resolved Date Shortness of breath 10/25/2020 11/17/19 23 Pneumonia of left lower lobe due to infectious organism 02/03/2019 11/16/2022 Other postoperative infection 04/03/2007 02/13/2012 documented as of this encounter (statuses as of 03/11/2023) [facility] History of Past illness Narrative* Problem Noted Date Diagnosed Date Resolved Date Shortness of breath 10/25/2020 11/17/19 23 Pneumonia of left lower lobe due to infectious organism 02/03/2019 11/16/2022 Other postoperative infection 04/03/2007 02/13/2012 documented as of this encounter (statuses as of 04/06/2023) [facility] History of Past illness Narrative* Problem Noted Date Diagnosed Date Resolved Date Shortness of breath 10/25/2020 11/17/19 23 Pneumonia of left lower lobe due to infectious organism 02/03/2019 11/16/2022 Other postoperative infection 04/03/2007 02/13/2012 documented as of this encounter (statuses as of 04/28/2023) [facility] History of Past illness Narrative* Problem Noted Date Diagnosed Date Resolved Date Shortness of breath 10/25/2020 11/17/19 23 Pneumonia of left lower lobe due to infectious organism 02/03/2019 11/16/2022 Other postoperative infection 04/03/2007 02/13/2012 documented as of this encounter (statuses as of 05/22/2023) [facility] History of Past illness Narrative* Problem Noted Date Diagnosed Date Resolved Date Shortness of breath 10/25/2020 11/17/19 23 Pneumonia of left lower lobe due to infectious organism 02/03/2019 11/16/2022 Other postoperative infection 04/03/2007 02/13/2012 documented as of this encounter (statuses as of 06/24/2023) [facility] History of Past illness Narrative* Problem Noted Date Diagnosed Date Resolved Date Shortness of breath 10/25/2020 11/17/19 23 Pneumonia of left lower lobe due to infectious organism 02/03/2019 11/16/2022 Other postoperative infection 04/03/2007 02/13/2012 documented as of this encounter (statuses as of 07/10/2023) [facility] History of Past illness Narrative* Problem Noted Date Diagnosed Date Resolved Date Shortness of breath 10/25/2020 11/17/19 23 Pneumonia of left lower lobe due to infectious organism 02/03/2019 11/16/2022 Other postoperative infection 04/03/2007 02/13/2012 documented as of this encounter (statuses as of 07/11/2023) [facility] History of Past illness Narrative* Problem Noted Date Diagnosed Date Resolved Date Shortness of breath 10/25/2020 11/17/19 23 Pneumonia of left lower lobe due to infectious organism 02/03/2019 11/16/2022 Other postoperative infection 04/03/2007 02/13/2012 documented as of this encounter (statuses as of 07/28/2023) [address] History of Past illness Narrative* Problem Noted Date Resolved Date Other postoperative infection 04/03/2007 documented as of this encounter (statuses as of 11/14/2021) [address]2007 History of Past illness Narrative* Problem Noted Date Resolved Date Other postoperative infection 04/03/2007 documented as of this encounter (statuses as of 12/08/2021) [address]2007 History of Past illness Narrative* Problem Noted Date Resolved Date Other postoperative infection 04/03/2007 documented as of this encounter (statuses as of 01/20/2022) [facility] History of Past illness Narrative* Problem Noted Date Resolved Date Other postoperative infection 04/03/2007 documented as of this encounter (statuses as of 03/06/2022) [facility] History of Past illness Narrative* Problem Noted Date Resolved Date Other postoperative infection 04/03/2007 documented as of this encounter (statuses as of 03/07/2022) [address] History of Past illness Narrative* Problem Noted Date Resolved Date Other postoperative infection 04/03/2007 documented as of this encounter (statuses as of 03/13/2022) [address]2007 History of Past illness Narrative* Problem Noted Date Resolved Date Other postoperative infection 04/03/2007 documented as of this encounter (statuses as of 03/30/2022) [address] History of Past illness Narrative* Problem Noted Date Resolved Date Other postoperative infection 04/03/2007 documented as of this encounter (statuses as of 04/04/2022) [address] History of Past illness Narrative* Problem Noted Date Resolved Date Other postoperative infection 04/03/2007 documented as of this encounter (statuses as of 04/07/2022) [address] History of Past illness Narrative* Problem Noted Date Resolved Date Other postoperative infection 04/03/2007 documented as of this encounter (statuses as of 05/15/2022) [address] History of Past illness Narrative* Problem Noted Date Resolved Date Other postoperative infection 04/03/2007 documented as of this encounter (statuses as of 05/26/2022) [address]2007 History of Past illness Narrative* Problem Noted Date Resolved Date Other postoperative infection 04/03/2007 documented as of this encounter (statuses as of 06/15/2022) [address] History of Past illness Narrative* Problem Noted Date Resolved Date Other postoperative infection 04/03/2007 documented as of this encounter (statuses as of 07/03/2022) [address]2007 History of Past illness Narrative* Problem Noted Date Resolved Date Other postoperative infection 04/03/2007 documented as of this encounter (statuses as of 07/05/2022) [address] History of Past illness Narrative* Problem Noted Date Resolved Date Other postoperative infection 04/03/2007 documented as of this encounter (statuses as of 07/19/2022) [address] History of Past illness Narrative* Problem Noted Date Resolved Date Other postoperative infection 04/03/2007 documented as of this encounter (statuses as of 07/24/2022) [address] History of Past illness Narrative* Problem Noted Date Resolved Date Other postoperative infection 04/03/2007 documented as of this encounter (statuses as of 08/20/2022) [address] History of Past illness Narrative* Problem Noted Date Resolved Date Other postoperative infection 04/03/2007 documented as of this encounter (statuses as of 08/21/2022) [address] History of Past illness Narrative* Problem Noted Date Resolved Date Other postoperative infection 04/03/2007 documented as of this encounter (statuses as of 08/26/2022) [address] History of Past illness Narrative* Problem Noted Date Resolved Date Other postoperative infection 04/03/2007 documented as of this encounter (statuses as of 08/29/2022) [address] History of Past illness Narrative* Problem Noted Date Resolved Date Other postoperative infection 04/03/2007 documented as of this encounter (statuses as of 09/04/2022) [address] History of Past illness Narrative* Problem Noted Date Resolved Date Other postoperative infection 04/03/2007 documented as of this encounter (statuses as of 10/25/2022) [address] History of Past illness Narrative* Problem Noted Date Resolved Date Other postoperative infection 04/03/2007 documented as of this encounter (statuses as of 11/07/2022) [facility] Moderate persistent asthma without complication Unspecified asthma [facility] Diagnosis Moderate persistent asthma without complication Unspecified asthma [facility] Diagnosis Anxiety state Anxiety state, unspecified Primary insomnia Persistent disorder of initiating or maintaining sleep [facility] Diagnosis Essential tremor- Primary Essential and other specified forms of tremor Anxiety state Anxiety state, unspecified Recurrent major depressive disorder, in full remission (HCC) Primary insomnia Persistent disorder of initiating or maintaining sleep Psoriasis Other psoriasis [facility] Diagnosis Anxiety state Anxiety state, unspecified Primary insomnia Persistent disorder of initiating or maintaining sleep [facility] Diagnosis Essential tremor Essential and other specified forms of tremor Anxiety state Anxiety state, unspecified Primary insomnia Persistent disorder of initiating or maintaining sleep [facility] Diagnosis Anxiety state Anxiety state, unspecified Primary insomnia Persistent disorder of initiating or maintaining sleep Essential tremor Essential and other specified forms of tremor [facility] Diagnosis Essential tremor- Primary Essential and other specified forms of tremor [facility] Diagnosis Anxiety state- Primary Anxiety state, unspecified Recurrent major depressive disorder, in partial remission (HCC) Primary insomnia Persistent disorder of initiating or maintaining sleep Uncomplicated asthma, unspecified asthma severity, unspecified whether persistent Breast cancer screening by mammogram Encounter for immunization Need for other specified prophylactic vaccination against single bacterial disease [facility] Diagnosis Palpitations- Primary Mitral valve insufficiency, unspecified etiology SVT (supraventricular tachycardia) ([facility]) Other specified cardiac dysrhythmias Lightheadedness Dizziness and giddiness Diastolic dysfunction Heart disease, unspecified [facility]* Diagnosis Chronic back pain, unspecified back location, unspecified back pain laterality [facility] Diagnosis Encounter for therapeutic drug monitoring- Primary Lipid screening Screening for lipoid disorders [facility] Diagnosis Mitral valve insufficiency, unspecified etiology [facility] Diagnosis Essential tremor Essential and other specified forms of tremor [facility] Diagnosis Acute asthmatic bronchitis- Primary Unspecified asthma, with exacerbation Acute non-recurrent pansinusitis Moderate persistent asthma with acute exacerbation [facility] Diagnosis Primary insomnia- Primary Persistent disorder of initiating or maintaining sleep Anxiety state Anxiety state, unspecified Moderate persistent asthma without complication Unspecified asthma Allergic rhinitis, unspecified seasonality, unspecified trigger Chronic back pain, unspecified back location, unspecified back pain laterality [facility] Diagnosis Anxiety state Anxiety state, unspecified Primary insomnia Persistent disorder of initiating or maintaining sleep documented in this encounter [facility] note* Diagnosis Acute bilateral low back pain without sciatica- Primary Sacroiliac joint pain Disorders of sacrum Myofascial pain syndrome Mylagia and myositis, unspecified Recurrent major depressive disorder, in full remission (HCC) Anxiety state Anxiety state, unspecified documented in this encounter [facility] note* Diagnosis Moderate persistent asthma without complication Unspecified asthma documented in this encounter [facility] note* Diagnosis Moderate persistent asthma without complication Unspecified asthma [facility] Diagnosis Moderate persistent asthma without complication- Primary Unspecified asthma Chronic pansinusitis Other chronic sinusitis documented in this encounter [facility] note* Diagnosis Esotropia- Primary Esotropia, unspecified Pre-op evaluation Preoperative examination, unspecified Chronic obstructive pulmonary disease, unspecified COPD type (HCC) Moderate asthma without complication, unspecified whether persistent SVT (supraventricular tachycardia) ([facility]) Other specified cardiac dysrhythmias Palpitations documented in this encounter [facility] note* Diagnosis Upset stomach- Primary Dyspepsia and other specified disorders of function of stomach Essential tremor Essential and other specified forms of tremor documented in this encounter [facility] note* Diagnosis Low sodium levels- Primary Hyposmolality and/or hyponatremia documented in this encounter [facility] note* Diagnosis Gastroesophageal reflux disease, unspecified whether esophagitis present- Primary Hiatal hernia with GERD Anxiety state Anxiety state, unspecified Primary insomnia Persistent disorder of initiating or maintaining sleep documented in this encounter [facility] note* Diagnosis Hiatal hernia with GERD- Primary Heartburn Epigastric pain Abdominal pain, epigastric History of gastritis Personal history of other diseases of digestive system [facility]* Diagnosis Hiatal hernia with GERD- Primary Age-related osteoporosis without current pathological fracture Senile osteoporosis Upset stomach Dyspepsia and other specified disorders of function of stomach Recurrent major depressive disorder, in full remission (HCC) [facility]* Diagnosis Hiatal hernia with GERD- Primary Anxiety state Anxiety state, unspecified Primary insomnia Persistent disorder of initiating or maintaining sleep Chronic obstructive pulmonary disease, unspecified COPD type (HCC) Unspecified sinusitis (chronic) Asymptomatic postmenopausal status Osteoporosis without current pathological fracture, unspecified osteoporosis type Encounter for screening mammogram for malignant neoplasm of breast Other screening mammogram Encounter for therapeutic drug monitoring Lipid screening Screening for lipoid disorders Vitamin D deficiency Unspecified vitamin D deficiency documented in this encounter [facility] note* Diagnosis Mild persistent asthma without complication- Primary Unspecified asthma Post-nasal drip Postnasal drip Hoarseness Dysphonia Gastroesophageal reflux disease without esophagitis Esophageal reflux Need for influenza vaccination Need for prophylactic vaccination and inoculation against influenza documented in this encounter [facility] note* Diagnosis Breast cancer screening by mammogram documented in this encounter [facility] note* Diagnosis Anxiety state- Primary Anxiety state, unspecified Primary insomnia Persistent disorder of initiating or maintaining sleep Chronic obstructive pulmonary disease, unspecified COPD type (HCC) Hiatal hernia with GERD Vitamin D deficiency Unspecified vitamin D deficiency Encounter for long-term current use of medication documented in this encounter [facility] for referral (narrative)* Diagnostic Procedure Only (Routine) - Authorized Specialty Diagnoses / Procedures Referred By Kamaljit harvey Referred To Contact [facility] Diagnoses Breast cancer screening by mammogram Procedures NICKIE SCREENING W MATT SCREENING DIGITAL BREAST TOMOSYNTHESIS BI SCREENING MAMMOGRAPHY BI 2-VIEW BREAST INC CAD Nelly Bee MD [address] [place] [address] [facility] [address] [place] [address] Referral ID Status Reason Start Date Expiration Date Visits Requested Visits Authorized [id number] Authorized Auto-Generat ed Referral 2 06/01/2023 1 1 [facility] for referral (narrative)* Outpatient Procedure (Routine) - Pending Review Specialty Diagnoses / Procedures Referred By Kamaljit harvey Ref[facility] Diagnoses Mitral valve insufficiency, unspecified etiology Procedures ECHO ECHO TTHRC R-T 2D W/WOM-MODE COMPL SPEC&COLR Macarena Araujo, GENERAL INSPECTOR.[employer] AD[employer] [address] [place] [address] [facility] [address] [place] [address] Referral ID Status Reason Start Date Expiration Date Visits Requested Visits Authorized [id number] Pending Review Auto-Generat ed Referral 07/03/2023 1 1 * Outpatient Procedure (Routine) - Closed Specialty Diagnoses / Procedures Referred By Kamaljit t Referred To [facility] Diagnoses Palpitations Procedures ECG COMPLETE ECG ROUTINE ECG W/LEAST 12 LDS W/I&R Macarena Randle APRN.CNP [address] [place] [address] [facility] [address] [place] [address] Referral ID Status Reason Start Date Expiration Date V isits Requested Visits Authorized [id number] Closed Auto-Generate d Referral 06/27/2022 06/27/2023 1 1 [facility] for referral (narrative)* Diagnostic Procedure Only (Routine) - Authorized Specialty Diagnoses / Procedures [facility] Referred To Contact [facility] Diagnoses Encounter for screening mammogram for malignant neoplasm of breast Procedures NICKIE SCREENING W MATT SCREENING DIGITAL BREAST TOMOSYNTHESIS BI SCREENING MAMMOGRAPHY BI 2-VIEW BREAST INC Endy Calabrese APRN.CNP [address] [place] [address] [facility] [address] [place] [address] Referral ID Status Reason Start Date Expiration Date Visits Requested Visits Authorized [id number] Authorized Auto-Generat ed Referral 07/27/2023 05/26/2024 1 1 [facility] for referral (narrative)* Outpatient Procedure (Routine) - Authorized Specialty Diagnoses / Procedures [facility] Diagnoses Mild persistent asthma without complication Procedures SPIROMETRY WITH DILATOR IF OBSTRUCTED BRNCDILAT RSPSE SPMTRY PRE&POST-BRNCDILAT ADMRebecca Hernandez MD [address] [place] [address] [facility] [address] [place] [address] Referral ID Status Reason Start Date Expiration Date Visits Requested Visits Authorized [id number] Authorized Auto-Generat ed Referral 05/21/2023 06/19/2024 1 1 * Outpatient Procedure (Routine) - Authorized Specialty Diagnoses / Procedures Referred By Contac t Referred To Contact [facility] Diagnoses Mild persistent asthma without complication Procedures NITRIC OXIDE, EXHALED NITRIC OXIDE GAS DETERMINATION Rebecca Gonzalez MD [address] [place] [address] [address] Referral ID Status Reason Start Date Expiration Date Visits Requested Visits Authorized [id number] Authorized Auto-Generat ed Referral 05/21/2023 06/19/2024 1 1 [facility] for referral (narrative)* Diagnostic Procedure Only (Routine) - Closed Specialty Diagnoses / Procedures Referred By Kamaljit t Referred To Contact [facility] Diagnoses Breast cancer screening by mammogram Procedures NICKIE SCREENING W MATT SCREENING DIGITAL BREAST TOMOSYNTHESIS BI SCREENING MAMMOGRAPHY BI 2-VIEW BREAST INC CAD Nelly Bee MD [address] [place] [address] [facility] [address] [place] [address] Referral ID Status Reason Start Date Expiration Date V isits Requested Visits Authorized [id number] Closed Auto-Generate d Referral 08/09/2022 06/01/2023 1 1 [facility] for visit Narrative* Outpatient Procedure (Routine) - Closed Specialty Diagnoses / Procedures Referred By Contac t Referred To Contact [facility] Diagnoses Mitral valve insufficiency, unspecified etiology Procedures ECHO ECHO TTHRC R-T 2D W/WOM-MODE COMPL SPEC&COLR D Macarena Randle, GENERAL INSPECTOR.[employer] SWITCH ADJUSTER [address] [place] [address] [facility] [address] [place] [address] Referral ID Status Reason Start Date Expiration Date V isits Requested Visits Authorized [id number] Closed Auto-Generate d Referral 07/03/2022 07/03/2023 1 1 [facility] for visit Narrative* Outpatient Procedure (Routine) - Closed Specialty Diagnoses / Procedures Referred By Contac t Referred To Contact [facility] Diagnoses Heartburn Epigastric pain History of gastritis Procedures EGD DIAGNOSTIC ESOPHAGOGASTRODUODENOSC OPY TRANSORAL DIAGNOSTIC Tiarra Singh PA-C [address] [place] [address] [facility] [address] [place] [address] Referral ID Status Reason Start Date Expiration Date V isits Requested Visits Authorized [id number] Closed Auto-Generate d Referral 01/30/2023 01/31/2024 1 1 [facility] for visit Narrative* Diagnostic Procedure Only (Routine) - Closed Specialty Diagnoses / Procedures Referred By Contlizz t Referred To Contact [facility] Diagnoses Breast cancer screening by mammogram Procedures NICKIE SCREENING W MATT SCREENING DIGITAL BREAST TOMOSYNTHESIS BI SCREENING MAMMOGRAPHY BI 2-VIEW BREAST INC Nelly Virgen MD [address] [place] [address] [facility] [address] [place] [phone] Referral ID Status Reason Start Date Expiration Date V isits Requested Visits Authorized [id number] Closed Auto-Generate d Referral 08/09/2022 06/01/2023 1 1 [facility] Summary Purpose Family History No Family History Records FoundNo Family History Records FoundNo Family History Records Found Advance Directives No Advanced Directives Records FoundDocuments on File Type Date Recorded Patient Child'S Nurse Expl anation Advance Directive(s) 05/19/2019 2:10 PM Advance Directive(s) 10/14/2018 2:02 PM Advance Directive(s) 04/26/2016 10:46 AM Advance Directive(s) 11/20/2006 12:00 AM Documents on File Type Date Recorded Patient Child'S Nurse Expl anation Advance Directive(s) 11/20/2006 Documents on File Type Date Recorded Patient Child'S Nurse Expl anation Advance Directive(s) 11/20/2006 Reason for Referral Specialty Diagnoses / Procedures Referred By Contac t Referred To Contact Diagnoses Essential tremor Procedures PROVIDER ORDERED FOLLOW UP OFFICE/OUTPATIENT [facility] 60-74 MINUTES Shantanu Mcpherson MD [address] [facility] [address] [place] [address] Referral ID Status Reason Start Date Expiration Date Visits Requested Visits Authorized [id number] Authorized PCP Requested Referral 05/15/2022 05/15/2023 1 1 Referral ID Status Reason Start Date Expiration Date Visits Requested Visits Authorized [id number] Authorized PCP Requested Referral 08/25/2022 11/23/2022 1 1 Specialty Diagnoses / Procedures Referred By Kamaljit harvey Referred To Contact General Surgery Diagnoses Gastroesophageal reflux disease, unspecified whether esophagitis present Hiatal hernia with GERD Procedures CONSULT TO GENERAL SURGERY OFFICE/OUTPATIENT [facility] 60-74 MINUTES Endy Ariza APRN.[facility] [address] [place] [address] Referral ID Status Reason Start Date Expiration Date Visits Requested Visits Authorized [id number] Authorized PCP Requested Referral 01/17/2023 01/17/2024 1 1 Medications Administered Section Inactive Administered Medications - up to 3 most recent administrations Medication Order MAR Action Action Date Dose Rate Site benzocaine 20 % mucosal spray (HURRICAINE ONE) MUCOUS MEMBRANE (TOPICAL MOUTH & THROAT), ONCE, 1 dose, On Julissa 03/01/23 at 1230, Intraprocedure Given 03/01/2023 12:00 PM EDT 1 Application lactated ringers iv infusion 75 mL/hr, INTRAVENOUS, CONTINUOUS, Starting on Julissa 03/01/23 at 1100, Until Julissa 03/01/23 at 1316, Preprocedure New Bag/Syringe/Geoff le 03/01/2023 10:44 AM EDT 75 mL/hr 75 mL/hr Additional Source Comments INFORMATION SOURCE (unrecogn ized section and content) DATE CREATED AUTHOR AUTHOR'S ORGANIZ ATION 03/07/2023 [facility] DATE CREATED AUTHOR AUTHOR'S ORGANIZ ATION 09/04/2023 [facility] Source Comments (unrecognize d section and content) In the event this informatio n is protected by the Federal Confidentiality of Alcohol and Drug Abuse Patient Records regulations: The Federal rules restrict any use of the information to criminally investigate or prosecute any alcohol or drug abuse patient.[facility] the event this information is protected by the Federal Confidentiality of Alcohol and Drug Abuse Patient Records regulations: The Federal rules restrict any use of the information to criminally investigate or prosecute any alcohol or drug abuse patient.[facility] the event this information is protected by the Federal Confidentiality of Alcohol and Drug Abuse Patient Records regulations: The Federal rules restrict any use of the information to criminally investigate or prosecute any alcohol or drug abuse patient.[facility] the event this information is protected by the Federal Confidentiality of Alcohol and Drug Abuse Patient Records regulations: The Federal rules restrict any use of the information to criminally investigate or prosecute any alcohol or drug abuse patient.[facility] the event this information is protected by the Federal Confidentiality of Alcohol and Drug Abuse Patient Records regulations: The Federal rules restrict any use of the information to criminally investigate or prosecute any alcohol or drug abuse patient.[facility] the event this information is protected by the Federal Confidentiality of Alcohol and Drug Abuse Patient Records regulations: The Federal rules restrict any use of the information to criminally investigate or prosecute any alcohol or drug abuse patient.[facility] the event this information is protected by the Federal Confidentiality of Alcohol and Drug Abuse Patient Records regulations: The Federal rules restrict any use of the information to criminally investigate or prosecute any alcohol or drug abuse patient.[facility] the event this information is protected by the Federal Confidentiality of Alcohol and Drug Abuse Patient Records regulations: The Federal rules restrict any use of the information to criminally investigate or prosecute any alcohol or drug abuse patient.[facility] the event this information is protected by the Federal Confidentiality of Alcohol and Drug Abuse Patient Records regulations: The Federal rules restrict any use of the information to criminally investigate or prosecute any alcohol or drug abuse patient.[facility] the event this information is protected by the Federal Confidentiality of Alcohol and Drug Abuse Patient Records regulations: The Federal rules restrict any use of the information to criminally investigate or prosecute any alcohol or drug abuse patient.[facility]In the event this information is protected by the Federal Confidentiality of Alcohol and Drug Abuse Patient Records regulations: The Federal rules restrict any use of the information to criminally investigate or prosecute any alcohol or drug abuse patient.[facility]In the event this information is protected by the Federal Confidentiality of Alcohol and Drug Abuse Patient Records regulations: The Federal rules restrict any use of the information to criminally investigate or prosecute any alcohol or drug abuse patient.[facility]In the event this information is protected by the Federal Confidentiality of Alcohol and Drug Abuse Patient Records regulations: The Federal rules restrict any use of the information to criminally investigate or prosecute any alcohol or drug abuse patient.[facility] HospitalIn the event this information is protected by the Federal Confidentiality of Alcohol and Drug Abuse Patient Records regulations: The Federal rules restrict any use of the information to criminally investigate or prosecute any alcohol or drug abuse patient.[facility] HospitalIn the event this information is protected by the Federal Confidentiality of Alcohol and Drug Abuse Patient Records regulations: The Federal rules restrict any use of the information to criminally investigate or prosecute any alcohol or drug abuse patient.[facility] HospitalIn the event this information is protected by the Federal Confidentiality of Alcohol and Drug Abuse Patient Records regulations: The Federal rules restrict any use of the information to criminally investigate or prosecute any alcohol or drug abuse patient.[facility] HospitalIn the event this information is protected by the Federal Confidentiality of Alcohol and Drug Abuse Patient Records regulations: The Federal rules restrict any use of the information to criminally investigate or prosecute any alcohol or drug abuse patient.[facility] HospitalIn the event this information is protected by the Federal Confidentiality of Alcohol and Drug Abuse Patient Records regulations: The Federal rules restrict any use of the information to criminally investigate or prosecute any alcohol or drug abuse patient.[facility] HospitalIn the event this information is protected by the Federal Confidentiality of Alcohol and Drug Abuse Patient Records regulations: The Federal rules restrict any use of the information to criminally investigate or prosecute any alcohol or drug abuse patient.[facility] HospitalIn the event this information is protected by the Federal Confidentiality of Alcohol and Drug Abuse Patient Records regulations: The Federal rules restrict any use of the information to criminally investigate or prosecute any alcohol or drug abuse patient.[facility] HospitalIn the event this information is protected by the Federal Confidentiality of Alcohol and Drug Abuse Patient Records regulations: The Federal rules restrict any use of the information to criminally investigate or prosecute any alcohol or drug abuse patient.[facility] HospitalIn the event this information is protected by the Federal Confidentiality of Alcohol and Drug Abuse Patient Records regulations: The Federal rules restrict any use of the information to criminally investigate or prosecute any alcohol or drug abuse patient.[facility] HospitalIn the event this information is protected by the Federal Confidentiality of Alcohol and Drug Abuse Patient Records regulations: The Federal rules restrict any use of the information to criminally investigate or prosecute any alcohol or drug abuse patient.[facility] HospitalIn the event this information is protected by the Federal Confidentiality of Alcohol and Drug Abuse Patient Records regulations: The Federal rules restrict any use of the information to criminally investigate or prosecute any alcohol or drug abuse patient.[facility] HospitalIn the event this information is protected by the Federal Confidentiality of Alcohol and Drug Abuse Patient Records regulations: The Federal rules restrict any use of the information to criminally investigate or prosecute any alcohol or drug abuse patient.[facility] HospitalIn the event this information is protected by the Federal Confidentiality of Alcohol and Drug Abuse Patient Records regulations: The Federal rules restrict any use of the information to criminally investigate or prosecute any alcohol or drug abuse patient.[facility] HospitalIn the event this information is protected by the Federal Confidentiality of Alcohol and Drug Abuse Patient Records regulations: The Federal rules restrict any use of the information to criminally investigate or prosecute any alcohol or drug abuse patient.[facility] HospitalIn the event this information is protected by the Federal Confidentiality of Alcohol and Drug Abuse Patient Records regulations: The Federal rules restrict any use of the information to criminally investigate or prosecute any alcohol or drug abuse patient.[facility] HospitalIn the event this information is protected by the Federal Confidentiality of Alcohol and Drug Abuse Patient Records regulations: The Federal rules restrict any use of the information to criminally investigate or prosecute any alcohol or drug abuse patient.[facility] HospitalIn the event this information is protected by the Federal Confidentiality of Alcohol and Drug Abuse Patient Records regulations: The Federal rules restrict any use of the information to criminally investigate or prosecute any alcohol or drug abuse patient.[facility] HospitalIn the event this information is protected by the Federal Confidentiality of Alcohol and Drug Abuse Patient Records regulations: The Federal rules restrict any use of the information to criminally investigate or prosecute any alcohol or drug abuse patient.[facility] HospitalIn the event this information is protected by the Federal Confidentiality of Alcohol and Drug Abuse Patient Records regulations: The Federal rules restrict any use of the information to criminally investigate or prosecute any alcohol or drug abuse patient.[facility] HospitalIn the event this information is protected by the Federal Confidentiality of Alcohol and Drug Abuse Patient Records regulations: The Federal rules restrict any use of the information to criminally investigate or prosecute any alcohol or drug abuse patient.[facility] HospitalIn the event this information is protected by the Federal Confidentiality of Alcohol and Drug Abuse Patient Records regulations: The Federal rules restrict any use of the information to criminally investigate or prosecute any alcohol or drug abuse patient.[facility] HospitalIn the event this information is protected by the Federal Confidentiality of Alcohol and Drug Abuse Patient Records regulations: The Federal rules restrict any use of the information to criminally investigate or prosecute any alcohol or drug abuse patient.[facility] HospitalIn the event this information is protected by the Federal Confidentiality of Alcohol and Drug Abuse Patient Records regulations: The Federal rules restrict any use of the information to criminally investigate or prosecute any alcohol or drug abuse patient.[facility] HospitalIn the event this information is protected by the Federal Confidentiality of Alcohol and Drug Abuse Patient Records regulations: The Federal rules restrict any use of the information to criminally investigate or prosecute any alcohol or drug abuse patient.[facility] HospitalIn the event this information is protected by the Federal Confidentiality of Alcohol and Drug Abuse Patient Records regulations: The Federal rules restrict any use of the information to criminally investigate or prosecute any alcohol or drug abuse patient.[facility] HospitalIn the event this information is protected by the Federal Confidentiality of Alcohol and Drug Abuse Patient Records regulations: The Federal rules restrict any use of the information to criminally investigate or prosecute any alcohol or drug abuse patient.[facility] HospitalIn the event this information is protected by the Federal Confidentiality of Alcohol and Drug Abuse Patient Records regulations: The Federal rules restrict any use of the information to criminally investigate or prosecute any alcohol or drug abuse patient.[facility] HospitalIn the event this information is protected by the Federal Confidentiality of Alcohol and Drug Abuse Patient Records regulations: The Federal rules restrict any use of the information to criminally investigate or prosecute any alcohol or drug abuse patient.[facility] HospitalIn the event this information is protected by the Federal Confidentiality of Alcohol and Drug Abuse Patient Records regulations: The Federal rules restrict any use of the information to criminally investigate or prosecute any alcohol or drug abuse patient.[facility] HospitalIn the event this information is protected by the Federal Confidentiality of Alcohol and Drug Abuse Patient Records regulations: The Federal rules restrict any use of the information to criminally investigate or prosecute any alcohol or drug abuse patient.[facility] HospitalIn the event this information is protected by the Federal Confidentiality of Alcohol and Drug Abuse Patient Records regulations: The Federal rules restrict any use of the information to criminally investigate or prosecute any alcohol or drug abuse patient.[facility] HospitalIn the event this information is protected by the Federal Confidentiality of Alcohol and Drug Abuse Patient Records regulations: The Federal rules restrict any use of the information to criminally investigate or prosecute any alcohol or drug abuse patient.[facility] HospitalIn the event this information is protected by the Federal Confidentiality of Alcohol and Drug Abuse Patient Records regulations: The Federal rules restrict any use of the information to criminally investigate or prosecute any alcohol or drug abuse patient.[facility] Reason for Visit (unrecogniz ed section and content) Specialty Diagnoses / Procedures Referred By Contac t Referred To Contact [facility] Diagnoses Moderate persistent asthma without complication Procedures SPIROMETRY BASELINE ONLY SPIROMETRY WO BRONCHODILATOR Jennifer Leal PA-C [address] [address] Respiratory [facility] [address] [place] [address] Referral ID Status Reason Start Date Expiration Date V isits Requested Visits Authorized [id number] Closed Auto-Generate d Referral 05/13/2021 06/12/2022 1 1 Specialty Diagnoses / Procedures Referred By Contac t Referred To Contact [facility] Diagnoses Moderate persistent asthma without complication Procedures NITRIC OXIDE, EXHALED EXHALED NITRIC OXIDE Jennifer Leal PA-C [address] [address] Referral ID Status Reason Start Date Expiration Date V isits Requested Visits Authorized [id number] Closed Auto-Generate d Referral 05/13/2021 06/12/2022 1 1 Reason Onset Date Comments Refill Request 12/07/2021 Reason Comments Follow Up Reason Comments Medication Question Reason Onset Date Comments Refill Request 03/11/2022 Reason Comments Results Reason Onset Date Comments Refill Request 04/04/2022 Reason Onset Date Comments Refill Request 04/07/2022 Reason Comments Essential tremor Reason Comments Patient Update FYI-No Action Needed Reason Onset Date Comments Follow Up Radiology Mammogram 05/02/2022 at [facility] Reason Comments Follow Up Routine yearly Reason Onset Date Comments Refill Request 07/05/2022 Reason Comments Lab Orders Reason Onset Date Comments Refill Request 08/15/2022 Reason Comments Telemedicine Follow Up Specialty Diagnoses / Procedures Referred By Contac t Referred To Contact Diagnoses Essential tremor Procedures PROVIDER ORDERED FOLLOW UP OFFICE/OUTPATIENT [facility] 60-74 MINUTES Shantanu Mcpherson MD [address] [address] Referral ID Status Reason Start Date Expiration Date V isits Requested Visits Authorized [id number] Closed PCP Requested Referral 05/15/2022 05/15/2023 1 1 Reason Onset Date Comments Refill Request 10/25/2022 Specialty Diagnoses / Procedures Referred By Contac t Referred To Contact [facility] Diagnoses Moderate persistent asthma without complication Procedures SPIROMETRY BASELINE ONLY SPMTRY W/VC EXPIRATORY QUYNH W/WO MXML VOL VNTJ Jennifer Leal PA-C [address] [place] [address] [facility]piratory [place] [phone] Referral ID Status Reason Start Date Expiration Date V isits Requested Visits Authorized [id number] Closed Auto-Generate d Referral 05/19/2022 06/18/2023 1 1 Specialty Diagnoses / Procedures Referred By Contac t Referred To Contact [facility] Diagnoses Moderate persistent asthma without complication Procedures NITRIC OXIDE, EXHALED NITRIC OXIDE GAS DETERMINATION Jennifer Leal PA-C [address] [place] [address] Respiratory [place] [phone] Referral ID Status Reason Start Date Expiration Date V isits Requested Visits Authorized [id number] Closed Auto-Generate d Referral 05/19/2022 06/18/2023 1 1 Reason Comments Asthma Reason Comments Forms Reason Comments Pre-Op Exam is have strabismus s urgery Reason Comments Rash Pt reported rash [place] ateral legs, x2 wks. 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 Did encourage her to take second dose in am on empty stomach. Refill Request would like ativan in creased to 1 mg at bedtime Reason Comments Medication Problem Reason Comments Follow up oV Reason Onset Date Comments Refill Request 04/05/2023 Reason Comments F/U 3 Month Reason Onset Date Comments Established Patient 6 month foll ow up Immunizations 05/21/2023 Flu vaccination Reason Onset Date Comments Refill Request 07/09/2023 Reason Onset Date Comments Refill Request 07/11/2023 Reason Comments F/U 3 Month Labs prior Care Teams (unrecognized sec tion and content) Intermediate Manager Relationship Specialty Start Date End Date Nelly Bee MD [address] [place] [address], [place] [address] PCP - General Internal Medicine 10/27/10 Intermediate Manager Relationship Specialty Start Date End Date Nelly Bee MD [address] [place] [address], [place] [address] PCP - General Internal Medicine 10/27/10 Intermediate Manager Relationship Specialty Start Date End Date Nelly Bee MD [address] [place] [address], [place] [address] PCP - General Internal Medicine 10/27/10 Intermediate Manager Relationship Specialty Start Date End Date Nelly Bee MD [address] [place] [address], [place] [address] PCP - General Internal Medicine 10/27/10 Intermediate Manager Relationship Specialty Start Date End Date Nelly Bee MD [address] [place] [address], [place] [address] PCP - General Internal Medicine 10/27/10 Intermediate Manager Relationship Specialty Start Date End Date Nelly Bee MD [address] [place] [address], [place] [address] PCP - General Internal Medicine 10/27/10 Intermediate Manager Relationship Specialty Start Date End Date Nelly eBe MD [address] [place] [address], [place] [address] PCP - General Internal Medicine 10/27/10 Intermediate Manager Relationship Specialty Start Date End Date Nelly Bee MD [address] [place] [address], [place] [address] PCP - General Internal Medicine 10/27/10 Intermediate Manager Relationship Specialty Start Date End Date Nelly Bee MD [address] [place] [address], [place] [address] PCP - General Internal Medicine 10/27/10 Intermediate Manager Relationship Specialty Start Date End Date Nelly Bee MD [address] [facility] [place] [address] PCP - General Internal Medicine 10/27/10 Intermediate Manager Relationship Specialty Start Date End Date Nelly Bee MD [facility] [place] [address] PCP - General Internal Medicine 10/27/10 Intermediate Manager Relationship Specialty Start Date End Date Nelly Bee MD [address] [place] [address], [place] [address] PCP - General Internal Medicine 10/27/10 Intermediate Manager Relationship Specialty Start Date End Date Nelly Bee MD [address] [place] [address], [place] [address] PCP - General Internal Medicine 10/27/10 Intermediate Manager Relationship Specialty Start Date End Date Nelly Bee MD [address] [place] [address], [place] [address] PCP - General Internal Medicine 10/27/10 Intermediate Manager Relationship Specialty Start Date End Date Nelly Bee MD [address] [place] [address], [place] [address] PCP - General Internal Medicine 10/27/10 Intermediate Manager Relationship Specialty Start Date End Date Nelly Bee MD [address] [place] [address], [place] [address] PCP - General Internal Medicine 10/27/10 Intermediate Manager Relationship Specialty Start Date End Date Nelly Bee MD [address] [place] [address], [place] [address] PCP - General Internal Medicine 10/27/10 Intermediate Manager Relationship Specialty Start Date End Date Nelly Bee MD [address] [place] [address], [place] [address] PCP - General Internal Medicine 10/27/10 Intermediate Manager Relationship Specialty Start Date End Date Nelly Bee MD [address] [place] [address] PCP - General Internal Medicine 10/27/10 Intermediate Manager Relationship Specialty Start Date End Date Nelly Bee MD [address] [place] [address] PCP - General Internal Medicine 10/27/10 Intermediate Manager Relationship Specialty [place] [address] [place] [address] PCP - General Internal Medicine 10/27/10 Intermediate Manager Relationship Specialty [place] [address] [place] [address] PCP - General Internal Medicine 10/27/10 Intermediate Manager Relationship Specialty Start Date End Date Nelly Bee MD [address] [place] [address] PCP - General Internal Medicine 10/27/10 Intermediate Manager Relationship Specialty Start Date End Date Nelly Bee MD [address] [place] [address] PCP - General Internal Medicine 10/27/10 Intermediate Manager Relationship Specialty [place] [address] [place] [address] PCP - General Internal Medicine 10/27/10 Intermediate Manager Relationship Specialty Start Date End Date Nelly Bee MD [address] [place] [address] PCP - General Internal Medicine 10/27/10 Intermediate Manager Relationship Specialty Start Date End Date Nelly Bee MD [address] [facility] [place] [address] PCP - General Internal Medicine 10/27/10 Intermediate Manager Relationship Specialty Start Date End Date Nelly Bee MD [address] [facility] [place] [address] PCP - General Internal Medicine 10/27/10 Intermediate Manager Relationship Specialty Start Date End Date Nelly Bee MD [address] [place] [address] PCP - General Internal Medicine 10/27/10 Intermediate Manager Relationship Specialty Start Date End Date Nelly Bee MD [address] [place] [address] PCP - General Internal Medicine 10/27/10 Intermediate Manager Relationship Specialty Start Date End Date Nelly Bee MD [address] [facility] [place] [address] PCP - General Internal Medicine 10/27/10 Intermediate Manager Relationship Specialty Start Date End Date Nelly Bee MD [address] [facility] [place] [address] PCP - General Internal Medicine 10/27/10 Intermediate Manager Relationship Specialty Start Date End Date Nelly Bee MD [address] [facility] [address] PCP - General Internal Medicine 10/27/10 Intermediate Manager Relationship Specialty Start Date End Date Nelly Bee MD [address] [place] [address] PCP - General Internal Medicine 10/27/10 FOR RECORDS PERTAINING TO PATIENTS WHO ARE OR HAVE BEEN ENROLLED IN A CHEMICAL DEPENDENCY/SUBSTANCEABUSE PROGRAM, SOME INFORMATION MAY BE OMITTED. This clinical summary was aggregated from multiple sources. Caution should be exercised in using it in the provision of clinical care. This summary normalizes information from multiple sources, and as a consequence, information in this document may materially change the coding, format and clinical context of patient data. In addition, data may be omitted in some cases. CLINICAL DECISIONS SHOULD BE BASED ON THE PRIMARY CLINICAL RECORDS. [facility]. provides no warranty or guarantee of the accuracy or completeness of information in this document.
[2023-09-13 16:28] LABS: D-Dimer Quantitative (DVT/PE) 0.31 FEU/ug/m (0.27-0.49)
[2023-09-13 16:33] LABS: Anion Gap 7 (5-15); BUN 7 mg/dL (7-18); BUN/Creat Ratio 7.9 RATIO (10-20); Chloride 101 mmol/L (98-107); Creatinine, Serum 0.89 mg/dL (0.55-1.02); EST Glomerular Filtration Rate 66 mL/min (>60); Est Glom Filt Rate - Afr Amer 80 mL/min (>60); Glucose 95 mg/dL (74-106); Potassium 3.4 mmol/L (3.5-5.1); Sodium Level 132 mmol/L (136-145); Troponin-I HS 5 pg/mL (3.0-54.0)
== END 2023-09-13 18:16 | disposition home or self-care (01) ==
PROVIDERS: Emergency Provider Emergency Medicine; PCP Internal Medicine; Visit Provider Emergency Medicine
DX: J45.901 Unspecified asthma with (acute) exacerbation (principal); Z11.52 Encounter for screening for COVID-19; Z79.899 Other long term (current) drug therapy
CPT/HCPCS: 71045; 80048; 84484; 85025; 85379; 87631; 93005; 94640; 96374; 99284; A4216

== ENCOUNTER → 2023-09-25 | Outpatient (CLI) | payer MEDICARE, OTHER, SELFPAY ==
--- NOTE | 2023-09-25 | IMM_PTH ---
PATHOLOGY RESULTS PATIENT: ELLIOTT ANGELES LOC: [place] U#:[id number] AGE/SX: 77/F ROOM: RE09/25/[address]: Dr. Gumaro Jha MD : 1945 BED: DIS: 09/25/2023 SPEC #: [id number] RECD: 09/26/23 13:49 STATUS: SOUMckayla REQ #: [id number] CHANDRAKANT: 09/25/23 00:[address]: Gumaro Jha DEPT: IMMUNOHISTOCHEMISTRY RECD BY: Mary Carbajal ENTERED: 09/26/23 13:50 SP TYPE: IMMUNO OTHR DR: Dr. Evelyne Pascal MD Tissues: Left breast, NOS Procedures: CALPONIN-1 (add) CK8 (add) E-CAD (add) HER2 INOCENCIA (add) ND (add) P40 (add) ER (initial) PHYSICIAN & INSTITUTION [place] [address] SPECIMEN INFORMATION: Tissue Source: B - Anterior lesion left breast Clinical Info: Left 6 o'clock middle depth breast microcalcifications Specimen Number: [id number] B2 CPT code: 12456, 11815 x3, 22139 x3 METHODOLOGY: Deparaffinized sections of prefer/formalin-fixed tissue or PAP/DQ stained slides are incubated with monoclonal/polyclonal antibodies/oligonucleotide probes. Localization is made via biotin free immunoperoxidase method. Appropriate controls are performed and reacted as expected. Results on target cell population are indicated in the following table: RESULTS: ANTIBODY / CLONE RESULT Block B2 E-Cad (ECH-6) positive CK8 ([id number]) positive Calponin-1 (TD317F) positive (in myoepithelial cells) P40 (BC28) positive (in myoepithelial cells) MORPHOMETRIC ANALYSIS ER (clone 6F11) 0% ND (clone 16/1E2) 0% Her-2Neu (clone CB11) negative (0) The prognostic test for HER2 is performed on formalin-fixed paraffin embedded tissue. A 3+ (positive) staining pattern is defined as intense, homogeneous, complete, circumferential membranous staining in >10% of contiguous tumor cells. A similar weak (2+) staining pattern is interpreted as equivocal. PATRICK follow-up testing is recommended for all equivocal cases. Positivity/negativity for ER/ND is reported if > or < 1% of the tumor cells are immuno- reactive, respectively. The ASCO/CAP criteria is used for scoring. Reference: Journal of Clinical Oncology, 2013; 31:0190-5270 & 2010; 16:8040-5079. Ischemic time: Less than one hour. Duration of fixation: 7.5 Hrs; Sample Adequate: Yes. These assays have not been validated on decalcified tissues. Results should be interpreted with caution given the likelihood of false negativity on decalcified specimens or fixation greater than 72 hours. Alternative testing methods (FISH/dualISH for Her2; gene expression for ER) are recommended, if applicable. Please notify the laboratory if additional testing is required. These tests were developed and their performance characteristics determined by [facility]. They may not have been cleared or approved by the U.S. Food and Drug Administration. The FDA has determined that such clearance or approval is not necessary. The above immunohistochemical/dualISH markers are ordered and reviewed by the Pathologist. INTERPRETATION: B. Left breast, anterior lesion, excisional biopsy: Ductal carcinoma in situ. SJ:semaj 09/27/2023
--- NOTE | 2023-09-25 11:24 | PCM.HP.BLA ---
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: No Is patient in pain?: No Allergies aspirin Allergy (Severe, Verified 09/12/23 13:40) throat swellingacetaminophen Allergy (Verified 09/12/23 13:40) throat swellscefuroxime [From Ceftin] Allergy (Verified 09/12/23 13:40) Shortness of breathcitric acid [From Lashell-Rockwood] Allergy (Verified 09/12/23 13:40) throat swellsibuprofen Allergy (Verified 09/12/23 13:40) throat swellssodium bicarbonate [From Lashell-[place]] Allergy (Verified 09/12/23 13:40) throat swellsdiclofenac Adverse Reaction (Verified 09/12/23 13:40) Upset Stomach Medications albuterol sulfate 90 mcg/actuation aerosol inhaler (ProAir HFA) 1 puff inhalation TID PRN PRN Sob &/Or Wheezing 01/23/19 [History Confirmed 09/12/23] azelastine 137 mcg (0.1 %) nasal spray aerosol 2 sprays DAILY allergies 01/23/19 [History Confirmed 09/12/23] beclomethasone dipropionate 80 mcg/actuation nasal HFA inhaler (QNASL) 2 puff QHS ALLERGIES 01/23/19 [History Confirmed 09/12/23] benzonatate 100 mg capsule 100 mg PO Q4H PRN PRN Cough 01/23/19 [History Confirmed 09/12/23] budesonide-formoterol HFA 160 mcg-4.5 mcg/actuation aerosol inhaler (Symbicort) 1 puff PO BID SOB 01/23/19 [History Confirmed 09/12/23] conjugated estrogens 0.625 mg tablet (Premarin) 0.625 mg PO DAILY HORMONE 01/23/19 [History Confirmed 09/12/23] duloxetine 30 mg capsule,delayed release 30 mg PO DAILY DEPRESSION 01/23/19 [History Confirmed 09/12/23] lansoprazole 30 mg capsule,delayed release 30 mg PO DAILY HERNIA 01/23/19 [History Confirmed 09/12/23] lorazepam 0.5 mg tablet 1 mg PO QHS ANXIETY 01/23/19 [History Confirmed 09/12/23] montelukast 10 mg tablet 10 mg PO DAILY ALLERGIES 01/23/19 [History Confirmed 09/12/23] primidone 250 mg tablet 250 mg PO DAILY TREMORS 01/23/19 [History Confirmed 09/12/23] trazodone 50 mg tablet 50 mg PO DAILY SLEEP 01/23/19 [History Confirmed 06/06/21] calcium carbonate 500 mg-vitamin D3 3.125 mcg (125 unit) tablet 1 tab PO DAILY 09/12/23 [History Confirmed 09/12/23] cholecalciferol (vitamin D3) 25 mcg (1,000 unit) capsule 25 mcg PO DAILY 09/12/23 [History Confirmed 09/12/23] omega 3-dha 250 mg-epa 350 mg-fish oil 1,000 mg capsule cap PO 09/12/23 [History Confirmed 09/12/23] pyridoxine (vitamin B6) 100 mg tablet 100 mg PO DAILY 09/12/23 [History Confirmed 09/12/23] vitamin E (dl, acetate) 180 mg (400 unit) capsule 180 mg PO DAILY 09/12/23 [History Confirmed 09/12/23] [facility] Medical History (Updated 09/12/23 @ 13:37 by Tanya Warner) Abnormal mammogram of left breast Back pain Chronic sinusitis Community acquired pneumonia COPD (chronic obstructive pulmonary disease) Depression GERD (gastroesophageal reflux disease) Hiatal hernia Incompetence of rectovaginal tissue Sepsis Surgical History (Updated 09/12/23 @ 13:37 by Tanya Warner) H/O oral surgery S/P bunionectomy S/P excision of ganglion cyst S/P hysterectomy S/P left breast biopsy Family History (Updated 09/12/23 @ 13:39 by Tanya Warner) Mother Breast cancer AsthmaSister Cancer uterine Thyroid disorder cancer AsthmaBrother CAD (coronary artery disease)Father Asthma Social History Smoking Status: Never smoker alcohol intake: never HPI HPI HPI: 77-year-old female is referred by Dr. Babak Larios and Dr. Evelyne Pascal for surgical consultation regarding an abnormal mammogram and a written copy my surgical consult and recommendations will be returned to them. At the [facility] on August 14, 2023 the patient had screening mammography. There is evidence of vascular calcifications bilaterally. There is evidence of previous marking clip from a biopsy in the left breast. There felt to be grouped calcifications in the lower inner anterior aspect of the left breast that have increased in number. There is also felt to be another set of grouped calcifications in the lower outer aspect of the left breast that have increased in number. The interpretation states that the grouped pleomorphic calcifications in the left breast are suspicious of malignancy and stereotactic biopsy is recommended BI-RADS 4. On August 29, 2023 the patient had diagnostic left mammogram. This suggested grouped pleomorphic calcifications left breast 6 o'clock position middle depth. History provided suggest that I help the patient 2008 with stereotactic biopsy left breast for microcalcifications and then an additional excisional biopsy in the upper outer quadrant of the left breast. On my review of the images there appears to be a previous biopsy clip 6 o'clock position left breast. Anterior and posterior to this there appears to be 2 areas of clustered calcifications. The patient notes some mild discomfort upper outer quadrant left breast in the axillary tail area pectoralis major area. She herself however cannot detect any lumps or masses. She has no nipple discharge 77-year-old female. G2, . Menarche at age 17. First child born when she was 21. She did not breast-feed. She had a stereotactic needle core biopsy left breast 6 o'clock position and she had an excisional biopsy upper outer quadrant left breast. Both benign. Family history is notable for mother and grandmother both with breast cancer. ROS General General: No weight change, appetite, fatigue, colon cancer, breast cancer or weakness HEENT HEENT: Yes eye injury and eye surgery; No difficulty swallowing, swollen glands or hoarseness Endo Endocrine: No thyroid disease, diabetes mellitus, thyroid cancer, Hair loss, heat intolerance or cold intolerance Skin Skin: No rash or changing moles Breast Breast: Yes abnormal mammogram; No left breast lump, right breast lump, nipple discharge, breast pain, abnormal US or breast enlargement Musc Musculoskeletal: Yes back problems and arthritis; No rheumatoid arthritis, gout or joint pain Cardio Cardiovascular: No murmur, pacemaker, heart disease, atrial fibrillation, high blood pressure, heart attack, heart stent, palpitations, shortness of breat with exertion or chest pain Psych Psychiatric: Yes depression; No anxiety or hearing voices Resp Respiratory: Yes shortness of breath, No sleep apnea, No cough, No COPD, Yes asthma, No emphysema and No wheezing Gastro Gastrointestinal: No abdominal pain, No nausea or vomiting, No diarrhea, No constipation, No blood in stool, Yes acid reflux, No hemorrhoids, No ulcers, No gallbladder problem and No black,tarry stools Reji Hematologic: No blood thinners, No blood disorders, No bleeding, No anemia and No blood clots Neuro Neurologic: No system reviewed and no additional complaints, except as documented, No as per HPI, No abnormal gait, No abnormal hearing, No abnormal movements, No abnormal speech, No behavioral changes, No burning sensations, No confusion, No convulsions, No disequilibrium, No dizziness, No localized weakness, No frequent falls, No headache(s), No lack of coordination, No loss of vision, No memory loss, No numbness, No other visual disturbances, No radicular pain, No restless legs, No sensory deficit, No syncope, No tingling, No tremor(s), No weakness and No other Exam Const General: cooperative, comfortable and no acute distress HENNY Head: normal to inspection Neck Neck: normal visual inspection Chest Other: Right breast: No focal mass. No nipple discharge. No axillary or clavicular adenopathy Left breast: No focal mass. Well-healed curvilinear incision upper quadrant left breast. No distortion. No axillary clavicular adenopathy Resp Other: Minimal scattered wheeze Cardio Rate: regular rate Rhythm: regular rhythm Assessment and Plan Assessment and Plan (1) Abnormal mammogram of left breast: Status: Acute Plan: I recommend to the patient a stereotactic needle core left breast biopsy 6 o'clock position likely attempting to sample 2 areas in this location. She has had an opportunity to ask and have questions answered. She is aware of the technique, benefit, risk, alternatives. We will schedule and proceed at her discretion. I appreciate the opportunity of assisting with the surgical care. Copy: Dr. Babak Larios and Dr. Evelyne Jha M.D., F.A.C.S. I have examined the patient and the H&P has been reviewed. There are no clinical changes since date of exam. Gumaro Jha M.D., F.A.C.S.
--- NOTE | 2023-09-25 12:00 | BRBX_PTH ---
PATHOLOGY RESULTS PATIENT: ELLIOTT ANGELES LOC: [place] U#:[id number] AGE/SX: 77/F ROOM: RE09/25/[address]: Dr. Gumaro Jha MD : 1945 BED: DIS: 09/25/2023 SPEC #: [id number] RECD: 09/25/23 13:20 STATUS: SHANA PERLA #: [id number] CHANDRAKANT: 09/25/23 12:[address]: Gumaro Jha DEPT: SURGICAL PATHOLOGY RECD BY: Lizzie Banegas ENTERED: 09/25/23 14:01 SP TYPE: BREAST BX OTHR DR: Dr. Evelyne Pascal MD Tissues: Left breast, NOS Left breast, NOS Procedures: Surgery Specimen Level IV HEADER OPERATION: Left stereotactic breast biopsy PRE-OP DIAGNOSIS: Left 6 o'clock middle depth breast microcalcifications TISSUE SUBMITTED: A - Posterior lesion left breast, barbell clip, B - Anterior lesion left breast, bowtie clip MICROSCOPIC DIAGNOSIS A. Left breast, posterior lesion, stereotactic core biopsy: Intraductal hyperplasia with focal atypia. Frequent microcalcifications. Negative for malignancy. B. 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 Histologic grade - grade 3 (high). Necrosis - present, central (expansive comedo necrosis). Microcalcifications - present Other findings - intraductal hyperplasia with multifocal atypia. See comment. SJ:semaj 09/26/2023 COMMENT Immunohistochemistry ([id number]) supports the above diagnosis. ER/ND/Vhl4dpo studies are being performed on sections of tumor and the results from this study will be reported separately ([id number]). Case has been reviewed in consultation with Dr. Corral who concurs with the above diagnosis. IDC:AM MICROSCOPIC DESCRIPTION Slides are reviewed. GROSS DESCRIPTION A - Received in fixative is one container labeled with the patient's name and designated posterior left breast. The specimen consists of multiple elongated fragments of macario-yellow fibroadipose tissue that in aggregate measure 5.0 x 3.0 x 0.3 cm. The entire specimen is submitted in two cassettes. B - Received in fixative is one container labeled with the patient's name and designated anterior left breast. The specimen consists of multiple elongated fragments of macario-yellow fibroadipose tissue that in aggregate measure 5.0 x 3.0 x 0.3 cm. The entire specimen is submitted in two cassettes. / SJ:semaj 09/25/2023 TC:0 Ischemic Time: 2 minutes Fixation Time: 7.5 hours CPT: 72840 x2 ADDENDUM ADDENDUM 11/15/2023 09:27 This addendum is added to incorporate an outside pathology consultation report. The case was examined at [facility] (#[id number]) and the following diagnosis was rendered. A. Breast left, posterior lesion, stereotactic core biopsy; Benign breast parenchyma with usual ductal hyperplasia. No diagnostic morphologic features of intraductal atypia. Microcalcifications are present within benign breast. B. Breast left, anterior lesion, excisional biopsy; Ductal carcinoma in-situ (DCIS), high nuclear grade, with comedo necrosis. Microcalcifications are present within DCIS and benign breast. Please see complete above mentioned consultation report in EMR
--- NOTE | 2023-09-25 12:11 | OP.PCM_ITS ---
Report of Operation Date of Procedure: 09/25/23 Pre-Operative Diagnosis: Clustered microcalcifications inferior left breast 6 o 'clock position x 2 Post-Operative Diagnosis: Same Surgery/Procedure Performed:: Stereotactic needle core biopsy left breast 6 o'clock position x 2 Description of Surgical Findings:: Timeout informed consent was obtained. 77-year-old female was taken to the stereotactic room placed prone on the table the left breast was initially placed in a medial lateral view. Images were obtained stereotactic kevin were placed however stroke margin was -5. So then the patient was placed on the lateral to medial view. Ceretec images were obtained digital information obtained on the single target site stroke margin was -2. Breast was prepped with Betadine 1% lidocaine was used as a local anesthetic 9 cc was used this was the more inferior of the 2 clustering's. Small stab incision created 8 gauge resolved needle was advanced to prefire depth prefire films were obtained demonstrating adequate localization the device was fired 6 cores were obtained. Specimen mammograms demonstrated several clustered microcalcifications within the cores. A mini dumbbell clip was placed at this more inferior position. Pressure was held for hemostasis. Repeat stereotactic imaging was performed. For the second lesion in the inferior left breast again 1% lidocaine was instilled total of 9 cc. Small stab incision created. 8 gauge resolved needle was again advanced to prefire depth. Prefire films were obtained demonstrated adequate localization. The device was fired 6 cores were obtained specimen mammograms addendum demonstrated couple of the cores with microcalcifications present. A bowtie marking clip was placed. The patient was released from the device pressure was held for hemostasis Steri-Strip Telfa OpSite dressings applied. Upon collection the specimens were immediately transferred to separate containers of formalin. No apparent complication. Blood loss was minimal. She tolerated the procedure well. She will be notified of pathology results as soon as they are available. Gumaro Jha M.D., F.A.C.S. Surgeon: Gumaro Jha Type of Anesthesia: Local
== END | disposition home or self-care (01) ==
LOC: BIRAD 11:04
PROVIDERS: PCP Internal Medicine; Referring Provider Surgery; Visit Provider Surgery
DX: D05.12 Intraductal carcinoma in situ of left breast (principal); J44.9 Chronic obstructive pulmonary disease, unspecified; R92.0 Mammographic microcalcification found on diagnostic imaging of breast; Z79.899 Other long term (current) drug therapy; K21.9 Gastro-esophageal reflux disease without esophagitis; N64.1 Fat necrosis of breast
CPT/HCPCS: 19081; 19082; 88305; 88341; 88342; J7050; A4648

== ENCOUNTER → 2023-10-08 | Outpatient (CLI) | payer MEDICARE, OTHER, SELFPAY ==
--- NOTE | 2023-10-08 12:50 | MRI_ITS ---
STUDY: BILATERAL BREAST MR WITHOUT AND WITH CONTRAST REASON FOR EXAM: Female, 77 years old. 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 TECHNIQUE: Multi-sequence multi-echo imaging of both breasts was performed with a dedicated breast coil. T1-weighted and T2-weighted images were performed before the administration of contrast. T1-weighted images were also performed after the intravenous administration of 10cc of Clariscan. COMPARISON: Stereotactic biopsy images dated 09/25/2023 FINDINGS: RIGHT BREAST: Scattered fibroglandular density with minimal background enhancement. No abnormal enhancing masses or areas of non-mass enhancement in the right breast. LEFT BREAST: Scattered fibroglandular density with minimal background enhancement. At the 6:00 position, an ill-defined region of linear and non-mass enhancement located 3.5 cm behind the nipple and measuring 3.3 cm x 2 cm x 2.9 cm. Tissue clip marker artifact is noted in the posterior aspect of the enhancing region. No enlarged or abnormal lymph nodes. No abnormality in the visualized regions of the chest or liver. MRI/Breast Bilateral W/O and W IMPRESSION: Ill-defined region of linear and non-mass enhancement 3.5 cm behind the nipple at approximately the 6:00 position measuring 3.3 cm x 2 cm x 2.9 cm with tissue clip marker artifact corresponding to the mammographic region of calcifications shown on the stereotactic biopsy. No other suspicious enhancing lesions in either breast and no pathologically enlarged or abnormal lymph nodes. CATEGORY: BIRADS Category 6: Known Biopsy-Proven Malignancy - Appropriate Action Should Be Taken. A letter regarding these results will be sent to the patient by the facility within 30 days. Electronically Signed: Ortiz Thornton MD at 14:52 EST ,
== END | disposition home or self-care (01) ==
LOC: MRI 12:34
PROVIDERS: PCP Internal Medicine; Visit Provider Surgery
DX: D05.12 Intraductal carcinoma in situ of left breast (principal)
CPT/HCPCS: 77049; A9575; A4216; C8908

== ENCOUNTER → 2024-12-18 | Outpatient (CLI) | payer MEDICARE, OTHER, SELFPAY | END | disposition home or self-care (01) | LOC: LABSPEC 15:19 | PROVIDERS: PCP Internal Medicine; Referring Provider Otolaryngology; Visit Provider Otolaryngology | DX: J32.9 Chronic sinusitis, unspecified (principal) | CPT/HCPCS: 87070; 87077; 87186; 87205 ==

== ENCOUNTER → 2025-02-26 | Outpatient (CLI) | payer MEDICARE, OTHER, SELFPAY ==
--- NOTE | 2025-02-26 13:53 | CT_ITS ---
PROCEDURE: SINUS/FACIAL BONE 02/26/2025 REASON FOR EXAM: OTHER CHRONIC SINUSITIS TECHNIQUE: SINUS/FACIAL BONE Coronal and Sagittal reconstruction series were provided. One or more dose reduction techniques were used (e.g., Automated exposure control, adjustment of the mA and/or kV according to patient size, use of iterative reconstruction technique). RADIATION DOSE SUMMARY: CTDlvol: mGy DLP: mGycm COMPARISON: 11-29-2017 FINDINGS: Stable bilateral maxillary antrostomy, ethmoidectomy and middle turbinectomy. Progression of the mucosal thickening of the ethmoidal air cells, sphenoid and frontal sinuses as well as the maxillary antra. Sphenoid sinus frothy secretions. Fovea Ethmoidalis: Normal position. Fovea ethmoidalis and cribriform plate are not low lying Nasal Septum: defective superior aspect. Turbinates: Thickening of the mucosa covering the inferior turbinates. Nasopharynx: no obvious abnormalities. Mastoid air cells and middle ear clefts: Unremarkable Facial Bones and mandible: Unremarkable. CT/Sinus/Facial Bone IMPRESSION: Progression of the degree of the pansinusitis. Stable rest of the study. Reading [facility]
== END | disposition home or self-care (01) ==
LOC: CT 13:53
PROVIDERS: PCP Internal Medicine; Referring Provider Otolaryngology; Visit Provider Otolaryngology
DX: J32.9 Chronic sinusitis, unspecified (principal)
CPT/HCPCS: 70486

== ENCOUNTER → 2025-07-31 | Outpatient (CLI) | payer MEDICARE, OTHER, SELFPAY | END | disposition home or self-care (01) | LOC: LABSPEC 16:14 | PROVIDERS: PCP Internal Medicine; Referring Provider Otolaryngology; Visit Provider Otolaryngology | DX: J32.9 Chronic sinusitis, unspecified (principal) | CPT/HCPCS: 87070; 87077; 87186; 87205 ==